=== PATIENT | female | born 1945 | race Caucasian/White ===

== ENCOUNTER 2016-10-23 14:43 | Outpatient (RCR) | payer MEDICARE, OTHER ==
[~2016-10-23 14:43] MED LIST: ATRV10T PO; CYCL10TA9 PO; HYDR-1231 PO; LISI2.5T56 PO; LVT.1T PO; MECL-106 PO; ONDA4TAB8 PO; SCOP1PAT TD
== END 2016-10-23 15:32 | disposition home or self-care (01) ==
PROVIDERS: ATTEND Nurse Practitioner Family
DX: M25.562 Pain in left knee (principal)

== ENCOUNTER 2017-06-06 18:48 | Emergency (ER) | payer MEDICARE, OTHER ==
[~2017-06-06] VITALS: Ht 172.7 cm; Wt 78.9 kg
--- NOTE | 2017-06-06 19:21 | ED Back Pain ---
General Stated Complaint: SHOOTING BACK PAIN Source of Information: Patient, Family (daughter), Spouse Exam Limitations: No Limitations History of Present Illness Time Seen by Provider: 19:17 Initial Comments Patient presents ER with right-sided back pain that is intermittent colicky and very severe when it comes on and nonexistent when it goes away lasting a few minutes at a time causing her to double over that started about the time she woke up this morning. She's never had this pain before. She has no history of coronary disease. She does not smoke or drink or user of recreational drugs. She states many years ago she had some bad sciatica have this pain does not radiate anywhere and is about the level of her kidneys. She is not taking any pain medicines and has been stable on just a statin, SEGUN inhibitor and levothyroxine. She took some Advil this afternoon but it does not stop the pain from coming. She does not stress any nausea rash fever discharge dysuria diarrhea or constipation. She is not of her had a kidney stone and the only surgery she's had on her belly was for a tubal . Allergies and Home Medications Allergies Coded Allergies: estrogens, conjugated (Verified Allergy, Unknown, 01/29/17) medroxyprogesterone acetate (Verified Allergy, Unknown, 01/29/17) Home Medications Atorvastatin Calcium 10 Mg Tablet, 1 EACH PO HS, (Reported) Levothyroxine Sodium 100 Mcg Tablet, 1 EACH PO DAILY, (Reported) Lisinopril 2.5 Mg Tablet, 2.5 MG PO DAILY, #30 (Reported) Meclizine HCl 25 Mg Tablet, 25-50 MG PO Q6H, #30 Prescribed by: HARPER DILLON on 07/19/162109 Ondansetron 4 Mg Tab.rapdis, 4 MG PO Q4H, #10 Prescribed by: HARPER DILLON on 07/19/162109 Scopolamine 1 Each Patch.td72, 1 EACH TD Q72 HOURS, #3 Prescribed by: HARPER DILLON on 07/19/162109 Constitutional: No chills, No diaphoresis, No fever, No malaise EENTM: No ear pain, No blurred vision, No eye pain Respiratory: cough (occasional dry), No phlegm, No short of breath, No wheezing Cardiovascular: No chest pain, No Hx of Intervention, No palpitations, No vascular heart diseas Gastrointestinal: No abdominal pain, No constipation, No diarrhea, No nausea Genitourinary: No discharge, No dysuria : No Control/STD Prophylaxis: None Musculoskeletal: see HPI, back pain Skin: No pruritus, No rash Psychiatric/Neurological: Denies Headache, Denies Numbness, Denies Paresthesia Past [id number] Hx Patient Social History Alcohol Use: Denies Use Recreational Drug Use: No Smoking Status: Never a Smoker Recent Foreign Travel: No Contact w/Someone Who Travel: No Recent Hopitalizations: No Immunizations Up To Date Date of Pneumonia Vaccine: Jul 05, 2012 Date of Influenza Vaccine: Jul 05, 2014 Seasonal Allergies Seasonal Allergies: Yes Surgeries Surgeries: Breast Cardiovascular Cardiac Disorders: High Cholesterol, Hypertension Neurological Neurological Disorders: Vertigo Reproductive System Hx Reproductive Disorders: 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 Endocrine Endocrine Disorders: Hypothyroidsim Physical Exam Vital Signs Capillary Refill : General Appearance: No Apparent Distress, WD/WN (Yes I want another fluorescein stain to go on an I and is only 2 minutes out Accident I) HEENT: PERRL/EOMI, Pharynx Normal Neck: Full Range of Motion, Non Tender, Supple Cardiovascular: Regular Rate, Rhythm, No Edema, No Murmur, Normal Peripheral Pulses Respiratory: Chest Non Tender, Lungs Clear, Normal Breath Sounds, No Accessory Muscle Use, No Respiratory Distress Peripheral Pulses: 2+ Radial Pulses (R), 2+ Radial Pulses (L) Gastrointestinal: Normal Bowel Sounds, No Organomegaly, No Pulsatile Mass, Non Tender, Soft Back: Normal Inspection, No Vertebral Tenderness, No Muscle Spasm, Other ( nontender to palpation all over her back. She points to the right side base of the costovertebral angle.) Extremity: Normal Capillary Refill, No Pedal Edema Neurologic/Psychiatric: Alert, Oriented x3 Skin: Normal Color, Warm/Dry Progress/Results/Core Measures Results/Orders Lab Results Laboratory Tests Test 06/06/17 19:18 06/06/17 19:30 Range/Units Urine Color YELLOW Urine Clarity CLEAR Urine pH 6 5-9 Urine Specific [place] 1.020 1.016-1.022 Urine Protein NEGATIVE NEGATIVE Urine Glucose (UA) NEGATIVE NEGATIVE Urine Ketones NEGATIVE NEGATIVE Urine Nitrite NEGATIVE NEGATIVE Urine Bilirubin NEGATIVE NEGATIVE Urine Urobilinogen NORMAL NORMAL MG/DL Urine Leukocyte Esterase 2+ H NEGATIVE Urine RBC (Auto) NEGATIVE NEGATIVE Urine RBC NONE /HPF Urine WBC 2-5 /HPF Urine Squamous Epithelial Cells 0-2 /HPF Urine Crystals NONE /LPF Urine Bacteria TRACE /HPF Urine Casts NONE /LPF Urine Mucus NEGATIVE /LPF Urine Culture Indicated NO White Blood Count 5.7 4.3-11.0 10^3/uL Red Blood Count 4.10 L 4.35-5.85 10^6/uL Hemoglobin 12.6 11.5-16.0 G/DL Hematocrit 38 35-52 % Mean Corpuscular Volume 94 80-99 FL Mean Corpuscular Hemoglobin 31 25-34 PG Mean Corpuscular Hemoglobin Concent 33 32-36 G/DL Red Cell Distribution Width 13.8 10.0-14.5 % Platelet Count 217 130-400 10^3/uL Mean Platelet Volume 11.1 H 7.4-10.4 FL Neutrophils (%) (Auto) 53 42-75 % Lymphocytes (%) (Auto) 32 12-44 % Monocytes (%) (Auto) 11 0-12 % Eosinophils (%) (Auto) 4 0-10 % Basophils (%) (Auto) 1 0-10 % Neutrophils # (Auto) 3.0 1.8-7.8 X 10^3 Lymphocytes # (Auto) 1.8 1.0-4.0 X 10^3 Monocytes # (Auto) 0.6 0.0-1.0 X 10^3 Eosinophils # (Auto) 0.2 0.0-0.3 10^3/uL Basophils # (Auto) 0.0 0.0-0.1 10^3/uL Sodium Level 143 135-145 MMOL/L Potassium Level 4.1 3.6-5.0 MMOL/L Chloride Level 107 98-107 MMOL/L Carbon Dioxide Level 25 21-32 MMOL/L Anion Gap 11 5-14 MMOL/L Blood Urea Nitrogen 28 H 7-18 MG/DL Creatinine 1.03 0.60-1.30 MG/DL Estimat Glomerular Filtration Rate 53 BUN/Creatinine Ratio 27 Glucose Level 107 H 70-105 MG/DL Calcium Level 9.3 8.5-10.1 MG/DL Magnesium Level 2.4 1.8-2.4 MG/DL Total Bilirubin 0.7 0.1-1.0 MG/DL Aspartate Amino Transf (AST/SGOT) 19 5-34 U/L Alanine Aminotransferase (ALT/SGPT) 26 0-55 U/L Alkaline Phosphatase 67 40-136 U/L Total Protein 6.2 L 6.4-8.2 GM/DL Albumin 4.1 3.2-4.5 GM/DL Lipase 40 8-78 U/L My Orders Orders - BRUNO SHARMA Ct Abd/Pelvis Wo(Kidney Stone) (06/06/17 19:15) Lipase (06/06/17 19:15) Magnesium (06/06/17 19:15) Progress Note : Time: 19:20 Progress Note Right back colicky pain is quite severe could be consistent with kidney stone so we'll get a CT. We'll also check her urine and blood looking at the pancreas and liver and kidney function. Diagnostic Imaging Diagonstic Imaging: CT Plain Films/CT/US/NM/MRI: abdomen, pelvis Comments No Stones in KUB. Constipation. VIA [facility]. [place] NAME: SHEILA WASHINGTON Loren [facility] REC#: [id number] PT STATUS: REG ER : 1945 PHYSICIAN: BRUNO SHARMA MD ADMIT DATE: 06/06/17/ER Draft Date of Exam:06/06/17 CT ABD/PELVIS WO(KIDNEY STONE) PROCEDURE: CT urinary tract, rule out kidney stone. TECHNIQUE: Multiple contiguous axial images were obtained through the abdomen and pelvis without the use of intravenous contrast. INDICATION: Right-sided flank pain. FINDINGS: The visualized lung bases are clear without infiltrate or effusion. The noncontrast appearance of the liver is unremarkable. There is no gallbladder distention, radiodense gallstone or evidence of biliary dilatation. The spleen is normal in size. The pancreas has an unremarkable CT appearance. There is no adrenal mass. The kidneys appear nonobstructed. There is no hydronephrosis. There is no stone evident within the kidneys or the ureters. There is no stone within the urinary bladder. Large degree of food products are present within the stomach. The duodenal sweep is unremarkable. There is no abnormal small bowel dilation demonstrated. There is, however, a large degree of stool demonstrated throughout the colon suggesting significant constipation. There is no evidence of abnormal colonic thickening or evidence of inflammatory fat stranding within the omentum or mesentery. The appendix is normal. There is some fecalization of distal loops of small bowel suggesting a poor enteric transit. There is no free air, free fluid or abscess. Urinary bladder, uterus and adnexa are unremarkable by CT. No pathologically enlarged abdominal or pelvic lymph nodes are demonstrated. There are mild atherosclerotic calcifications within the aorta. Multilevel degenerative endplate changes and facet arthropathy within the spine but there is no acute or suspicious osseous abnormality evident. IMPRESSION: 1. No CT evidence of urolithiasis. There is no hydronephrosis. There is no stone within the kidneys, ureters or urinary bladder. 2. Marked degree of stool demonstrated within the colon as well as fecalization of distal small bowel loops. There is no dilation to suggest obstruction or focal surrounding inflammation. There is no free fluid. Findings suggest significant constipation. Dictated on workstation # [id number] Dict: 06/06/171958 Trans: 06/06/172006 [facility] [id number] Interpreted by: MAHESH MEANS MD Electronically signed by: Reviewed: Reviewed by Me Departure Impression Impression: Primary Impression: Right flank pain Additional Impression: Constipation Qualified Codes: K59.00 - Constipation, unspecified Disposition: HOME, SELF-CARE Condition: Stable Departure-Patient Inst. Decision time for Depature: 20:18 Referrals: SHARON BOLTON MD (PCP/Family) Primary Care Physician Patient Instructions: Constipation, Adult (DC) Add. Discharge Instructions: Drink copious amounts of fluids and clam picker a bottle of MiraLAX. Take one capful in a 8 ounce glass of water you choose to drink such as coffee, tea, water every day until you have resolution. You can increase that up to 4 times a day and use it as needed in the future to prevent constipation. If you have new or worsening symptoms or develop fevers or intractable nausea and vomiting you should return to the ER otherwise plan on just following up with your primary care physician as needed. Copy Copies To 1: SHARON BOLTON MD, TITUS J Jun 06, 2017 19:21
[2017-06-06 19:28] LABS: BILIRUBIN,URINE NEGATIVE (NEGATIVE); KETONES,URINE NEGATIVE (NEGATIVE); LEUKOCYTE ESTERASE ,URINE 2+ (NEGATIVE); NITRITE,URINE NEGATIVE (NEGATIVE); PH,URINE 6 (5-9); PROTEIN,URINE NEGATIVE (NEGATIVE); UROBILINOGEN,URINE NORMAL (NORMAL)
[2017-06-06 19:36] LABS: BASOPHILS % (AUTO) 1 % (0-10); EOSINOPHILS # (AUTO) 0.2 10^3/uL (0.0-0.3); EOSINOPHILS % (AUTO) 4 % (0-10); LYMPHOCYTES # (AUTO) 1.8 X 10^3 (1.0-4.0); LYMPHOCYTES % (AUTO) 32 % (12-44); MEAN CORPUSCULAR HEMOGLOBIN 31 PG (25-34); MEAN CORPUSCULAR HGB CONC 33 G/DL (32-36); MEAN CORPUSCULAR VOLUME 94 FL (80-99); MEAN PLATELET VOLUME 11.1 FL (7.4-10.4); MONOCYTES # (AUTO) 0.6 X 10^3 (0.0-1.0); MONOCYTES % (AUTO) 11 % (0-12); NEUTROPHILS % (AUTO) 53 % (42-75); PLATELET COUNT 217 10^3/uL (130-400); RED CELL DISTRIBUTION WIDTH 13.8 % (10.0-14.5); WHITE BLOOD COUNT 5.7 10^3/uL (4.3-11.0)
[2017-06-06 19:38] LABS: SQUAMOUS EPITHELIAL CELL,UR 0-2 /HPF
[2017-06-06 19:57] LABS: ALBUMIN 4.1 GM/DL (3.2-4.5); BILIRUBIN,TOTAL 0.7 MG/DL (0.1-1.0); CALCIUM 9.3 MG/DL (8.5-10.1); CREATININE SERUM 1.03 MG/DL (0.60-1.30); MAGNESIUM 2.4 MG/DL (1.8-2.4); POTASSIUM 4.1 MMOL/L (3.6-5.0); TOTAL PROTEIN 6.2 GM/DL (6.4-8.2)
--- NOTE | 2017-06-06 20:08 | Diagnostic Imaging Report ---
PROCEDURE: CT urinary tract, rule out kidney stone. TECHNIQUE: Multiple contiguous axial images were obtained through the abdomen and pelvis without the use of intravenous contrast. INDICATION: Right-sided flank pain. FINDINGS: The visualized lung bases are clear without infiltrate or effusion. The noncontrast appearance of the liver is unremarkable. There is no gallbladder distention, radiodense gallstone or evidence of biliary dilatation. The spleen is normal in size. The pancreas has an unremarkable CT appearance. There is no adrenal mass. The kidneys appear nonobstructed. There is no hydronephrosis. There is no stone evident within the kidneys or the ureters. There is no stone within the urinary bladder. Large degree of food products are present within the stomach. The duodenal sweep is unremarkable. There is no abnormal small bowel dilation demonstrated. There is, however, a large degree of stool demonstrated throughout the colon suggesting significant constipation. There is no evidence of abnormal colonic thickening or evidence of inflammatory fat stranding within the omentum or mesentery. The appendix is normal. There is some fecalization of distal loops of small bowel suggesting a poor enteric transit. There is no free air, free fluid or abscess. Urinary bladder, uterus and adnexa are unremarkable by CT. No pathologically enlarged abdominal or pelvic lymph nodes are demonstrated. There are mild atherosclerotic calcifications within the aorta. Multilevel degenerative endplate changes and facet arthropathy within the spine but there is no acute or suspicious osseous abnormality evident. IMPRESSION: 1. No CT evidence of urolithiasis. There is no hydronephrosis. There is no stone within the kidneys, ureters or urinary bladder. 2. Marked degree of stool demonstrated within the colon as well as fecalization of distal small bowel loops. There is no dilation to suggest obstruction or focal surrounding inflammation. There is no free fluid. Findings suggest significant constipation. Dictated by: Dictated on workstation # [id number]
[2017-06-06] MEDS ORDERED: LEVO88TA54 PO (20:16)
[2017-06-06 20:40] VITALS: BP 170/76
== END 2017-06-06 20:40 | disposition home or self-care (01) ==
LOC: EDUNIT# 18:48 → ER 18:49
DX: K59.00 Constipation, unspecified (principal); E78.00 Pure hypercholesterolemia, unspecified; I10 Essential (primary) hypertension; E03.9 Hypothyroidism, unspecified
CPT/HCPCS: 36415; 74176; 80053; 81000; 83690; 83735; 85025; 99282

== ENCOUNTER → 2017-06-30 | Outpatient (CLI) | payer MEDICARE, OTHER ==
[~2017-06-30] MED LIST changes: +LEVO88TA54 PO
--- NOTE | 2017-06-30 18:51 | Diagnostic Imaging Report ---
Bilateral screening mammogram 2D views with tomosynthesis. The current study was also evaluated with a Computer Aided Detection (CAD) system. INDICATION: Screening. No current complaints stated on the questionnaire. COMPARISON: 06/19/16 FINDINGS: The breasts are composed of heterogeneously dense parenchyma which may decrease mammographic sensitivity. Allowing for technique and positional differences, no suspicious change is seen. IMPRESSION: Dense breasts with no definite change. ACR BI-RADS Category 2: Benign findings. Result letter will be mailed to the patient. Note: At least 10% of breast cancer is not imaged by mammography. Dictated by: Dictated on workstation # [id number]
== END ==
LOC: RAD 08:55
PROVIDERS: ATTEND Nurse Practitioner Family
DX: Z12.31 Encounter for screening mammogram for malignant neoplasm of breast (principal)
CPT/HCPCS: 77067

== ENCOUNTER 2017-11-02 08:38 | Emergency (ER) | payer MEDICARE, OTHER ==
[~2017-11-02] VITALS: Ht 172.7 cm; Wt 72.1 kg
--- OUTSIDE RECORDS SUMMARY | 2017-11-02 08:45 | XMS REPORT | CCD ---
Author Author [facility] Address [address] [place] [address] Phone Care Team Providers Care Patient Relations Director Name Role Phone PP Unavailable CCM Unavailable Summary Purpose Interface Exchange Insurance Providers Payer name Policy type / Coverage type Covered libertarian ID Effective Begin Date Effective End Date WPS Medicare Part B Medicare Part B [id number] 2013 Unknown [facility] Medicare Part B [id number] 2013 Unknown Family history Father Diagnosis Age At Onset No Family Disease Entered N/A Son Diagnosis Age At Onset No Family Disease Entered N/A Runs in the family Diagnosis Age At Onset No Family Disease Entered N/A Brother Diagnosis Age At Onset No Family Disease Entered N/A Mother Diagnosis Age At Onset No Family Disease Entered N/A Grandson Diagnosis Age At Onset No Family Disease Entered N/A Daughter Diagnosis Age At Onset No Family Disease Entered N/A Sister Diagnosis Age At Onset No Family Disease Entered N/A Social History Social History Element Codes Description Effective Dates Marital status Unknown 05/31/2012 Employment Unknown Retired 05/31/[address]: 004158387 Never smoker 05/31/[address]: 218051796 Never drinks alcohol 05/31/2012 Has the patient ever used illegal drugs? Unknown Has never used illegal drugs 05/31/2012 Allergies, Adverse Reactions, Alerts Substance Reaction Codes Entered Date Inactivated Date Status ESTROGENS rash Unknown 05/31/2012 No Inactive Date Active Past Medical History Illness Codes Condition Status Onset Date Resolved Date Benign paroxysmal vertigo, bilateral ICD-9: 386.11 ICD-10: H81.13 Active 02/25/2016 Unknown Other allergic rhinitis ICD-9: 477.8 ICD-10: J30.89 Active 08/14/2016 Unknown Encounter for immunization ICD-9: V04.81 ICD-10: Z23 Active 07/02/2017 Unknown Essential (primary) hypertension ICD-9: 401.9 ICD-10: I10 Active 01/30/2016 Unknown Hypothyroidism, unspecified ICD-9: 244.9 ICD-10: E03.9 Active 01/30/2016 Unknown Mixed hyperlipidemia ICD-9: 272.4 ICD-10: E78.2 Active 01/30/2016 Unknown Type 2 diabetes mellitus without complications ICD-9: 250.00 ICD-10: E11.9 Active 01/30/2016 Unknown Encounter for immunization ICD-9: V03.82 ICD-10: Z23 Active 08/14/2016 Unknown Pain in left knee ICD- 9: 719.46 ICD-10: M25.562 Active 08/14/2016 Unknown Pneumonia, unspecified organism ICD-9: 486 ICD-10: J18.9 Active 05/18/2016 Unknown Other seasonal allergic rhinitis ICD-9: 477.8 ICD-10: J30.2 Active 02/25/2016 Unknown Other screening mammogram ICD-9: V76.12 Active 05/09/2015 Unknown Depression Unknown Active 01/24/2014 Unknown Depression ICD-9: 311 Active 01/24/2014 Unknown Sciatica Unknown Active 12/27/2013 Unknown SACROILIITIS NEC ICD-9 : 720.2 Active 12/27/2013 Unknown Sciatica ICD-9: 724.3 Active 12/27/2013 Unknown Diabetes Unknown Active 10/24/2013 Unknown Hypertension Unknown Active 10/24/2013 Unknown DIABETES TYPE II ICD-9 : 250.00 Active 10/24/2013 Unknown ESSENTIAL HYPERTENSION ICD-9: 401.9 Active 10/24/2013 Unknown Osteopenia ICD-9: 733.90 Active 10/24/2013 Unknown Elevated blood sugar ICD-9: 790.29 Active 07/26/2013 Unknown Plantar fasciitis ICD- 9: 728.71 Active 05/20/2013 Unknown Well woman exam with routine gynecological exam ICD-9: V72.31 Active 10/28/2012 Unknown VACCIN FOR INFLUENZA ICD-9: V04.81 Active 08/05/2012 Unknown Elevated liver enzymes ICD-9: 790.4 Active 06/02/2012 Unknown Fatigue ICD-9: 780.79 Active 06/02/2012 Unknown Hyperlipidemia Unknown Active 05/31/2012 Unknown Hypothryroidism Unknown Active 05/31/2012 Unknown Acute maxillary sinusitis ICD-9: 461.0 Active 05/31/2012 Unknown Allergic rhinitis ICD- 9: 477.9 Active 05/31/2012 Unknown HYPERLIPIDEMIA ICD-9: 272.4 Active 05/31/2012 Unknown HYPOTHYROIDISM ICD-9: 244.9 Active 05/31/2012 Unknown Problems Condition Codes Effective Dates Condition Status Benign paroxysmal vertigo, bilateral ICD-9: 386.11 ICD-10: H81.13 02/25/2016 Active Other allergic rhinitis ICD-9: 477.8 ICD-10: J30.89 08/14/2016 Active Encounter for immunization ICD-9: V04.81 ICD-10: Z23 07/02/2017 Active Essential (primary) hypertension ICD-9: 401.9 ICD-10: I10 01/30/2016 Active Hypothyroidism, unspecified ICD-9: 244.9 ICD-10: E03.9 01/30/2016 Active Mixed hyperlipidemia ICD-9: 272.4 ICD-10: E78.2 01/30/2016 Active Type 2 diabetes mellitus without complications ICD-9: 250.00 ICD-10: E11.9 01/30/2016 Active Encounter for immunization ICD-9: V03.82 ICD-10: Z23 08/14/2016 Active Pain in left knee ICD- 9: 719.46 ICD-10: M25.562 08/14/2016 Active Pneumonia, unspecified organism ICD-9: 486 ICD-10: J18.9 05/18/2016 Active Other seasonal allergic rhinitis ICD-9: 477.8 ICD-10: J30.2 02/25/2016 Active Other screening mammogram ICD-9: V76.12 05/09/2015 Active Depression Unknown 01/24/2014 Active Depression ICD-9: 311 01/24/2014 Active Sciatica Unknown 12/27/2013 Active SACROILIITIS NEC ICD-9 : 720.2 12/27/2013 Active Sciatica ICD-9: 724.3 12/27/2013 Active Diabetes Unknown 10/24/2013 Active Hypertension Unknown 10/24/2013 Active DIABETES TYPE II ICD-9 : 250.00 10/24/2013 Active ESSENTIAL HYPERTENSION ICD-9: 401.9 10/24/2013 Active Osteopenia ICD-9: 733.90 10/24/2013 Active Elevated blood sugar ICD-9: 790.29 07/26/2013 Active Plantar fasciitis ICD- 9: 728.71 05/20/2013 Active Well woman exam with routine gynecological exam ICD-9: V72.31 10/28/2012 Active VACCIN FOR INFLUENZA ICD-9: V04.81 08/05/2012 Active Elevated liver enzymes ICD-9: 790.4 06/02/2012 Active Fatigue ICD-9: 780.79 06/02/2012 Active Hyperlipidemia Unknown 05/31/2012 Active Hypothryroidism Unknown 05/31/2012 Active Acute maxillary sinusitis ICD-9: 461.0 05/31/2012 Active Allergic rhinitis ICD- 9: 477.9 05/31/2012 Active HYPERLIPIDEMIA ICD-9: 272.4 05/31/2012 Active HYPOTHYROIDISM ICD-9: 244.9 05/31/2012 Active Medications Medication Codes Instructions Start Date Stop Date Status Fill Instructions meclizine 25 mg tablet RxNorm: 284796 1 Tablet(s) PO TID as needed Dizziness 10/28/2017 No Stop Date Active meclizine 25 mg tablet RxNorm: 081679 1 Tablet(s) PO TID as needed Dizziness 10/28/2017 11/01/2017 Active Kenalog 40 mg/mL suspension for injection RxNorm: 3045266 1 Milliliter(s) Inj 10/28/2017 10/28/2017 Inactive lisinopril 2.5 mg tablet RxNorm: 156019 TABLET(S) TAKE 1 TABLET DAILY 10/16/2017 No Stop Date Active atorvastatin 10 mg tablet RxNorm: 616994 TAKE 1 TABLET AT BEDTIME 08/21/2017 No Stop Date Active levothyroxine 88 mcg tablet RxNorm: 291396 TAKE 1 TABLET DAILY 06/01/2017 No Stop Date Active levothyroxine 88 mcg tablet RxNorm: 253753 TAKE 1 TABLET DAILY 12/25/2016 05/31/2017 Inactive atorvastatin 10 mg tablet RxNorm: 253247 Tablet(s) TABLET(S) TAKE 1 TABLET AT BEDTIME 10/29/2016 08/20/2017 Inactive atorvastatin 10 mg tablet RxNorm: 812440 TABLET(S) TAKE 1 TABLET AT BEDTIME 10/27/2016 10/28/2016 Inactive lisinopril 2.5 mg tablet RxNorm: 109811 Tablet(s) TAKE 1 TABLET DAILY 10/20/2016 10/14/2017 Inactive Flonase Allergy Relief 50 mcg/actuation nasal spray, suspension RxNorm: 1878586 1 [place] NASAL BID 08/15/2016 No Stop Date Active levothyroxine 88 mcg tablet RxNorm: 997902 1 TABLET(S) PO DAILY 06/27/2016 12/24/2016 Inactive Augmentin 500 mg-125 mg tablet RxNorm: 218601 1 Tablet(s) PO TID 05/19/2016 05/19/2016 Inactive atorvastatin 10 mg tablet RxNorm: 754281 Tablet(s) TAKE 1 TABLET AT BEDTIME 04/30/2016 10/26/2016 Inactive lisinopril 2.5 mg tablet RxNorm: 474192 TAKE 1 TABLET DAILY 10/19/2016 Inactive meclizine 25 mg tablet RxNorm: 885660 1 Tablet(s) PO QID as needed Dizziness 02/26/2016 03/03/2016 Inactive Flonase Allergy Relief 50 mcg/actuation nasal spray, suspension RxNorm: 2424604 1 [place] NASAL BID 02/26/20162015 Inactive Kenalog 40 mg/mL suspension for injection RxNorm: 8002507 Milliliter(s) Inj 02/26/2016 02/26/2016 Inactive levothyroxine 88 mcg tablet RxNorm: 246654 1 Tablet(s) PO daily 02/01/2016 02/07/2016 Inactive levothyroxine 88 mcg tablet RxNorm: 288055 1 Tablet(s) PO daily 02/01/2016 01/31/2016 Inactive levothyroxine 88 mcg tablet RxNorm: 707609 1 Tablet(s) PO daily 02/01/2016 01/31/2016 Inactive lisinopril 2.5 mg tablet RxNorm: 185676 1 TABLET(S) PO DAILY 2016 Inactive levothyroxine 100 mcg tablet RxNorm: 576773 TAKE 1 TABLET DAILY 12/24/2015 01/31/2016 Inactive atorvastatin 10 mg tablet RxNorm: 077683 TAKE 1 TABLET AT BEDTIME 07/31/2015 04/29/2016 Inactive levothyroxine 100 mcg tablet RxNorm: 606854 TAKE 1 TABLET DAILY 03/06/2015 12/23/2015 Inactive lisinopril 2.5 mg tablet RxNorm: 149422 1 Tablet(s) PO daily 01/27/2016 Inactive atorvastatin 10 mg tablet RxNorm: 527533 1 Tablet(s) PO daily TAKE 1 TABLET AT BEDTIME 09/14/2014 07/30/2015 Inactive atorvastatin 10 mg tablet RxNorm: 094674 1 Tablet(s) PO QHS 05/201409/10/2014 Inactive atorvastatin 10 mg tablet RxNorm: 477318 TAKE 1 TABLET AT BEDTIME 09/11/2014 09/13/2014 Inactive lisinopril 2.5 mg tablet RxNorm: 640541 1 Tablet(s) PO daily 12/02/2014 Inactive clobetasol 0.05 % topical cream RxNorm: 676423 1 Application TOP BID as needed 06/14/2014 06/13/2014 Inactive clobetasol 0.05 % topical cream RxNorm: 186359 1 Application TOP BID as needed 06/14/2014 09/11/2014 Inactive lisinopril 2.5 mg tablet RxNorm: 001162 1 Tablet(s) PO daily 08/21/2014 Inactive cyclobenzaprine 5 mg tablet RxNorm: 832084 1 Tablet(s) PO Q6 PRN 01/02/2014 03/02/2014 Inactive prednisone 20 mg tablet RxNorm: 293516 1 Tablet(s) PO TID 12/2912/28/2013 Inactive one tid or two q am one at noonhold naproxen while on prednisone. may restart naproxen when finishes prednisone prednisone 20 mg tablet RxNorm: 780298 1 Tablet(s) PO TID 12/2912/31/2013 Inactive one tid or two q am one at noonhold naproxen while on prednisone. may restart naproxen when finishes prednisone levothyroxine 100 mcg tablet RxNorm: 694019 1 Tablet(s) PO daily 12/27/2013 03/05/2015 Inactive naproxen 500 mg tablet RxNorm: 033484 1 Tablet(s) PO BID take one pill twice daily with food 12/27/2013 02/24/2014 Inactive atorvastatin 10 mg tablet RxNorm: 437152 1 Tablet(s) PO QHS 07/201409/10/2014 Inactive colestipol 5 gram oral packet RxNorm: 0597912 1 packet PO BID 10/31/2013 11/03/2013 Inactive Fish Oil 1,000 mg capsule RxNorm: 1 Capsule(s) PO BID 2013 No Stop Date Active WelChol 625 mg tablet RxNorm: 362944 3 Tablet(s) PO BID 201310/30/2013 Inactive ketoconazole 2 % shampoo RxNorm: 394339 1 Application TOP 3 x week 10/24/2013 11/22/2013 Inactive atorvastatin 10 mg tablet RxNorm: 052901 1 Tablet(s) PO QHS 11/13/2013 Inactive levothyroxine 100 mcg tablet RxNorm: 607677 1 Tablet(s) PO daily 11/30/2012 11/24/2013 Inactive fluticasone 50 mcg/actuation Nasal [place], Susp RxNorm: 931286 1 [place] NASAL BID 10/28/2012 01/30/2016 Inactive atorvastatin 10 mg tablet RxNorm: 823493 1 Tablet(s) PO QHS 03/201212/07/2012 Inactive atorvastatin 10 mg tablet RxNorm: 522501 1 Tablet(s) PO QHS 03/201208/09/2012 Inactive Influenza Virus Vaccine 0.5 mL RxNorm: IM 08/05/2012 08/05/2012 Inactive Crestor 20 mg tablet RxNorm: 988439 1 Tablet(s) PO daily 201106/14/2012 Inactive levothyroxine 100 mcg tablet RxNorm: 982488 1 Tablet(s) PO daily 05/31/2012 09/27/2012 Inactive Bactrim DS 800 mg-160 mg tablet RxNorm: 194252 1 Tablet(s) PO BID 05/31/2012 06/04/2012 Inactive Vitamin D3 1,000 unit capsule RxNorm: 724128 1 Capsule(s) PO daily No Start Date Active glucosamine HCl 1,500 mg tablet RxNorm: 841558 2 Tablet(s) PO daily No Start Date Active aspirin 81 mg capsule,delayed release RxNorm: 150969 1 Capsule(s) PO daily No Start Date Active colestipol 5 gram oral packet RxNorm: 9480047 1 packet PO BID No Start Date 10/30/2013 Inactive Fish Oil 1,000 mg capsule RxNorm: 1 Capsule(s) PO TID No Start Date 10/23/2013 Inactive Fish Oil 360 mg-1,200 mg capsule RxNorm: 729791 1 Capsule(s) PO daily No Start Date 10/24/2013 Inactive levothyroxine 100 mcg tablet RxNorm: 145552 1 Tablet(s) PO daily No Start Date 05/30/2012 Inactive Crestor 20 mg tablet RxNorm: 479960 1 Tablet(s) PO daily No Start Date 05/30/2012 Inactive Calcium 600 + D(3) 600 mg (1,500 mg)-400 unit tablet RxNorm: 400071 1 Tablet(s) PO daily No Start Date 10/23/2013 Inactive Medication Administered Medication Codes Instructions Start Date Status Kenalog 40 mg/mL suspension for injection RxNorm: 5003372 1Milliliter 10/28/2017 Active Kenalog 40 mg/mL suspension for injection RxNorm: 9696850 Milliliter 02/26/2016 No longer Active Influenza Virus Vaccine 0.5 mL RxNorm: 08/05/2012 No longer Active Immunizations Vaccine Codes Date Status Influenza CVX: 141 07/02/2017 completed Pneumococcal (Adult) CVX: 133 08/15/2016 completed Influenza CVX: 141 07/19/2016 completed Influenza CVX: 141 07/18/2013 completed Influenza CVX: 141 08/05/2012 completed Pneumococcal CVX: 33 08/24/2011 completed Zoster CVX: 121 02/21/2011 completed Assessments Condition Codes Effective Dates Other allergic rhinitis ICD-10: J30.89 ICD-9: 477.8 10/28/2017 Benign paroxysmal vertigo, bilateral ICD-10: H81.13 ICD-9: 386.11 10/28/2017 Encounter for immunization ICD-10: Z23 ICD-9: V04.81 07/02/2017 Mixed hyperlipidemia ICD-10: E78.2 ICD-9: 272.4 06/10/2017 Other specified hypothyroidism ICD-10: E03.8 ICD-9: 244.8 06/10/2017 Type 2 diabetes mellitus without complications ICD-10: E11.9 ICD-9: 250.00 06/10/2017 Essential (primary) hypertension ICD-10: I10 ICD-9: 401.9 06/10/2017 Pain in left knee ICD-10: M25.562 ICD-9: 719.46 08/15/2016 Encounter for immunization ICD-10: Z23 ICD-9: V03.82 08/15/2016 Pneumonia, unspecified organism ICD-10: J18.9 ICD-9: 486 05/19/2016 Other seasonal allergic rhinitis ICD-10: J30.2 ICD-9: 477.8 02/26/2016 Hypothyroidism, unspecified ICD-10: E03.9 ICD-9: 244.9 01/31/2016 Other screening mammogram ICD-9: V76.12 05/10/2015 ESSENTIAL HYPERTENSION SNOMED: 30799313 ICD-9: 401.9 01/24/2014 Depression ICD-9: 311 01/24/2014 DIABETES TYPE II SNOMED: 559671702 ICD-9: 250.00 01/24/2014 SACROILIITIS NEC ICD-9: 720.2 12/27/2013 Sciatica ICD-9: 724.3 12/27/2013 HYPERLIPIDEMIA ICD-9: 272.4 10/24/2013 Osteopenia ICD-9: 733.90 10/24/2013 Elevated blood sugar ICD-9: 790.29 2012 Plantar fasciitis ICD-9: 728.71 2012 Well woman exam with routine gynecological exam ICD-9: V72.31 10/28/2012 VACCIN FOR INFLUENZA ICD-9: V04.81 2011 Elevated liver enzymes ICD-9: 790.4 06/02 Fatigue ICD-9: 780.79 06/02/2012 HYPOTHYROIDISM ICD-9: 244.9 05/31/2012 Acute maxillary sinusitis ICD-9: 461.0 Allergic rhinitis ICD-9: 477.9 2011 Reason For Visit Reason For Visit Effective Dates Notes Hospital Follow Up 10/28/2017 Urgent Care follow up vaccination against influenza 07/02/2017 hypertension 06/10/2017 cough 08/15/2016 knee pain 07/16/2016 cough 05/19/2016 vertigo 02/26/2016 diabetes mellitus 01/31/2016 diabetes mellitus 01/24/2014 hip pain 12/27/2013 blood pressure followup 10/24/2013 diabetes mellitus 07/26/2013 foot pain 05/20/2013 well woman exam (65+ years) 10/28/2012 vaccination against influenza 08/05/2012 abnormal test results 06/02/2012 hypothyroid 05/31/2012 Results Observation Observation Code Item Item Code Result Date Tsh Ord6 hTSH II 1.39 uIU/mL 06/05/2017 Comp Metabolic Vpj138 NA 142 mEq/L 06/05/2017 Comp Metabolic Kog037 K 4.2 mEq/L 06/05/2017 Comp Metabolic Iqd873 CL 106 mEq/L 06/05/2017 Comp Metabolic Tqr782 CO2 28.0 mEq/L 06/05/2017 Comp Metabolic Uet535 ANION GAP 12 06/05/2017 Comp Metabolic Jwd119 GLUCOSE 95 mg/dL 06/05/2017 Comp Metabolic Yva474 Creat 0.9 mg/dL 06/05/2017 Comp Metabolic Gwj588 eGFR 66 ml/min/1.73m2 06/05/2017 Comp Metabolic Eaw932 BUN 30 mg/dL 06/05/2017 Comp Metabolic Igl294 B/C Ratio 33.3 Ratio 06/05/2017 Comp Metabolic Fkj375 CALCIUM 9.2 mg/dL 06/05/2017 Comp Metabolic Jzc574 ALK PHOS 57 U/L 06/05/2017 Comp Metabolic Nmk827 AST(SGOT) 19 U/L 06/05/2017 Comp Metabolic Szg042 ALT(SGPT) 25 U/L 06/05/2017 Comp Metabolic Qwt435 BILI T 0.7 mg/dL 06/05/2017 Comp Metabolic Dkf158 ALBUMIN 4.2 g/dL 06/05/2017 Comp Metabolic Zag775 TPRO 6.3 g/dL 06/05/2017 Comp Metabolic Nsm206 GLOB 2.1 g/dL 06/05/2017 Comp Metabolic Qxc351 A/G Ratio 1.9 Ratio 06/05/2017 Comp Metabolic Ayc746 Osmo 289 mOsmo 06/05/2017 Free T4 Eux468 FREE T4 0.88 ng/dL 06/05/2017 Cbc With Differential Ord2 WBC 3.91 K/ul 06/05/2017 Cbc With Differential Ord2 RBC 4.07 M/ul 06/05/2017 Cbc With Differential Ord2 HGB 12.8 g/dl 06/05/2017 Cbc With Differential Ord2 HCT 38.8 % 06/05/2017 Cbc With Differential Ord2 Neut% 55.0 % 06/05/2017 Cbc With Differential Ord2 MCV 95.3 fl 06/05/2017 Cbc With Differential Ord2 Lymph% 30.7 % 06/05/2017 Cbc With Differential Ord2 MCH 31.4 pg 06/05/2017 Cbc With Differential Ord2 [place]% 9.7 % 06/05/2017 Cbc With Differential Ord2 Eos% 4.3 % 06/05/2017 Cbc With Differential Ord2 MCHC 33.0 pg 06/05/2017 Cbc With Differential Ord2 Baso% 0.3 % 06/05/2017 Cbc With Differential Ord2 PLT 203 K/ul 06/05/2017 Cbc With Differential Ord2 Neut ABS# 2.15 K/ul 06/05/2017 Cbc With Differential Ord2 RDW 14.3 % 06/05/2017 Cbc With Differential Ord2 Lymph ABS# 1.20 K/ul 06/05/2017 Cbc With Differential Ord2 [place] ABS# 0.4 K/ul 06/05/2017 Cbc With Differential Ord2 Eos ABS# 0.2 K/ul 06/05/2017 Cbc With Differential Ord2 Baso ABS# 0.0 K/ul 06/05/2017 %Hba1C Hyz924 % HbA1c 27565-5 6.3 % 06/05/2017 %Hba1C Fxn718 Gluc Ave 134 mg/dL 06/05/2017 Tsh Ord6 hTSH II 0.48 uIU/mL 05/01/2016 Free T4 Xsh241 FREE T4 1.10 ng/dL 05/01/2016 %Hba1C Tme732 % HbA1c 76091-6 6.3 % 01/31/2016 %Hba1C Oiv043 Gluc Ave 134 mg/dL 01/31/2016 Comp Metabolic Ued723 NA 141 mEq/L 01/31/2016 Comp Metabolic Yis971 K 4.4 mEq/L 01/31/2016 Comp Metabolic Hfg438 CL 103 mEq/L 01/31/2016 Comp Metabolic Qui351 CO2 32.0 mEq/L 01/31/2016 Comp Metabolic Ora057 ANION GAP 10 01/31/2016 Comp Metabolic Ybj755 GLUCOSE 99 mg/dL 01/31/2016 Comp Metabolic Jus207 Creat 0.8 mg/dL 01/31/2016 Comp Metabolic Jhq674 eGFR 77 ml/min/1.73m2 01/31/2016 Comp Metabolic Lhz785 BUN 22 mg/dL 01/31/2016 Comp Metabolic Dkl895 B/C Ratio 27.8 Ratio 01/31/2016 Comp Metabolic Dca463 CALCIUM 9.7 mg/dL 01/31/2016 Comp Metabolic Vzn015 ALK PHOS 62 U/L 01/31/2016 Comp Metabolic Ptg780 AST(SGOT) 16 U/L 01/31/2016 Comp Metabolic Vkf329 ALT(SGPT) 22 U/L 01/31/2016 Comp Metabolic Hqu074 BILI T 1.1 mg/dL 01/31/2016 Comp Metabolic Yzl317 ALBUMIN 4.2 g/dL 01/31/2016 Comp Metabolic Kfv497 TPRO 6.4 g/dL 01/31/2016 Comp Metabolic Qdr304 GLOB 2.2 g/dL 01/31/2016 Comp Metabolic Ljw342 A/G Ratio 2.0 Ratio 01/31/2016 Comp Metabolic Jgq728 Osmo 285 mOsmo 01/31/2016 Free T4 Bus181 FREE T4 1.01 ng/dL 01/31/2016 Cbc With Differential Ord2 WBC 3.54 K/ul 01/31/2016 Cbc With Differential Ord2 RBC 4.15 M/ul 01/31/2016 Cbc With Differential Ord2 HGB 12.9 g/dl 01/31/2016 Cbc With Differential Ord2 HCT 39.7 % 01/31/2016 Cbc With Differential Ord2 Neut% 60.4 % 01/31/2016 Cbc With Differential Ord2 MCV 95.7 fl 01/31/2016 Cbc With Differential Ord2 Lymph% 24.9 % 01/31/2016 Cbc With Differential Ord2 MCH 31.1 pg 01/31/2016 Cbc With Differential Ord2 [place]% 11.0 % 01/31/2016 Cbc With Differential Ord2 MCHC 32.5 pg 01/31/2016 Cbc With Differential Ord2 Eos% 3.4 % 01/31/2016 Cbc With Differential Ord2 PLT 240 K/ul 01/31/2016 Cbc With Differential Ord2 Baso% 0.3 % 01/31/2016 Cbc With Differential Ord2 Neut ABS# 2.14 K/ul 01/31/2016 Cbc With Differential Ord2 RDW 14.8 % 01/31/2016 Cbc With Differential Ord2 Lymph ABS# 0.88 K/ul 01/31/2016 Cbc With Differential Ord2 [place] ABS# 0.4 K/ul 01/31/2016 Cbc With Differential Ord2 Eos ABS# 0.1 K/ul 01/31/2016 Cbc With Differential Ord2 Baso ABS# 0.0 K/ul 01/31/2016 Cbc With Differential Ord2 New Analyzer Notice Please note new ref ranges starting 10-17-2015 due to implemntation of new five part differential hematolgy analyzer. 01/31/2016 Lipid Ord30 CHOL 163 mg/dL 01/31/2016 Lipid Ord30 HDL 53.0 mg/dl 01/31/2016 Lipid Ord30 TRIG 81 mg/dL 01/31/2016 Lipid Ord30 LDL 94 mg/dL 01/31/2016 Lipid Ord30 C/HDL 3.1 Ratio 01/31/2016 Tsh Ord6 hTSH II 0.21 uIU/mL 01/31/2016 VIT D TOTL 0829055 VIT D TOTL 62 NG/ML 10/24/2013 Review of Systems System Result Effective Dates Constitutional recent illness 10/28/2017 Constitutional No chills 10/28/2017 Constitutional No diaphoresis 10/28/2017 Constitutional No fever 10/28/2017 Eyes No eye erythema 10/28/2017 Ears/Nose/Throat/Neck nasal allergies Ears/Nose/Throat/Neck nasal discharge Ears/Nose/Throat/Neck postnasal drip Ears/Nose/Throat/Neck sinus congestion Ears/Nose/Throat/Neck No sore throat Cardiovascular No chest pain/pressure Cardiovascular No dyspnea 10/28/2017 Respiratory No chest congestion 2017 Respiratory cough 10/28/2017 Respiratory No dyspnea 10/28/2017 Gastrointestinal No abdominal pain 2017 Gastrointestinal No constipation 2017 Gastrointestinal No diarrhea 10/28/2017 Gastrointestinal No nausea 10/28/2017 Gastrointestinal No vomiting 10/28/2017 Dermatologic No rash 10/28/2017 Neurologic No alteration of consciousness 10/28/2017 Neurologic No mental status change 2017 Ears/Nose/Throat/Neck dizziness 2017 Constitutional No recent illness 2016 Constitutional No chills 06/10/2017 Constitutional No diaphoresis 06/10/2017 Constitutional No fever 06/10/2017 Eyes No eye erythema 06/10/2017 Ears/Nose/Throat/Neck No nasal discharge 06/10/2017 Ears/Nose/Throat/Neck No nasal allergies 06/10/2017 Constitutional No malaise 06/10/2017 Eyes No vision change 06/10/2017 Ears/Nose/Throat/Neck No postnasal drip 06/10/2017 Ears/Nose/Throat/Neck No sinus congestion 06/10/2017 Cardiovascular No chest pain/pressure 03/2017 Cardiovascular No dyspnea 06/10/2017 Respiratory No dyspnea 06/10/2017 Gastrointestinal No abdominal pain 2016 Gastrointestinal No constipation 2016 Gastrointestinal No diarrhea 06/10/2017 Gastrointestinal No gastroesophageal reflux 06/10/2017 Gastrointestinal No melena 06/10/2017 Gastrointestinal No nausea 06/10/2017 Gastrointestinal No vomiting 06/10/2017 Musculoskeletal No myalgias 06/10/2017 Dermatologic No rash 06/10/2017 Neurologic No headache 06/10/2017 Respiratory No chest congestion 2016 Respiratory No cough 06/10/2017 Musculoskeletal No back pain 06/10/2017 Neurologic No alteration of consciousness 06/10/2017 Constitutional No fever 08/15/2016 Constitutional No diaphoresis 08/15/2016 Constitutional No chills 08/15/2016 Eyes No eye erythema 08/15/2016 Ears/Nose/Throat/Neck No nasal discharge 08/15/2016 Ears/Nose/Throat/Neck nasal allergies 08/2016 Ears/Nose/Throat/Neck sinus congestion Ears/Nose/Throat/Neck postnasal drip 08/2016 Ears/Nose/Throat/Neck No sore throat 08/2016 Cardiovascular No chest pain/pressure 08/2016 Cardiovascular No dyspnea 08/15/2016 Respiratory No cough 08/15/2016 Respiratory No chest congestion 2015 Musculoskeletal joint complaint 2015 Dermatologic No rash 08/15/2016 Neurologic No alteration of consciousness 08/15/2016 Neurologic No mental status change 2015 Constitutional No recent illness 2015 Constitutional No chills 07/16/2016 Constitutional No diaphoresis 07/16/2016 Constitutional No fever 07/16/2016 Eyes No eye erythema 07/16/2016 Eyes No vision change 07/16/2016 Cardiovascular No chest pain/pressure 09/2016 Cardiovascular No dyspnea 07/16/2016 Respiratory No dyspnea 07/16/2016 Dermatologic No rash 07/16/2016 Ears/Nose/Throat/Neck nasal allergies 09/2016 Respiratory No cough 07/16/2016 Gastrointestinal No abdominal pain 2015 Musculoskeletal joint complaint 2015 Neurologic No alteration of consciousness 07/16/2016 Neurologic No mental status change 2015 Constitutional recent illness 05/19/2016 Eyes No eye erythema 05/19/2016 Eyes No vision change 05/19/2016 Ears/Nose/Throat/Neck nasal allergies Ears/Nose/Throat/Neck nasal discharge Ears/Nose/Throat/Neck postnasal drip Ears/Nose/Throat/Neck sinus congestion Cardiovascular No chest pain/pressure Cardiovascular No dyspnea 05/19/2016 Respiratory chest congestion 05/19/2016 Respiratory cough 05/19/2016 Respiratory No dyspnea 05/19/2016 Dermatologic No rash 05/19/2016 Neurologic No alteration of consciousness 05/19/2016 Constitutional No fever 05/19/2016 Constitutional fatigue 05/19/2016 Ears/Nose/Throat/Neck sore throat 2015 Gastrointestinal No nausea 05/19/2016 Gastrointestinal No vomiting 05/19/2016 Gastrointestinal No abdominal pain 2015 Musculoskeletal No joint complaint 2015 Neurologic No mental status change 2015 Constitutional recent illness 02/26/2016 Eyes No eye erythema 02/26/2016 Eyes No vision change 02/26/2016 Ears/Nose/Throat/Neck postnasal drip Ears/Nose/Throat/Neck sinus congestion Cardiovascular No chest pain/pressure Cardiovascular No dyspnea 02/26/2016 Respiratory No dyspnea 02/26/2016 Genitourinary/Nephrology No dysuria 02/25 Dermatologic No rash 02/26/2016 Psychiatric No anxiety 02/26/2016 Psychiatric No depression 02/26/2016 Ears/Nose/Throat/Neck nasal allergies Ears/Nose/Throat/Neck nasal discharge Cardiovascular near-syncope/dizziness Respiratory No chest congestion 2015 Respiratory No cough 02/26/2016 Gastrointestinal nausea 02/26/2016 Gastrointestinal vomiting 02/26/2016 Neurologic No alteration of consciousness 02/26/2016 Neurologic dizziness 02/26/2016 Neurologic No headache 02/26/2016 Constitutional fever 02/26/2016 Ears/Nose/Throat/Neck dizziness 2015 Constitutional No recent illness 2015 Constitutional No anorexia 01/31/2016 Constitutional No night sweats 2015 Constitutional No chills 01/31/2016 Constitutional No diaphoresis 01/31/2016 Constitutional No fatigue 01/31/2016 Constitutional No fever 01/31/2016 Constitutional No insomnia 01/31/2016 Constitutional No malaise 01/31/2016 Eyes No blindness 01/31/2016 Eyes No vision change 01/31/2016 Ears/Nose/Throat/Neck No dental pain Ears/Nose/Throat/Neck No dysphagia 2015 Ears/Nose/Throat/Neck No hearing loss Ears/Nose/Throat/Neck No postnasal drip 01/31/2016 Ears/Nose/Throat/Neck No sinus congestion 01/31/2016 Cardiovascular No chest pain/pressure Cardiovascular No dyspnea 01/31/2016 Cardiovascular No edema 01/31/2016 Cardiovascular No exercise intolerance Cardiovascular No near-syncope/dizziness 01/31/2016 Respiratory No chest tightness 2015 Respiratory No cigarette smoking 2015 Respiratory No dyspnea 01/31/2016 Respiratory No pedal edema 01/31/2016 Respiratory No snoring 01/31/2016 Respiratory No wheezing 01/31/2016 Gastrointestinal No hemorrhoids 2015 Gastrointestinal No abdominal pain 2015 Gastrointestinal No constipation 2015 Gastrointestinal No diarrhea 01/31/2016 Gastrointestinal No gastroesophageal reflux 01/31/2016 Gastrointestinal No melena 01/31/2016 Gastrointestinal No nausea 01/31/2016 Gastrointestinal No vomiting 01/31/2016 Musculoskeletal No stiffness 01/31/2016 Musculoskeletal No swelling 01/31/2016 Musculoskeletal No muscle weakness 2015 Musculoskeletal No myalgias 01/31/2016 Neurologic No dizziness 01/31/2016 Neurologic No headache 01/31/2016 Neurologic No neck pain 01/31/2016 Neurologic No syncope 01/31/2016 Psychiatric No anxiety 01/31/2016 Psychiatric No depression 01/31/2016 Musculoskeletal back pain 01/31/2016 Musculoskeletal sciatica 01/31/2016 Dermatologic No rash 01/31/2016 Genitourinary/Nephrology No dysuria 01/30 Respiratory cough 01/31/2016 Constitutional No recent illness 2013 Constitutional No anorexia 01/24/2014 Constitutional No night sweats 2013 Constitutional No chills 01/24/2014 Constitutional No diaphoresis 01/24/2014 Constitutional No fatigue 01/24/2014 Constitutional No fever 01/24/2014 Constitutional No insomnia 01/24/2014 Constitutional No malaise 01/24/2014 Eyes No blindness 01/24/2014 Eyes No vision change 01/24/2014 Ears/Nose/Throat/Neck No dental pain Ears/Nose/Throat/Neck No dysphagia 2013 Ears/Nose/Throat/Neck No hearing loss Ears/Nose/Throat/Neck No postnasal drip 01/24/2014 Ears/Nose/Throat/Neck No sinus congestion 01/24/2014 Cardiovascular No chest pain/pressure Cardiovascular No dyspnea 01/24/2014 Cardiovascular No edema 01/24/2014 Cardiovascular No exercise intolerance Cardiovascular No near-syncope/dizziness 01/24/2014 Respiratory No chest tightness 2013 Respiratory No cigarette smoking 2013 Respiratory No dyspnea 01/24/2014 Respiratory No pedal edema 01/24/2014 Respiratory No snoring 01/24/2014 Respiratory No wheezing 01/24/2014 Gastrointestinal No hemorrhoids 2013 Gastrointestinal No abdominal pain 2013 Gastrointestinal No constipation 2013 Gastrointestinal No diarrhea 01/24/2014 Gastrointestinal No gastroesophageal reflux 01/24/2014 Gastrointestinal No melena 01/24/2014 Gastrointestinal No nausea 01/24/2014 Gastrointestinal No vomiting 01/24/2014 Musculoskeletal No stiffness 01/24/2014 Musculoskeletal No swelling 01/24/2014 Musculoskeletal No muscle weakness 2013 Musculoskeletal No myalgias 01/24/2014 Neurologic No dizziness 01/24/2014 Neurologic No headache 01/24/2014 Neurologic No neck pain 01/24/2014 Neurologic No syncope 01/24/2014 Psychiatric No anxiety 01/24/2014 Psychiatric No depression 01/24/2014 Constitutional No recent illness 2013 Constitutional No chills 12/27/2013 Constitutional No fatigue 12/27/2013 Constitutional No fever 12/27/2013 Constitutional No insomnia 12/27/2013 Constitutional No malaise 12/27/2013 Psychiatric No anxiety 12/27/2013 Psychiatric No depression 12/27/2013 Neurologic pain, limb 12/27/2013 Neurologic No ataxia 12/27/2013 Cardiovascular No dyspnea 12/27/2013 Respiratory No cough 12/27/2013 Respiratory No chest congestion 2013 Constitutional No recent illness 2013 Constitutional No anorexia 10/24/2013 Constitutional No night sweats 2013 Constitutional No chills 10/24/2013 Constitutional No diaphoresis 10/24/2013 Constitutional No fatigue 10/24/2013 Constitutional No fever 10/24/2013 Constitutional No insomnia 10/24/2013 Constitutional No malaise 10/24/2013 Eyes No blindness 10/24/2013 Eyes No vision change 10/24/2013 Ears/Nose/Throat/Neck No dental pain Ears/Nose/Throat/Neck No dysphagia 2013 Ears/Nose/Throat/Neck No hearing loss Ears/Nose/Throat/Neck No postnasal drip 10/24/2013 Ears/Nose/Throat/Neck No sinus congestion 10/24/2013 Cardiovascular No chest pain/pressure Cardiovascular No dyspnea 10/24/2013 Cardiovascular No edema 10/24/2013 Cardiovascular No exercise intolerance Cardiovascular No near-syncope/dizziness 10/24/2013 Respiratory No chest tightness 2013 Respiratory No cigarette smoking 2013 Respiratory No dyspnea 10/24/2013 Respiratory No pedal edema 10/24/2013 Respiratory No snoring 10/24/2013 Respiratory No wheezing 10/24/2013 Gastrointestinal No hemorrhoids 2013 Gastrointestinal No abdominal pain 2013 Gastrointestinal No constipation 2013 Gastrointestinal No diarrhea 10/24/2013 Gastrointestinal No gastroesophageal reflux 10/24/2013 Gastrointestinal No melena 10/24/2013 Gastrointestinal No nausea 10/24/2013 Gastrointestinal No vomiting 10/24/2013 Musculoskeletal No stiffness 10/24/2013 Musculoskeletal No swelling 10/24/2013 Musculoskeletal No muscle weakness 2013 Musculoskeletal No myalgias 10/24/2013 Neurologic No dizziness 10/24/2013 Neurologic No headache 10/24/2013 Neurologic No neck pain 10/24/2013 Neurologic No syncope 10/24/2013 Psychiatric No anxiety 10/24/2013 Psychiatric No depression 10/24/2013 Constitutional No recent illness 2012 Constitutional No anorexia 07/26/2013 Constitutional No night sweats 2012 Constitutional No chills 07/26/2013 Constitutional No diaphoresis 07/26/2013 Constitutional No fatigue 07/26/2013 Constitutional No fever 07/26/2013 Constitutional No insomnia 07/26/2013 Constitutional No malaise 07/26/2013 Constitutional No recent illness 2012 Constitutional No anorexia 05/20/2013 Constitutional No night sweats 2012 Constitutional No chills 05/20/2013 Constitutional No diaphoresis 05/20/2013 Constitutional No fatigue 05/20/2013 Constitutional No fever 05/20/2013 Constitutional No insomnia 05/20/2013 Constitutional No malaise 05/20/2013 Musculoskeletal No swelling 05/20/2013 Musculoskeletal No stiffness 05/20/2013 Constitutional No recent illness 2011 Constitutional No night sweats 2011 Constitutional No chills 06/02/2012 Constitutional fatigue 06/02/2012 Constitutional No fever 06/02/2012 Constitutional malaise 06/02/2012 Cardiovascular No chest pain/pressure Cardiovascular No dyspnea 06/02/2012 Cardiovascular No edema 06/02/2012 Cardiovascular fatigue 06/02/2012 Cardiovascular No palpitations 2011 Respiratory No cough 06/02/2012 Respiratory No chest congestion 2011 Gastrointestinal No abdominal pain 2011 Gastrointestinal No diarrhea 06/02/2012 Gastrointestinal No constipation 2011 Musculoskeletal No stiffness 06/02/2012 Psychiatric anxiety 06/02/2012 Psychiatric No depression 06/02/2012 Eyes No blindness 05/31/2012 Eyes No vision change 05/31/2012 Ears/Nose/Throat/Neck No dental pain Ears/Nose/Throat/Neck dizziness 2011 Ears/Nose/Throat/Neck No dysphagia 2011 Ears/Nose/Throat/Neck headache 2011 Ears/Nose/Throat/Neck No hearing loss Ears/Nose/Throat/Neck nasal allergies Ears/Nose/Throat/Neck sore throat 2011 Ears/Nose/Throat/Neck No postnasal drip 05/31/2012 Ears/Nose/Throat/Neck No sinus congestion 05/31/2012 Ears/Nose/Throat/Neck facial pain 2011 Cardiovascular No chest pain/pressure Cardiovascular No dyspnea 05/31/2012 Cardiovascular No edema 05/31/2012 Cardiovascular No exercise intolerance Cardiovascular fatigue 05/31/2012 Cardiovascular No near-syncope/dizziness 05/31/2012 Respiratory No chest tightness 2011 Constitutional No fatigue 05/31/2012 Constitutional No fever 05/31/2012 Constitutional No insomnia 05/31/2012 Constitutional No malaise 05/31/2012 Respiratory No cigarette smoking 2011 Respiratory cough 05/31/2012 Respiratory No dyspnea 05/31/2012 Respiratory No pedal edema 05/31/2012 Respiratory No snoring 05/31/2012 Respiratory No wheezing 05/31/2012 Gastrointestinal No hemorrhoids 2011 Gastrointestinal No abdominal pain 2011 Gastrointestinal No constipation 2011 Gastrointestinal No diarrhea 05/31/2012 Gastrointestinal No gastroesophageal reflux 05/31/2012 Gastrointestinal No melena 05/31/2012 Gastrointestinal No nausea 05/31/2012 Gastrointestinal No vomiting 05/31/2012 Musculoskeletal No stiffness 05/31/2012 Musculoskeletal No swelling 05/31/2012 Musculoskeletal No muscle weakness 2011 Musculoskeletal No myalgias 05/31/2012 Psychiatric No anxiety 05/31/2012 Psychiatric No depression 05/31/2012 Neurologic No dizziness 05/31/2012 Neurologic No headache 05/31/2012 Neurologic No neck pain 05/31/2012 Neurologic No syncope 05/31/2012 Constitutional No recent illness 2011 Constitutional No chills 05/31/2012 Physical Exam Exam Name System Name Item Name Status Result Effective Dates Notes Full Exam - ENT Constitutional general appearance Overall: well nourished 10/28/2017 None Full Exam - ENT Constitutional general appearance Overall: well developed 10/28/2017 None Full Exam - ENT Constitutional general appearance Overall: in no acute distress 10/28/2017 None Full Exam - ENT Ears/Nose/Throat otoscopic exam Overall: external auditory canals normal 10/28/2017 None Full Exam - ENT Ears/Nose/Throat otoscopic exam Left tympanic membrane: air -fluid level 10/28/2017 None Full Exam - ENT Ears/Nose/Throat otoscopic exam Right tympanic membrane: air-fluid level 10/28/2017 None Full Exam - ENT Ears/Nose/Throat nasal mucosa, septum, turbinates Drainage: clear 10/28/2017 None Full Exam - ENT Ears/Nose/Throat nasal mucosa, septum, turbinates Drainage: yellow 10/28/2017 None Full Exam - ENT Ears/Nose/Throat lips/ teeth/gingiva Overall: benign lips 10/28/2017 None Full Exam - ENT Ears/Nose/Throat oropharynx Posterior Pharynx: clear post nasal drainage 10/28/2017 None Full Exam - ENT Respiratory inspection Overall: no retractions 10/28/2017 None Full Exam - ENT Respiratory inspection Overall: normal rate None Full Exam - ENT Respiratory auscultation Overall: breath sounds clear bilaterally 10/28/2017 None Full Exam - ENT Cardiovascular auscultation of heart Overall: regular rate 10/28/2017 None Full Exam - ENT Cardiovascular auscultation of heart Overall: normal heart sounds 10/28/2017 None Full Exam - ENT Lymphatic palpation of lymph nodes Overall: anterior cervical chain benign 10/28/2017 None Full Exam - ENT Lymphatic palpation of lymph nodes Overall: posterior cervical chain benign 10/28/2017 None Full Exam - ENT Neurologic mood and affect Overall: normal mood 10/28/2017 None Full Exam - ENT Neurologic mood and affect Overall: normal affect 10/28/2017 None Full Exam - ENT Neurologic orientation Overall: oriented to person, place and time 10/28/2017 None Full Exam - ENT Face and Head palpation Overall: no sinus tenderness 10/28/2017 None Full Exam - General 1994 Constitutional general appearance Overall: well developed 06/10/2017 None Full Exam - General 1994 Constitutional general appearance Overall: in no acute distress 06/10/2017 None Full Exam - General 1994 Constitutional general appearance Overall: well nourished 06/10/2017 None Full Exam - General 1994 Eyes pupils and irises Overall: pupils equal, round, reactive to light and accomodation 06/10/2017 None Full Exam - General 1994 Ears/Nose/Throat otoscopic exam Overall: external auditory canals clear 06/10/2017 None Full Exam - General 1994 Ears/Nose/Throat oral cavity/pharynx/larynx Overall: oral mucosa clear 06/10/2017 None Full Exam - General 1994 Ears/Nose/Throat oral cavity/pharynx/larynx Overall: oropharyngeal mucosa clear 06/10/2017 None Full Exam - General 1994 Respiratory auscultation Overall: breath sounds clear bilaterally 06/10/2017 None Full Exam - General 1994 Respiratory respiratory effort/rhythm Overall: no retractions 06/10/2017 None Full Exam - General 1994 Respiratory respiratory effort/rhythm Overall: normal rate 06/10/2017 None Full Exam - General 1994 Cardiovascular extremities Overall: no clubbing 06/10/2017 None Full Exam - General 1994 Cardiovascular auscultation of heart Overall: regular rate 06/10/2017 None Full Exam - General 1994 Cardiovascular auscultation of heart Overall: normal heart sounds 06/10/2017 None Full Exam - General 1994 Cardiovascular auscultation of heart Overall: no murmurs 06/10/2017 None Full Exam - General 1994 Abdomen abdominal exam Overall: no tenderness 06/10/2017 None Full Exam - General 1994 Abdomen abdominal exam Overall: normal bowel sounds 06/10/2017 None Full Exam - General 1994 Musculoskeletal head and neck Overall: head atraumatic 06/10/2017 None Full Exam - General 1994 Neurologic deep tendon reflexes Overall: deep tendon reflexes intact 06/10/2017 None Full Exam - General 1994 Neurologic gait Overall: no ataxia, no unsteadiness 06/10/2017 None Full Exam - General 1994 Neurologic cranial nerves Overall: crainial nerves 2 - 12 grossly intact 06/10/2017 None Full Exam - General 1994 Psychiatric orientation/consciousness Overall: oriented to person, place and time 06/10/2017 None Full Exam - General 1994 Psychiatric mood and affect Overall: normal mood and affect 06/10/2017 None Full Exam - General 1994 Eyes conjunctiva /eyelids Overall: conjunctiva clear 06/10/2017 None Full Exam - General 1994 Eyes conjunctiva /eyelids Overall: eyelids normal 06/10/2017 None Full Exam - General 1994 Ears/Nose/Throat lips/teeth/gingiva Overall: benign lips 06/10/2017 None Full Exam - General 1994 Musculoskeletal gait and station Overall: normal gait 06/10/2017 None Full Exam - General 1994 Musculoskeletal gait and station Overall: normal station 06/10/2017 None Full Exam - General 1994 Psychiatric mood and affect Mood: happy 06/10/2017 None Full Exam - General 1994 Psychiatric appearance Overall: well-groomed, good eye contact 06/10/2017 None Full Exam - ENT Constitutional general appearance Overall: well nourished 08/15/2016 None Full Exam - ENT Constitutional general appearance Overall: well developed 08/15/2016 None Full Exam - ENT Constitutional general appearance Overall: in no acute distress 08/15/2016 None Full Exam - ENT Ears/Nose/Throat otoscopic exam Overall: external auditory canals normal 08/15/2016 None Full Exam - ENT Ears/Nose/Throat otoscopic exam Overall: tympanic membranes normal 08/15/2016 None Full Exam - ENT Ears/Nose/Throat oropharynx Overall: oral mucosa clear 08/15/2016 None Full Exam - ENT Ears/Nose/Throat oropharynx Posterior Pharynx: no post nasal drainage 08/15/2016 None Full Exam - ENT Ears/Nose/Throat lips/ teeth/gingiva Overall: benign lips 08/15/2016 None Full Exam - ENT Respiratory inspection Overall: no retractions 08/15/2016 None Full Exam - ENT Respiratory inspection Overall: normal rate 08/2016 None Full Exam - ENT Respiratory auscultation Overall: breath sounds clear bilaterally 08/15/2016 None Full Exam - ENT Cardiovascular auscultation of heart Overall: regular rate 08/15/2016 None Full Exam - ENT Cardiovascular auscultation of heart Overall: normal heart sounds 08/15/2016 None Full Exam - ENT Musculoskeletal left lower extremity Palpation - left knee: crepitus 08/15/2016 None Full Exam - ENT Neurologic mood and affect Overall: normal mood 08/15/2016 None Full Exam - ENT Neurologic mood and affect Overall: normal affect 08/15/2016 None Full Exam - ENT Lymphatic palpation of lymph nodes Overall: anterior cervical chain benign 08/15/2016 None Full Exam - ENT Lymphatic palpation of lymph nodes Overall: posterior cervical chain benign 08/15/2016 None Full Exam - General 1994 Constitutional general appearance Overall: well developed 07/16/2016 None Full Exam - General 1994 Constitutional general appearance Overall: in no acute distress 07/16/2016 None Full Exam - General 1994 Constitutional general appearance Overall: well nourished 07/16/2016 None Full Exam - General 1994 Respiratory respiratory effort/rhythm Overall: no retractions 07/16/2016 None Full Exam - General 1994 Respiratory respiratory effort/rhythm Overall: normal rate 07/16/2016 None Full Exam - General 1994 Cardiovascular extremities Overall: no clubbing 07/16/2016 None Full Exam - General 1994 Musculoskeletal head and neck Overall: head atraumatic 07/16/2016 None Full Exam - General 1994 Neurologic cranial nerves Overall: crainial nerves 2 - 12 grossly intact 07/16/2016 None Full Exam - General 1994 Psychiatric orientation/consciousness Overall: oriented to person, place and time 07/16/2016 None Full Exam - General 1994 Psychiatric mood and affect Overall: normal mood and affect 07/16/2016 None Full Exam - General 1994 Psychiatric mood and affect Mood: happy 07/16/2016 None Full Exam - General 1994 Eyes conjunctiva /eyelids Overall: conjunctiva clear 07/16/2016 None Full Exam - General 1994 Ears/Nose/Throat lips/teeth/gingiva Overall: benign lips 07/16/2016 None Full Exam - General 1994 Musculoskeletal lower extremity Palpation - knee: crepitus 07/16/2016 None Full Exam - General 1994 Psychiatric appearance Overall: well-groomed, good eye contact 07/16/2016 None Full Exam - General 1994 Constitutional general appearance Overall: well developed 05/19/2016 None Full Exam - General 1994 Constitutional general appearance Overall: in no acute distress 05/19/2016 None Full Exam - General 1994 Constitutional general appearance Overall: well nourished 05/19/2016 None Full Exam - General 1994 Ears/Nose/Throat otoscopic exam Overall: external auditory canals clear 05/19/2016 None Full Exam - General 1994 Ears/Nose/Throat otoscopic exam Tympanic membrane: air- fluid level 05/19/2016 None Full Exam - General 1994 Ears/Nose/Throat internal nose Drainage: clear 05/19/2016 None Full Exam - General 1994 Ears/Nose/Throat lips/teeth/gingiva Overall: benign lips 05/19/2016 None Full Exam - General 1994 Ears/Nose/Throat oral cavity/pharynx/larynx Overall: oral mucosa clear 05/19/2016 None Full Exam - General 1994 Ears/Nose/Throat oral cavity/pharynx/larynx Posterior Pharynx: clear post nasal drainage 05/19/2016 None Full Exam - General 1994 Respiratory respiratory effort/rhythm Overall: no retractions 05/19/2016 None Full Exam - General 1994 Respiratory respiratory effort/rhythm Overall: normal rate 05/19/2016 None Full Exam - General 1994 Cardiovascular extremities Overall: no clubbing 05/19/2016 None Full Exam - General 1994 Cardiovascular auscultation of heart Overall: regular rate 05/19/2016 None Full Exam - General 1994 Cardiovascular auscultation of heart Overall: normal heart sounds 05/19/2016 None Full Exam - General 1994 Abdomen abdominal exam Overall: normal bowel sounds 05/19/2016 None Full Exam - General 1994 Musculoskeletal head and neck Overall: head atraumatic 05/19/2016 None Full Exam - General 1994 Neurologic cranial nerves Overall: crainial nerves 2 - 12 grossly intact 05/19/2016 None Full Exam - General 1994 Psychiatric orientation/consciousness Overall: oriented to person, place and time 05/19/2016 None Full Exam - General 1994 Psychiatric mood and affect Overall: normal mood and affect 05/19/2016 None Full Exam - General 1994 Psychiatric appearance Overall: well-groomed, good eye contact 05/19/2016 None Full Exam - General 1994 Psychiatric speech Overall: normal quality, no aphasia 05/19/2016 None Full Exam - General 1994 Psychiatric speech Overall: normal quality, quantity, rate 05/19/2016 None Full Exam - General 1994 Eyes conjunctiva /eyelids Overall: conjunctiva clear 05/19/2016 None Full Exam - General 1994 Respiratory auscultation Lower lung field: crackles 05/19/2016 faint Full Exam - General 1994 Respiratory auscultation Diffuse: diminished 05/19/2016 None Full Exam - General 1994 Integument inspection of skin Overall: no rash, lesions 05/19/2016 None Full Exam - General 1994 Constitutional general appearance Overall: well developed 02/26/2016 None Full Exam - General 1994 Constitutional general appearance Overall: in no acute distress 02/26/2016 None Full Exam - General 1994 Constitutional general appearance Overall: well nourished 02/26/2016 None Full Exam - General 1994 Eyes pupils and irises Overall: pupils equal, round, reactive to light and accomodation 02/26/2016 None Full Exam - General 1994 Ears/Nose/Throat otoscopic exam Overall: external auditory canals clear 02/26/2016 None Full Exam - General 1994 Ears/Nose/Throat oral cavity/pharynx/larynx Overall: oral mucosa clear 02/26/2016 None Full Exam - General 1994 Ears/Nose/Throat oral cavity/pharynx/larynx Overall: oropharyngeal mucosa clear 02/26/2016 None Full Exam - General 1994 Ears/Nose/Throat oral cavity/pharynx/larynx Overall: no masses 02/26/2016 None Full Exam - General 1994 Respiratory auscultation Overall: breath sounds clear bilaterally 02/26/2016 None Full Exam - General 1994 Respiratory respiratory effort/rhythm Overall: no retractions 02/26/2016 None Full Exam - General 1994 Respiratory respiratory effort/rhythm Overall: normal rate 02/26/2016 None Full Exam - General 1994 Cardiovascular extremities Overall: no clubbing 02/26/2016 None Full Exam - General 1994 Cardiovascular auscultation of heart Overall: regular rate 02/26/2016 None Full Exam - General 1994 Cardiovascular auscultation of heart Overall: normal heart sounds 02/26/2016 None Full Exam - General 1994 Abdomen liver and spleen exam Overall: no hepatosplenomegaly 02/26/2016 None Full Exam - General 1994 Abdomen liver and spleen exam Overall: no stigmata of chronic liver disease 02/26/2016 None Full Exam - General 1994 Musculoskeletal head and neck Overall: head atraumatic 02/26/2016 None Full Exam - General 1994 Neurologic cranial nerves Overall: crainial nerves 2 - 12 grossly intact 02/26/2016 None Full Exam - General 1994 Psychiatric orientation/consciousness Overall: oriented to person, place and time 02/26/2016 None Full Exam - General 1994 Psychiatric mood and affect Overall: normal mood and affect 02/26/2016 None Full Exam - General 1994 Ears/Nose/Throat otoscopic exam Tympanic membrane: air- fluid level 02/26/2016 None Full Exam - General 1994 Ears/Nose/Throat lips/teeth/gingiva Overall: benign lips 02/26/2016 None Full Exam - General 1994 Ears/Nose/Throat internal nose Drainage: clear 02/26/2016 None Full Exam - General 1994 Ears/Nose/Throat oral cavity/pharynx/larynx Posterior Pharynx: clear post nasal drainage 02/26/2016 None Full Exam - General 1994 Abdomen abdominal exam Overall: normal bowel sounds 02/26/2016 None Full Exam - General 1994 Psychiatric appearance Overall: well-groomed, good eye contact 02/26/2016 None Full Exam - General 1994 Psychiatric speech Overall: normal quality, no aphasia 02/26/2016 None Full Exam - General 1994 Psychiatric speech Overall: normal quality, quantity, rate 02/26/2016 None Full Exam - General 1994 Constitutional general appearance Overall: well developed 01/31/2016 None Full Exam - General 1994 Constitutional general appearance Overall: in no acute distress 01/31/2016 None Full Exam - General 1994 Constitutional general appearance Overall: well nourished 01/31/2016 None Full Exam - General 1994 Eyes pupils and irises Overall: pupils equal, round, reactive to light and accomodation 01/31/2016 None Full Exam - General 1994 Ears/Nose/Throat otoscopic exam Overall: external auditory canals clear 01/31/2016 None Full Exam - General 1994 Ears/Nose/Throat internal nose Overall: septum midline 01/31/2016 None Full Exam - General 1994 Ears/Nose/Throat internal nose Overall: no masses 01/31/2016 None Full Exam - General 1994 Ears/Nose/Throat oral cavity/pharynx/larynx Overall: oral mucosa clear 01/31/2016 None Full Exam - General 1994 Ears/Nose/Throat oral cavity/pharynx/larynx Overall: oropharyngeal mucosa clear 01/31/2016 None Full Exam - General 1994 Ears/Nose/Throat oral cavity/pharynx/larynx Overall: no masses 01/31/2016 None Full Exam - General 1994 Respiratory auscultation Overall: breath sounds clear bilaterally 01/31/2016 None Full Exam - General 1994 Respiratory respiratory effort/rhythm Overall: no retractions 01/31/2016 None Full Exam - General 1994 Respiratory respiratory effort/rhythm Overall: normal rate 01/31/2016 None Full Exam - General 1994 Cardiovascular extremities Overall: no clubbing 01/31/2016 None Full Exam - General 1994 Cardiovascular auscultation of heart Overall: regular rate 01/31/2016 None Full Exam - General 1994 Cardiovascular auscultation of heart Overall: normal heart sounds 01/31/2016 None Full Exam - General 1994 Cardiovascular auscultation of heart Overall: no murmurs 01/31/2016 None Full Exam - General 1994 Abdomen abdominal exam Overall: no tenderness 01/31/2016 None Full Exam - General 1994 Abdomen abdominal exam Overall: normal bowel sounds 01/31/2016 None Full Exam - General 1994 Abdomen liver and spleen exam Overall: no hepatosplenomegaly 01/31/2016 None Full Exam - General 1994 Abdomen liver and spleen exam Overall: no stigmata of chronic liver disease 01/31/2016 None Full Exam - General 1994 Musculoskeletal digits and nails Overall: no clubbing 01/31/2016 None Full Exam - General 1994 Musculoskeletal digits and nails Overall: digits benign 01/31/2016 None Full Exam - General 1994 Musculoskeletal head and neck Overall: head atraumatic 01/31/2016 None Full Exam - General 1994 Musculoskeletal head and neck Overall: cervical spine benign 01/31/2016 None Full Exam - General 1994 Neurologic deep tendon reflexes Overall: deep tendon reflexes intact 01/31/2016 None Full Exam - General 1994 Neurologic gait Overall: no ataxia, no unsteadiness 01/31/2016 None Full Exam - General 1994 Neurologic cranial nerves Overall: crainial nerves 2 - 12 grossly intact 01/31/2016 None Full Exam - General 1994 Psychiatric orientation/consciousness Overall: oriented to person, place and time 01/31/2016 None Full Exam - General 1994 Psychiatric mood and affect Overall: normal mood and affect 01/31/2016 None Full Exam - General 1994 Psychiatric mood and affect Mood: happy 01/31/2016 None Full Exam - General 1994 Constitutional general appearance Overall: well developed 01/24/2014 None Full Exam - General 1994 Constitutional general appearance Overall: in no acute distress 01/24/2014 None Full Exam - General 1994 Constitutional general appearance Overall: well nourished 01/24/2014 None Full Exam - General 1994 Eyes pupils and irises Overall: pupils equal, round, reactive to light and accomodation 01/24/2014 None Full Exam - General 1994 Ears/Nose/Throat otoscopic exam Overall: external auditory canals clear 01/24/2014 None Full Exam - General 1994 Ears/Nose/Throat internal nose Overall: septum midline 01/24/2014 None Full Exam - General 1994 Ears/Nose/Throat internal nose Overall: no masses 01/24/2014 None Full Exam - General 1994 Ears/Nose/Throat oral cavity/pharynx/larynx Overall: oral mucosa clear 01/24/2014 None Full Exam - General 1994 Ears/Nose/Throat oral cavity/pharynx/larynx Overall: oropharyngeal mucosa clear 01/24/2014 None Full Exam - General 1994 Ears/Nose/Throat oral cavity/pharynx/larynx Overall: no masses 01/24/2014 None Full Exam - General 1994 Respiratory auscultation Overall: breath sounds clear bilaterally 01/24/2014 None Full Exam - General 1994 Respiratory respiratory effort/rhythm Overall: no retractions 01/24/2014 None Full Exam - General 1994 Respiratory respiratory effort/rhythm Overall: normal rate 01/24/2014 None Full Exam - General 1994 Cardiovascular extremities Overall: no clubbing 01/24/2014 None Full Exam - General 1994 Cardiovascular auscultation of heart Overall: regular rate 01/24/2014 None Full Exam - General 1994 Cardiovascular auscultation of heart Overall: normal heart sounds 01/24/2014 None Full Exam - General 1994 Cardiovascular auscultation of heart Overall: no murmurs 01/24/2014 None Full Exam - General 1994 Abdomen abdominal exam Overall: no tenderness 01/24/2014 None Full Exam - General 1994 Abdomen abdominal exam Overall: normal bowel sounds 01/24/2014 None Full Exam - General 1994 Abdomen liver and spleen exam Overall: no hepatosplenomegaly 01/24/2014 None Full Exam - General 1994 Abdomen liver and spleen exam Overall: no stigmata of chronic liver disease 01/24/2014 None Full Exam - General 1994 Musculoskeletal digits and nails Overall: no clubbing 01/24/2014 None Full Exam - General 1994 Musculoskeletal digits and nails Overall: digits benign 01/24/2014 None Full Exam - General 1994 Musculoskeletal head and neck Overall: head atraumatic 01/24/2014 None Full Exam - General 1994 Musculoskeletal head and neck Overall: cervical spine benign 01/24/2014 None Full Exam - General 1994 Neurologic deep tendon reflexes Overall: deep tendon reflexes intact 01/24/2014 None Full Exam - General 1994 Neurologic gait Overall: no ataxia, no unsteadiness 01/24/2014 None Full Exam - General 1994 Neurologic cranial nerves Overall: crainial nerves 2 - 12 grossly intact 01/24/2014 None Full Exam - General 1994 Psychiatric orientation/consciousness Overall: oriented to person, place and time 01/24/2014 None Full Exam - General 1994 Psychiatric mood and affect Overall: normal mood and affect 01/24/2014 None Full Exam - General 1994 Psychiatric mood and affect Mood: happy 01/24/2014 None Full Exam - General 1994 Constitutional general appearance Overall: well nourished 12/27/2013 None Full Exam - General 1994 Constitutional general appearance Overall: well developed 12/27/2013 None Full Exam - General 1994 Constitutional general appearance Overall: in no acute distress 12/27/2013 None Full Exam - General 1994 Eyes pupils and irises Overall: pupils equal, round, reactive to light and accomodation 12/27/2013 None Full Exam - General 1994 Respiratory respiratory effort/rhythm Overall: normal rate 12/27/2013 None Full Exam - General 1994 Respiratory respiratory effort/rhythm Overall: no retractions 12/27/2013 None Full Exam - General 1994 Respiratory auscultation Overall: breath sounds clear bilaterally 12/27/2013 None Full Exam - General 1994 Cardiovascular auscultation of heart Overall: regular rate 12/27/2013 None Full Exam - General 1994 Cardiovascular auscultation of heart Overall: normal heart sounds 12/27/2013 None Full Exam - General 1994 Cardiovascular auscultation of heart Overall: no murmurs 12/27/2013 None Full Exam - General 1994 Musculoskeletal spine, ribs and pelvis Posture: kyphosis 12/27/2013 None Full Exam - General 1994 Musculoskeletal spine, ribs and pelvis Sacroiliac joints: tender right sacroiliac joint 12/27/2013 None Full Exam - General 1994 Musculoskeletal lower extremity Inspection - thigh: normal appearance 12/27/2013 tender deep in buttock on the right - and reflexes 2/4 upper and lower extremities Full Exam - General 1994 Psychiatric orientation/consciousness Overall: oriented to person, place and time 12/27/2013 None Full Exam - General 1994 Psychiatric mood and affect Mood: happy 12/27/2013 None Full Exam - General 1994 Psychiatric mood and affect Overall: normal mood and affect 12/27/2013 None Full Exam - General 1994 Constitutional general appearance Overall: well developed 10/24/2013 None Full Exam - General 1994 Constitutional general appearance Overall: in no acute distress 10/24/2013 None Full Exam - General 1994 Constitutional general appearance Overall: well nourished 10/24/2013 None Full Exam - General 1994 Respiratory auscultation Overall: breath sounds clear bilaterally 10/24/2013 None Full Exam - General 1994 Respiratory respiratory effort/rhythm Overall: no retractions 10/24/2013 None Full Exam - General 1994 Respiratory respiratory effort/rhythm Overall: normal rate 10/24/2013 None Full Exam - General 1994 Cardiovascular auscultation of heart Overall: regular rate 10/24/2013 None Full Exam - General 1994 Cardiovascular auscultation of heart Overall: normal heart sounds 10/24/2013 None Full Exam - General 1994 Cardiovascular auscultation of heart Overall: no murmurs 10/24/2013 None Full Exam - General 1994 Psychiatric orientation/consciousness Overall: oriented to person, place and time 10/24/2013 None Full Exam - General 1994 Eyes pupils and irises Overall: pupils equal, round, reactive to light and accomodation 10/24/2013 None Full Exam - General 1994 Ears/Nose/Throat otoscopic exam Overall: external auditory canals clear 10/24/2013 None Full Exam - General 1994 Ears/Nose/Throat internal nose Overall: septum midline 10/24/2013 None Full Exam - General 1994 Ears/Nose/Throat internal nose Overall: no masses 10/24/2013 None Full Exam - General 1994 Ears/Nose/Throat oral cavity/pharynx/larynx Overall: oral mucosa clear 10/24/2013 None Full Exam - General 1994 Ears/Nose/Throat oral cavity/pharynx/larynx Overall: oropharyngeal mucosa clear 10/24/2013 None Full Exam - General 1994 Ears/Nose/Throat oral cavity/pharynx/larynx Overall: no masses 10/24/2013 None Full Exam - General 1994 Cardiovascular extremities Overall: no clubbing 10/24/2013 None Full Exam - General 1994 Abdomen abdominal exam Overall: no tenderness 10/24/2013 None Full Exam - General 1994 Abdomen abdominal exam Overall: normal bowel sounds 10/24/2013 None Full Exam - General 1994 Abdomen liver and spleen exam Overall: no hepatosplenomegaly 10/24/2013 None Full Exam - General 1994 Abdomen liver and spleen exam Overall: no stigmata of chronic liver disease 10/24/2013 None Full Exam - General 1994 Lymphatic neck nodes Overall: anterior cervical chain benign 10/24/2013 None Full Exam - General 1994 Lymphatic neck nodes Overall: posterior cervical chain benign 10/24/2013 None Full Exam - General 1994 Musculoskeletal digits and nails Overall: no clubbing 10/24/2013 None Full Exam - General 1994 Musculoskeletal digits and nails Overall: digits benign 10/24/2013 None Full Exam - General 1994 Musculoskeletal spine, ribs and pelvis Overall: spine benign 10/24/2013 None Full Exam - General 1994 Musculoskeletal spine, ribs and pelvis Overall: sacroiliac joint benign 10/24/2013 None Full Exam - General 1994 Musculoskeletal spine, ribs and pelvis Overall: good posture 10/24/2013 None Full Exam - General 1994 Musculoskeletal head and neck Overall: head atraumatic 10/24/2013 None Full Exam - General 1994 Musculoskeletal head and neck Overall: cervical spine benign 10/24/2013 None Full Exam - General 1994 Integument inspection of skin Overall: no rash, lesions 10/24/2013 None Full Exam - General 1994 Neurologic deep tendon reflexes Overall: deep tendon reflexes intact 10/24/2013 None Full Exam - General 1994 Neurologic gait Overall: no ataxia, no unsteadiness 10/24/2013 None Full Exam - General 1994 Neurologic cranial nerves Overall: crainial nerves 2 - 12 grossly intact 10/24/2013 None Full Exam - General 1994 Psychiatric mood and affect Overall: normal mood and affect 10/24/2013 None Full Exam - General 1994 Psychiatric mood and affect Mood: happy 10/24/2013 None Full Exam - General 1994 Constitutional general appearance Overall: well nourished 07/26/2013 None Full Exam - General 1994 Constitutional general appearance Overall: well developed 07/26/2013 None Full Exam - General 1994 Constitutional general appearance Overall: in no acute distress 07/26/2013 None Full Exam - General 1994 Respiratory auscultation Overall: breath sounds clear bilaterally 07/26/2013 None Full Exam - General 1994 Respiratory respiratory effort/rhythm Overall: normal rate 07/26/2013 None Full Exam - General 1994 Respiratory respiratory effort/rhythm Overall: no retractions 07/26/2013 None Full Exam - General 1994 Cardiovascular auscultation of heart Overall: regular rate 07/26/2013 None Full Exam - General 1994 Cardiovascular auscultation of heart Overall: normal heart sounds 07/26/2013 None Full Exam - General 1994 Cardiovascular auscultation of heart Overall: no murmurs 07/26/2013 None Full Exam - General 1994 Psychiatric orientation/consciousness Overall: oriented to person, place and time 07/26/2013 None Full Exam - General 1994 Constitutional general appearance Overall: well developed 05/20/2013 None Full Exam - General 1994 Constitutional general appearance Overall: in no acute distress 05/20/2013 None Full Exam - General 1994 Constitutional general appearance Overall: well nourished 05/20/2013 None Full Exam - General 1994 Psychiatric orientation/consciousness Overall: oriented to person, place and time 05/20/2013 None Full Exam - General 1994 Musculoskeletal lower extremity Inspection - foot: a normal exam 05/20/2013 None Full Exam - General 1994 Musculoskeletal lower extremity Palpation - foot: a normal exam 05/20/2013 None Full Exam - General 1994 Musculoskeletal lower extremity ROM - foot: a normal exam 05/20/2013 None Full Exam - General 1994 Musculoskeletal lower extremity Stability - foot: a normal exam 05/20/2013 None Full Exam - General 1994 Musculoskeletal lower extremity Muscle Strength/Tone - foot: a normal exam 05/20/2013 None Full Exam - General 1994 Constitutional general appearance Overall: well nourished 06/02/2012 None Full Exam - General 1994 Constitutional general appearance Overall: well developed 06/02/2012 None Full Exam - General 1994 Constitutional general appearance Overall: in no acute distress 06/02/2012 None Full Exam - General 1994 Respiratory auscultation Overall: breath sounds clear bilaterally 06/02/2012 None Full Exam - General 1994 Respiratory respiratory effort/rhythm Overall: normal rate 06/02/2012 None Full Exam - General 1994 Respiratory respiratory effort/rhythm Overall: no retractions 06/02/2012 None Full Exam - General 1994 Cardiovascular auscultation of heart Overall: regular rate 06/02/2012 None Full Exam - General 1994 Cardiovascular auscultation of heart Overall: normal heart sounds 06/02/2012 None Full Exam - General 1994 Abdomen abdominal exam Overall: no tenderness 06/02/2012 None Full Exam - General 1994 Abdomen abdominal exam Overall: normal bowel sounds 06/02/2012 None Full Exam - General 1994 Abdomen liver and spleen exam Overall: no hepatosplenomegaly 06/02/2012 None Full Exam - General 1994 Abdomen liver and spleen exam Overall: no stigmata of chronic liver disease 06/02/2012 None Full Exam - General 1994 Psychiatric orientation/consciousness Overall: oriented to person, place and time 06/02/2012 None Full Exam - General 1994 Psychiatric mood and affect Mood: happy 06/02/2012 None Full Exam - General 1994 Psychiatric mood and affect Overall: normal mood and affect 06/02/2012 None Full Exam - General 1994 Respiratory auscultation Overall: breath sounds clear bilaterally 05/31/2012 None Full Exam - General 1994 Respiratory respiratory effort/rhythm Overall: normal rate 05/31/2012 None Full Exam - General 1994 Respiratory respiratory effort/rhythm Overall: no retractions 05/31/2012 None Full Exam - General 1994 Cardiovascular extremities Overall: no clubbing 05/31/2012 None Full Exam - General 1994 Cardiovascular auscultation of heart Overall: regular rate 05/31/2012 None Full Exam - General 1994 Cardiovascular auscultation of heart Overall: normal heart sounds 05/31/2012 None Full Exam - General 1994 Abdomen abdominal exam Overall: no tenderness 05/31/2012 None Full Exam - General 1994 Abdomen abdominal exam Overall: normal bowel sounds 05/31/2012 None Full Exam - General 1994 Abdomen liver and spleen exam Overall: no hepatosplenomegaly 05/31/2012 None Full Exam - General 1994 Abdomen liver and spleen exam Overall: no stigmata of chronic liver disease 05/31/2012 None Full Exam - General 1994 Lymphatic neck nodes Overall: anterior cervical chain benign 05/31/2012 None Full Exam - General 1994 Lymphatic neck nodes Overall: posterior cervical chain benign 05/31/2012 None Full Exam - General 1994 Musculoskeletal digits and nails Overall: digits benign 05/31/2012 None Full Exam - General 1994 Musculoskeletal digits and nails Overall: no clubbing 05/31/2012 None Full Exam - General 1994 Musculoskeletal spine, ribs and pelvis Overall: good posture 05/31/2012 None Full Exam - General 1994 Musculoskeletal spine, ribs and pelvis Overall: sacroiliac joint benign 05/31/2012 None Full Exam - General 1994 Musculoskeletal spine, ribs and pelvis Overall: spine benign 05/31/2012 None Full Exam - General 1994 Musculoskeletal head and neck Overall: cervical spine benign 05/31/2012 None Full Exam - General 1994 Musculoskeletal head and neck Overall: head atraumatic 05/31/2012 None Full Exam - General 1994 Integument inspection of skin Overall: no rash, lesions 05/31/2012 None Full Exam - General 1994 Neurologic deep tendon reflexes Overall: deep tendon reflexes intact 05/31/2012 None Full Exam - General 1994 Neurologic gait Overall: no ataxia, no unsteadiness 05/31/2012 None Full Exam - General 1994 Neurologic cranial nerves Overall: crainial nerves 2 - 12 grossly intact 05/31/2012 None Full Exam - General 1994 Psychiatric orientation/consciousness Overall: oriented to person, place and time 05/31/2012 None Full Exam - General 1994 Psychiatric mood and affect Mood: happy 05/31/2012 None Full Exam - General 1994 Psychiatric mood and affect Overall: normal mood and affect 05/31/2012 None Full Exam - General 1994 Ears/Nose/Throat internal nose Sinus tenderness: left maxillary 05/31/2012 None Full Exam - General 1994 Ears/Nose/Throat internal nose Sinus tenderness: right maxillary 05/31/2012 None Full Exam - General 1994 Ears/Nose/Throat internal nose Drainage: cloudy 05/31/2012 None Full Exam - General 1994 Ears/Nose/Throat internal nose Nasal cavity: narrowed 05/31/2012 None Full Exam - General 1994 Constitutional general appearance Overall: well nourished 05/31/2012 None Full Exam - General 1994 Constitutional general appearance Overall: well developed 05/31/2012 None Full Exam - General 1994 Constitutional general appearance Overall: in no acute distress 05/31/2012 None Full Exam - General 1994 Eyes pupils and irises Overall: pupils equal, round, reactive to light and accomodation 05/31/2012 None Full Exam - General 1994 Ears/Nose/Throat otoscopic exam Overall: external auditory canals clear 05/31/2012 None Full Exam - General 1994 Ears/Nose/Throat otoscopic exam Tympanic membrane: air- fluid level 05/31/2012 None Full Exam - General 1994 Ears/Nose/Throat oral cavity/pharynx/larynx Overall: oropharyngeal mucosa clear 05/31/2012 None Full Exam - General 1994 Ears/Nose/Throat oral cavity/pharynx/larynx Overall: no masses 05/31/2012 None Full Exam - General 1994 Ears/Nose/Throat oral cavity/pharynx/larynx Overall: oral mucosa clear 05/31/2012 None Full Exam - General 1994 Ears/Nose/Throat internal nose Overall: septum midline 05/31/2012 None Full Exam - General 1994 Ears/Nose/Throat internal nose Overall: no masses 05/31/2012 None Full Exam - General 1994 Neck thyroid Overall: normal consistency 05/31/2012 None Full Exam - General 1994 Neck thyroid Overall: nontender 2011 None Full Exam - General 1994 Neck thyroid Overall: no mass lesions 05/31/2012 None Procedures Procedure Codes Date THER/PROPH/DIAG INJ SC/IM CPT-4: 73978 10/28/2017 TRIAMCINOLONE ACET INJ NOS CPT-4: J3301 10/28/2017 ADMIN INFLUENZA VIRUS VAC CPT-4: G0008 07/02/2017 FLU VACC PRSV FREE INC ANTIG CPT-4: 83848 07/02/2017 PNEUMOCOCCAL VACC [address]: [id number] CPT-4: 24515 08/15/2016 THER/PROPH/DIAG INJ SC/IM CPT-4: 59538 08/15/2016 TRIAMCINOLONE ACET INJ NOS CPT-4: J3301 02/26/2016 TRIAMCINOLONE ACET INJ NOS CPT-4: J3301 12/27/2013 THER/PROPH/DIAG INJ SC/IM CPT-4: 90198 12/27/2013 ROUTINE VENIPUNCTURE CPT-4: 48095 10/24/2013 PRESCRIP TRANSMIT VIA ERX SY CPT-4: G8553 10/28/2012 ADMIN INFLUENZA VIRUS VAC CPT-4: G0008 08/05/2012 FLULAVAL VACC, 3 YRS & >, IM CPT-4: Q2036 08/05/2012 PRESCRIP TRANSMIT VIA ERX SY CPT-4: G8553 05/31/2012 Vital Signs Date Vital 10/28/2017 Blood Pressure 1: 118/64 Code : 8480-6 BMI: 24.7 Code : 98554-0 Heart Rate 1 : 70 bpm Height: 5'8" SpO2: 98% Temperature: 36.7 (C) / 98.1 (F) Weight: 165 lbs 06/10/2017 Blood Pressure 1: 142/80 Code : 8480-6 BMI: 26.5 Code : 37122-2 Heart Rate 1 : 71 bpm Height: 5'8" SpO2: 96% Weight: 175 lbs 08/15/2016 Blood Pressure 1: 142/78 Code : 8480-6 BMI: 26.8 Code : 75170-4 Heart Rate 1 : 95 bpm Height: 5'8" SpO2: 97% Weight: 177 lbs 07/16/2016 Blood Pressure 1: 132/76 Code : 8480-6 BMI: 27.0 Code : 26643-9 Heart Rate 1 : 76 bpm Height: 5'8" SpO2: 96% Weight: 180 lbs 05/19/2016 Blood Pressure 1: 146/76 Code : 8480-6 BMI: 27.7 Code : 09228-8 Heart Rate 1 : 89 bpm Height: 5'8" SpO2: 96% Weight: 185 lbs 02/26/2016 Blood Pressure 1: 158/88 Code : 8480-6 BMI: 27.3 Code : 84370-3 Heart Rate 1 : 70 bpm Height: 5'8" SpO2: 97% Weight: 182 lbs 01/31/2016 Blood Pressure 1: 138/84 Code : 8480-6 BMI: 27.3 Code : 30190-8 Heart Rate 1 : 77 bpm Height: 5'8" SpO2: 97% Weight: 182 lbs 01/24/2014 Blood Pressure 1: 150/92 Code : 8480-6 BMI: 26.5 Code : 96848-6 Heart Rate 1 : 80 bpm Height: 5'8" Weight: 177 lbs 12/27/2013 Blood Pressure 1: 152/80 Code : 8480-6 BMI: 26.2 Code : 28135-2 Heart Rate 1 : 68 bpm Height: 5'8" Weight: 175 lbs 10/24/2013 Blood Pressure 1: 156/86 Code : 8480-6 BMI: 27.1 Code : 15896-7 Heart Rate 1 : 84 bpm Height: 5'8" Weight: 181 lbs 07/26/2013 Blood Pressure 1: 156/80 Code : 8480-6 BMI: 28.3 Code : 85596-7 Heart Rate 1 : 84 bpm Height: 5'8" Weight: 189 lbs 05/20/2013 Blood Pressure 1: 136/86 Code : 8480-6 BMI: 27.7 Code : 31470-5 Heart Rate 1 : 80 bpm Height: 5'8" Weight: 185 lbs 10/28/2012 Blood Pressure 1: 122/78 Code : 8480-6 Heart Rate 1: 80 bpm Respiratory Rate : 16 bpm Weight: 186 lbs 06/02/2012 Blood Pressure 1: 128/68 Code : 8480-6 05/31/2012 Blood Pressure 1: 138/78 Code : 8480-6 BMI: 27.6 Code : 58916-6 Heart Rate 1 : 68 bpm Height: 5'8" Respiratory Rate: 16 bpm Weight: 184 lbs Functional Status No Functional Status data History of Present Illness Symptom Name Status Result Effective Date Notes Hospital Follow Up _ infection 10/28/2017 None Hospital Follow Up Quality acute illness 10/28/2017 None Hospital Follow Up Location sinuses 10/28/2017 None Hospital Follow Up Onset of Symptom 1 weeks ago 10/28/2017 None Hospital Follow Up Pertinent Findings fever 10/28/2017 None Hospital Follow Up Pertinent Findings Other: cough, dizziness, weakness, runny nose, etc 2017 None weakness Onset and Resolution sudden in onset 10/28/2017 None weakness Onset and Resolution ongoing 10/28/2017 None weakness Onset of Symptom 2 weeks ago 10/28/2017 None weakness Limitation on Activities is incapacitating 10/28/2017 None weakness Pertinent Findings Denies fever 10/28/2017 None weakness Pertinent Findings lethargy 10/28/2017 None fatigue Pertinent Findings depressed mood 10/28/2017 None fatigue Pertinent Findings dizziness 10/28/2017 None fatigue Pertinent Findings Denies fever 10/28/2017 None fatigue Pertinent Findings dyspnea 10/28/2017 with activity fatigue Pertinent Findings lightheadedness 10/28/2017 None fatigue Pertinent Findings weakness 10/28/2017 None fatigue Triggers no known associated factors 10/28/2017 None hypertension Onset and Resolution ongoing 06/10/2017 None hypertension Onset of Symptom during adulthood 06/10/2017 None diabetes mellitus Quality non-insulin dependent 06/10/2017 None diabetes mellitus Severity mild 06/10/2017 None diabetes mellitus Alleviating Factors medication 06/10/2017 None diabetes mellitus Alleviating Factors diet 06/10/2017 None diabetes mellitus Nutrition regular diet 06/10/2017 None diabetes mellitus Pertinent Findings Denies dizziness 06/10/2017 None diabetes mellitus Pertinent Findings Denies dyspnea 06/10/2017 None diabetes mellitus Onset of Symptom onset as an adult 06/10/2017 None hypertension Blood Pressure Values not checking blood pressure at home 06/10/2017 None hypertension Pertinent Findings Denies dizziness 06/10/2017 None hypertension Pertinent Findings Denies dyspnea 06/10/2017 None hypertension Pertinent Findings Denies edema 06/10/2017 None hypertension Pertinent Findings Denies palpitations 06/10/2017 None cough Location in the throat 08/15/2016 None cough Quality constant 08/15/2016 None cough Quality hacking 08/15/2016 None cough Onset and Resolution sudden in onset 08/15/2016 None cough Onset of Symptom 2 days ago 08/15/2016 None cough Frequency of Episodes daily 08/15/2016 None knee pain Location on the left 08/15/2016 None knee pain Pertinent Findings Denies redness 08/15/2016 None knee pain Pertinent Findings clicking 08/15/2016 None knee pain Location on the left 07/16/2016 None knee pain Quality popping 07/16/2016 None knee pain Onset of Symptom 2 weeks ago 07/16/2016 None knee pain Frequency of Episodes daily 07/16/2016 None knee pain Pertinent Findings limping 07/16/2016 None knee pain Pertinent Findings sensation of buckling 07/16/2016 None knee pain Pertinent Findings Denies pain with movement 07/16/2016 None cough Location in the throat 05/19/2016 None cough Quality constant 05/19/2016 None cough Quality productive 05/19/2016 None cough Onset and Resolution sudden in onset 05/19/2016 None cough Onset of Symptom 1 weeks ago 05/19/2016 None cough Frequency of Episodes daily 05/19/2016 None cough Pertinent Findings chest discomfort 05/19/2016 None sinus congestion Pertinent Findings cough 05/19/2016 None sinus congestion Onset of Symptom 1 weeks ago 05/19/2016 None sinus congestion Frequency of Episodes daily 05/19/2016 None sinus congestion Location on both sides 05/19/2016 None sinus congestion Quality pressure 05/19/2016 None sinus congestion Onset and Resolution sudden in onset 05/19/2016 None vertigo Quality constant 02/26/2016 None vertigo Onset and Resolution sudden in onset 02/26/2016 None vertigo Onset of Symptom 1 days ago 02/26/2016 None vertigo Pertinent Findings dizziness 02/26/2016 None vertigo Pertinent Findings lightheadedness 02/26/2016 None vertigo Pertinent Findings nausea 02/26/2016 None sinus congestion Onset and Resolution sudden in onset 02/26/2016 None sinus congestion Onset of Symptom 1 days ago 02/26/2016 None sinus congestion Pertinent Findings facial pain 02/26/2016 None sinus congestion Quality fullness 02/26/2016 None diabetes mellitus Onset of Symptom onset as an adult 01/31/2016 None diabetes mellitus Severity mild 01/31/2016 None diabetes mellitus Nutrition regular diet 01/31/2016 None hypertension Onset and Resolution ongoing 01/31/2016 None hypertension Blood Pressure Values not checking blood pressure at home 01/31/2016 None hypertension Pertinent Findings Denies dizziness 01/31/2016 None hypertension Pertinent Findings Denies dyspnea 01/31/2016 None hypertension Pertinent Findings Denies edema 01/31/2016 None hypertension Pertinent Findings Denies palpitations 01/31/2016 None diabetes mellitus Quality non-insulin dependent 01/31/2016 None diabetes mellitus Test results Pt not checking blood glucose readings at home 01/31/2016 None diabetes mellitus Pertinent Findings Denies dizziness 01/31/2016 None diabetes mellitus Pertinent Findings Denies dyspnea 01/31/2016 None diabetes mellitus Glucose monitoring does not test 01/31/2016 None diabetes mellitus Alleviating Factors medication 01/31/2016 None diabetes mellitus Alleviating Factors diet 01/31/2016 None hypertension Blood Pressure Values not checking blood pressure at home 01/24/2014 None hypertension Pertinent Findings Denies dizziness 01/24/2014 None hypertension Pertinent Findings Denies dyspnea 01/24/2014 None hypertension Pertinent Findings Denies edema 01/24/2014 None hypertension Pertinent Findings Denies palpitations 01/24/2014 None diabetes mellitus Test results Pt not checking blood glucose readings at home 01/24/2014 None diabetes mellitus Onset of Symptom onset as an adult 01/24/2014 None diabetes mellitus Severity mild 01/24/2014 pt has had hgba1c in the 6.3 - 6.7 range for the past 12 months diabetes mellitus Glucose monitoring does not test 01/24/2014 None diabetes mellitus Nutrition regular diet 01/24/2014 pt reports that she does not eat many carbohydrates, has been trying to cut back on more carbohydrate laden foods, does not drink sweet drinks. eats a lot of chicken, some pork, some beef. 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 hypertension Onset and Resolution ongoing 01/24/2014 pt states that she has high blood pressure off and on when going to the doctor - she states that she thinks some of it may be because she is depressed about being here in [place]. hip pain Location on the right 12/27/2013 None hip pain Quality sharp pain 12/27/2013 None hip pain Onset of Symptom 1 weeks ago 12/27/2013 None hip pain Limitation on Activities moderately limits activities 12/27/2013 None hip pain Radiating radiates down the leg to the foot 12/27/2013 None hip pain Pertinent Findings decreased range of motion 12/27/2013 None hip pain Pertinent Findings pain at rest 12/27/2013 None hip pain Pertinent Findings pain with movement 12/27/2013 None hip pain Pertinent Findings Denies redness 12/27/2013 None hip pain Pertinent Findings Denies swelling 12/27/2013 None hip pain Pertinent Findings tingling 12/27/2013 None hip pain Severity moderate 12/27/2013 None hip pain Significant Medical Conditions advancing age 0312/27/2013 None diabetes mellitus Onset of Symptom onset as an adult 10/24/2013 None diabetes mellitus Quality non-insulin dependent 10/24/2013 None diabetes mellitus Severity mild 10/24/2013 None diabetes mellitus Test results HgbA1c level 6.7 10/24/2013 None diabetes mellitus Glucose monitoring does not test 10/24/2013 None diabetes mellitus Exacerbating Factors diet 10/24/2013 None diabetes mellitus Nutrition ADA diet 10/24/2013 None diabetes mellitus Exercise minimal exercise 10/24/2013 None diabetes mellitus Exercise moderate exercise 10/24/2013 None diabetes mellitus Pertinent Findings Denies dizziness 10/24/2013 None diabetes mellitus Pertinent Findings Denies dyspnea 10/24/2013 None diabetes mellitus Pertinent Findings Denies nausea 10/24/2013 None blood pressure followup Quality chronic 10/24/2013 None blood pressure followup Onset and Resolution ongoing 10/24/2013 None blood pressure followup Onset of Symptom during adulthood 10/24/2013 None diabetes mellitus Quality non-insulin dependent 07/26/2013 None diabetes mellitus Quality acute 07/26/2013 new diagnosis diabetes mellitus Test results HgbA1c level 6.4 07/26/2013 None diabetes mellitus Glucose monitoring does not test 07/26/2013 None diabetes mellitus Nutrition regular diet 07/26/2013 None diabetes mellitus Exercise moderate exercise 07/26/2013 3 days per week diabetes mellitus Pertinent Findings Denies fruity breath 07/26/2013 None diabetes mellitus Pertinent Findings Denies increased hunger 07/26/2013 None diabetes mellitus Pertinent Findings Denies lethargy 07/26/2013 None diabetes mellitus Pertinent Findings Denies nausea 07/26/2013 None diabetes mellitus Pertinent Findings Denies polyphagia 07/26/2013 None diabetes mellitus Pertinent Findings Denies polyuria 07/26/2013 None diabetes mellitus Onset of Symptom onset as an adult 07/26/2013 None foot pain Location on the right 05/20/2013 patient has had plantar fascitis in the past and this feels the same way foot pain Location plantar heel 05/20/2013 None foot pain Quality dull pain 05/20/2013 None foot pain Quality constant 05/20/2013 None foot pain Quality tenderness 05/20/2013 None foot pain Onset of Symptom 1 months ago 05/20/2013 None foot pain Onset and Resolution ongoing 05/20/2013 None foot pain Pertinent Findings pain with movement 05/20/2013 None foot pain Pertinent Findings Denies redness 05/20/2013 None foot pain Pertinent Findings Denies stiffness 05/20/2013 None foot pain Pertinent Findings Denies swelling 05/20/2013 None foot pain Pertinent Findings Denies tingling 05/20/2013 None foot pain Pertinent Findings Denies pinching 05/20/2013 None foot pain Limitation on Activities allows weight bearing activity 05/20/2013 None foot pain Severity moderate 05/20/2013 None well woman exam (65+ years) Lifestyle no history of physical abuse 10/28/2012 None well woman exam (65+ years) Lifestyle regular seatbelt use 10/28/2012 None well woman exam (65+ years) Pap Smear last normal performed on 09-13-11 10/28/2012 None well woman exam (65+ years) Menstrual History menopause at age 50's 10/28/2012 None well woman exam (65+ years) Sexual Activity experiences sexual satisfaction 10/28/2012 None well woman exam (65+ years) Sexual Activity is monogamous 10/28/2012 None well woman exam (65+ years) Health Guidance regular mammogram 10/28/2012 None well woman exam (65+ years) Health Guidance self-breast exam 10/28/2012 None well woman exam (65+ years) Health Guidance regular exercise 10/28/2012 None abnormal test results Detailed Test Result(s) extremely elevated liver enzymes. 06/02/2012 None abnormal test results Abnormal Indicator high 06/02/2012 None abnormal test results Test Performed about 1 week ago 06/02/2012 None abnormal test results Significant Medical Conditions pt had tubal , with rupture and need for emergency surgery and may have recieved blood transfusion whil living in the [facility] in 1973. 06/02/2012 None abnormal test results Significant Medications crestor 06/02/2012 None abnormal test results Pertinent Findings Denies chill 06/02/2012 None abnormal test results Pertinent Findings Denies chronic renal failure 06/02/2012 None abnormal test results Pertinent Findings Denies dehydration 06/02/2012 None abnormal test results Pertinent Findings Denies edema 06/02/2012 None abnormal test results Pertinent Findings Denies weight loss 06/02/2012 None abnormal test results Type of Test(s) liver function panel 06/02/2012 None hypothyroid Quality chronic 05/31/2012 None hypothyroid Onset and Resolution ongoing 05/31/2012 None hypothyroid Severity mild with subclinical signs 05/31/2012 None hypothyroid Triggers no known associated factors 05/31/2012 None hypothyroid Alleviating Factors medication 05/31/2012 None hypothyroid Pertinent Findings Denies coarse hair 05/31/2012 None hypothyroid Pertinent Findings Denies coarse skin 05/31/2012 None hypothyroid Pertinent Findings decreased energy 05/31/2012 None Advance Directives No Advance Directive data Encounters Encounter Performer Location Codes Date 57529 EST. PATIENT, LEVEL IV Diagnosis: Other allergic rhinitis[ICD10: J30.89] Diagnosis: Benign paroxysmal vertigo, bilateral[ICD10: H81.13] Brit Robles MD, [facility] CPT-4: 91028 10/28/2017 [id number] EST. PATIENT, LEVEL IV Diagnosis: Essential (primary) hypertension[ICD10: I10] Diagnosis: Type 2 diabetes mellitus without complications[ICD10: E11.9] Diagnosis: Mixed hyperlipidemia[ICD10: E78.2] Diagnosis: Other specified hypothyroidism[ICD10: E03.8] [facility] CPT-4: 08909 06/10/2017 [id number] EST. PATIENT, LEVEL III Diagnosis: Other allergic rhinitis[ICD10: J30.89] Diagnosis: Pain in left knee[ICD10: M25.562] Diagnosis: Encounter for immunization[ICD10: Z23] [facility] CPT-4: 13967 08/15/2016 [id number] EST. PATIENT, LEVEL IV Diagnosis: Pain in left knee[ICD10: M25.562] Brit Robles MD, [facility] CPT -4: 27093 07/16/2016 96591 EST. PATIENT, LEVEL IV Diagnosis: Pneumonia, unspecified organism[ICD10: J18.9] Brit Robles MD, [facility] CPT-4: 83699 05/19/2016 17149 EST. PATIENT, LEVEL III Diagnosis: Benign paroxysmal vertigo, bilateral[ICD10: H81.13] Diagnosis: Other seasonal allergic rhinitis[ICD10: J30.2] Brit Robles MD, [facility] CPT-4: 30401 02/26/2016 ([id number]) 74839 EST. PATIENT, LEVEL IV Diagnosis: Essential (primary) hypertension[ICD10: I10] Diagnosis: Type 2 diabetes mellitus without complications[ICD10: E11.9] Diagnosis: Mixed hyperlipidemia[ICD10: E78.2] Diagnosis: Hypothyroidism, unspecified[ICD10: E03.9] Ginny Robles MD, [facility] CPT-4: 31491 01/31/2016 ([id number]) 15826 EST. PATIENT, LEVEL IV Diagnosis: DIABETES TYPE II[SNOMED: 435259219] Diagnosis: ESSENTIAL HYPERTENSION[SNOMED: 41180389] Diagnosis: Depression[ICD9: 311] Anika Robles MD, [facility] CPT-4: 69919 01/24/2014 ([id number]) 67783 EST. PATIENT, LEVEL III Diagnosis: Sciatica[ICD9: 724.3] Anika Robles MD [facility] CPT-4: 98907 12/27/2013 ([id number]) 99622 EST. PATIENT, LEVEL IV Diagnosis: DIABETES TYPE II[SNOMED: 959513023] Diagnosis: ESSENTIAL HYPERTENSION[SNOMED: 85380372] Diagnosis: HYPERLIPIDEMIA[ICD9: 272.4] Diagnosis: Osteopenia[ICD9: 733.90] Anika Robles MD, [facility] CPT-4: 25238 10/24/2013 ([id number]) 63805 EST. PATIENT, LEVEL III Diagnosis: Elevated blood sugar[ICD9: 790.29] Anika Robles MD [facility] CPT-4: 46968 07/26/2013 ([id number]) 37428 EST. PATIENT, LEVEL III Diagnosis: Plantar fasciitis[ICD9: 728.71] [facility] CPT-4: 50368 05/20/2013 ([id number] 76055 EST. PATIENT, LEVEL III Diagnosis: Elevated liver enzymes[ICD9: 790.4] Diagnosis: Fatigue[ICD9: 780.79] [facility] CPT-4: 79873 06/02/2012 ([id number]) OFFICE VISIT, NEW - LEVEL 4 Diagnosis: HYPOTHYROIDISM[ICD9: 244.9] Diagnosis: Acute maxillary sinusitis[ICD9: 461.0] Diagnosis: Allergic rhinitis[ICD9: 477.9] Diagnosis: HYPERLIPIDEMIA[ICD9: 272.4] [facility] CPT- 4: 40325 05/31/2012 Plan of Care Planned Activity Notes Codes Status Date Patient Education: Patient Medication Summary Completed 10/28/2017 Appointment: Injection 07/02/2017 Patient Education: Patient Medication Summary Completed 07/02/2017 Appointment: Injection 06/25/2017 Appointment: [phone] ([facility] min[facility] Complex 06/10/2017 Patient Education: Patient Medication Summary Completed 06/10/2017 Patient Education: Hypertension Completed 06/10/2017 Referral: Remigio Church Referral Initiated 09/30/2016 Care Plan: X-RAY EXAM OF KNEE 3 LOINC : 27355-6 Pending 09/12/2016 Care Plan: Referral Order SNOMED-CT : [id number] Pending 09/12/2016 Appointment: Ginny Terrazas WPtel[phone] [place] (15 min) Moderate 08/15/2016 Patient Education: Patient Medication Summary Completed 08/15/2016 Appointment: Ginny Terrazas [facility]Ptel[phone] [place] (30 min) Complex 07/16/2016 Patient Education: Patient Medication Summary Completed 07/16/2016 Appointment: Brit Flores WPtel: [address] [place], [place] [phone] (15 min) Moderate 05/19/2016 Patient Education: Patient Medication Summary Completed 05/19/2016 Appointment: Ginny Terrazas WPtel: [phone] (30 min) Complex 02/26/2016 Patient Education: Patient Medication Summary Completed 02/26/2016 Patient Education: Patient Medication Summary Completed 01/31/2016 Patient Education: Patient Medication Summary Completed 05/10/2015 Appointment: Anika Robles WPtel: [address] [place], [place] [phone] Follow up 01/24/2014 Patient Education: Patient Medication Summary Completed 01/24/2014 Patient Education: Hypertension Completed 01/24/2014 Appointment: Anika Robles WPtel: [address] [place], [place] [phone] Other 12/27/2013 Patient Education: Patient Medication Summary Completed 12/27/2013 Appointment: Anika Robles WPtel: [address] [place], [place] [phone] Follow up 10/24/2013 Patient Education: Patient Medication Summary Completed 10/24/2013 Patient Education: Hypertension Completed 10/24/2013 Appointment: Ginny Terrazas WPtel: [phone] Other 07/26/2013 Patient Education: Patient Medication Summary Completed 07/26/2013 Appointment: Ginny Terrazas WPtel: [address] [place], [place] [phone] Other 05/20/2013 Patient Education: Patient Medication Summary Completed 05/20/2013 Appointment: Anika Robles WPtel: [address] [place], [place] [phone] Established Patient Preventative visit 11/29/2012 Appointment: Anika Robles WPtel: [address] [place], [place] [phone] Pap Only 10/28/2012 Patient Education: Patient Medication Summary Completed 10/28/2012 [facility]ment[facility] [phone] [phone] [place] Pap Only 09/23/2012 Appointment[facility] [phone] [phone] [place] Injection 08/05/2012 Patient Education: Patient Medication Summary Completed 08/05/2012 App[facility]ment: [facility] [phone] [facility] [place] Other 06/02/2012 Patient Education: Patient Medication Summary Completed 06/02/2012 Appointment: [facility] [phone] [facility] [place] New Patient 05/31/2012 Patient Education: Patient Medication Summary Completed 05/31/2012 Referral: Remigio Church Referral Completed Instructions No Instructions
--- OUTSIDE RECORDS SUMMARY | 2017-11-02 08:47 | XMS REPORT | CCD ---
Author Author [facility] Address [address] [place] [address] Phone Care Team Providers Care Manager Of Selection And Assessment Name Role Phone PP Unavailable CCM Unavailable Summary Purpose Interface Exchange Insurance Providers Payer name Policy type / Coverage type Covered constitution party ID Effective Begin Date Effective End Date WPS Medicare Part B Medicare Part B [id number] 2013 Unknown [facility] Medicare Part B [id number] 2013 Unknown Family history Father Diagnosis Age [...] Unknown Retired 05/31/[address]: 831222065 Never smoker 05/31/[address]: 390911842 Never drinks alcohol 05/31/2012 Has the patient [...] Fill Instructions meclizine 25 mg tablet RxNorm: 654214 1 Tablet(s) PO TID as needed Dizziness 10/28/2017 No Stop Date Active meclizine 25 mg tablet RxNorm: 091743 1 Tablet(s) PO TID as needed Dizziness 10/28/2017 11/01/2017 Active Kenalog 40 mg/mL suspension for injection RxNorm: 1267035 1 Milliliter(s) Inj 10/28/2017 10/28/2017 Inactive lisinopril 2.5 mg tablet RxNorm: 880074 TABLET(S) TAKE 1 TABLET DAILY 10/16/2017 No Stop Date Active atorvastatin 10 mg tablet RxNorm: 553436 TAKE 1 TABLET AT BEDTIME 08/21/2017 No Stop Date Active levothyroxine 88 mcg tablet RxNorm: 515593 TAKE 1 TABLET DAILY 06/01/2017 No Stop Date Active levothyroxine 88 mcg tablet RxNorm: 889636 TAKE 1 TABLET DAILY 12/25/2016 05/31/2017 Inactive atorvastatin 10 mg tablet RxNorm: 440518 Tablet(s) TABLET(S) TAKE 1 TABLET AT BEDTIME 10/29/2016 08/20/2017 Inactive atorvastatin 10 mg tablet RxNorm: 306526 TABLET(S) TAKE 1 TABLET AT BEDTIME 10/27/2016 10/28/2016 Inactive lisinopril 2.5 mg tablet RxNorm: 220227 Tablet(s) TAKE 1 TABLET DAILY 10/20/2016 10/14/2017 Inactive Flonase Allergy Relief 50 mcg/actuation nasal spray, suspension RxNorm: 2993521 1 [place] NASAL BID 08/15/2016 No Stop Date Active levothyroxine 88 mcg tablet RxNorm: 909569 1 TABLET(S) PO DAILY 06/27/2016 12/24/2016 Inactive Augmentin 500 mg-125 mg tablet RxNorm: 779618 1 Tablet(s) PO TID 05/19/2016 05/19/2016 Inactive atorvastatin 10 mg tablet RxNorm: 060701 Tablet(s) TAKE 1 TABLET AT BEDTIME 04/30/2016 10/26/2016 Inactive lisinopril 2.5 mg tablet RxNorm: 432775 TAKE 1 TABLET DAILY 10/19/2016 Inactive meclizine 25 mg tablet RxNorm: 393620 1 Tablet(s) PO QID as needed Dizziness 02/26/2016 03/03/2016 Inactive Flonase Allergy Relief 50 mcg/actuation nasal spray, suspension RxNorm: 0800152 1 [place] NASAL BID 02/26/20162015 Inactive Kenalog 40 mg/mL suspension for injection RxNorm: 1306265 Milliliter(s) Inj 02/26/2016 02/26/2016 Inactive levothyroxine 88 mcg tablet RxNorm: 848645 1 Tablet(s) PO daily 02/01/2016 02/07/2016 Inactive levothyroxine 88 mcg tablet RxNorm: 488377 1 Tablet(s) PO daily 02/01/2016 01/31/2016 Inactive levothyroxine 88 mcg tablet RxNorm: 554140 1 Tablet(s) PO daily 02/01/2016 01/31/2016 Inactive lisinopril 2.5 mg tablet RxNorm: 261778 1 TABLET(S) PO DAILY 2016 Inactive levothyroxine 100 mcg tablet RxNorm: 299054 TAKE 1 TABLET DAILY 12/24/2015 01/31/2016 Inactive atorvastatin 10 mg tablet RxNorm: 334907 TAKE 1 TABLET AT BEDTIME 07/31/2015 04/29/2016 Inactive levothyroxine 100 mcg tablet RxNorm: 922495 TAKE 1 TABLET DAILY 03/06/2015 12/23/2015 Inactive lisinopril 2.5 mg tablet RxNorm: 935043 1 Tablet(s) PO daily 01/27/2016 Inactive atorvastatin 10 mg tablet RxNorm: 255276 1 Tablet(s) PO daily TAKE 1 TABLET AT BEDTIME 09/14/2014 07/30/2015 Inactive atorvastatin 10 mg tablet RxNorm: 837390 1 Tablet(s) PO QHS 05/201409/10/2014 Inactive atorvastatin 10 mg tablet RxNorm: 451513 TAKE 1 TABLET AT BEDTIME 09/11/2014 09/13/2014 Inactive lisinopril 2.5 mg tablet RxNorm: 437002 1 Tablet(s) PO daily 12/02/2014 Inactive clobetasol 0.05 % topical cream RxNorm: 058020 1 Application TOP BID as needed 06/14/2014 06/13/2014 Inactive clobetasol 0.05 % topical cream RxNorm: 902911 1 Application TOP BID as needed 06/14/2014 09/11/2014 Inactive lisinopril 2.5 mg tablet RxNorm: 462672 1 Tablet(s) PO daily 08/21/2014 Inactive cyclobenzaprine 5 mg tablet RxNorm: 681844 1 Tablet(s) PO Q6 PRN 01/02/2014 03/02/2014 Inactive prednisone 20 mg tablet RxNorm: 229022 1 Tablet(s) PO TID 12/2912/28/2013 Inactive one tid or two q am one at noonhold naproxen while on prednisone. may restart naproxen when finishes prednisone prednisone 20 mg tablet RxNorm: 607677 1 Tablet(s) PO TID 12/2912/31/2013 Inactive one tid or two q am one at noonhold naproxen while on prednisone. may restart naproxen when finishes prednisone levothyroxine 100 mcg tablet RxNorm: 632030 1 Tablet(s) PO daily 12/27/2013 03/05/2015 Inactive naproxen 500 mg tablet RxNorm: 557322 1 Tablet(s) PO BID take one pill twice daily with food 12/27/2013 02/24/2014 Inactive atorvastatin 10 mg tablet RxNorm: 859598 1 Tablet(s) PO QHS 07/201409/10/2014 Inactive colestipol 5 gram oral packet RxNorm: 9365587 1 packet PO BID 10/31/2013 11/03/2013 Inactive Fish Oil 1,000 mg capsule RxNorm: 1 Capsule(s) PO BID 2013 No Stop Date Active WelChol 625 mg tablet RxNorm: 257049 3 Tablet(s) PO BID 201310/30/2013 Inactive ketoconazole 2 % shampoo RxNorm: 564653 1 Application TOP 3 x week 10/24/2013 11/22/2013 Inactive atorvastatin 10 mg tablet RxNorm: 877292 1 Tablet(s) PO QHS 11/13/2013 Inactive levothyroxine 100 mcg tablet RxNorm: 755568 1 Tablet(s) PO daily 11/30/2012 11/24/2013 Inactive fluticasone 50 mcg/actuation Nasal [place], Susp RxNorm: 164701 1 [place] NASAL BID 10/28/2012 01/30/2016 Inactive atorvastatin 10 mg tablet RxNorm: 763858 1 Tablet(s) PO QHS 03/201212/07/2012 Inactive atorvastatin 10 mg tablet RxNorm: 231506 1 Tablet(s) PO QHS 03/201208/09/2012 Inactive Influenza Virus Vaccine 0.5 mL RxNorm: IM 08/05/2012 08/05/2012 Inactive Crestor 20 mg tablet RxNorm: 062705 1 Tablet(s) PO daily 201106/14/2012 Inactive levothyroxine 100 mcg tablet RxNorm: 440829 1 Tablet(s) PO daily 05/31/2012 09/27/2012 Inactive Bactrim DS 800 mg-160 mg tablet RxNorm: 496750 1 Tablet(s) PO BID 05/31/2012 06/04/2012 Inactive Vitamin D3 1,000 unit capsule RxNorm: 139111 1 Capsule(s) PO daily No Start Date Active glucosamine HCl 1,500 mg tablet RxNorm: 201110 2 Tablet(s) PO daily No Start Date Active aspirin 81 mg capsule,delayed release RxNorm: 153969 1 Capsule(s) PO daily No Start Date Active colestipol 5 gram oral packet RxNorm: 5764599 1 packet PO BID No Start Date 10/30/2013 Inactive Fish Oil 1,000 mg capsule RxNorm: 1 Capsule(s) PO TID No Start Date 10/23/2013 Inactive Fish Oil 360 mg-1,200 mg capsule RxNorm: 756263 1 Capsule(s) PO daily No Start Date 10/24/2013 Inactive levothyroxine 100 mcg tablet RxNorm: 859054 1 Tablet(s) PO daily No Start Date 05/30/2012 Inactive Crestor 20 mg tablet RxNorm: 000336 1 Tablet(s) PO daily No Start Date 05/30/2012 Inactive Calcium 600 + D(3) 600 mg (1,500 mg)-400 unit tablet RxNorm: 614647 1 Tablet(s) PO daily No Start Date 10/23/2013 Inactive Medication Administered Medication Codes Instructions Start Date Status Kenalog 40 mg/mL suspension for injection RxNorm: 1032535 1Milliliter 10/28/2017 No longer Active Kenalog 40 mg/mL suspension for injection RxNorm: 9121022 Milliliter 02/26/2016 No longer Active Influenza Virus [...] mammogram ICD-9: V76.12 05/10/2015 ESSENTIAL HYPERTENSION SNOMED: 27536214 ICD-9: 401.9 01/24/2014 Depression ICD-9: 311 01/24/2014 DIABETES TYPE II SNOMED: 537169057 ICD-9: 250.00 01/24/2014 SACROILIITIS NEC ICD-9: 720.2 [...] hTSH II 1.39 uIU/mL 06/05/2017 Comp Metabolic Cdz296 NA 142 mEq/L 06/05/2017 Comp Metabolic Ldx431 K 4.2 mEq/L 06/05/2017 Comp Metabolic Aus508 CL 106 mEq/L 06/05/2017 Comp Metabolic Gkj172 CO2 28.0 mEq/L 06/05/2017 Comp Metabolic Ows947 ANION GAP 12 06/05/2017 Comp Metabolic Fwi729 GLUCOSE 95 mg/dL 06/05/2017 Comp Metabolic Fez823 Creat 0.9 mg/dL 06/05/2017 Comp Metabolic Sky312 eGFR 66 ml/min/1.73m2 06/05/2017 Comp Metabolic Eqp955 BUN 30 mg/dL 06/05/2017 Comp Metabolic Cyg632 B/C Ratio 33.3 Ratio 06/05/2017 Comp Metabolic Fbl873 CALCIUM 9.2 mg/dL 06/05/2017 Comp Metabolic Rhw803 ALK PHOS 57 U/L 06/05/2017 Comp Metabolic Mws137 AST(SGOT) 19 U/L 06/05/2017 Comp Metabolic Mrd127 ALT(SGPT) 25 U/L 06/05/2017 Comp Metabolic Pnc339 BILI T 0.7 mg/dL 06/05/2017 Comp Metabolic Crl282 ALBUMIN 4.2 g/dL 06/05/2017 Comp Metabolic Psw960 TPRO 6.3 g/dL 06/05/2017 Comp Metabolic Vus723 GLOB 2.1 g/dL 06/05/2017 Comp Metabolic Koy430 A/G Ratio 1.9 Ratio 06/05/2017 Comp Metabolic Rrn603 Osmo 289 mOsmo 06/05/2017 Free T4 Psk456 FREE T4 0.88 ng/dL 06/05/2017 Cbc With [...] 31.4 pg 06/05/2017 Cbc With Differential Ord2 [place]% 9.7 % 06/05/2017 Cbc With Differential Ord2 [...] 1.20 K/ul 06/05/2017 Cbc With Differential Ord2 [place] ABS# 0.4 K/ul 06/05/2017 Cbc With Differential Ord2 Eos ABS# 0.2 K/ul 06/05/2017 Cbc With Differential Ord2 Baso ABS# 0.0 K/ul 06/05/2017 %Hba1C Lqi950 % HbA1c 85100-5 6.3 % 06/05/2017 %Hba1C Usy019 Gluc Ave 134 mg/dL 06/05/2017 Tsh Ord6 hTSH II 0.48 uIU/mL 05/01/2016 Free T4 Vhm081 FREE T4 1.10 ng/dL 05/01/2016 %Hba1C Uec009 % HbA1c 48480-1 6.3 % 01/31/2016 %Hba1C Rzk508 Gluc Ave 134 mg/dL 01/31/2016 Comp Metabolic Otu915 NA 141 mEq/L 01/31/2016 Comp Metabolic Xqy666 K 4.4 mEq/L 01/31/2016 Comp Metabolic Igw706 CL 103 mEq/L 01/31/2016 Comp Metabolic Smj930 CO2 32.0 mEq/L 01/31/2016 Comp Metabolic Ebz655 ANION GAP 10 01/31/2016 Comp Metabolic Eax092 GLUCOSE 99 mg/dL 01/31/2016 Comp Metabolic Mvk655 Creat 0.8 mg/dL 01/31/2016 Comp Metabolic Ppm960 eGFR 77 ml/min/1.73m2 01/31/2016 Comp Metabolic End726 BUN 22 mg/dL 01/31/2016 Comp Metabolic Iwq082 B/C Ratio 27.8 Ratio 01/31/2016 Comp Metabolic Jbr292 CALCIUM 9.7 mg/dL 01/31/2016 Comp Metabolic Ddw208 ALK PHOS 62 U/L 01/31/2016 Comp Metabolic Bnv160 AST(SGOT) 16 U/L 01/31/2016 Comp Metabolic Kjx899 ALT(SGPT) 22 U/L 01/31/2016 Comp Metabolic Jwp846 BILI T 1.1 mg/dL 01/31/2016 Comp Metabolic Kjo418 ALBUMIN 4.2 g/dL 01/31/2016 Comp Metabolic Zyu029 TPRO 6.4 g/dL 01/31/2016 Comp Metabolic Qbb784 GLOB 2.2 g/dL 01/31/2016 Comp Metabolic Vnv629 A/G Ratio 2.0 Ratio 01/31/2016 Comp Metabolic Usq778 Osmo 285 mOsmo 01/31/2016 Free T4 Xgr879 FREE T4 1.01 ng/dL 01/31/2016 Cbc With [...] 31.1 pg 01/31/2016 Cbc With Differential Ord2 [place]% 11.0 % 01/31/2016 Cbc With Differential Ord2 [...] 0.88 K/ul 01/31/2016 Cbc With Differential Ord2 [place] ABS# 0.4 K/ul 01/31/2016 Cbc With Differential [...] II 0.21 uIU/mL 01/31/2016 VIT D TOTL 0513266 VIT D TOTL 62 NG/ML 10/24/2013 Review [...] Procedure Codes Date THER/PROPH/DIAG INJ SC/IM CPT-4: 93263 10/28/2017 TRIAMCINOLONE ACET INJ NOS CPT-4: J3301 10/28/2017 ADMIN INFLUENZA VIRUS VAC CPT-4: G0008 07/02/2017 FLU VACC PRSV FREE INC ANTIG CPT-4: 70089 07/02/2017 PNEUMOCOCCAL VACC [address]: 90809206 CPT-4: 42384 08/15/2016 THER/PROPH/DIAG INJ SC/IM CPT-4: 32769 08/15/2016 TRIAMCINOLONE ACET INJ NOS CPT-4: J3301 02/26/2016 TRIAMCINOLONE ACET INJ NOS CPT-4: J3301 12/27/2013 THER/PROPH/DIAG INJ SC/IM CPT-4: 15753 12/27/2013 ROUTINE VENIPUNCTURE CPT-4: 91435 10/24/2013 PRESCRIP TRANSMIT VIA ERX SY CPT-4: G8553 10/28/2012 ADMIN INFLUENZA VIRUS VAC CPT-4: G0008 08/05/2012 FLULAVAL VACC, 3 YRS & >, IM CPT-4: Q2036 08/05/2012 PRESCRIP TRANSMIT VIA ERX SY CPT-4: G8553 05/31/2012 Vital Signs Date Vital 10/28/2017 Blood Pressure 1: 118/64 Code : 8480-6 BMI: 24.7 Code : 04713-5 Heart Rate 1 : 70 bpm Height: 5'8" SpO2: 98% Temperature: 36.7 (C) / 98.1 (F) Weight: 165 lbs 06/10/2017 Blood Pressure 1: 142/80 Code : 8480-6 BMI: 26.5 Code : 55542-7 Heart Rate 1 : 71 bpm Height: 5'8" SpO2: 96% Weight: 175 lbs 08/15/2016 Blood Pressure 1: 142/78 Code : 8480-6 BMI: 26.8 Code : 81233-2 Heart Rate 1 : 95 bpm Height: 5'8" SpO2: 97% Weight: 177 lbs 07/16/2016 Blood Pressure 1: 132/76 Code : 8480-6 BMI: 27.0 Code : 36288-1 Heart Rate 1 : 76 bpm Height: 5'8" SpO2: 96% Weight: 180 lbs 05/19/2016 Blood Pressure 1: 146/76 Code : 8480-6 BMI: 27.7 Code : 71629-1 Heart Rate 1 : 89 bpm Height: 5'8" SpO2: 96% Weight: 185 lbs 02/26/2016 Blood Pressure 1: 158/88 Code : 8480-6 BMI: 27.3 Code : 71296-5 Heart Rate 1 : 70 bpm Height: 5'8" SpO2: 97% Weight: 182 lbs 01/31/2016 Blood Pressure 1: 138/84 Code : 8480-6 BMI: 27.3 Code : 74699-6 Heart Rate 1 : 77 bpm Height: 5'8" SpO2: 97% Weight: 182 lbs 01/24/2014 Blood Pressure 1: 150/92 Code : 8480-6 BMI: 26.5 Code : 11118-2 Heart Rate 1 : 80 bpm Height: 5'8" Weight: 177 lbs 12/27/2013 Blood Pressure 1: 152/80 Code : 8480-6 BMI: 26.2 Code : 01870-8 Heart Rate 1 : 68 bpm Height: 5'8" Weight: 175 lbs 10/24/2013 Blood Pressure 1: 156/86 Code : 8480-6 BMI: 27.1 Code : 40297-9 Heart Rate 1 : 84 bpm Height: 5'8" Weight: 181 lbs 07/26/2013 Blood Pressure 1: 156/80 Code : 8480-6 BMI: 28.3 Code : 27608-2 Heart Rate 1 : 84 bpm Height: 5'8" Weight: 189 lbs 05/20/2013 Blood Pressure 1: 136/86 Code : 8480-6 BMI: 27.7 Code : 08772-2 Heart Rate 1 : 80 bpm Height: 5'8" Weight: 185 lbs 10/28/2012 Blood Pressure 1: 122/78 Code : 8480-6 Heart Rate 1: 80 bpm Respiratory Rate : 16 bpm Weight: 186 lbs 06/02/2012 Blood Pressure 1: 128/68 Code : 8480-6 05/31/2012 Blood Pressure 1: 138/78 Code : 8480-6 BMI: 27.6 Code : 07021-8 Heart Rate 1 : 68 bpm Height: [...] exercise 01/24/2014 - was going to the [facility] - 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 hypertension Onset and Resolution ongoing 01/24/2014 pt states that she has high blood pressure off and on when going to the doctor - she states that she thinks some of it may be because she is depressed about being here in [place]. hip pain Location on the right 12/27/2013 [...] recieved blood transfusion whil living in the [facility] in 1973. 06/02/2012 None abnormal test results [...] data Encounters Encounter Performer Location Codes Date 62215 EST. PATIENT, LEVEL IV Diagnosis: Other allergic rhinitis[ICD10: J30.89] Diagnosis: Benign paroxysmal vertigo, bilateral[ICD10: H81.13] Brit Robles MD, [facility] CPT-4: 32110 10/28/2017 71832 EST. PATIENT, LEVEL IV Diagnosis: Essential (primary) hypertension[ICD10: I10] Diagnosis: Type 2 diabetes mellitus without complications[ICD10: E11.9] Diagnosis: Mixed hyperlipidemia[ICD10: E78.2] Diagnosis: Other specified hypothyroidism[ICD10: E03.8] [facility] CPT-4: 37921 06/10/2017 35215 EST. PATIENT, LEVEL III Diagnosis: Other allergic rhinitis[ICD10: J30.89] Diagnosis: Pain in left knee[ICD10: M25.562] Diagnosis: Encounter for immunization[ICD10: Z23] [facility] CPT-4: 20089 08/15/2016 03273 EST. PATIENT, LEVEL IV Diagnosis: Pain in left knee[ICD10: M25.562] Brit Robles MD, [facility] CPT -4: 62337 07/16/2016 39674 EST. PATIENT, LEVEL IV Diagnosis: Pneumonia, unspecified organism[ICD10: J18.9] Brit Robles MD, [facility] CPT-4: 27605 05/19/2016 82928 EST. PATIENT, LEVEL III Diagnosis: Benign paroxysmal vertigo, bilateral[ICD10: H81.13] Diagnosis: Other seasonal allergic rhinitis[ICD10: J30.2] Brit Robles MD, [facility] CPT-4: 81140 02/26/2016 ([id number]) 55440 EST. PATIENT, LEVEL IV Diagnosis: Essential (primary) hypertension[ICD10: I10] Diagnosis: Type 2 diabetes mellitus without complications[ICD10: E11.9] Diagnosis: Mixed hyperlipidemia[ICD10: E78.2] Diagnosis: Hypothyroidism, unspecified[ICD10: E03.9] Ginny Robles MD, [facility] CPT-4: 98373 01/31/2016 ([id number]) 33523 EST. PATIENT, LEVEL IV Diagnosis: DIABETES TYPE II[SNOMED: 086555473] Diagnosis: ESSENTIAL HYPERTENSION[SNOMED: 34935165] Diagnosis: Depression[ICD9: 311] Anika Robles MD [facility] CPT-4: 22075 01/24/2014 ([id number]) 10044 EST. PATIENT, LEVEL III Diagnosis: Sciatica[ICD9: 724.3] Anika Robles MD [facility] CPT-4: 02665 12/27/2013 ([id number]) 89403 EST. PATIENT, LEVEL IV Diagnosis: DIABETES TYPE II[SNOMED: 733014524] Diagnosis: ESSENTIAL HYPERTENSION[SNOMED: 72414796] Diagnosis: HYPERLIPIDEMIA[ICD9: 272.4] Diagnosis: Osteopenia[ICD9: 733.90] Anika Robles MD, [facility] CPT-4: 57599 10/24/2013 ([id number]) 27170 EST. PATIENT, LEVEL III Diagnosis: Elevated blood sugar[ICD9: 790.29] Anika Robles MD [facility] CPT-4: 27668 07/26/2013 ([id number]) 71381 EST. PATIENT, LEVEL III Diagnosis: Plantar fasciitis[ICD9: 728.71] [facility] CPT-4: 24517 05/20/2013 ([id number] 89868 EST. PATIENT, LEVEL III Diagnosis: Elevated liver enzymes[ICD9: 790.4] Diagnosis: Fatigue[ICD9: 780.79] [facility] CPT-4: 44481 06/02/2012 ([id number]) OFFICE VISIT, NEW - LEVEL 4 Diagnosis: HYPOTHYROIDISM[ICD9: 244.9] Diagnosis: Acute maxillary sinusitis[ICD9: 461.0] Diagnosis: Allergic rhinitis[ICD9: 477.9] Diagnosis: HYPERLIPIDEMIA[ICD9: 272.4] [facility] CPT- 4: 16370 05/31/2012 Plan of Care Planned Activity Notes Codes Status Date Appointment: Brit Flores WPtel: [facility] (30 min) Complex 10/28/2017 Patient Education: Patient Medication Summary Completed 10/28/2017 Appointment: Injection 07/02/2017 Patient Education: Patient Medication Summary Completed 07/02/2017 Appointment: Injection 06/25/2017 App[facility]ment: [facility] ([facility] Complex 06/10/2017 Patient Education: Patient Medication Summary Completed 06/10/2017 Patient Education: Hypertension Completed 06/10/2017 Referral: Remigio Church Referral Initiated 09/30/2016 Care Plan: X-RAY EXAM OF KNEE 3 LOINC : 85304-6 Pending 09/12/2016 Care Plan: Referral Order SNOMED-CT : 998098683 Pending 09/12/2016 Appointment: Ginny Terrazas WPtel[phone] [place] (15 min) Moderate 08/15/2016 Patient Education: Patient Medication Summary Completed 08/15/2016 Appointment: Ginny Terrazas WPtel: [phone] [place] (30 min) Complex 07/16/2016 Patient Education: Patient Medication Summary Completed 07/16/2016 Appointment: Brit Flores WPtel: [address] [place], [place] [phone] (15 min) Moderate 05/19/2016 Patient Education: Patient Medication Summary Completed 05/19/2016 Appointment: Ginny Terrazas WPtel: [address] [place], [place] [phone] (30 min) Complex 02/26/2016 Patient Education: Patient Medication Summary Completed 02/26/2016 Patient Education: Patient Medication Summary Completed 01/31/2016 Patient Education: Patient Medication Summary Completed 05/10/2015 Appointment: Anika Robles WPtel: [address] [place], [place] [phone] Follow up 01/24/2014 Patient Education: Patient Medication Summary Completed 01/24/2014 Patient Education: Hypertension Completed 01/24/2014 Appointment: Anika Robles WPtel: [address] [place], [place] [phone] Other 12/27/2013 Patient Education: Patient Medication Summary Completed 12/27/2013 Appointment: Anika Robles WPtel: [address] [place], [place] [phone] Follow up 10/24/2013 Patient Education: Patient Medication Summary Completed 10/24/2013 Patient Education: Hypertension Completed 10/24/2013 Appointment: Ginny Terrazas WPtel: [address] [place], [place] [phone] Other 07/26/2013 Patient Education: Patient Medication Summary Completed 07/26/2013 Appointment: Ginyn Terrazas WPtel: [address] [place], [place] [phone] Other 05/20/2013 Patient Education: Patient Medication Summary Completed 05/20/2013 Appointment: Anika Robles WPtel: [address] [place], [place] [phone] Established Patient Preventative visit 11/29/2012 [facility]ment[facility] [phone] [facility] [place] Pap Only 10/28/2012 Patient Education: Patient Medication Summary Completed 10/28/2012 [facility]ment[facility] [phone] [facility] [place] Pap Only 09/23/2012 [facility]ment[facility] [phone] [phone] [place] Injection 08/05/2012 Patient Education: Patient Medication Summary Completed 08/05/2012 [facility]ment[facility] [phone] [facility] [place] Other 06/02/2012 Patient Education: Patient Medication Summary Completed 06/02/2012 [facility]ment: [facility] [phone] [facility] [place] New Patient 05/31/2012 Patient Education: Patient Medication Summary Completed 05/31/2012 Referral: Remigio Church Referral Completed Instructions No Instructions
--- OUTSIDE RECORDS SUMMARY | 2017-11-02 08:49 | XMS REPORT | CCD ---
Author Author Anika Robles MD, [facility] Address [address] [place] [address] Phone Care Team Providers Care Budget Analyst Name Role Phone PP Unavailable CCM Unavailable Summary Purpose Interface Exchange Insurance Providers Payer name Policy type / Coverage type Covered democrat ID Effective Begin Date Effective End Date WPS Medicare Part B Medicare Part B [id number] 2013 Unknown [facility] Medicare Part B [id number] 2013 Unknown Family history Father Diagnosis Age [...] Unknown Retired 05/31/[address]: 483094815 Never smoker 05/31/[address]: 348809143 Never drinks alcohol 05/31/2012 Has the patient ever used illegal drugs? Unknown Has never used illegal drugs 05/31/2012 Allergies, Adverse Reactions, Alerts Substance Reaction Codes Entered Date Inactivated Date Status ESTROGENS rash Unknown 05/31/2012 No Inactive Date Active Past Medical History Illness Codes Condition Status Onset Date Resolved Date Encounter for immunization ICD-9: V04.81 ICD-10: Z23 Active 07/02/2017 Unknown Essential (primary) hypertension ICD-9: 401.9 ICD-10: I10 Active 01/30/2016 Unknown Hypothyroidism, unspecified ICD-9: 244.9 ICD-10: E03.9 Active 01/30/2016 Unknown Mixed hyperlipidemia ICD-9: 272.4 ICD-10: E78.2 Active 01/30/2016 Unknown Type 2 diabetes mellitus without complications ICD-9: 250.00 ICD-10: E11.9 Active 01/30/2016 Unknown Encounter for immunization ICD-9: V03.82 ICD-10: Z23 Active 08/14/2016 Unknown Other allergic rhinitis ICD-9: 477.8 ICD-10: J30.89 Active 08/14/2016 Unknown Pain in left knee ICD- 9: 719.46 ICD-10: M25.562 Active 08/14/2016 Unknown Pneumonia, unspecified organism ICD-9: 486 ICD-10: J18.9 Active 05/18/2016 Unknown Benign paroxysmal vertigo, bilateral ICD-9: 386.11 ICD-10: H81.13 Active 02/25/2016 Unknown Other seasonal allergic rhinitis ICD-9: 477.8 [...] Problems Condition Codes Effective Dates Condition Status Encounter for immunization ICD-9: V04.81 ICD-10: Z23 07/02/2017 Active Essential (primary) hypertension ICD-9: 401.9 ICD-10: I10 01/30/2016 Active Hypothyroidism, unspecified ICD-9: 244.9 ICD-10: E03.9 01/30/2016 Active Mixed hyperlipidemia ICD-9: 272.4 ICD-10: E78.2 01/30/2016 Active Type 2 diabetes mellitus without complications ICD-9: 250.00 ICD-10: E11.9 01/30/2016 Active Encounter for immunization ICD-9: V03.82 ICD-10: Z23 08/14/2016 Active Other allergic rhinitis ICD-9: 477.8 ICD-10: J30.89 08/14/2016 Active Pain in left knee ICD- 9: 719.46 ICD-10: M25.562 08/14/2016 Active Pneumonia, unspecified organism ICD-9: 486 ICD-10: J18.9 05/18/2016 Active Benign paroxysmal vertigo, bilateral ICD-9: 386.11 ICD-10: H81.13 02/25/2016 Active Other seasonal allergic rhinitis ICD-9: 477.8 [...] Start Date Stop Date Status Fill Instructions lisinopril 2.5 mg tablet RxNorm: 959133 TABLET(S) TAKE 1 TABLET DAILY 10/16/2017 No Stop Date Active atorvastatin 10 mg tablet RxNorm: 769443 TAKE 1 TABLET AT BEDTIME 08/21/2017 No Stop Date Active levothyroxine 88 mcg tablet RxNorm: 026881 TAKE 1 TABLET DAILY 06/01/2017 No Stop Date Active levothyroxine 88 mcg tablet RxNorm: 475414 TAKE 1 TABLET DAILY 12/25/2016 05/31/2017 Inactive atorvastatin 10 mg tablet RxNorm: 709199 Tablet(s) TABLET(S) TAKE 1 TABLET AT BEDTIME 10/29/2016 08/20/2017 Inactive atorvastatin 10 mg tablet RxNorm: 615985 TABLET(S) TAKE 1 TABLET AT BEDTIME 10/27/2016 10/28/2016 Inactive lisinopril 2.5 mg tablet RxNorm: 463832 Tablet(s) TAKE 1 TABLET DAILY 10/20/2016 10/14/2017 Inactive Flonase Allergy Relief 50 mcg/actuation nasal spray, suspension RxNorm: 2679071 1 [place] NASAL BID 08/15/2016 No Stop Date Active levothyroxine 88 mcg tablet RxNorm: 302659 1 TABLET(S) PO DAILY 06/27/2016 12/24/2016 Inactive Augmentin 500 mg-125 mg tablet RxNorm: 884021 1 Tablet(s) PO TID 05/19/2016 05/19/2016 Inactive atorvastatin 10 mg tablet RxNorm: 783220 Tablet(s) TAKE 1 TABLET AT BEDTIME 04/30/2016 10/26/2016 Inactive lisinopril 2.5 mg tablet RxNorm: 578717 TAKE 1 TABLET DAILY 10/19/2016 Inactive meclizine 25 mg tablet RxNorm: 041932 1 Tablet(s) PO QID as needed Dizziness 02/26/2016 03/03/2016 Inactive Flonase Allergy Relief 50 mcg/actuation nasal spray, suspension RxNorm: 4843262 1 [place] NASAL BID 02/26/20162015 Inactive Kenalog 40 mg/mL suspension for injection RxNorm: 7971853 Milliliter(s) Inj 02/26/2016 02/26/2016 Inactive levothyroxine 88 mcg tablet RxNorm: 904614 1 Tablet(s) PO daily 02/01/2016 02/07/2016 Inactive levothyroxine 88 mcg tablet RxNorm: 988464 1 Tablet(s) PO daily 02/01/2016 01/31/2016 Inactive levothyroxine 88 mcg tablet RxNorm: 202926 1 Tablet(s) PO daily 02/01/2016 01/31/2016 Inactive lisinopril 2.5 mg tablet RxNorm: 775747 1 TABLET(S) PO DAILY 2016 Inactive levothyroxine 100 mcg tablet RxNorm: 856761 TAKE 1 TABLET DAILY 12/24/2015 01/31/2016 Inactive atorvastatin 10 mg tablet RxNorm: 887442 TAKE 1 TABLET AT BEDTIME 07/31/2015 04/29/2016 Inactive levothyroxine 100 mcg tablet RxNorm: 277024 TAKE 1 TABLET DAILY 03/06/2015 12/23/2015 Inactive lisinopril 2.5 mg tablet RxNorm: 517676 1 Tablet(s) PO daily 01/27/2016 Inactive atorvastatin 10 mg tablet RxNorm: 174683 1 Tablet(s) PO daily TAKE 1 TABLET AT BEDTIME 09/14/2014 07/30/2015 Inactive atorvastatin 10 mg tablet RxNorm: 411884 1 Tablet(s) PO QHS 05/201409/10/2014 Inactive atorvastatin 10 mg tablet RxNorm: 421234 TAKE 1 TABLET AT BEDTIME 09/11/2014 09/13/2014 Inactive lisinopril 2.5 mg tablet RxNorm: 649574 1 Tablet(s) PO daily 12/02/2014 Inactive clobetasol 0.05 % topical cream RxNorm: 144984 1 Application TOP BID as needed 06/14/2014 06/13/2014 Inactive clobetasol 0.05 % topical cream RxNorm: 210183 1 Application TOP BID as needed 06/14/2014 09/11/2014 Inactive lisinopril 2.5 mg tablet RxNorm: 035648 1 Tablet(s) PO daily 08/21/2014 Inactive cyclobenzaprine 5 mg tablet RxNorm: 356378 1 Tablet(s) PO Q6 PRN 01/02/2014 03/02/2014 Inactive prednisone 20 mg tablet RxNorm: 053834 1 Tablet(s) PO TID 12/2912/28/2013 Inactive one tid or two q am one at noonhold naproxen while on prednisone. may restart naproxen when finishes prednisone prednisone 20 mg tablet RxNorm: 031762 1 Tablet(s) PO TID 12/2912/31/2013 Inactive one tid or two q am one at noonhold naproxen while on prednisone. may restart naproxen when finishes prednisone levothyroxine 100 mcg tablet RxNorm: 283043 1 Tablet(s) PO daily 12/27/2013 03/05/2015 Inactive naproxen 500 mg tablet RxNorm: 479845 1 Tablet(s) PO BID take one pill twice daily with food 12/27/2013 02/24/2014 Inactive atorvastatin 10 mg tablet RxNorm: 290124 1 Tablet(s) PO QHS 07/201409/10/2014 Inactive colestipol 5 gram oral packet RxNorm: 6661662 1 packet PO BID 10/31/2013 11/03/2013 Inactive Fish Oil 1,000 mg capsule RxNorm: 1 Capsule(s) PO BID 2013 No Stop Date Active WelChol 625 mg tablet RxNorm: 057883 3 Tablet(s) PO BID 201310/30/2013 Inactive ketoconazole 2 % shampoo RxNorm: 847461 1 Application TOP 3 x week 10/24/2013 11/22/2013 Inactive atorvastatin 10 mg tablet RxNorm: 569876 1 Tablet(s) PO QHS 11/13/2013 Inactive levothyroxine 100 mcg tablet RxNorm: 142620 1 Tablet(s) PO daily 11/30/2012 11/24/2013 Inactive fluticasone 50 mcg/actuation Nasal [place], Susp RxNorm: 633883 1 [place] NASAL BID 10/28/2012 01/30/2016 Inactive atorvastatin 10 mg tablet RxNorm: 802599 1 Tablet(s) PO QHS 03/201212/07/2012 Inactive atorvastatin 10 mg tablet RxNorm: 054287 1 Tablet(s) PO QHS 03/201208/09/2012 Inactive Influenza Virus Vaccine 0.5 mL RxNorm: IM 08/05/2012 08/05/2012 Inactive Crestor 20 mg tablet RxNorm: 965362 1 Tablet(s) PO daily 201106/14/2012 Inactive levothyroxine 100 mcg tablet RxNorm: 086277 1 Tablet(s) PO daily 05/31/2012 09/27/2012 Inactive Bactrim DS 800 mg-160 mg tablet RxNorm: 482596 1 Tablet(s) PO BID 05/31/2012 06/04/2012 Inactive Vitamin D3 1,000 unit capsule RxNorm: 071083 1 Capsule(s) PO daily No Start Date Active glucosamine HCl 1,500 mg tablet RxNorm: 950987 2 Tablet(s) PO daily No Start Date Active aspirin 81 mg capsule,delayed release RxNorm: 540832 1 Capsule(s) PO daily No Start Date Active colestipol 5 gram oral packet RxNorm: 7871108 1 packet PO BID No Start Date 10/30/2013 Inactive Fish Oil 1,000 mg capsule RxNorm: 1 Capsule(s) PO TID No Start Date 10/23/2013 Inactive Fish Oil 360 mg-1,200 mg capsule RxNorm: 430565 1 Capsule(s) PO daily No Start Date 10/24/2013 Inactive levothyroxine 100 mcg tablet RxNorm: 203323 1 Tablet(s) PO daily No Start Date 05/30/2012 Inactive Crestor 20 mg tablet RxNorm: 245842 1 Tablet(s) PO daily No Start Date 05/30/2012 Inactive Calcium 600 + D(3) 600 mg (1,500 mg)-400 unit tablet RxNorm: 963261 1 Tablet(s) PO daily No Start Date 10/23/2013 Inactive Medication Administered Medication Codes Instructions Start Date Status Kenalog 40 mg/mL suspension for injection RxNorm: 8654314 Milliliter 02/26/2016 No longer Active Influenza Virus Vaccine 0.5 mL RxNorm: 08/05/2012 No longer Active Immunizations Vaccine Codes Date Status Influenza CVX: 141 07/02/2017 completed Pneumococcal (Adult) CVX: 133 08/15/2016 completed Influenza CVX: 141 07/19/2016 completed Influenza CVX: 141 07/18/2013 completed Influenza CVX: 141 08/05/2012 completed Pneumococcal CVX: 33 08/24/2011 completed Zoster CVX: 121 02/21/2011 completed Assessments Condition Codes Effective Dates Encounter for immunization ICD-10: Z23 ICD-9: V04.81 07/02/2017 Mixed hyperlipidemia ICD-10: E78.2 ICD-9: 272.4 06/10/2017 Type 2 diabetes mellitus without complications ICD-10: E11.9 ICD-9: 250.00 06/10/2017 Essential (primary) hypertension ICD-10: I10 ICD-9: 401.9 06/10/2017 Other specified hypothyroidism ICD-10: E03.8 ICD-9: 244.8 06/10/2017 Pain in left knee ICD-10: M25.562 ICD-9: 719.46 08/15/2016 Encounter for immunization ICD-10: Z23 ICD-9: V03.82 08/15/2016 Other allergic rhinitis ICD-10: J30.89 ICD-9: 477.8 08/15/2016 Pneumonia, unspecified organism ICD-10: J18.9 ICD-9: 486 05/19/2016 Other seasonal allergic rhinitis ICD-10: J30.2 ICD-9: 477.8 02/26/2016 Benign paroxysmal vertigo, bilateral ICD-10: H81.13 ICD-9: 386.11 02/26/2016 Hypothyroidism, unspecified ICD-10: E03.9 ICD-9: 244.9 01/31/2016 Other screening mammogram ICD-9: V76.12 05/10/2015 ESSENTIAL HYPERTENSION SNOMED: 54137664 ICD-9: 401.9 01/24/2014 DIABETES TYPE II SNOMED: 302884935 ICD-9: 250.00 01/24/2014 Depression ICD-9: 311 01/24/2014 SACROILIITIS NEC ICD-9: 720.2 12/27/2013 Sciatica ICD-9: 724.3 12/27/2013 Osteopenia ICD-9: 733.90 10/24/2013 HYPERLIPIDEMIA ICD-9: 272.4 10/24/2013 Elevated blood sugar ICD-9: 790.29 2012 Plantar fasciitis ICD-9: 728.71 2012 Well woman exam with routine gynecological exam ICD-9: V72.31 10/28/2012 VACCIN FOR INFLUENZA ICD-9: V04.81 2011 Elevated liver enzymes ICD-9: 790.4 06/02 Fatigue ICD-9: 780.79 06/02/2012 Acute maxillary sinusitis ICD-9: 461.0 Allergic rhinitis ICD-9: 477.9 2011 HYPOTHYROIDISM ICD-9: 244.9 05/31/2012 Reason For Visit Reason For Visit Effective Dates Notes vaccination against influenza 07/02/2017 hypertension 06/10/2017 cough [...] hTSH II 1.39 uIU/mL 06/05/2017 Comp Metabolic Dpq766 NA 142 mEq/L 06/05/2017 Comp Metabolic Jdj945 K 4.2 mEq/L 06/05/2017 Comp Metabolic Krb215 CL 106 mEq/L 06/05/2017 Comp Metabolic Jem652 CO2 28.0 mEq/L 06/05/2017 Comp Metabolic Fzs321 ANION GAP 12 06/05/2017 Comp Metabolic Uqa366 GLUCOSE 95 mg/dL 06/05/2017 Comp Metabolic Qsm934 Creat 0.9 mg/dL 06/05/2017 Comp Metabolic Saw772 eGFR 66 ml/min/1.73m2 06/05/2017 Comp Metabolic Maw067 BUN 30 mg/dL 06/05/2017 Comp Metabolic Rfv220 B/C Ratio 33.3 Ratio 06/05/2017 Comp Metabolic Ucl166 CALCIUM 9.2 mg/dL 06/05/2017 Comp Metabolic Nyj634 ALK PHOS 57 U/L 06/05/2017 Comp Metabolic Mcn597 AST(SGOT) 19 U/L 06/05/2017 Comp Metabolic Vvu819 ALT(SGPT) 25 U/L 06/05/2017 Comp Metabolic Glc952 BILI T 0.7 mg/dL 06/05/2017 Comp Metabolic Zyb040 ALBUMIN 4.2 g/dL 06/05/2017 Comp Metabolic Jgi981 TPRO 6.3 g/dL 06/05/2017 Comp Metabolic Hvz580 GLOB 2.1 g/dL 06/05/2017 Comp Metabolic Vmv978 A/G Ratio 1.9 Ratio 06/05/2017 Comp Metabolic Bqw523 Osmo 289 mOsmo 06/05/2017 Free T4 Zud213 FREE T4 0.88 ng/dL 06/05/2017 Cbc With Differential Ord2 WBC 3.91 K/ul 06/05/2017 Cbc With Differential Ord2 RBC 4.07 M/ul 06/05/2017 Cbc With Differential Ord2 HGB 12.8 g/dl 06/05/2017 Cbc With Differential Ord2 Neut% 55.0 % 06/05/2017 Cbc With Differential Ord2 HCT 38.8 % 06/05/2017 Cbc With Differential Ord2 MCV 95.3 fl 06/05/2017 Cbc With Differential Ord2 Lymph% 30.7 % 06/05/2017 Cbc With Differential Ord2 [place]% 9.7 % 06/05/2017 Cbc With Differential Ord2 MCH 31.4 pg 06/05/2017 Cbc With Differential Ord2 Eos% 4.3 % 06/05/2017 Cbc With Differential Ord2 MCHC 33.0 pg 06/05/2017 Cbc With Differential Ord2 PLT 203 K/ul 06/05/2017 Cbc With Differential Ord2 Baso% 0.3 % 06/05/2017 Cbc With Differential Ord2 RDW 14.3 % 06/05/2017 Cbc With Differential Ord2 Neut ABS# 2.15 K/ul 06/05/2017 Cbc With Differential Ord2 Lymph ABS# 1.20 K/ul 06/05/2017 Cbc With Differential Ord2 [place] ABS# 0.4 K/ul 06/05/2017 Cbc With Differential Ord2 Eos ABS# 0.2 K/ul 06/05/2017 Cbc With Differential Ord2 Baso ABS# 0.0 K/ul 06/05/2017 %Hba1C Ouz962 % HbA1c 29162-2 6.3 % 06/05/2017 %Hba1C Moa844 Gluc Ave 134 mg/dL 06/05/2017 Tsh Ord6 hTSH II 0.48 uIU/mL 05/01/2016 Free T4 Gjl245 FREE T4 1.10 ng/dL 05/01/2016 %Hba1C Aek466 % HbA1c 14193-3 6.3 % 01/31/2016 %Hba1C Xqf893 Gluc Ave 134 mg/dL 01/31/2016 Comp Metabolic Uyl773 NA 141 mEq/L 01/31/2016 Comp Metabolic Yze281 K 4.4 mEq/L 01/31/2016 Comp Metabolic Ans891 CL 103 mEq/L 01/31/2016 Comp Metabolic Fsh896 CO2 32.0 mEq/L 01/31/2016 Comp Metabolic Twu011 ANION GAP 10 01/31/2016 Comp Metabolic Deq682 GLUCOSE 99 mg/dL 01/31/2016 Comp Metabolic Fmj022 Creat 0.8 mg/dL 01/31/2016 Comp Metabolic Oif852 eGFR 77 ml/min/1.73m2 01/31/2016 Comp Metabolic Jhd439 BUN 22 mg/dL 01/31/2016 Comp Metabolic Qvj313 B/C Ratio 27.8 Ratio 01/31/2016 Comp Metabolic Jtn599 CALCIUM 9.7 mg/dL 01/31/2016 Comp Metabolic Ndx273 ALK PHOS 62 U/L 01/31/2016 Comp Metabolic Tnc834 AST(SGOT) 16 U/L 01/31/2016 Comp Metabolic Ibs042 ALT(SGPT) 22 U/L 01/31/2016 Comp Metabolic Vcn781 BILI T 1.1 mg/dL 01/31/2016 Comp Metabolic Jmy102 ALBUMIN 4.2 g/dL 01/31/2016 Comp Metabolic Glq904 TPRO 6.4 g/dL 01/31/2016 Comp Metabolic Cvn163 GLOB 2.2 g/dL 01/31/2016 Comp Metabolic Mzl276 A/G Ratio 2.0 Ratio 01/31/2016 Comp Metabolic Wbf376 Osmo 285 mOsmo 01/31/2016 Free T4 Toc693 FREE T4 1.01 ng/dL 01/31/2016 Cbc With Differential Ord2 WBC 3.54 K/ul 01/31/2016 Cbc With Differential Ord2 RBC 4.15 M/ul 01/31/2016 Cbc With Differential Ord2 HGB 12.9 g/dl 01/31/2016 Cbc With Differential Ord2 Neut% 60.4 % 01/31/2016 Cbc With Differential Ord2 HCT 39.7 % 01/31/2016 Cbc With Differential Ord2 MCV 95.7 fl 01/31/2016 Cbc With Differential Ord2 Lymph% 24.9 % 01/31/2016 Cbc With Differential Ord2 [place]% 11.0 % 01/31/2016 Cbc With Differential Ord2 MCH 31.1 pg 01/31/2016 Cbc With Differential Ord2 MCHC 32.5 pg 01/31/2016 Cbc With Differential Ord2 Eos% 3.4 % 01/31/2016 Cbc With Differential Ord2 Baso% 0.3 % 01/31/2016 Cbc With Differential Ord2 PLT 240 K/ul 01/31/2016 Cbc With Differential Ord2 Neut ABS# 2.14 K/ul 01/31/2016 Cbc With Differential Ord2 RDW 14.8 % 01/31/2016 Cbc With Differential Ord2 Lymph ABS# 0.88 K/ul 01/31/2016 Cbc With Differential Ord2 [place] ABS# 0.4 K/ul 01/31/2016 Cbc With Differential [...] II 0.21 uIU/mL 01/31/2016 VIT D TOTL 5223203 VIT D TOTL 62 NG/ML 10/24/2013 Review of Systems System Result Effective Dates Constitutional No recent illness 2016 Constitutional No [...] Result Effective Dates Notes Full Exam - General 1994 Constitutional general [...] disease 05/31/2012 None Full Exam - General 1995 Lymphatic neck nodes Overall: anterior cervical chain benign 05/31/2012 None Full Exam - General 1994 Lymphatic neck nodes Overall: posterior cervical chain benign 05/31/2012 None Full Exam - General 1995 Musculoskeletal digits and nails Overall: digits benign 05/31/2012 None Full Exam - General 1994 Musculoskeletal digits and nails Overall: no clubbing 05/31/2012 None Full Exam - General 1994 Musculoskeletal spine, ribs and pelvis Overall: good posture 05/31/2012 None Full Exam - General 1994 Musculoskeletal spine, ribs and pelvis Overall: sacroiliac joint benign 05/31/2012 None Full Exam - General 1995 Musculoskeletal spine, ribs and pelvis Overall: spine [...] lesions 05/31/2012 None Procedures Procedure Codes Date ADMIN INFLUENZA VIRUS VAC CPT-4: G0008 07/02/2017 FLU VACC PRSV FREE INC ANTIG CPT-4: 40587 07/02/2017 PNEUMOCOCCAL VACC [address]: 78422275 CPT-4: 29253 08/15/2016 THER/PROPH/DIAG INJ SC/IM CPT-4: 29341 08/15/2016 TRIAMCINOLONE ACET INJ NOS CPT-4: J3301 02/26/2016 TRIAMCINOLONE ACET INJ NOS CPT-4: J3301 12/27/2013 THER/PROPH/DIAG INJ SC/IM CPT-4: 14627 12/27/2013 ROUTINE VENIPUNCTURE CPT-4: 57135 10/24/2013 PRESCRIP TRANSMIT VIA ERX SY CPT-4: G8553 10/28/2012 ADMIN INFLUENZA VIRUS VAC CPT-4: G0008 08/05/2012 FLULAVAL VACC, 3 YRS & >, IM CPT-4: Q2036 08/05/2012 PRESCRIP TRANSMIT VIA ERX SY CPT-4: G8553 05/31/2012 Vital Signs Date Vital 06/10/2017 Blood Pressure 1: 142/80 Code : 8480-6 BMI: 26.5 Code : 43921-4 Heart Rate 1 : 71 bpm Height: 5'8" SpO2: 96% Weight: 175 lbs 08/15/2016 Blood Pressure 1: 142/78 Code : 8480-6 BMI: 26.8 Code : 86349-0 Heart Rate 1 : 95 bpm Height: 5'8" SpO2: 97% Weight: 177 lbs 07/16/2016 Blood Pressure 1: 132/76 Code : 8480-6 BMI: 27.0 Code : 73237-9 Heart Rate 1 : 76 bpm Height: 5'8" SpO2: 96% Weight: 180 lbs 05/19/2016 Blood Pressure 1: 146/76 Code : 8480-6 BMI: 27.7 Code : 67430-4 Heart Rate 1 : 89 bpm Height: 5'8" SpO2: 96% Weight: 185 lbs 02/26/2016 Blood Pressure 1: 158/88 Code : 8480-6 BMI: 27.3 Code : 00513-0 Heart Rate 1 : 70 bpm Height: 5'8" SpO2: 97% Weight: 182 lbs 01/31/2016 Blood Pressure 1: 138/84 Code : 8480-6 BMI: 27.3 Code : 35780-2 Heart Rate 1 : 77 bpm Height: 5'8" SpO2: 97% Weight: 182 lbs 01/24/2014 Blood Pressure 1: 150/92 Code : 8480-6 BMI: 26.5 Code : 92480-8 Heart Rate 1 : 80 bpm Height: 5'8" Weight: 177 lbs 12/27/2013 Blood Pressure 1: 152/80 Code : 8480-6 BMI: 26.2 Code : 43536-0 Heart Rate 1 : 68 bpm Height: 5'8" Weight: 175 lbs 10/24/2013 Blood Pressure 1: 156/86 Code : 8480-6 BMI: 27.1 Code : 75899-6 Heart Rate 1 : 84 bpm Height: 5'8" Weight: 181 lbs 07/26/2013 Blood Pressure 1: 156/80 Code : 8480-6 BMI: 28.3 Code : 87326-3 Heart Rate 1 : 84 bpm Height: 5'8" Weight: 189 lbs 05/20/2013 Blood Pressure 1: 136/86 Code : 8480-6 BMI: 27.7 Code : 80987-9 Heart Rate 1 : 80 bpm Height: 5'8" Weight: 185 lbs 10/28/2012 Blood Pressure 1: 122/78 Code : 8480-6 Heart Rate 1: 80 bpm Respiratory Rate : 16 bpm Weight: 186 lbs 06/02/2012 Blood Pressure 1: 128/68 Code : 8480-6 05/31/2012 Blood Pressure 1: 138/78 Code : 8480-6 BMI: 27.6 Code : 66468-4 Heart Rate 1 : 68 bpm Height: 5'8" Respiratory Rate: 16 bpm Weight: 184 lbs Functional Status No Functional Status data History of Present Illness Symptom Name Status Result Effective Date Notes hypertension Onset and Resolution ongoing 06/10/2017 None [...] exercise 01/24/2014 - was going to the [employer] - 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 hypertension Onset and Resolution ongoing 01/24/2014 pt states that she has high blood pressure off and on when going to the doctor - she states that she thinks some of it may be because she is depressed about being here in [place]. hip pain Location on the right 12/27/2013 [...] recieved blood transfusion whil living in the [facility] in 1974. 06/02/2012 None abnormal test results Significant Medications [...] data Encounters Encounter Performer Location Codes Date 11820 EST. PATIENT, LEVEL IV Diagnosis: Essential (primary) hypertension[ICD10: I10] Diagnosis: Type 2 diabetes mellitus without complications[ICD10: E11.9] Diagnosis: Mixed hyperlipidemia[ICD10: E78.2] Diagnosis: Other specified hypothyroidism[ICD10: E03.8] Brit Robles MD, [facility] CPT-4: 96931 06/10/2017 [id number] EST. PATIENT, LEVEL III Diagnosis: Other allergic rhinitis[ICD10: J30.89] Diagnosis: Pain in left knee[ICD10: M25.562] Diagnosis: Encounter for immunization[ICD10: Z23] Brit Robles MD, [facility] CPT-4: 38880 08/15/2016 70821 EST. PATIENT, LEVEL IV Diagnosis: Pain in left knee[ICD10: M25.562] Brit Robles MD, [facility] CPT -4: 24181 07/16/2016 07660 EST. PATIENT, LEVEL IV Diagnosis: Pneumonia, unspecified organism[ICD10: J18.9] Brit Robles MD, [facility] CPT-4: 83190 05/19/2016 49037 EST. PATIENT, LEVEL III Diagnosis: Benign paroxysmal vertigo, bilateral[ICD10: H81.13] Diagnosis: Other seasonal allergic rhinitis[ICD10: J30.2] Brit Robles MD, [facility] CPT-4: 39112 02/26/2016 ([id number]) 95732 EST. PATIENT, LEVEL IV Diagnosis: Essential (primary) hypertension[ICD10: I10] Diagnosis: Type 2 diabetes mellitus without complications[ICD10: E11.9] Diagnosis: Mixed hyperlipidemia[ICD10: E78.2] Diagnosis: Hypothyroidism, unspecified[ICD10: E03.9] Ginny Robles MD, [facility] CPT-4: 47483 01/31/2016 ([id number]) 19465 EST. PATIENT, LEVEL IV Diagnosis: DIABETES TYPE II[SNOMED: 679192790] Diagnosis: ESSENTIAL HYPERTENSION[SNOMED: 21998780] Diagnosis: Depression[ICD9: 311] Anika Robles MD [facility] CPT-4: 26109 01/24/2014 ([id number]) 64910 EST. PATIENT, LEVEL III Diagnosis: Sciatica[ICD9: 724.3] Anika Robles MD [facility] CPT-4: 65178 12/27/2013 ([id number]) 89173 EST. PATIENT, LEVEL IV Diagnosis: DIABETES TYPE II[SNOMED: 521114799] Diagnosis: ESSENTIAL HYPERTENSION[SNOMED: 86611262] Diagnosis: HYPERLIPIDEMIA[ICD9: 272.4] Diagnosis: Osteopenia[ICD9: 733.90] Anika Robles MD [facility] CPT-4: 19502 10/24/2013 ([id number]) 21059 EST. PATIENT, LEVEL III Diagnosis: Elevated blood sugar[ICD9: 790.29] Anika Robles MD [facility] CPT-4: 12577 07/26/2013 ([id number]) 20606 EST. PATIENT, LEVEL III Diagnosis: Plantar fasciitis[ICD9: 728.71] Ginny Robles MD [facility] CPT-4: 87776 05/20/2013 ([id number]) 06451 EST. PATIENT, LEVEL III Diagnosis: Elevated liver enzymes[ICD9: 790.4] Diagnosis: Fatigue[ICD9: 780.79] Anika Robles MD [facility] CPT-4: 94315 06/02/2012 ([id number]) OFFICE VISIT, NEW - LEVEL 4 Diagnosis: HYPOTHYROIDISM[ICD9: 244.9] Diagnosis: Acute maxillary sinusitis[ICD9: 461.0] Diagnosis: Allergic rhinitis[ICD9: 477.9] Diagnosis: HYPERLIPIDEMIA[ICD9: 272.4] Anika Robles MD, [facility] CPT- 4: 43878 05/31/2012 Plan of Care Planned Activity Notes Codes Status Date Appointment: Injection 07/02/2017 Patient Education: Patient Medication Summary Completed 07/02/2017 Appointment: Injection 06/25/2017 Visit Plan: Hypertension - well controlled - continue with current medications, continue with no added salt diet. Pt has been encouraged to exercise daily. The pt has been advised to call the office if there are any acute concerns about change in blood pressure readings at home. Hypothyroidism - pt with chronic hypothyroidism, continue with current medication, will monitor pt to signs or symptoms of lack of adequate supplementation. Pt is to continue with current dose of medication unless directed otherwise. Check labs at regular intervals wither q 3 months or q 6 months based on previous levels of control. Hyperlipidemia - pt has been counseled about appropriate diet, exercise, and need for low fat food choices. I have discussed the need for the patient to take medications as prescribed. If the patient has negative side effects from the medication, they are to CALL the office and not abruptly discontinue the medication without discussion with a practitioner in the office. We will check labs in 3-6 months for follow up on the patient's chronic medical problem and to assure normal liver response to medications. Diabetes Mellitus - I have recommended for the patient to have follow up labs prior to the next office visit. The patient has been instructed to continue with current medications as previously directed, continue with regular FSBS monitoring to assure continued control of diabetes. Pt to call for any acute concerns, complaints, or if the blood glucose readings are starting to become less controlled. 06/10/2017 Appointment: Brit Flores WPtel: [address] [place], [place] [id number] (30 min) [facility] 06/10/2017 Patient Education: Patient Medication Summary Completed 06/10/2017 Patient Education: Hypertension Completed 06/10/2017 Referral: Remigio Church Referral Initiated 09/30/2016 Care Plan: X-RAY EXAM OF KNEE 3 LOINC : 96156-9 Pending 09/12/2016 Care Plan: Referral Order SNOMED-CT : [id number] Pending 09/12/2016 Visit Plan: Allergies - chronic - recommended pt to use allergy medication as prescribed. Pt has been counseled as to the appropriate use of the medication. Pt to call if allergy symptoms are not controlled with the medication. If using nasal spray, instructions as follows: Nasal spray- use twice daily, one spray per nostril twice daily, after 30 minutes, rinse out nose with saline spray.. Use opposite hand per nostril to spray in the nasal steroid allergy spray. Left knee popping/pain - will get x-ray - refer to Ortho if indicated 08/15/2016 Appointment: Ginny Terrazas WPtel: [facility]9 [phone] (15 min) Moderate 08/15/2016 Patient Education: Patient Medication Summary Completed 08/15/2016 Visit Plan: Left knee pain - Pt is to use RICE - Rest, Ice , Compression, Elevation - pt to continue with anti-inflammatories. Pt is to call if the symptoms do not improve or if they worsen. 07/16/2016 Appointment: Ginny Terrazas WPtel: [facility]2 [phone] (30 min) Complex 07/16/2016 Patient Education: Patient Medication Summary Completed 07/16/2016 Visit Plan: Pneumonia - Pt has been diagnosed with pneumonia by physical exam. Pt is to call if symptoms are not improving and will order chest xray. RX sent to the pharmacy. The pt is aware of the diagnosis and the need for acute treatment of this illness. 05/19/2016 Appointment: Brit Flores WPtel: [facility]9 [phone] (15 min) Moderate 05/19/2016 Patient Education: Patient Medication Summary Completed 05/19/2016 Visit Plan: Allergies - chronic - recommended pt to use allergy medication as prescribed. Pt has been counseled as to the appropriate use of the medication. Pt to call if allergy symptoms are not controlled with the medication. If using nasal spray, instructions as follows: Nasal spray- use twice daily, one spray per nostril twice daily, after 30 minutes, rinse out nose with saline spray.. Use opposite hand per nostril to spray in the nasal steroid allergy spray. BPPV - Benign Paroxysmal Positional Vertigo - discussed diagnosis with the patient, offered the pt the appropriate additional information in hand-out. Pt instructed in home exercises to help alleviate and prevent future recurrent episodes of vertigo. Pt informed that if symptoms worsen, call the office for further instructions/medication interventions. 02/26/2016 Appointment: Ginny Terrazas WPtel: [address] [phone] (30 min) Complex 02/26/2016 Patient Education: Patient Medication Summary Completed 02/26/2016 Visit Plan: Hypertension - well controlled - continue with current medications, continue with no added salt diet. Pt has been encouraged to exercise daily. The pt has been advised to call the office if there are any acute concerns about change in blood pressure readings at home. Diabetes Mellitus - controlled - per recent FSBS reports. I have recommended for the patient to have follow up labs prior to the next office visit. The patient has been instructed to continue with current medications as previously directed, continue with regular FSBS monitoring to assure continued control of diabetes. Pt to call for any acute concerns, complaints, or if the blood glucose readings are starting to become less controlled. Hyperlipidemia - pt has been counseled about appropriate diet, exercise, and need for low fat food choices. I have discussed the need for the patient to take medications as prescribed. If the patient has negative side effects from the medication, they are to CALL the office and not abruptly discontinue the medication without discussion with a practitioner in the office. We will check labs in 3-6 months for follow up on the patient's chronic medical problem and to assure normal liver response to medications. Hypothyroidism - pt with chronic hypothyroidism, continue with current medication, will monitor pt to signs or symptoms of lack of adequate supplementation. Pt is to continue with current dose of medication unless directed otherwise. Check labs at regular intervals wither q 3 months or q 6 months based on previous levels of control. 01/31/2016 Patient Education: Patient Medication Summary Completed 01/31/2016 Patient Education: Patient Medication Summary Completed 05/10/2015 Visit Plan: Hypertension - uncontrolled - the patient's medications have been modified as documented in the visit note. The patient has been counseled to cut back on salt in diet for a no added salt diet, low fat diet, start an exercise program with low weight bearing exercises and higher aerobic activity for heart health. The patient is to check blood pressure readings as an outpatient and either fax, call, or email the readings to the office next week for practicioner to review. The pt is to call for acute concerns. Diabetes Mellitus - pt is diet controlled - she has been advised to check her FSBS blood glucose at home over the next two weeks, bring in to clinic. I will not start medications at this time, I have advised exercise, keeping a diet log. Depression - pt is not interested in medications. She states that she is lonely, she was expecting more interaction with her mom and her daughter when she moved home from [place], but her expectations did not agustin out and she has no close friends in [place]. 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 I have suggested for her to go to the library, volunteer to read, or [facility] some fun classes to help occupy her time. 01/24/2014 Appointment: Anika Robles WPtel: [phone] [facility] Follow up 01/24/2014 Patient Education: Patient Medication Summary Completed 01/24/2014 Patient Education: Hypertension Completed 01/24/2014 Visit Plan: Sciatica- exercises discussed with the patient , pt to continue with antiinflammatories. Pt is to call if the symptoms do not improve or if they worsen. Sacroilitis - back exercises discussed with the patient, pt to continue with antiinflammatories. Pt is to call if the symptoms do not improve or if they worsen. 12/27/2013 Appointment: Anika Robles [facility]Ptel[phone] Other 12/27/2013 Patient Education: Patient Medication Summary Completed 12/27/2013 Visit Plan: Diabetes Mellitus - Uncontrolled - per recent FSBS reports. I have recommended for the patient to have follow up labs prior to the next office visit. The patient has been instructed to continue with current medications as previously directed, continue with regular FSBS monitoring to assure continued control of diabetes. Pt to call for any acute concerns, complaints, or if the blood glucose readings are starting to become less controlled. I have recommended for the patient to follow more strictly to the diabetic diet as discussed in clinic to allow for greater blood glucose control. Hyperlipidemia - pt has been counseled about appropriate diet, exercise , and need for low fat food choices. I have discussed the need for the patient to take medications as prescribed. If the patient has negative side effects from the medication, they are to CALL the office and not abruptly discontinue the medication without discussion with a practicioner in the office. We will check labs in 3-6 months for follow up on the patient's chronic medical problem and to assure normal liver response to medications. Hypertension - not controlled today -but per pt's reports, blood pressure has been better controlled at home, pt had stressful day today STOP THE VITAMIN D SUPPLEMENT DECREASE FISH OIL TO TWICE DAILY START WELCHOL 3 TABS TWICE DAILY. THIS IS TO HELP YOUR CHOLESTEROL AND YOUR BLOOD SUGARS 10/24/2013 Appointment: Anika Robles WPtel: [address] [place], [place] [phone] Follow up 10/24/2013 Patient Education: Patient Medication Summary Completed 10/24/2013 Patient Education: Hypertension Completed 10/24/2013 Visit Plan: Elevated blood sugars-diabetes education today in the office-diet education completed today in the office-discussed ADA diet- cut back on pop, sweets, and white bread, white potatoes, and white pasta. plan to repreat HgbA1C in 3 months-patient verbalized understanding of plan. 07/26/2013 Appointment: Ginny Terrazas WPtel: [address] [place], [place] [id number] [place] [address] Other 07/26/2013 Patient Education: Patient Medication Summary Completed 07/26/2013 Visit Plan: Plantar fasciitis- pt was educated that this is an inflammatory process, need to stretch the foot and reduce inflammation by using a frozen bottle of water or a tennis ball on the bottom of the foot at least three times a day until the pain is improved. 05/20/2013 Appointment: Ginny Terrazas WPtel: [address] [place], [place] [phone] Other 05/20/2013 Patient Education: Patient Medication Summary Completed 05/20/2013 Appointment: Anika Robles WPtel: [address] [place], [place] [phone] Established Patient Preventative visit 11/29/2012 Visit Plan: Well Adult Female - exam completed. Pap and gc/ chlamydia and breast exam completed. Pt will be called with results of her testing. She was advised to continue with yearly annual exams. Safe sex practices discussed during office visit today. Call if any abnormal gynecologic issues during the next year, otherwise, RTC yearly or prn. 10/28/2012 Appointment: Anika Robles WPtel: [facility]9 [id number] [place] Pap Only 10/28/2012 Patient Education: Patient Medication Summary Completed 10/28/2012 Appointment: Anika Robles WPtel: [phone] Pap Only 09/23/2012 Appointment: Ginny Terrazas WPtel: [phone] [phone] [place] Injection 08/05/2012 Patient Education: Patient Medication Summary Completed 08/05/2012 Visit Plan: Elevated liver enzymes - recommended a hepatitis panel, hiv screen, ct of the abdomen/pelvis to see if there is a structural abnormality causing this issue as these are extremely elevated liver enzymes. 06/02/2012 Appointment: Anika Robles WPtel: [phone] [facility] Other 06/02/2012 Patient Education: Patient Medication Summary Completed 06/02/2012 Visit Plan: Hypothyroidism - pt with chronic hypothyroidism , continue with current medication, will monitor pt to signs or symptoms of lack of adequate supplementation. Pt is to continue with current dose of medication unless directed otherwise. Check labs at regular intervals wither q 3 months or q 6 months based on previous levels of control. Sinusitis - Pt has acute infection - pain in face, maxillary region, Pt informed to use decongestant, RX given to patient, sinus rinses also recommended. Call if symptoms do not show improvement. rx for bactrim ds twice daily sent electronically to [facility] Allergies - chronic - recommended pt to use allergy medication as prescribed. Pt has been counseled as the the appropriate use of the medication. Pt to call if allergy symptoms are not controlled with the medication. Samples of nasonex given to pt for a two week course of treatment, then can use OTC claritin. 05/31/2012 Appointment: Anika Robles WPtel: [phone] [facility] [place] New Patient 05/31/2012 Patient Education: Patient Medication Summary Completed 05/31/2012 Referral: Remigio Church Referral Completed Instructions Comment . Well Adult Female - exam completed. Pap and gc/ chlamydia and breast exam completed. Pt will be called with results of her testing. She was advised to continue with yearly annual exams. Safe sex practices discussed during office visit today. Call if any abnormal gynecologic issues during the next year, otherwise, RTC yearly or prn. . Allergies - chronic - recommended pt to use allergy medication as prescribed. Pt has been counseled as to the appropriate use of the medication. Pt to call if allergy symptoms are not controlled with the medication. If using nasal spray, instructions as follows: Nasal spray- use twice daily, one spray per nostril twice daily, after 30 minutes, rinse out nose with saline spray.. Use opposite hand per nostril to spray in the nasal steroid allergy spray. Left knee popping/pain - will get x-ray - refer to Ortho if indicated . Left knee pain - Pt is to use RICE - Rest, Ice, Compression, Elevation - pt to continue with anti-inflammatories. Pt is to call if the symptoms do not improve or if they worsen. . Sciatica- exercises discussed with the patient, pt to continue with antiinflammatories. Pt is to call if the symptoms do not improve or if they worsen. Sacroilitis - back exercises discussed with the patient, pt to continue with antiinflammatories. Pt is to call if the symptoms do not improve or if they worsen. . Allergies - chronic - recommended pt to use allergy medication as prescribed. Pt has been counseled as to the appropriate use of the medication. Pt to call if allergy symptoms are not controlled with the medication. If using nasal spray, instructions as follows: Nasal spray- use twice daily, one spray per nostril twice daily, after 30 minutes, rinse out nose with saline spray.. Use opposite hand per nostril to spray in the nasal steroid allergy spray. BPPV - Benign Paroxysmal Positional Vertigo - discussed diagnosis with the patient, offered the pt the appropriate additional information in hand-out. Pt instructed in home exercises to help alleviate and prevent future recurrent episodes of vertigo. Pt informed that if symptoms worsen, call the office for further instructions/medication interventions. Probiotics - Layar or Accupal over the counter . Pneumonia - Pt has been diagnosed with pneumonia by physical exam. Pt is to call if symptoms are not improving and will order chest xray. RX sent to the pharmacy. The pt is aware of the diagnosis and the need for acute treatment of this illness. . Elevated liver enzymes - recommended a hepatitis panel, hiv screen, ct of the abdomen/pelvis to see if there is a structural abnormality causing this issue as these are extremely elevated liver enzymes. . Hypothyroidism - pt with chronic hypothyroidism, continue with current medication, will monitor pt to signs or symptoms of lack of adequate supplementation. Pt is to continue with current dose of medication unless directed otherwise. Check labs at regular intervals wither q 3 months or q 6 months based on previous levels of control. Sinusitis - Pt has acute infection - pain in face, maxillary region, Pt informed to use decongestant, RX given to patient, sinus rinses also recommended. Call if symptoms do not show improvement. rx for bactrim ds twice daily sent electronically to [facility] Allergies - chronic - recommended pt to use allergy medication as prescribed. Pt has been counseled as the the appropriate use of the medication. Pt to call if allergy symptoms are not controlled with the medication. Samples of nasonex given to pt for a two week course of treatment, then can use OTC claritin. . Elevated blood sugars-diabetes education today in the office-diet education completed today in the office-discussed ADA diet-cut back on pop, sweets, and white bread, white potatoes, and white pasta. plan to repreat HgbA1C in 3 months-patient verbalized understanding of plan. . Plantar fasciitis- pt was educated that this is an inflammatory process, need to stretch the foot and reduce inflammation by using a frozen bottle of water or a tennis ball on the bottom of the foot at least three times a day until the pain is improved. . Hypertension - uncontrolled - the patient's medications have been modified as documented in the visit note. The patient has been counseled to cut back on salt in diet for a no added salt diet, low fat diet, start an exercise program with low weight bearing exercises and higher aerobic activity for heart health. The patient is to check blood pressure readings as an outpatient and either fax , call, or email the readings to the office next week for practicioner to review. The pt is to call for acute concerns. Diabetes Mellitus - pt is diet controlled - she has been advised to check her FSBS blood glucose at home over the next two weeks, bring in to clinic. I will not start medications at this time, I have advised exercise, keeping a diet log. Depression - pt is not interested in medications. She states that she is lonely , she was expecting more interaction with her mom and her daughter when she moved home from [place], but her expectations did not agustin out and she has no close friends in [place]. 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 I have suggested for her to go to the library, volunteer to read, or look at [employer] for some fun classes to help occupy her time. . Hypertension - well controlled - continue with current medications, continue with no added salt diet. Pt has been encouraged to exercise daily. The pt has been advised to call the office if there are any acute concerns about change in blood pressure readings at home. Hypothyroidism - pt with chronic hypothyroidism, continue with current medication, will monitor pt to signs or symptoms of lack of adequate supplementation. Pt is to continue with current dose of medication unless directed otherwise. Check labs at regular intervals wither q 3 months or q 6 months based on previous levels of control. Hyperlipidemia - pt has been counseled about appropriate diet, exercise, and need for low fat food choices. I have discussed the need for the patient to take medications as prescribed. If the patient has negative side effects from the medication, they are to CALL the office and not abruptly discontinue the medication without discussion with a practitioner in the office. We will check labs in 3-6 months for follow up on the patient's chronic medical problem and to assure normal liver response to medications. Diabetes Mellitus - I have recommended for the patient to have follow up labs prior to the next office visit. The patient has been instructed to continue with current medications as previously directed, continue with regular FSBS monitoring to assure continued control of diabetes. Pt to call for any acute concerns, complaints, or if the blood glucose readings are starting to become less controlled. . Hypertension - well controlled - continue with current medications, continue with no added salt diet. Pt has been encouraged to exercise daily. The pt has been advised to call the office if there are any acute concerns about change in blood pressure readings at home. Diabetes Mellitus - controlled - per recent FSBS reports. I have recommended for the patient to have follow up labs prior to the next office visit. The patient has been instructed to continue with current medications as previously directed, continue with regular FSBS monitoring to assure continued control of diabetes. Pt to call for any acute concerns, complaints, or if the blood glucose readings are starting to become less controlled. Hyperlipidemia - pt has been counseled about appropriate diet, exercise, and need for low fat food choices. I have discussed the need for the patient to take medications as prescribed. If the patient has negative side effects from the medication, they are to CALL the office and not abruptly discontinue the medication without discussion with a practitioner in the office. We will check labs in 3-6 months for follow up on the patient's chronic medical problem and to assure normal liver response to medications. Hypothyroidism - pt with chronic hypothyroidism, continue with current medication, will monitor pt to signs or symptoms of lack of adequate supplementation. Pt is to continue with current dose of medication unless directed otherwise. Check labs at regular intervals wither q 3 months or q 6 months based on previous levels of control. STOP THE VITAMIN D SUPPLEMENT DECREASE FISH OIL TO TWICE DAILY START WELCHOL 3 TABS TWICE DAILY. THIS IS TO HELP YOUR CHOLESTEROL AND YOUR BLOOD SUGARS. Diabetes Mellitus - Uncontrolled - per recent FSBS reports. I have recommended for the patient to have follow up labs prior to the next office visit. The patient has been instructed to continue with current medications as previously directed, continue with regular FSBS monitoring to assure continued control of diabetes. Pt to call for any acute concerns, complaints, or if the blood glucose readings are starting to become less controlled. I have recommended for the patient to follow more strictly to the diabetic diet as discussed in clinic to allow for greater blood glucose control. Hyperlipidemia - pt has been counseled about appropriate diet, exercise, and need for low fat food choices. I have discussed the need for the patient to take medications as prescribed. If the patient has negative side effects from the medication, they are to CALL the office and not abruptly discontinue the medication without discussion with a practicioner in the office. We will check labs in 3-6 months for follow up on the patient's chronic medical problem and to assure normal liver response to medications. Hypertension - not controlled today -but per pt's reports, blood pressure has been better controlled at home, pt had stressful day today STOP THE VITAMIN D SUPPLEMENT DECREASE FISH OIL TO TWICE DAILY START WELCHOL 3 TABS TWICE DAILY. THIS IS TO HELP YOUR CHOLESTEROL AND YOUR BLOOD SUGARS
--- OUTSIDE RECORDS SUMMARY | 2017-11-02 08:51 | XMS REPORT | CCD ---
Author Author Anika Robles MD, 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 Name Role Phone PP Unavailable CCM Unavailable Summary Purpose Interface Exchange Insurance Providers Payer name Policy type / Coverage type Covered green party ID Effective Begin Date Effective End Date WPS Medicare Part B Medicare Part B [id number] 2013 Unknown [facility] Medicare Part B [id number] 2013 Unknown Family history Father Diagnosis Age [...] Unknown Retired 05/31/[address]: 598489489 Never smoker 05/31/[address]: 211066251 Never drinks alcohol 05/31/2012 Has the patient [...] Fill Instructions meclizine 25 mg tablet RxNorm: 219209 1 Tablet(s) PO TID as needed Dizziness 10/28/2017 11/01/2017 Active lisinopril 2.5 mg tablet RxNorm: 233006 TABLET(S) TAKE 1 TABLET DAILY 10/16/2017 No Stop Date Active atorvastatin 10 mg tablet RxNorm: 018605 TAKE 1 TABLET AT BEDTIME 08/21/2017 No Stop Date Active levothyroxine 88 mcg tablet RxNorm: 506244 TAKE 1 TABLET DAILY 06/01/2017 No Stop Date Active levothyroxine 88 mcg tablet RxNorm: 850228 TAKE 1 TABLET DAILY 12/25/2016 05/31/2017 Inactive atorvastatin 10 mg tablet RxNorm: 007890 Tablet(s) TABLET(S) TAKE 1 TABLET AT BEDTIME 10/29/2016 08/20/2017 Inactive atorvastatin 10 mg tablet RxNorm: 355779 TABLET(S) TAKE 1 TABLET AT BEDTIME 10/27/2016 10/28/2016 Inactive lisinopril 2.5 mg tablet RxNorm: 603673 Tablet(s) TAKE 1 TABLET DAILY 10/20/2016 10/14/2017 Inactive Flonase Allergy Relief 50 mcg/actuation nasal spray, suspension RxNorm: 6550220 1 [place] NASAL BID 08/15/2016 No Stop Date Active levothyroxine 88 mcg tablet RxNorm: 471077 1 TABLET(S) PO DAILY 06/27/2016 12/24/2016 Inactive Augmentin 500 mg-125 mg tablet RxNorm: 710025 1 Tablet(s) PO TID 05/19/2016 05/19/2016 Inactive atorvastatin 10 mg tablet RxNorm: 835212 Tablet(s) TAKE 1 TABLET AT BEDTIME 04/30/2016 10/26/2016 Inactive lisinopril 2.5 mg tablet RxNorm: 969325 TAKE 1 TABLET DAILY 10/19/2016 Inactive meclizine 25 mg tablet RxNorm: 131793 1 Tablet(s) PO QID as needed Dizziness 02/26/2016 03/03/2016 Inactive Flonase Allergy Relief 50 mcg/actuation nasal spray, suspension RxNorm: 9860269 1 [place] NASAL BID 02/26/20162015 Inactive Kenalog 40 mg/mL suspension for injection RxNorm: 6488893 Milliliter(s) Inj 02/26/2016 02/26/2016 Inactive levothyroxine 88 mcg tablet RxNorm: 065861 1 Tablet(s) PO daily 02/01/2016 02/07/2016 Inactive levothyroxine 88 mcg tablet RxNorm: 431938 1 Tablet(s) PO daily 02/01/2016 01/31/2016 Inactive levothyroxine 88 mcg tablet RxNorm: 115389 1 Tablet(s) PO daily 02/01/2016 01/31/2016 Inactive lisinopril 2.5 mg tablet RxNorm: 334283 1 TABLET(S) PO DAILY 2016 Inactive levothyroxine 100 mcg tablet RxNorm: 068055 TAKE 1 TABLET DAILY 12/24/2015 01/31/2016 Inactive atorvastatin 10 mg tablet RxNorm: 873784 TAKE 1 TABLET AT BEDTIME 07/31/2015 04/29/2016 Inactive levothyroxine 100 mcg tablet RxNorm: 438755 TAKE 1 TABLET DAILY 03/06/2015 12/23/2015 Inactive lisinopril 2.5 mg tablet RxNorm: 817946 1 Tablet(s) PO daily 01/27/2016 Inactive atorvastatin 10 mg tablet RxNorm: 066202 1 Tablet(s) PO daily TAKE 1 TABLET AT BEDTIME 09/14/2014 07/30/2015 Inactive atorvastatin 10 mg tablet RxNorm: 155144 1 Tablet(s) PO QHS 05/201409/10/2014 Inactive atorvastatin 10 mg tablet RxNorm: 237847 TAKE 1 TABLET AT BEDTIME 09/11/2014 09/13/2014 Inactive lisinopril 2.5 mg tablet RxNorm: 433710 1 Tablet(s) PO daily 12/02/2014 Inactive clobetasol 0.05 % topical cream RxNorm: 158448 1 Application TOP BID as needed 06/14/2014 06/13/2014 Inactive clobetasol 0.05 % topical cream RxNorm: 996834 1 Application TOP BID as needed 06/14/2014 09/11/2014 Inactive lisinopril 2.5 mg tablet RxNorm: 356869 1 Tablet(s) PO daily 08/21/2014 Inactive cyclobenzaprine 5 mg tablet RxNorm: 573670 1 Tablet(s) PO Q6 PRN 01/02/2014 03/02/2014 Inactive prednisone 20 mg tablet RxNorm: 341360 1 Tablet(s) PO TID 12/2912/28/2013 Inactive one tid or two q am one at noonhold naproxen while on prednisone. may restart naproxen when finishes prednisone prednisone 20 mg tablet RxNorm: 382753 1 Tablet(s) PO TID 12/2912/31/2013 Inactive one tid or two q am one at noonhold naproxen while on prednisone. may restart naproxen when finishes prednisone levothyroxine 100 mcg tablet RxNorm: 960103 1 Tablet(s) PO daily 12/27/2013 03/05/2015 Inactive naproxen 500 mg tablet RxNorm: 492009 1 Tablet(s) PO BID take one pill twice daily with food 12/27/2013 02/24/2014 Inactive atorvastatin 10 mg tablet RxNorm: 051499 1 Tablet(s) PO QHS 07/201409/10/2014 Inactive colestipol 5 gram oral packet RxNorm: 6679195 1 packet PO BID 10/31/2013 11/03/2013 Inactive Fish Oil 1,000 mg capsule RxNorm: 1 Capsule(s) PO BID 2013 No Stop Date Active WelChol 625 mg tablet RxNorm: 107158 3 Tablet(s) PO BID 201310/30/2013 Inactive ketoconazole 2 % shampoo RxNorm: 317991 1 Application TOP 3 x week 10/24/2013 11/22/2013 Inactive atorvastatin 10 mg tablet RxNorm: 042449 1 Tablet(s) PO QHS 11/13/2013 Inactive levothyroxine 100 mcg tablet RxNorm: 806037 1 Tablet(s) PO daily 11/30/2012 11/24/2013 Inactive fluticasone 50 mcg/actuation Nasal [place], Susp RxNorm: 591370 1 [place] NASAL BID 10/28/2012 01/30/2016 Inactive atorvastatin 10 mg tablet RxNorm: 893124 1 Tablet(s) PO QHS 03/201212/07/2012 Inactive atorvastatin 10 mg tablet RxNorm: 529110 1 Tablet(s) PO QHS 03/201208/09/2012 Inactive Influenza Virus Vaccine 0.5 mL RxNorm: IM 08/05/2012 08/05/2012 Inactive Crestor 20 mg tablet RxNorm: 693589 1 Tablet(s) PO daily 201106/14/2012 Inactive levothyroxine 100 mcg tablet RxNorm: 051332 1 Tablet(s) PO daily 05/31/2012 09/27/2012 Inactive Bactrim DS 800 mg-160 mg tablet RxNorm: 865750 1 Tablet(s) PO BID 05/31/2012 06/04/2012 Inactive Vitamin D3 1,000 unit capsule RxNorm: 946007 1 Capsule(s) PO daily No Start Date Active glucosamine HCl 1,500 mg tablet RxNorm: 290007 2 Tablet(s) PO daily No Start Date Active aspirin 81 mg capsule,delayed release RxNorm: 652672 1 Capsule(s) PO daily No Start Date Active colestipol 5 gram oral packet RxNorm: 5523589 1 packet PO BID No Start Date 10/30/2013 Inactive Fish Oil 1,000 mg capsule RxNorm: 1 Capsule(s) PO TID No Start Date 10/23/2013 Inactive Fish Oil 360 mg-1,200 mg capsule RxNorm: 848352 1 Capsule(s) PO daily No Start Date 10/24/2013 Inactive levothyroxine 100 mcg tablet RxNorm: 457826 1 Tablet(s) PO daily No Start Date 05/30/2012 Inactive Crestor 20 mg tablet RxNorm: 610677 1 Tablet(s) PO daily No Start Date 05/30/2012 Inactive Calcium 600 + D(3) 600 mg (1,500 mg)-400 unit tablet RxNorm: 191017 1 Tablet(s) PO daily No Start Date 10/23/2013 Inactive Medication Administered Medication Codes Instructions Start Date Status Kenalog 40 mg/mL suspension for injection RxNorm: 6149643 Milliliter 02/26/2016 No longer Active Influenza Virus [...] left knee ICD-10: M25.562 ICD-9: 719.46 08/15/2016 Other allergic rhinitis ICD-10: J30.89 ICD-9: 477.8 08/15/2016 Encounter for immunization ICD-10: Z23 ICD-9: V03.82 08/15/2016 Pneumonia, unspecified organism ICD-10: J18.9 ICD-9: 486 05/19/2016 Other seasonal allergic rhinitis ICD-10: J30.2 ICD-9: 477.8 02/26/2016 Benign paroxysmal vertigo, bilateral ICD-10: H81.13 ICD-9: 386.11 02/26/2016 Hypothyroidism, unspecified ICD-10: E03.9 ICD-9: 244.9 01/31/2016 Other screening mammogram ICD-9: V76.12 05/10/2015 ESSENTIAL HYPERTENSION SNOMED: 78003756 ICD-9: 401.9 01/24/2014 Depression ICD-9: 311 01/24/2014 DIABETES TYPE II SNOMED: 862211552 ICD-9: 250.00 01/24/2014 SACROILIITIS NEC ICD-9: 720.2 [...] hTSH II 1.39 uIU/mL 06/05/2017 Comp Metabolic Fse274 NA 142 mEq/L 06/05/2017 Comp Metabolic Fmg998 K 4.2 mEq/L 06/05/2017 Comp Metabolic Bcp558 CL 106 mEq/L 06/05/2017 Comp Metabolic Wic482 CO2 28.0 mEq/L 06/05/2017 Comp Metabolic Mxk238 ANION GAP 12 06/05/2017 Comp Metabolic Slz908 GLUCOSE 95 mg/dL 06/05/2017 Comp Metabolic Abp921 Creat 0.9 mg/dL 06/05/2017 Comp Metabolic Lkb405 eGFR 66 ml/min/1.73m2 06/05/2017 Comp Metabolic Jpj744 BUN 30 mg/dL 06/05/2017 Comp Metabolic Zno862 B/C Ratio 33.3 Ratio 06/05/2017 Comp Metabolic Pqx854 CALCIUM 9.2 mg/dL 06/05/2017 Comp Metabolic Dhe539 ALK PHOS 57 U/L 06/05/2017 Comp Metabolic Xzn226 AST(SGOT) 19 U/L 06/05/2017 Comp Metabolic Ckv999 ALT(SGPT) 25 U/L 06/05/2017 Comp Metabolic Nio949 BILI T 0.7 mg/dL 06/05/2017 Comp Metabolic Ibg023 ALBUMIN 4.2 g/dL 06/05/2017 Comp Metabolic Xrb308 TPRO 6.3 g/dL 06/05/2017 Comp Metabolic Axz061 GLOB 2.1 g/dL 06/05/2017 Comp Metabolic Xmh489 A/G Ratio 1.9 Ratio 06/05/2017 Comp Metabolic Wyg516 Osmo 289 mOsmo 06/05/2017 Free T4 Tvu303 FREE T4 0.88 ng/dL 06/05/2017 Cbc With [...] 31.4 pg 06/05/2017 Cbc With Differential Ord2 Emanuel% 9.7 % 06/05/2017 Cbc With Differential Ord2 [...] 1.20 K/ul 06/05/2017 Cbc With Differential Ord2 Emanuel ABS# 0.4 K/ul 06/05/2017 Cbc With Differential Ord2 Eos ABS# 0.2 K/ul 06/05/2017 Cbc With Differential Ord2 Baso ABS# 0.0 K/ul 06/05/2017 %Hba1C Ndn519 % HbA1c 18236-7 6.3 % 06/05/2017 %Hba1C Nwr271 Gluc Ave 134 mg/dL 06/05/2017 Tsh Ord6 hTSH II 0.48 uIU/mL 05/01/2016 Free T4 Jrd435 FREE T4 1.10 ng/dL 05/01/2016 %Hba1C Btt435 % HbA1c 83006-8 6.3 % 01/31/2016 %Hba1C Oca718 Gluc Ave 134 mg/dL 01/31/2016 Comp Metabolic Smn431 NA 141 mEq/L 01/31/2016 Comp Metabolic Nyn187 K 4.4 mEq/L 01/31/2016 Comp Metabolic Gxs295 CL 103 mEq/L 01/31/2016 Comp Metabolic Bao586 CO2 32.0 mEq/L 01/31/2016 Comp Metabolic Qap846 ANION GAP 10 01/31/2016 Comp Metabolic Ctp593 GLUCOSE 99 mg/dL 01/31/2016 Comp Metabolic Hoq771 Creat 0.8 mg/dL 01/31/2016 Comp Metabolic Ajg772 eGFR 77 ml/min/1.73m2 01/31/2016 Comp Metabolic Acr306 BUN 22 mg/dL 01/31/2016 Comp Metabolic Noj810 B/C Ratio 27.8 Ratio 01/31/2016 Comp Metabolic Dwb858 CALCIUM 9.7 mg/dL 01/31/2016 Comp Metabolic Twk233 ALK PHOS 62 U/L 01/31/2016 Comp Metabolic Cin513 AST(SGOT) 16 U/L 01/31/2016 Comp Metabolic Dtk506 ALT(SGPT) 22 U/L 01/31/2016 Comp Metabolic Tvp635 BILI T 1.1 mg/dL 01/31/2016 Comp Metabolic Gmo554 ALBUMIN 4.2 g/dL 01/31/2016 Comp Metabolic Opu019 TPRO 6.4 g/dL 01/31/2016 Comp Metabolic Fpx370 GLOB 2.2 g/dL 01/31/2016 Comp Metabolic Otx826 A/G Ratio 2.0 Ratio 01/31/2016 Comp Metabolic Jak578 Osmo 285 mOsmo 01/31/2016 Free T4 Ehh469 FREE T4 1.01 ng/dL 01/31/2016 Cbc With [...] 31.1 pg 01/31/2016 Cbc With Differential Ord2 Emanuel% 11.0 % 01/31/2016 Cbc With Differential Ord2 [...] 0.88 K/ul 01/31/2016 Cbc With Differential Ord2 Emanuel ABS# 0.4 K/ul 01/31/2016 Cbc With Differential [...] II 0.21 uIU/mL 01/31/2016 VIT D TOTL 0492526 VIT D TOTL 62 NG/ML 10/24/2013 Review [...] lesions 10/24/2013 None Full Exam - General 1995 Neurologic deep tendon reflexes Overall: deep tendon reflexes intact 10/24/2013 None Full Exam - General 1994 Neurologic gait Overall: no ataxia, no unsteadiness 10/24/2013 None Full Exam - General 1995 Neurologic cranial nerves Overall: crainial nerves 2 - 12 grossly intact 10/24/2013 None Full Exam - General 1994 Psychiatric mood and affect Overall: normal mood and affect 10/24/2013 None Full Exam - General 1994 Psychiatric mood and affect Mood: happy 10/24/2013 None Full Exam - General 1995 Constitutional general appearance Overall: well nourished 07/26/2013 None Full Exam - General 1995 Constitutional general appearance Overall: well developed 07/26/2013 [...] FLU VACC PRSV FREE INC ANTIG CPT-4: 45088 07/02/2017 PNEUMOCOCCAL VACC [address]: 46342665 CPT-4: 40404 08/15/2016 THER/PROPH/DIAG INJ SC/IM CPT-4: 59473 08/15/2016 TRIAMCINOLONE ACET INJ NOS CPT-4: J3301 02/26/2016 TRIAMCINOLONE ACET INJ NOS CPT-4: J3301 12/27/2013 THER/PROPH/DIAG INJ SC/IM CPT-4: 08159 12/27/2013 ROUTINE VENIPUNCTURE CPT-4: 10531 10/24/2013 PRESCRIP TRANSMIT VIA ERX SY CPT-4: G8553 10/28/2012 ADMIN INFLUENZA VIRUS VAC CPT-4: G0008 08/05/2012 FLULAVAL VACC, 3 YRS & >, IM CPT-4: Q2036 08/05/2012 PRESCRIP TRANSMIT VIA ERX SY CPT-4: G8553 05/31/2012 Vital Signs Date Vital 06/10/2017 Blood Pressure 1: 142/80 Code : 8480-6 BMI: 26.5 Code : 24795-7 Heart Rate 1 : 71 bpm Height: 5'8" SpO2: 96% Weight: 175 lbs 08/15/2016 Blood Pressure 1: 142/78 Code : 8480-6 BMI: 26.8 Code : 23361-5 Heart Rate 1 : 95 bpm Height: 5'8" SpO2: 97% Weight: 177 lbs 07/16/2016 Blood Pressure 1: 132/76 Code : 8480-6 BMI: 27.0 Code : 04868-7 Heart Rate 1 : 76 bpm Height: 5'8" SpO2: 96% Weight: 180 lbs 05/19/2016 Blood Pressure 1: 146/76 Code : 8480-6 BMI: 27.7 Code : 01630-7 Heart Rate 1 : 89 bpm Height: 5'8" SpO2: 96% Weight: 185 lbs 02/26/2016 Blood Pressure 1: 158/88 Code : 8480-6 BMI: 27.3 Code : 98864-3 Heart Rate 1 : 70 bpm Height: 5'8" SpO2: 97% Weight: 182 lbs 01/31/2016 Blood Pressure 1: 138/84 Code : 8480-6 BMI: 27.3 Code : 92932-1 Heart Rate 1 : 77 bpm Height: 5'8" SpO2: 97% Weight: 182 lbs 01/24/2014 Blood Pressure 1: 150/92 Code : 8480-6 BMI: 26.5 Code : 31964-0 Heart Rate 1 : 80 bpm Height: 5'8" Weight: 177 lbs 12/27/2013 Blood Pressure 1: 152/80 Code : 8480-6 BMI: 26.2 Code : 88570-5 Heart Rate 1 : 68 bpm Height: 5'8" Weight: 175 lbs 10/24/2013 Blood Pressure 1: 156/86 Code : 8480-6 BMI: 27.1 Code : 93275-6 Heart Rate 1 : 84 bpm Height: 5'8" Weight: 181 lbs 07/26/2013 Blood Pressure 1: 156/80 Code : 8480-6 BMI: 28.3 Code : 80445-4 Heart Rate 1 : 84 bpm Height: 5'8" Weight: 189 lbs 05/20/2013 Blood Pressure 1: 136/86 Code : 8480-6 BMI: 27.7 Code : 84885-8 Heart Rate 1 : 80 bpm Height: 5'8" Weight: 185 lbs 10/28/2012 Blood Pressure 1: 122/78 Code : 8480-6 Heart Rate 1: 80 bpm Respiratory Rate : 16 bpm Weight: 186 lbs 06/02/2012 Blood Pressure 1: 128/68 Code : 8480-6 05/31/2012 Blood Pressure 1: 138/78 Code : 8480-6 BMI: 27.6 Code : 05701-8 Heart Rate 1 : 68 bpm Height: [...] exercise 01/24/2014 - was going to the [facility] - 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 hypertension Onset and Resolution ongoing 01/24/2014 pt states that she has high blood pressure off and on when going to the doctor - she states that she thinks some of it may be because she is depressed about being here in [place]. hip pain Location on the right 12/27/2013 [...] transfusion whil living in the [facility] in 1974. 06/02/2012 None abnormal test results [...] data Encounters Encounter Performer Location Codes Date EST. PATIENT, LEVEL IV Diagnosis: Essential (primary) hypertension[ICD10: I10] Diagnosis: Type 2 diabetes mellitus without complications[ICD10: E11.9] Diagnosis: Mixed hyperlipidemia[ICD10: E78.2] Diagnosis: Other specified hypothyroidism[ICD10: E03.8] Brit Robles MD, [facility] CPT-4: 53984 06/10/2017 [id number] EST. PATIENT, LEVEL III Diagnosis: Other allergic rhinitis[ICD10: J30.89] Diagnosis: Pain in left knee[ICD10: M25.562] Diagnosis: Encounter for immunization[ICD10: Z23] Brit Robles MD, [facility] CPT-4: 03554 08/15/2016 [id number] EST. PATIENT, LEVEL IV Diagnosis: Pain in left knee[ICD10: M25.562] Brit Robles MD, [facility] CPT -4: 95599 07/16/2016 [id number] EST. PATIENT, LEVEL IV Diagnosis: Pneumonia, unspecified organism[ICD10: J18.9] Brit Robles MD, [facility] CPT-4: 74634 05/19/2016 42410 EST. PATIENT, LEVEL III Diagnosis: Benign paroxysmal vertigo, bilateral[ICD10: H81.13] Diagnosis: Other seasonal allergic rhinitis[ICD10: J30.2] Brit Robles MD, [facility] CPT-4: 14989 02/26/2016 ([id number]) 00837 EST. PATIENT, LEVEL IV Diagnosis: Essential (primary) hypertension[ICD10: I10] Diagnosis: Type 2 diabetes mellitus without complications[ICD10: E11.9] Diagnosis: Mixed hyperlipidemia[ICD10: E78.2] Diagnosis: Hypothyroidism, unspecified[ICD10: E03.9] Ginny Robles MD, [facility] CPT-4: 21866 01/31/2016 ([id number]) 06879 EST. PATIENT, LEVEL IV Diagnosis: DIABETES TYPE II[SNOMED: 847554676] Diagnosis: ESSENTIAL HYPERTENSION[SNOMED: 48085940] Diagnosis: Depression[ICD9: 311] Anika Robles MD [facility] CPT-4: 77006 01/24/2014 ([id number]) 06213 EST. PATIENT, LEVEL III Diagnosis: Sciatica[ICD9: 724.3] Anika Robles MD, [facility] CPT-4: 95104 12/27/2013 ([id number]) 46577 EST. PATIENT, LEVEL IV Diagnosis: DIABETES TYPE II[SNOMED: 956590352] Diagnosis: ESSENTIAL HYPERTENSION[SNOMED: 78739922] Diagnosis: HYPERLIPIDEMIA[ICD9: 272.4] Diagnosis: Osteopenia[ICD9: 733.90] Anika Robles MD, [facility] CPT-4: 62174 10/24/2013 ([id number]) 29195 EST. PATIENT, LEVEL III Diagnosis: Elevated blood sugar[ICD9: 790.29] Anika Robles MD, [facility] CPT-4: 59504 07/26/2013 ([id number]) 95745 EST. PATIENT, LEVEL III Diagnosis: Plantar fasciitis[ICD9: 728.71] Ginny Robles MD, [facility] CPT-4: 03975 05/20/2013 ([id number]) 86462 EST. PATIENT, LEVEL III Diagnosis: Elevated liver enzymes[ICD9: 790.4] Diagnosis: Fatigue[ICD9: 780.79] Anika Robles MD, [facility] CPT-4: 76314 06/02/2012 ([id number]) OFFICE VISIT, NEW - LEVEL 4 Diagnosis: HYPOTHYROIDISM[ICD9: 244.9] Diagnosis: Acute maxillary sinusitis[ICD9: 461.0] Diagnosis: Allergic rhinitis[ICD9: 477.9] Diagnosis: HYPERLIPIDEMIA[ICD9: 272.4] Anika Robles MD, [facility] CPT- 4: 32241 05/31/2012 Plan of Care Planned Activity Notes [...] less controlled. 06/10/2017 [facility]ment: [phone] [facility] ([address] 06/10/2017 Patient Education: Patient Medication Summary Completed 06/10/2017 Patient Education: Hypertension Completed 06/10/2017 Referral: [employer] Referral Initiated 09/30/2016 Care Plan: X-RAY EXAM OF KNEE 3 LOINC : 36922-1 Pending 09/12/2016 Care Plan: Referral Order SNOMED-CT : 573665874 Pending 09/12/2016 Visit Plan: Allergies - chronic [...] if indicated 08/15/2016 Appointment: Ginny Terrazas WPtel: [address] [place], [place] [phone] (15 min) Moderate 08/15/2016 Patient Education: Patient Medication Summary Completed 08/15/2016 Visit Plan: Left knee pain - Pt is to use RICE - Rest, Ice , Compression, Elevation - pt to continue with anti-inflammatories. Pt is to call if the symptoms do not improve or if they worsen. 07/16/2016 Appointment: Ginny Terrazas WPtel: [address] [place], [place] [phone] (30 min) Complex 07/16/2016 Patient Education: Patient [...] this illness. 05/19/2016 Appointment: Brit Flores WPtel: [address] [place] [address] (15 min) Moderate 05/19/2016 Patient Education: Patient [...] interventions. 02/26/2016 Appointment: [facility] Terrazas [facility]el[facility] [phone] [phone] (30 min) Complex 02/26/2016 Patient Education: Patient [...] her daughter when she moved home from [place], but her expectations did not agustin out and she has no close friends in [place]. 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 I have suggested for her to go to the library, volunteer to read, or look at [employer] for some fun classes to help occupy her time. 01/24/2014 Appointment: [phone] [facility] Follow up 01/24/2014 Patient Education: Patient Medication [...] they worsen. 12/27/2013 Appointment: [phone] [facility] Other 12/27/2013 Patient Education: Patient Medication Summary [...] BLOOD SUGARS 10/24/2013 Appointment: Anika Robles WPtel: [address] [place], [place] [phone] Follow up 10/24/2013 Patient Education: Patient Medication Summary Completed 10/24/2013 Patient Education: Hypertension Completed 10/24/2013 Visit Plan: Elevated blood sugars-diabetes education today in the office-diet education completed today in the office-discussed ADA diet- cut back on pop, sweets, and white bread, white potatoes, and white pasta. plan to repreat HgbA1C in 3 months-patient verbalized understanding of plan. 07/26/2013 Appointment: Ginny Terrazas WPtel: [phone] Other 07/26/2013 Patient Education: Patient Medication Summary Completed 07/26/2013 Visit Plan: Plantar fasciitis- pt was educated that this is an inflammatory process, need to stretch the foot and reduce inflammation by using a frozen bottle of water or a tennis ball on the bottom of the foot at least three times a day until the pain is improved. 05/20/2013 Appointment: Ginny Terrazas WPtel: [phone] Other 05/20/2013 Patient Education: Patient Medication Summary Completed 05/20/2013 Appointment: Anika Robles WPtel: [address] [place], [place] [phone] Established Patient Preventative visit 11/29/2012 Visit Plan: [...] otherwise, RTC yearly or prn. 10/28/2012 Appointment: MargaretBj ulloay WPtel: [phone] [facility] [place] Pap Only 10/28/2012 Patient Education: Patient Medication Summary Completed 10/28/2012 Appointment: Anika Robles WPtel: [phone] [facility] [place] Pap Only 09/23/2012 Appointment: Ginny Terrazas WPtel: [phone] [phone] [place] Injection 08/05/2012 Patient Education: Patient Medication Summary Completed 08/05/2012 Visit Plan: Elevated liver enzymes - recommended a hepatitis panel, hiv screen, ct of the abdomen/pelvis to see if there is a structural abnormality causing this issue as these are extremely elevated liver enzymes. 06/02/2012 Appointment: Anika Robles WPtel: [facility] Other 06/02/2012 Patient Education: Patient Medication Summary [...] bactrim ds twice daily sent electronically to [facility] Allergies - chronic - recommended pt to use allergy medication as prescribed. Pt has been counseled as the the appropriate use of the medication. Pt to call if allergy symptoms are not controlled with the medication. Samples of nasonex given to pt for a two week course of treatment, then can use OTC claritin. 05/31/2012 Appointment: Anika Robles WPtel: [phone] [facility] New Patient 05/31/2012 Patient Education: Patient Medication [...] office for further instructions/medication interventions. Probiotics - [employer] Endeavors or culturelle over the counter . Pneumonia - Pt [...] bactrim ds twice daily sent electronically to [facility] Allergies - chronic - recommended pt to [...] her daughter when she moved home from [place], but her expectations did not agustin out and she has no close friends in [place]. 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 I have suggested for her to go to the library, volunteer to read, or look at [employer] for some fun classes to help occupy [...]
--- OUTSIDE RECORDS SUMMARY | 2017-11-02 08:52 | XMS REPORT | Continuity of Care Document ---
Author Author [facility] Organization [facility] Address Unknown Phone Unavailable Allergies Active Description Code Type Severity Reaction Onset Reported/Identified Relationship to Patient Clinical Status Yes estrogens, conjugated [id number] Drug Allergy Unknown N/A 01/29/2017 Yes medroxyprogesterone acetate [id number] Drug Allergy Unknown N/A 2016 Yes simvastatin [id number] Drug Allergy Unknown N/A 06/06/2017 Medications There is no data. Problems Date Dx Coded Attending Type Code Diagnosis Diagnosed By 09/03/1531 ARIAN MATA APRN Ot M25.562 PAIN IN LEFT KNEE 09/12/2012 Ot 729.5 PAIN IN LIMB 09/12/2012 Ot 784.0 HEADACHE 09/12/2012 Ot 847.0 SPRAIN OF NECK 09/12/2012 Ot E000.8 OTHER EXTERNAL CAUSE STATUS 09/12/2012 Ot E885.9 FALL FROM SLIPPING, TRIPPING, OR STUMBLI 09/12/2012 Ot V58.69 OTH MED,LT, CURRENT USE 06/28/2014 CHRISTIE MAGALLON Ot 823.21 FX SHAFT FIBULA-CLOSED 06/28/2014 CHRISTIE MAGALLON Ot 959.7 LOWER LEG INJURY NOS 06/28/2014 CHRISTIE MAGALLON Ot E000.8 OTHER EXTERNAL CAUSE STATUS 06/28/2014 CHRISTIE MAGALLON Ot E016.1 ACTIVITIES INVOLVING GARDENING AND LANDS 06/28/2014 CHRISTIE MAGALLON Ot E849.0 ACCIDENT IN HOME 06/28/2014 CHRISTIE MAGALLON Ot E927.0 OVEREXERTION FROM SUDDEN STRENUOUS MOVEM 08/17/2014 Ot 244.9 08/17/2014 Ot 272.4 08/17/2014 Ot 790.21 08/17/2014 Ot 790.5 08/17/2014 Ot 440.0 08/17/2014 Ot 721.3 08/17/2014 Ot 790.6 08/17/2014 Ot 780.79 08/17/2014 Ot 790.5 08/17/2014 Ot 790.5 08/17/2014 Ot 272.4 08/17/2014 Ot 790.4 08/17/2014 Ot V76.12 08/17/2014 Ot 790.5 08/17/2014 Ot 272.4 08/17/2014 Ot V58.69 08/17/2014 TOMASGARTH MACHINE HEEL SPRAYER Ot 244.9 08/17/2014 TOMASGARTH MACHINE HEEL SPRAYER Ot 272.4 08/17/2014 MARINGARTH MACHINE HEEL SPRAYER Ot 790.29 08/17/2014 TOMASGARTH MACHINE HEEL SPRAYER Ot V72.62 08/17/2014 TOMASGARTH MACHINE HEEL SPRAYER Ot 288.50 08/17/2014 MARINGARTH MACHINE HEEL SPRAYER Ot 793.82 08/17/2014 TOMASGARTH MACHINE HEEL SPRAYER Ot V76.12 08/17/2014 HOANG DUMONT, SHARON Sprague Ot 793.89 08/17/2014 TOMASGARTH MACHINE HEEL SPRAYER Ot 250.00 08/17/2014 TOMASGARTH MACHINE HEEL SPRAYER Ot 250.01 08/17/2014 TOMASGARTH MACHINE HEEL SPRAYER Ot 272.4 08/17/2014 TOMAS GARTH Preston MACHINE HEEL SPRAYER Ot 401.9 08/17/2014 TOMASGARTH MACHINE HEEL SPRAYER Ot V72.62 08/17/2014 TOMASGARTH MACHINE HEEL SPRAYER Ot 793.80 08/17/2014 HOANG DUMONT, SHARON A Ot 250.00 08/17/2014 HOANG DUMONT, SHARON A Ot 272.4 08/17/2014 HOANG DUMONT, SHARON A Ot 401.9 08/17/2014 HOANG DUMONT, SHARON A Ot V58.69 08/17/2014 SISSY DUMONT, TALON T Ot 272.4 HYPERLIPIDEMIA NEC/NOS 08/17/2014 TALON SHEEHAN MD T Ot 401.9 HYPERTENSION NOS 08/17/2014 SISSY DUMONT, TALON T Ot 786.50 CHEST PAIN NOS 08/17/2014 TALON SHEEHAN MD T Ot 786.59 CHEST PAIN NEC 05/29/2015 RAMAN MARINHANMISTY Preston MACHINE HEEL SPRAYER Ot V76.12 06/01/2015 GARTH MARIN MACHINE HEEL SPRAYER Ot V76.12 06/06/2015 GARTH MARIN MACHINE HEEL SPRAYER Ot V76.12 06/19/2016 Ot 244.9 HYPOTHYROIDISM NOS 06/19/2016 Ot 272.4 HYPERLIPIDEMIA NEC/NOS 06/19/2016 Ot 790.21 IMPAIRED FASTING GLUCOSE 06/19/2016 Ot 790.5 ABN SERUM ENZY LEVEL NEC 06/19/2016 Ot 440.0 AORTIC ATHEROSCLEROSIS 06/19/2016 Ot 721.3 LUMBOSACRAL SPONDYLOSIS 06/19/2016 Ot 790.6 ABN BLOOD CHEMISTRY NEC 06/19/2016 Ot 780.79 OTH MALAISE FATIGUE 06/19/2016 Ot 790.5 ABN SERUM ENZY LEVEL NEC 06/19/2016 Ot 790.5 ABN SERUM ENZY LEVEL NEC 06/19/2016 Ot 272.4 HYPERLIPIDEMIA NEC/NOS 06/19/2016 Ot 790.4 ELEV TRANSAMINASE/LDH 06/19/2016 Ot V76.12 OTH SCREEN MAMMO-MALIGN NEOPLASM OF [place] 06/19/2016 Ot 790.5 ABN SERUM ENZY LEVEL NEC 06/19/2016 Ot 272.4 HYPERLIPIDEMIA NEC/NOS 06/19/2016 Ot V58.69 OTH MED,LT, CURRENT USE 06/19/2016 GARTH MARIN MACHINE HEEL SPRAYER Ot 244.9 HYPOTHYROIDISM NOS 06/19/2016 GARTH MARIN MACHINE HEEL SPRAYER Ot 272.4 HYPERLIPIDEMIA NEC/NOS 06/19/2016 GARTH MARIN [facility] Ot 790.29 OTHER ABNORMAL GLUCOSE 06/19/2016 GARTH MARIN [facility] Ot V72.62 LAB EXAM ORDERED PART OF A ROUTINE GE 06/19/2016 GARTH MARIN [facility] Ot 288.50 LEUKOCYTOPENIA, UNSPECIFIED 06/19/2016 GARTH MARIN [facility] Ot 793.82 INCONCLUSIVE MAMMOGRAM 06/19/2016 GARTH MARIN [facility] Ot V76.12 OTH SCREEN MAMMO-MALIGN NEOPLASM OF [place] 06/19/2016 SHARON BOLTON MD Ot 793.89 OTH (ABN) FINDINGS ON RADIOLOGICAL EXAMI 06/19/2016 GARTH MARIN [facility] Ot 250.00 DIAB JANELL WO COMPL, TYPE II OR UNSPEC TY 06/19/2016 MARIN, GARTH M MACHINE HEEL SPRAYER Ot 250.01 DIAB JANELL WO COMPL, TYPE I [JUVENILE TYP 06/19/2016 GARTH MARIN MACHINE HEEL SPRAYER Ot 272.4 HYPERLIPIDEMIA NEC/NOS 06/19/2016 GARTH MARIN MACHINE HEEL SPRAYER Ot 401.9 HYPERTENSION NOS 06/19/2016 RAMAN MARINHANMISTY Preston MACHINE HEEL SPRAYER Ot V72.62 LAB EXAM ORDERED PART OF A ROUTINE GE 06/19/2016 GARTH MARIN MACHINE HEEL SPRAYER Ot 793.80 UNSPEC ABNORMAL MAMMOGRAM 06/19/2016 SHARON BOLTON MD Ot 250.00 DIAB JANELL WO COMPL, TYPE II OR UNSPEC TY 06/19/2016 SHARON BOLTON MD Ot 272.4 HYPERLIPIDEMIA NEC/NOS 06/19/2016 SHARON BOLTON MD Ot 401.9 HYPERTENSION NOS 06/19/2016 SHARON BOLTON MD Ot V58.69 OTH MED,LT,CURRENT USE 06/19/2016 GARTH MARIN MACHINE HEEL SPRAYER Ot V76.12 OTH SCREEN MAMMO-MALIGN NEOPLASM OF [place] 06/19/2016 ARIAN MATA PROBATION WORKER Ot Z12.31 ENCNTR SCREEN MAMMOGRAM FOR MALIGNANT NE 06/20/2016 ARIAN MATA PROBATION WORKER Ot Z12.31 ENCNTR SCREEN MAMMOGRAM FOR MALIGNANT NE 06/23/2016 ARIAN MATA PROBATION WORKER Ot Z12.31 ENCNTR SCREEN MAMMOGRAM FOR MALIGNANT NE 07/02/2016 ARIAN MATA PROBATION WORKER Ot Z12.31 ENCNTR SCREEN MAMMOGRAM FOR MALIGNANT NE 07/19/2016 SANTANA DO, HARPER K Ot H66.93 OTITIS MEDIA, UNSPECIFIED, BILATERAL 07/19/2016 SANTANA DO, HARPER K Ot H81.13 BENIGN PAROXYSMAL VERTIGO, BILATERAL 07/19/2016 SANATNA DO, HARPER K Ot I10 ESSENTIAL (PRIMARY) HYPERTENSION 07/19/2016 SANTANA DO, HARPER K Ot R42 DIZZINESS AND GIDDINESS 07/19/2016 SANTANA DO, HARPER K Ot Z79.899 OTHER CORRECTION (CURRENT) DRUG THERAPY 07/21/2016 SANTANA DO, HARPER K Ot H66.93 OTITIS MEDIA, UNSPECIFIED, BILATERAL 07/21/2016 SANATNA DO, HARPER K Ot H81.13 BENIGN PAROXYSMAL VERTIGO, BILATERAL 07/21/2016 SANTANA DO, HARPER K Ot I10 ESSENTIAL (PRIMARY) HYPERTENSION 07/21/2016 HARPER DILLON DO Ot R42 DIZZINESS AND GIDDINESS 07/21/2016 HARPER DILLON DO Ot Z79.899 OTHER LADIES UNDERWEAR OPERATOR (CURRENT) DRUG THERAPY 07/25/2016 HARPER DILLON DO Ot H66.93 OTITIS MEDIA, UNSPECIFIED, BILATERAL 07/25/2016 HARPER DILLON DO Ot H81.13 BENIGN PAROXYSMAL VERTIGO, BILATERAL 07/25/2016 HARPER DILLON DO Ot I10 ESSENTIAL (PRIMARY) HYPERTENSION 07/25/2016 HARPER DILLON DO Ot R42 DIZZINESS AND GIDDINESS 07/25/2016 HARPER DILLON DO Ot Z79.899 OTHER CORRECTION (CURRENT) DRUG THERAPY 08/20/2016 Ot M79.662 PAIN IN LEFT LOWER LEG 08/20/2016 Ot 244.9 HYPOTHYROIDISM NOS 08/20/2016 Ot 272.4 HYPERLIPIDEMIA NEC/NOS 08/20/2016 Ot 790.21 IMPAIRED FASTING GLUCOSE 08/20/2016 Ot 790.5 ABN SERUM ENZY LEVEL NEC 08/20/2016 Ot 440.0 AORTIC ATHEROSCLEROSIS 08/20/2016 Ot 721.3 LUMBOSACRAL SPONDYLOSIS 08/20/2016 Ot 790.6 ABN BLOOD CHEMISTRY NEC 08/20/2016 Ot 780.79 OTH MALAISE FATIGUE 08/20/2016 Ot 790.5 ABN SERUM ENZY LEVEL NEC 08/20/2016 Ot 790.5 ABN SERUM ENZY LEVEL NEC 08/20/2016 Ot 272.4 HYPERLIPIDEMIA NEC/NOS 08/20/2016 Ot 790.4 ELEV TRANSAMINASE/LDH 08/20/2016 Ot V76.12 OTH SCREEN MAMMO-MALIGN NEOPLASM OF [place] 08/20/2016 Ot 790.5 ABN SERUM ENZY LEVEL NEC 08/20/2016 Ot 272.4 HYPERLIPIDEMIA NEC/NOS 08/20/2016 Ot V58.69 OTH MED,LT, CURRENT USE 08/20/2016 GARTH MARIN MACHINE HEEL SPRAYER Ot 244.9 HYPOTHYROIDISM NOS 08/20/2016 GARTH MARIN MACHINE HEEL SPRAYER Ot 272.4 HYPERLIPIDEMIA NEC/NOS 08/20/2016 GARTH MARIN MACHINE HEEL SPRAYER Ot 790.29 OTHER ABNORMAL GLUCOSE 08/20/2016 GARTH MARIN MACHINE HEEL SPRAYER Ot V72.62 LAB EXAM ORDERED PART OF A ROUTINE GE 08/20/2016 TOMAS GARTH M MACHINE HEEL SPRAYER Ot 288.50 LEUKOCYTOPENIA, UNSPECIFIED 08/20/2016 GARTH MARIN MACHINE HEEL SPRAYER Ot 793.82 INCONCLUSIVE MAMMOGRAM 08/20/2016 GARTH MARIN MACHINE HEEL SPRAYER Ot V76.12 OTH SCREEN MAMMO-MALIGN NEOPLASM OF [place] 08/20/2016 SHARON BOLTON MD Ot 793.89 OTH (ABN) FINDINGS ON RADIOLOGICAL EXAMI 08/20/2016 GARTH MARIN MACHINE HEEL SPRAYER Ot 250.00 DIAB JANELL WO COMPL, TYPE II OR UNSPEC TY 08/20/2016 GARTH MARIN MACHINE HEEL SPRAYER Ot 250.01 DIAB JANELL WO COMPL, TYPE I [JUVENILE TYP 08/20/2016 GARTH MARIN MACHINE HEEL SPRAYER Ot 272.4 HYPERLIPIDEMIA NEC/NOS 08/20/2016 GARTH MARIN MACHINE HEEL SPRAYER Ot 401.9 HYPERTENSION NOS 08/20/2016 GARTH MARINP Ot V72.62 LAB EXAM ORDERED PART OF A ROUTINE GE 08/20/2016 GARTH MARIN MACHINE HEEL SPRAYER Ot 793.80 UNSPEC ABNORMAL MAMMOGRAM 08/20/2016 SHARON BOLTON MD Ot 250.00 DIAB JANELL WO COMPL, TYPE II OR UNSPEC TY 08/20/2016 SHARON BOLTON MD Ot 272.4 HYPERLIPIDEMIA NEC/NOS 08/20/2016 SHARON BOLTON MD Ot 401.9 HYPERTENSION NOS 08/20/2016 SHARON BOLTON MD Ot V58.69 OTH MED,LT,CURRENT USE 08/20/2016 GARTH MARIN MACHINE HEEL SPRAYER Ot V76.12 OTH SCREEN MAMMO-MALIGN NEOPLASM OF [place] 08/20/2016 ARIAN MATA APRN Ot Z12.31 ENCNTR SCREEN MAMMOGRAM FOR MALIGNANT NE 08/20/2016 Ot M79.662 PAIN IN LEFT LOWER LEG 09/02/2016 ARIAN MATA APRN Ot M25.562 PAIN IN LEFT KNEE 09/03/2016 ARIAN MATA APRN Ot M25.562 PAIN IN LEFT KNEE 09/10/2016 Ot M79.662 PAIN IN LEFT LOWER LEG 09/24/2016 ARIAN MATA APRN Ot M25.562 PAIN IN LEFT KNEE 09/26/2016 ARIAN MATA PROBATION WORKER Ot M25.562 PAIN IN LEFT KNEE 10/23/2016 ARIAN MATA PROBATION WORKER Ot M25.562 PAIN IN LEFT KNEE 06/06/2017 Ot 244.9 HYPOTHYROIDISM NOS 06/06/2017 Ot 272.4 HYPERLIPIDEMIA NEC/NOS 06/06/2017 Ot 790.21 IMPAIRED FASTING GLUCOSE 06/06/2017 Ot 790.5 ABN SERUM ENZY LEVEL NEC 06/06/2017 Ot 440.0 AORTIC ATHEROSCLEROSIS 06/06/2017 Ot 721.3 LUMBOSACRAL SPONDYLOSIS 06/06/2017 Ot 790.6 ABN BLOOD CHEMISTRY NEC 06/06/2017 Ot 780.79 OTH MALAISE FATIGUE 06/06/2017 Ot 790.5 ABN SERUM ENZY LEVEL NEC 06/06/2017 Ot 790.5 ABN SERUM ENZY LEVEL NEC 06/06/2017 Ot 272.4 HYPERLIPIDEMIA NEC/NOS 06/06/2017 Ot 790.4 ELEV TRANSAMINASE/LDH 06/06/2017 Ot V76.12 OTH SCREEN MAMMO-MALIGN NEOPLASM OF [place] 06/06/2017 Ot 790.5 ABN SERUM ENZY LEVEL NEC 06/06/2017 Ot 272.4 HYPERLIPIDEMIA NEC/NOS 06/06/2017 Ot V58.69 OTH MED,LT, CURRENT USE 06/06/2017 GARTH MARIN [facility] Ot 244.9 HYPOTHYROIDISM NOS 06/06/2017 GARTH MARIN MACHINE HEEL SPRAYER Ot 272.4 HYPERLIPIDEMIA NEC/NOS 06/06/2017 GARTH MARIN [facility] Ot 790.29 OTHER ABNORMAL GLUCOSE 06/06/2017 GARTH MARIN [facility] Ot V72.62 LAB EXAM ORDERED PART OF A ROUTINE GE 06/06/2017 GARTH MARIN MACHINE HEEL SPRAYER Ot 288.50 LEUKOCYTOPENIA, UNSPECIFIED 06/06/2017 GARTH MARIN [facility] Ot 793.82 INCONCLUSIVE MAMMOGRAM 06/06/2017 GARTH MARIN [facility] Ot V76.12 OTH SCREEN MAMMO-MALIGN NEOPLASM OF [place] 06/06/2017 SHARON BOLTON MD Ot 793.89 OTH (ABN) FINDINGS ON RADIOLOGICAL EXAMI 06/06/2017 GARTH MARIN MACHINE HEEL SPRAYER Ot 250.00 DIAB JANELL WO COMPL, TYPE II OR UNSPEC TY 06/06/2017 GARTH MARIN MACHINE HEEL SPRAYER Ot 250.01 DIAB JANELL WO COMPL, TYPE I [JUVENILE TYP 06/06/2017 TOMAS GARTH M MACHINE HEEL SPRAYER Ot 272.4 HYPERLIPIDEMIA NEC/NOS 06/06/2017 RAMAN MARINHANMISTY Preston MACHINE HEEL SPRAYER Ot 401.9 HYPERTENSION NOS 06/06/2017 TOMASGARTH MACHINE HEEL SPRAYER Ot V72.62 LAB EXAM ORDERED PART OF A ROUTINE GE 06/06/2017 GARTH MARIN MACHINE HEEL SPRAYER Ot 793.80 UNSPEC ABNORMAL MAMMOGRAM 06/06/2017 SHARON BOLTON MD Ot 250.00 DIAB JANELL WO COMPL, TYPE II OR UNSPEC TY 06/06/2017 SHARON BOLTON MD Ot 272.4 HYPERLIPIDEMIA NEC/NOS 06/06/2017 SHARON BOLTON MD Ot 401.9 HYPERTENSION NOS 06/06/2017 SHARON BOLTON MD Ot V58.69 OTH MED,LT,CURRENT USE 06/06/2017 RAMAN MARINHANIE Kary MACHINE HEEL SPRAYER Ot V76.12 OTH SCREEN MAMMO-MALIGN NEOPLASM OF [place] 06/06/2017 ARIAN MATA PROBATION WORKER Ot Z12.31 ENCNTR SCREEN MAMMOGRAM FOR MALIGNANT NE 06/06/2017 Ot M79.662 PAIN IN LEFT LOWER LEG 06/06/2017 ARIAN MATA PROBATION WORKER Ot M25.562 PAIN IN LEFT KNEE 06/06/2017 BRUNO SHARMA MD Ot E03.9 HYPOTHYROIDISM, UNSPECIFIED 06/06/2017 BRUNO SHARMA MD Ot E78.00 PURE HYPERCHOLESTEROLEMIA, UNSPECIFIED 06/06/2017 BRUNO SHARMA MD Ot I10 ESSENTIAL (PRIMARY) HYPERTENSION 06/06/2017 BRUNO SHARMA MD Ot K59.00 CONSTIPATION, UNSPECIFIED 06/06/2017 BRUNO SHARMA MD Ot M54.9 DORSALGIA, UNSPECIFIED 06/06/2017 Ot 244.9 HYPOTHYROIDISM NOS 06/06/2017 Ot 272.4 HYPERLIPIDEMIA NEC/NOS 06/06/2017 Ot 790.21 IMPAIRED FASTING GLUCOSE 06/06/2017 Ot 790.5 ABN SERUM ENZY LEVEL NEC 06/06/2017 Ot 440.0 AORTIC ATHEROSCLEROSIS 06/06/2017 Ot 721.3 LUMBOSACRAL SPONDYLOSIS 06/06/2017 Ot 790.6 ABN BLOOD CHEMISTRY NEC 06/06/2017 Ot 780.79 OTH MALAISE FATIGUE 06/06/2017 Ot 790.5 ABN SERUM ENZY LEVEL NEC 06/06/2017 Ot 790.5 ABN SERUM ENZY LEVEL NEC 06/06/2017 Ot 272.4 HYPERLIPIDEMIA NEC/NOS 06/06/2017 Ot 790.4 ELEV TRANSAMINASE/LDH 06/06/2017 Ot V76.12 OTH SCREEN MAMMO-MALIGN NEOPLASM OF [place] 06/06/2017 Ot 790.5 ABN SERUM ENZY LEVEL NEC 06/06/2017 Ot 272.4 HYPERLIPIDEMIA NEC/NOS 06/06/2017 Ot V58.69 OTH MED,LT, CURRENT USE 06/06/2017 GARTH MARIN MACHINE HEEL SPRAYER Ot 244.9 HYPOTHYROIDISM NOS 06/06/2017 GARTH MARIN MACHINE HEEL SPRAYER Ot 272.4 HYPERLIPIDEMIA NEC/NOS 06/06/2017 GARTH MARIN MACHINE HEEL SPRAYER Ot 790.29 OTHER ABNORMAL GLUCOSE 06/06/2017 GARTH MARIN MACHINE HEEL SPRAYER Ot V72.62 LAB EXAM ORDERED PART OF A ROUTINE GE 06/06/2017 GARTH MARIN MACHINE HEEL SPRAYER Ot 288.50 LEUKOCYTOPENIA, UNSPECIFIED 06/06/2017 GARTH MARIN MACHINE HEEL SPRAYER Ot 793.82 INCONCLUSIVE MAMMOGRAM 06/06/2017 GARTH MARIN MACHINE HEEL SPRAYER Ot V76.12 OTH SCREEN MAMMO-MALIGN NEOPLASM OF [place] 06/06/2017 SHARON BOLTON MD Ot 793.89 OTH (ABN) FINDINGS ON RADIOLOGICAL EXAMI 06/06/2017 GARTH MARIN MACHINE HEEL SPRAYER Ot 250.00 DIAB JANELL WO COMPL, TYPE II OR UNSPEC TY 06/06/2017 GARTH MARIN MACHINE HEEL SPRAYER Ot 250.01 DIAB JANELL WO COMPL, TYPE I [JUVENILE TYP 06/06/2017 GARTH MARIN MACHINE HEEL SPRAYER Ot 272.4 HYPERLIPIDEMIA NEC/NOS 06/06/2017 GARTH MARIN MACHINE HEEL SPRAYER Ot 401.9 HYPERTENSION NOS 06/06/2017 GARTH MARINP Ot V72.62 LAB EXAM ORDERED PART OF A ROUTINE GE 06/06/2017 GARTH MARINP Ot 793.80 UNSPEC ABNORMAL MAMMOGRAM 06/06/2017 SHARON BOLTON MD Ot 250.00 DIAB JANELL WO COMPL, TYPE II OR UNSPEC TY 06/06/2017 SHARON BOLTON MD Ot 272.4 HYPERLIPIDEMIA NEC/NOS 06/06/2017 HOANG DUMONT, SHARON Sprague Ot 401.9 HYPERTENSION NOS 06/06/2017 HOANG DUMONT, SHARON Sprague Ot V58.69 OTH MED,LT,CURRENT USE 06/06/2017 GARTH MARIN Ot V76.12 OTH SCREEN MAMMO-MALIGN NEOPLASM OF [place] 06/06/2017 ARIAN MATA PROBATION WORKER Ot Z12.31 ENCNTR SCREEN MAMMOGRAM FOR MALIGNANT NE 06/06/2017 Ot M79.662 PAIN IN LEFT LOWER LEG 06/06/2017 ARIAN MATA PROBATION WORKER Ot M25.562 PAIN IN LEFT KNEE 06/08/2017 BRUNO SHARMA MD Ot E03.9 HYPOTHYROIDISM, UNSPECIFIED 06/08/2017 BRUNO SHARMA MD Ot E78.00 PURE HYPERCHOLESTEROLEMIA, UNSPECIFIED 06/08/2017 BRUNO SHARMA MD Ot I10 ESSENTIAL (PRIMARY) HYPERTENSION 06/08/2017 BRUNO SHARMA MD Ot K59.00 CONSTIPATION, UNSPECIFIED 06/08/2017 BRUNO SHARMA MD Ot M54.9 DORSALGIA, UNSPECIFIED 06/09/2017 BRUNO SHARMA MD Ot E03.9 HYPOTHYROIDISM, UNSPECIFIED 06/09/2017 BRUNO SHARMA MD Ot E78.00 PURE HYPERCHOLESTEROLEMIA, UNSPECIFIED 06/09/2017 BRUNO SHARMA MD Ot I10 ESSENTIAL (PRIMARY) HYPERTENSION 06/09/2017 BRUNO SHARMA MD Ot K59.00 CONSTIPATION, UNSPECIFIED 06/09/2017 BRUNO SHARMA MD Ot M54.9 DORSALGIA, UNSPECIFIED 06/09/2017 BRUNO SHARMA MD J Ot E03.9 HYPOTHYROIDISM, UNSPECIFIED 06/09/2017 BRUNO SHARMA MD Ot E78.00 PURE HYPERCHOLESTEROLEMIA, UNSPECIFIED 06/09/2017 BRUNO SHARMA MD Ot I10 ESSENTIAL (PRIMARY) HYPERTENSION 06/09/2017 BRUNO SHARMA MD Ot K59.00 CONSTIPATION, UNSPECIFIED 06/09/2017 BRUNO SHARMA MD J Ot M54.9 DORSALGIA, UNSPECIFIED 07/17/2017 BRUNO SHARMA MD J Ot E03.9 HYPOTHYROIDISM, UNSPECIFIED 07/17/2017 BRUNO SHARMA MD J Ot E78.00 PURE HYPERCHOLESTEROLEMIA, UNSPECIFIED 07/17/2017 BRUNO SHARMA MD Ot I10 ESSENTIAL (PRIMARY) HYPERTENSION 07/17/2017 BRUNO SHARMA MD Ot K59.00 CONSTIPATION, UNSPECIFIED 07/17/2017 BRUNO SHARMA MD, Ot M54.9 DORSALGIA, UNSPECIFIED 07/22/2017 ARIAN MATA APRN Ot Z12.31 ENCNTR SCREEN MAMMOGRAM FOR MALIGNANT NE Procedures There is no data. Results Test Result Range Complete blood count (CBC) with automated white blood cell (WBC) differential - 07/19/16 20:30 Blood leukocytes automated count (number/volume) 5.0 10*3/uL 4.3-11.0 Blood erythrocytes automated count (number/volume) 4.01 10*6/uL 4.35-5.85 Venous blood hemoglobin measurement (mass/volume) 12.5 g/dL 11.5-16.0 Blood hematocrit (volume fraction) 38 % 35-52 Automated erythrocyte mean corpuscular volume 96 [foz_us] 80-99 Automated erythrocyte mean corpuscular hemoglobin (mass per erythrocyte) 31 pg 25-34 Automated erythrocyte mean corpuscular hemoglobin concentration measurement ( mass/volume) 33 g/dL 32-36 Automated erythrocyte distribution width ratio 13.4 % 10.0-14.5 Automated blood platelet count (count/volume) 215 10*3/uL 130-400 Automated blood platelet mean volume measurement 11.3 [foz_us] 7.4-10.4 Automated blood neutrophils/100 leukocytes 57 % 42-75 Automated blood lymphocytes/100 leukocytes 29 % 12-44 Blood monocytes/100 leukocytes 10 % 0-12 Automated blood eosinophils/100 leukocytes 3 % 0-10 Automated blood basophils/100 leukocytes 1 % 0-10 Blood neutrophils automated count (number/volume) 2.9 10*3 1.8-7.8 Blood lymphocytes automated count (number/volume) 1.4 10*3 1.0-4.0 Blood monocytes automated count (number/volume) 0.5 10*3 0.0-1.0 Automated eosinophil count 0.2 10*3/uL 0.0-0.3 Automated blood basophil count (count/volume) 0.0 10*3/uL 0.0-0.1 Comprehensive metabolic panel - 07/19/16 20:30 Serum or plasma sodium measurement (moles/volume) 144 mmol/L 135-145 Serum or plasma potassium measurement (moles/volume) 4.0 mmol/L 3.6-5.0 Serum or plasma chloride measurement (moles/volume) 106 mmol/L 98-107 Carbon dioxide 28 mmol/L 21-32 Serum or plasma anion gap determination (moles/volume) 10 mmol/L 5-14 Serum or plasma urea nitrogen measurement (mass/volume) 26 mg/dL 7-18 Serum or plasma creatinine measurement (mass/volume) 1.02 mg/dL 0.60-1.30 Serum or plasma urea nitrogen/creatinine mass ratio 25 NRG Serum or plasma creatinine measurement with calculation of estimated glomerular filtration rate 54 NRG Serum or plasma glucose measurement (mass/volume) 107 mg/dL 70-105 Serum or plasma calcium measurement (mass/volume) 9.2 mg/dL 8.5-10.1 Serum or plasma total bilirubin measurement (mass/volume) 0.7 mg/dL 0.1-1.0 Serum or plasma alkaline phosphatase measurement (enzymatic activity/volume) 66 U/L 40-136 Serum or plasma aspartate aminotransferase measurement (enzymatic activity/ volume) 16 U/L 5-34 Serum or plasma alanine aminotransferase measurement (enzymatic activity/volume ) 21 U/L 0-55 Serum or plasma protein measurement (mass/volume) 6.3 g/dL 6.4-8.2 Serum or plasma albumin measurement (mass/volume) 4.1 g/dL 3.2-4.5 Magnesium - 07/19/16 20:30 Magnesium 2.0 mg/dL 1.8-2.4 Complete urinalysis with reflex to culture - 06/06/17 19:18 Urine color determination YELLOW NRG Urine clarity determination CLEAR NRG Urine pH measurement by test strip 6 5-9 Specific gravity of urine by test strip 1.020 1.016- 1.022 Urine protein assay by test strip, semi-quantitative NEGATIVE NEGATIVE Urine glucose detection by automated test strip NEGATIVE NEGATIVE Erythrocytes detection in urine sediment by light microscopy NEGATIVE NEGATIVE Urine ketones detection by automated test strip NEGATIVE NEGATIVE Urine nitrite detection by test strip NEGATIVE NEGATIVE Urine total bilirubin detection by test strip NEGATIVE NEGATIVE Urine urobilinogen measurement by automated test strip (mass/volume) NORMAL NORMAL Urine leukocyte esterase detection by dipstick 2+ NEGATIVE Automated urine sediment erythrocyte count by microscopy (number/high power field) NONE NRG Automated urine sediment leukocyte count by microscopy (number/high power field ) [HPF] NRG Bacteria detection in urine sediment by light microscopy TRACE NRG Squamous epithelial cells detection in urine sediment by light microscopy 0-2 NRG Crystals detection in urine sediment by light microscopy NONE NRG Casts detection in urine sediment by light microscopy NONE NRG Mucus detection in urine sediment by light microscopy NEGATIVE NRG Complete urinalysis with reflex to culture NO NRG Complete blood count (CBC) with automated white blood cell (WBC) differential - 06/06/17 19:30 Blood leukocytes automated count (number/volume) 5.7 10*3/uL 4.3-11.0 Blood erythrocytes automated count (number/volume) 4.10 10*6/uL 4.35-5.85 Venous blood hemoglobin measurement (mass/volume) 12.6 g/dL 11.5-16.0 Blood hematocrit (volume fraction) 38 % 35-52 Automated erythrocyte mean corpuscular volume 94 [foz_us] 80-99 Automated erythrocyte mean corpuscular hemoglobin (mass per erythrocyte) 31 pg 25-34 Automated erythrocyte mean corpuscular hemoglobin concentration measurement ( mass/volume) 33 g/dL 32-36 Automated erythrocyte distribution width ratio 13.8 % 10.0-14.5 Automated blood platelet count (count/volume) 217 10*3/uL 130-400 Automated blood platelet mean volume measurement 11.1 [foz_us] 7.4-10.4 Automated blood neutrophils/100 leukocytes 53 % 42-75 Automated blood lymphocytes/100 leukocytes 32 % 12-44 Blood monocytes/100 leukocytes 11 % 0-12 Automated blood eosinophils/100 leukocytes 4 % 0-10 Automated blood basophils/100 leukocytes 1 % 0-10 Blood neutrophils automated count (number/volume) 3.0 10*3 1.8-7.8 Blood lymphocytes automated count (number/volume) 1.8 10*3 1.0-4.0 Blood monocytes automated count (number/volume) 0.6 10*3 0.0-1.0 Automated eosinophil count 0.2 10*3/uL 0.0-0.3 Automated blood basophil count (count/volume) 0.0 10*3/uL 0.0-0.1 Comprehensive metabolic panel - 06/06/17 19:30 Serum or plasma sodium measurement (moles/volume) 143 mmol/L 135-145 Serum or plasma potassium measurement (moles/volume) 4.1 mmol/L 3.6-5.0 Serum or plasma chloride measurement (moles/volume) 107 mmol/L 98-107 Carbon dioxide 25 mmol/L 21-32 Serum or plasma anion gap determination (moles/volume) 11 mmol/L 5-14 Serum or plasma urea nitrogen measurement (mass/volume) 28 mg/dL 7-18 Serum or plasma creatinine measurement (mass/volume) 1.03 mg/dL 0.60-1.30 Serum or plasma urea nitrogen/creatinine mass ratio 27 NRG Serum or plasma creatinine measurement with calculation of estimated glomerular filtration rate 53 NRG Serum or plasma glucose measurement (mass/volume) 107 mg/dL 70-105 Serum or plasma calcium measurement (mass/volume) 9.3 mg/dL 8.5-10.1 Serum or plasma total bilirubin measurement (mass/volume) 0.7 mg/dL 0.1-1.0 Serum or plasma alkaline phosphatase measurement (enzymatic activity/volume) 67 U/L 40-136 Serum or plasma aspartate aminotransferase measurement (enzymatic activity/ volume) 19 U/L 5-34 Serum or plasma alanine aminotransferase measurement (enzymatic activity/volume ) 26 U/L 0-55 Serum or plasma protein measurement (mass/volume) 6.2 g/dL 6.4-8.2 Serum or plasma albumin measurement (mass/volume) 4.1 g/dL 3.2-4.5 Magnesium - 06/06/17 19:30 Magnesium 2.4 mg/dL 1.8-2.4 Lipase - 06/06/17 19:30 Lipase 40 U/L 8-78 Encounters ACCT No. Visit Date/Time Discharge Status Pt. Type Provider Facility Loc./Unit Complaint [id number] 06/30/2017 08:55:00 06/30/2017 23:59:59 CLS Outpatient ARIAN MATA APRN [facility] RAD SCREENING [id number] 06/06/2017 18:49:00 06/06/2017 20:40:00 DIS Emergency BRUNO SHARMA MD [facility] ER SHOOTING BACK PAIN [id number] 10/23/2016 14:43:00 10/23/2016 15:32:00 DIS Outpatient ARIAN MATA APRN [facility] REHAB L KNEE PAIN [id number] 09/02/2016 09:05:00 09/02/2016 23:59:59 CLS Outpatient ARIAN MATA APRN [facility] RAD LEFT KNEE PAIN, CLICKING [id number] 07/19/2016 20:04:00 07/19/2016 21:21:00 DIS Emergency HARPER DILLON DO [facility] ER DIZZINESS [id number] 06/19/2016 09:25:00 06/19/2016 23:59:59 CLS Outpatient ARIAN MATA APRN [facility] RAD SCREENING [id number] 05/17/2015 09:03:00 05/17/2015 23:59:59 CLS Outpatient GARTH MARIN [facility] RAD SCREENING [id number] 08/17/2014 14:33:00 08/17/2014 17:52:00 DIS Emergency SISSY DUMONT, TALON T [facility] ER CHEST PAIN [id number] 06/28/2014 19:03:00 06/28/2014 20:40:00 DIS Emergency CASSIUS PACHRISTIE L [facility] ER ANKLE PAIN [id number] 04/28/2014 06:58:00 04/28/2014 23:59:59 CLS Outpatient SHARON BOLTON MD [facility] LAB HTN,HLP,NIDDM, [id number] 04/21/2014 07:55:00 04/21/2014 23:59:59 CLS Outpatient GARTH MARIN [facility] RAD ABNORMAL MAMMOGRAM [id number] 01/23/2014 07:20:00 01/23/2014 23:59:59 CLS Outpatient GARTH MARIN [facility] LAB HTN,HYPERLIPIDEMIA, DM,ROUITNE EXAM [id number] 10/21/2013 08:21:00 10/21/2013 23:59:59 CLS Outpatient GARTH MARIN [facility] LAB DIABETES [id number] 10/06/2013 12:06:00 10/06/2013 23:59:59 CLS Outpatient SHARON BOLTON MD [facility] RAD ABN MAMMO [id number] 09/22/2013 09:07:00 09/22/2013 23:59:59 CLS Outpatient GARTH MARIN [facility] RAD SCREENING [id number] 08/22/2013 07:08:00 08/22/2013 23:59:59 CLS Outpatient GARTH MARIN [facility] LAB ROUTINE, LEUKOCYTOPENIA [id number] 07/21/2013 06:49:00 07/21/2013 23:59:59 CLS Outpatient GARTH MARIN [facility] LAB HLP,HYPOTHYROID, ROUTINE EXAM,ABNORMAL GLUCOSE [id number] 08/19/2016 10:45:00 Document Registration [id number] 01/18/2013 08:46:00 Document Registration [id number] 09/20/2012 09:36:00 Document Registration [id number] 09/12/2012 12:28:00 Document Registration [id number] 09/01/2012 09:13:00 Document Registration [id number] 08/06/2012 10:01:00 Document Registration [id number] 06/15/2012 08:20:00 Document Registration [id number] 06/03/2012 07:31:00 Document Registration [id number] 06/02/2012 12:56:00 Document Registration [id number] 06/01/2012 09:12:00 Document Registration
[2017-11-02 10:04] LABS: BASOPHILS % (AUTO) 1 % (0-10); EOSINOPHILS % (AUTO) 0 % (0-10); HEMATOCRIT 39 % (35-52); HEMOGLOBIN 13.2 G/DL (11.5-16.0); LYMPHOCYTES # (AUTO) 0.9 X 10^3 (1.0-4.0); LYMPHOCYTES % (AUTO) 17 % (12-44); MEAN CORPUSCULAR HEMOGLOBIN 31 PG (25-34); MEAN CORPUSCULAR HGB CONC 34 G/DL (32-36); MEAN CORPUSCULAR VOLUME 93 FL (80-99); MEAN PLATELET VOLUME 11.2 FL (7.4-10.4); MONOCYTES # (AUTO) 0.4 X 10^3 (0.0-1.0); MONOCYTES % (AUTO) 9 % (0-12); NEUTROPHILS # (AUTO) 3.8 X 10^3 (1.8-7.8); NEUTROPHILS % (AUTO) 74 % (42-75); PLATELET COUNT 231 10^3/uL (130-400); RED BLOOD COUNT 4.24 10^6/uL (4.35-5.85); RED CELL DISTRIBUTION WIDTH 13.9 % (10.0-14.5); WHITE BLOOD COUNT 5.2 10^3/uL (4.3-11.0)
[2017-11-02 10:13] LABS: BILIRUBIN,URINE NEGATIVE (NEGATIVE); CLARITY,URINE CLEAR; COLOR,URINE YELLOW; GLUCOSE, URINE (UA) NEGATIVE (NEGATIVE); KETONES,URINE NEGATIVE (NEGATIVE); LEUKOCYTE ESTERASE ,URINE 1+ (NEGATIVE); NITRITE,URINE NEGATIVE (NEGATIVE); PH,URINE 6.5 (5-9); PROTEIN,URINE NEGATIVE (NEGATIVE); UROBILINOGEN,URINE NORMAL (NORMAL)
[2017-11-02 10:22] LABS: BACTERIA,URINE NEGATIVE /HPF; SQUAMOUS EPITHELIAL CELL,UR 0-2 /HPF; WBC,URINE 0-2 /HPF
[2017-11-02 10:42] LABS: ALANINE AMINOTRANSFERASE 37 U/L (0-55); ALKALINE PHOSPHATASE 60 U/L (40-136); BILIRUBIN,TOTAL 0.8 MG/DL (0.1-1.0); BUN/CREATININE RATIO 28; CALCIUM 9.3 MG/DL (8.5-10.1); CARBON DIOXIDE 24 MMOL/L (21-32); CHLORIDE 106 MMOL/L (98-107); GFR ESTIMATED > 60; GLUCOSE 97 MG/DL (70-105); MAGNESIUM 2.4 MG/DL (1.8-2.4); POTASSIUM 4.4 MMOL/L (3.6-5.0); SODIUM 141 MMOL/L (135-145); TOTAL PROTEIN 6.8 GM/DL (6.4-8.2)
--- NOTE | 2017-11-02 11:19 | Diagnostic Imaging Report ---
INDICATION: Weakness and lightheadedness. TIME OF EXAM: 11:23 AM Comparison is made with prior study 08/17/2014. FINDINGS: The heart size is normal. The lungs are clear. No pleural effusion or pneumothorax is identified. The pulmonary vascularity is normal. IMPRESSION: No acute abnormality detected. Dictated by: Dictated on workstation # [id number]
[2017-11-02 11:25] LABS: FREE T4 (FREE THYROXINE) 1.04 NG/DL (0.70-1.48)
--- NOTE | 2017-11-02 11:40 | Diagnostic Imaging Report ---
PROCEDURE: US carotid duplex, bilateral. TECHNIQUE: Multiple real-time grayscale images were obtained over the carotid arteries in various projections, bilaterally. Additional duplex Doppler and color Doppler images were also obtained. INDICATION: Dizziness and lightheadedness. Minimal plaquing is identified in both carotid systems. The velocities are normal bilaterally. No velocity elevation or stenosis is seen. The ICA to CCA ratios are normal. IMPRESSION: No evidence of a hemodynamically significant stenosis. Dictated by: Dictated on workstation # [id number]
--- NOTE | 2017-11-02 11:43 | ED General ---
General Chief Complaint: Dizziness/Syncope Stated Complaint: LIGHT-HEADED/NAUSEA Nursing Triage Note: c/o lightheadedness/nausea with intermittant soa x 3 days. Pt has already been seen by Dr. Robles and [facility] without improvment. Pt has been on a Z-pack and given injection of steroids within the last week. Reports neck pain this morning. Nursing Sepsis Screen: No Definite Risk Source of Information: Patient, Family Exam Limitations: No Limitations History of Present Illness Date Seen by Provider: Nov 02, 2017 Time Seen by Provider: 08:53 Initial Comments This 72-year-old woman presents to the emergency room with complaints of dizziness described as lightheadedness that started about 3 weeks ago. It is worse upon standing. She initially tried a scopolamine patch which helped her some. Since then she has had progressive lightheadedness, weakness, and nausea without vomiting. She took azithromycin 2 weeks ago and had a steroid injection last week. She reports labs were analyzed and found to be normal. She also had pleurisy about one month ago. She has shortness of breath especially with exertion. She has had minimal cough. She denies any fever. She did have some constipation which she successfully treated with MiraLAX. She denies any urinary changes. She also reports recently being prescribed Xanax and Zoloft, around the same time as her symptoms started. She decreased the dose of Zoloft and stopped his Xanax. This did not seem to change her symptoms. She went back up on her Zoloft dose. I asked several specific questions about the nature of her dizziness. She specifically describes it as a lightheadedness rather than vertigo or disequilibrium. It is worse upon standing. She also complained of a posterior headache yesterday. She denies having any chest pain at any time over the last 3 weeks. Allergies and Home Medications Allergies Coded Allergies: estrogens, conjugated (Verified Allergy, Unknown, 01/29/17) medroxyprogesterone acetate (Verified Allergy, Unknown, 01/29/17) simvastatin (Verified Adverse Reaction, Unknown, 06/06/17) Home Medications Atorvastatin Calcium 10 Mg Tablet, 1 EACH PO HS, (Reported) Levothyroxine Sodium 88 Mcg Tablet, 88 MCG PO DAILY, (Reported) Lisinopril 2.5 Mg Tablet, 2.5 MG PO DAILY, #30 (Reported) Constitutional: see HPI EENTM: no symptoms reported Cardiovascular: see HPI Gastrointestinal: see HPI Genitourinary: no symptoms reported : No Musculoskeletal: see HPI Skin: other (psoriasis) Psychiatric/Neurological: See HPI Hematologic/Lymphatic: No Symptoms Reported Immunological/Allergic: no symptoms reported Past Lqxbedo-Pirfwl-Wubotq Hx Patient Social History Alcohol Use: Denies Use Number of Drinks Today: Alcohol Beverage of Choice: Wine Recreational Drug Use: No 2nd Hand Smoke Exposure: No Recent Foreign Travel: No Contact w/Someone Who Travel: No Recent Infectious Disease Expo: No Recent Hopitalizations: No Immunizations Up To Date Date of Pneumonia Vaccine: Jul 05, 2012 Date of Influenza Vaccine: Jul 05, 2014 Seasonal Allergies Seasonal Allergies: Yes Surgeries History of Surgeries: Yes (RUPTURED ECTOPIC , CYST REMOVED IN BREAST) Surgeries: Breast (lumpectomy) Respiratory History of Respiratory Disorde: No Cardiovascular History of Cardiac Disorders: Yes Cardiac Disorders: High Cholesterol, Hypertension Neurological History of Neurological Disord: Yes Neurological Disorders: Vertigo Reproductive System Hx Reproductive Disorders: No [employer] History: Menopausal Genitourinary History of Genitourinary Disor: No Gastrointestinal History of Gastrointestinal Di: No Musculoskeletal History of Musculoskeletal Dis: No Endocrine History of Endocrine Disorders: Yes Endocrine Disorders: Hypothyroidsim HEENT History of HEENT Disorders: No Cancer History of Cancer: No Psychosocial History of Psychiatric Problem: No Integumentary History of Skin or Integumenta: Yes Skin/Integumentary Disorders: Psoriasis Blood Transfusions History of Blood Disorders: No Physical Exam Vital Signs Vital Sign - Last 12Hours 11/02/17 09:10 Temp 97.5 Pulse 86 Resp 16 B/P (MAP) 160/82 (108) Pulse Ox 97 O2 Delivery Room Air Capillary Refill : Less Than 3 Seconds General Appearance: No Apparent Distress, WD/WN HEENT: PERRL/EOMI, TMs Normal, Normal ENT Inspection, Pharynx Normal Neck: Normal Inspection, Supple, No Carotid Bruit, No JVD Respiratory: Lungs Clear, Normal Breath Sounds, No Accessory Muscle Use, No Respiratory Distress Cardiovascular: Regular Rate, Rhythm, No Edema, No Murmur, Normal Peripheral Pulses Gastrointestinal: Normal Bowel Sounds, Non Tender, Soft Extremity: Normal Capillary Refill, Normal Inspection, No Calf Tenderness, No Pedal Edema, Other (negative Allegra) Neurologic/Psychiatric: Alert, Oriented x3, No Motor/Sensory Deficits, Normal Mood/Affect, film reproducer II-XII Norm as Tested, Other (occasionally has some confusion with recall of history) Skin: Normal Color, Warm/Dry Progress/Results/Core Measures Suspected Sepsis Recent Fever Within 48 Hours: No Infection Criteria Present: None New/Unexplained Altered Menta: No Sepsis Screen: No Definite Risk Sepsis Diagnosis: SIRS Temperature:97.5 Pulse: 86 Respiratory Rate: 16 Laboratory Tests 11/02/17 09:55: White Blood Count 5.2 Blood Pressure 160 /82 Mean: 108 Laboratory Tests 11/02/17 09:55: Creatinine 0.80, Platelet Count 231, Total Bilirubin 0.8 Results/Orders Lab Results Laboratory Tests Test 11/02/17 09:55 11/02/17 10:00 11/02/17 12:35 Range/Units White Blood Count 5.2 4.3-11.0 10^3/uL Red Blood Count 4.24 L 4.35-5.85 10^6/uL Hemoglobin 13.2 11.5-16.0 G/DL Hematocrit 39 35-52 % Mean Corpuscular Volume 93 80-99 FL Mean Corpuscular Hemoglobin 31 25-34 PG Mean Corpuscular Hemoglobin Concent 34 32-36 G/DL Red Cell Distribution Width 13.9 10.0-14.5 % Platelet Count 231 130-400 10^3/uL Mean Platelet Volume 11.2 H 7.4-10.4 FL Neutrophils (%) (Auto) 74 42-75 % Lymphocytes (%) (Auto) 17 12-44 % Monocytes (%) (Auto) 9 0-12 % Eosinophils (%) (Auto) 0 0-10 % Basophils (%) (Auto) 1 0-10 % Neutrophils # (Auto) 3.8 1.8-7.8 X 10^3 Lymphocytes # (Auto) 0.9 L 1.0-4.0 X 10^3 Monocytes # (Auto) 0.4 0.0-1.0 X 10^3 Eosinophils # (Auto) 0.0 0.0-0.3 10^3/uL Basophils # (Auto) 0.0 0.0-0.1 10^3/uL Sodium Level 141 135-145 MMOL/L Potassium Level 4.4 3.6-5.0 MMOL/L Chloride Level 106 98-107 MMOL/L Carbon Dioxide Level 24 21-32 MMOL/L Anion Gap 11 5-14 MMOL/L Blood Urea Nitrogen 22 H 7-18 MG/DL Creatinine 0.80 0.60-1.30 MG/DL Estimat Glomerular Filtration Rate > 60 BUN/Creatinine Ratio 28 Glucose Level 97 70-105 MG/DL Calcium Level 9.3 8.5-10.1 MG/DL Magnesium Level 2.4 1.8-2.4 MG/DL Total Bilirubin 0.8 0.1-1.0 MG/DL Aspartate Amino Transf (AST/SGOT) 23 5-34 U/L Alanine Aminotransferase (ALT/SGPT) 37 0-55 U/L Alkaline Phosphatase 60 40-136 U/L Troponin I < 0.30 <0.30 NG/ML B-Type Natriuretic Peptide < 10.0 <100.0 PG/ML Total Protein 6.8 6.4-8.2 GM/DL Albumin 4.0 3.2-4.5 GM/DL Thyroid Stimulating Hormone (TSH) 0.82 0.35-4.94 UIU/ML Free Thyroxine 1.04 0.70-1.48 NG/DL Urine Color YELLOW Urine Clarity CLEAR Urine pH 6.5 5-9 Urine Specific [place] 1.010 L 1.016-1.022 Urine Protein NEGATIVE NEGATIVE Urine Glucose (UA) NEGATIVE NEGATIVE Urine Ketones NEGATIVE NEGATIVE Urine Nitrite NEGATIVE NEGATIVE Urine Bilirubin NEGATIVE NEGATIVE Urine Urobilinogen NORMAL NORMAL MG/DL Urine Leukocyte Esterase 1+ H NEGATIVE Urine RBC (Auto) NEGATIVE NEGATIVE Urine RBC NONE /HPF Urine WBC 0-2 /HPF Urine Squamous Epithelial Cells 0-2 /HPF Urine Crystals NONE /LPF Urine Bacteria NEGATIVE /HPF Urine Casts NONE /LPF Urine Mucus SMALL H /LPF Urine Culture Indicated NO D-Dimer < 0.27 0.00-0.49 UG/ML My Orders Orders - TALON SHEEHAN MD Cbc With Automated Diff (11/02/17 08:53) Comprehensive Metabolic Panel (11/02/17 08:53) Magnesium (11/02/17 08:53) Ua Culture If Indicated (11/02/17 08:53) Saline Lock/Iv-Start (11/02/17 08:53) Monitor-Rhythm Ecg Trace Only (11/02/17 08:53) BNP (11/02/17 10:48) Thyroid Stimulating Hormone (11/02/17 10:48) Troponin I (11/02/17 10:48) Free T4 (Free Thyroxine) (11/02/17 10:48) Orthostatic Vital Signs (Adult (11/02/17 10:48) Ekg Tracing (11/02/17 10:48) Chest Pa/Lat (2 View) (11/02/17 10:48) Us Carotid Marissa Complete [id number] (11/02/17 10:50) Fibrin Degradation Products (11/02/17 12:03) Ns Iv 1000 Ml (Sodium Chloride 0.9%) (11/02/17 13:04) Medications Given in ED Current Medications Medications Dose Ordered Sig/Emre Route Start Time Stop Time Status Last Admin Dose Admin Sodium Chloride 1,000 ml @ 0 mls/hr Q0M ONCE IV 11/02/17 13:04 11/02/17 13:05 DC 11/02/17 13:12 1,000 MLS/HR Vital Signs/I&O Vital Sign - Last 12Hours 11/02/17 11/02/17 09:10 14:46 Temp 97.5 97.5 Pulse 86 86 Resp 16 16 B/P (MAP) 160/82 (108) Pulse Ox 97 97 O2 Delivery Room Air Capillary Refill : Less Than 3 Seconds Blood Pressure Mean: 108 Progress Note #1: Time: 12:52 Progress Note Initial lab workup was unremarkable. Further workup was pursued with EKG, carotid ultrasound, and chest x-ray. These too yielded no abnormal findings. Orthostatic blood pressures were normal as below. EKG showed no significant abnormalities. D-dimer was finally added. Lying 135/69, heart rate 65 Sitting 145/80, heart rate 67 Standing 126/77, heart rate 77 Progress Note #2: Progress Note Remainder of the workup revealed no abnormalities. I discussed the case with Dr. Robles. She suggested I give a 1 L normal saline bolus. Patient did feel a little better after that. I recommended that the patient stop Zoloft as her symptoms seem to correspond with the timing of Zoloft initiation. I also suggested she seek referral to cardiology for further evaluation of dyspnea on exertion. Plan was communicated with Dr. Robles who will see her on Thursday afternoon. ECG Initial ECG Impression Date: Nov 02, 2017 Initial ECG Impression Time: 11:54 Initial ECG Rate: 61 Initial ECG Rhythm: Normal Sinus Comment Normal sinus rhythm with no ST elevation or depression. No abnormal intervals or axis deviation. Diagnostic Imaging Diagonstic Imaging: Xray Plain Films/CT/US/NM/MRI: chest Comments NAME: SHEILA WASHINGTON [facility] REC#: [id number] PT STATUS: REG ER : 1945 PHYSICIAN: TALON SHEEHAN MD ADMIT DATE: 11/02/17/ER Signed Date of Exam: 11/02/17 CHEST PA/LAT (2 VIEW) INDICATION: Weakness and lightheadedness. TIME OF EXAM: 11:23 AM Comparison is made with prior study 08/17/2014. FINDINGS: The heart size is normal. The lungs are clear. No pleural effusion or pneumothorax is identified. The pulmonary vascularity is normal. IMPRESSION: No acute abnormality detected. Dictated by: Dictated on workstation # [id number] Dict: 11/02/17 1117 Trans: 11/02/17 1120 Interpreted by: JOAN WADE MD Electronically signed by: JOAN WADE MD 11/02/17 1120 Diagonstic Imaging: Ultrasound Plain Films/CT/US/NM/MRI: other (bilateral carotid Doppler) Comments NAME: SHEILA WASHINGTON [facility] REC#: [id number] PT STATUS: REG ER : 1945 PHYSICIAN: TALON SHEEHAN MD ADMIT DATE: 11/02/17/ER Draft Date of Exam:11/02/17 US CAROTID MARISSA COMPLETE [id number] PROCEDURE: US carotid duplex, bilateral. TECHNIQUE: Multiple real-time grayscale images were obtained over the carotid arteries in various projections, bilaterally. Additional duplex Doppler and color Doppler images were also obtained. INDICATION: Dizziness and lightheadedness. Minimal plaquing is identified in both carotid systems. The velocities are normal bilaterally. No velocity elevation or stenosis is seen. The ICA to CCA ratios are normal. IMPRESSION: No evidence of a hemodynamically significant stenosis. Dictated on workstation # [id number] Dict: 11/02/17 1129 Trans: 11/02/17 1139 [facility] [id number] Interpreted by: JOAN WADE MD Departure Impression Impression: Primary Impression: Dyspnea on exertion Additional Impression: Light headedness Disposition: 01 HOME, SELF-CARE Condition: Stable Departure-Patient Inst. Decision time for Depature: 14:00 Referrals: SHARON ROBLES MD (PCP/Family) Primary Care Physician Patient Instructions: Shortness of Breath (Dyspnea) Add. Discharge Instructions: Drink plenty of clear liquids. Stop Zoloft. Follow-up with Dr. Robles at 2:45 on November 04. Call her office to confirm appointment time. Discussed the possibility of a cardiology referral at that appointment. Return to care if symptoms worsen in the meantime. All discharge instructions reviewed with patient and/or family. Voiced understanding. Copy Copies To 1: SHARON ROBLES MD, JOSHUA T MD Nov 02, 2017 11:43
[2017-11-02] MEDS ORDERED: NS IV 1000 ML 1,000 ML IV ONE (13:04)
[2017-11-02 14:00] VITALS: BP_SYST 126; BP_SYST 135; BP_SYST 145; BP_DIAS 69; BP_DIAS 77; BP_DIAS 80
[2017-11-02 14:46] VITALS: BP 160/82
== END 2017-11-02 14:49 | disposition home or self-care (01) ==
LOC: EDUNIT# 08:38 → ER 08:40
DX: R42 Dizziness and giddiness (principal); R06.09 Other forms of dyspnea; E78.00 Pure hypercholesterolemia, unspecified; I10 Essential (primary) hypertension; E03.9 Hypothyroidism, unspecified; Z88.8 Allergy status to other drugs, medicaments and biological substances
CPT/HCPCS: 36415; 71046; 80053; 81000; 83735; 83880; 84439; 84443; 84484; 85025; 85379; 93005; 93041; 93880; 96360

== ENCOUNTER 2018-07-20 05:45 | Outpatient (CLI) | payer MEDICARE, OTHER ==
[~2018-07-20] VITALS: Ht 172.7 cm; Wt 76.7 kg
[~2018-07-20 05:45] MED LIST changes: -SCOP1PAT TD; +SCOP1PAT11 TD
[2018-07-20] MEDS ORDERED: ATOR10TA66 PO (13:25)
== END 2018-07-20 13:40 | disposition home or self-care (01) ==
LOC: PREOP 05:45
PROVIDERS: ATTEND Surgery
DX: Z01.818 Encounter for other preprocedural examination (principal)

== ENCOUNTER 2018-07-27 09:34 | Day surgery (SDC) | payer MEDICARE, OTHER ==
[~2018-07-27] VITALS: Ht 172.7 cm; Wt 76.7 kg
[~2018-07-27 09:34] MED LIST changes: +ATOR10TA66 PO
[2018-07-27] MEDS ORDERED: LACTATED RINGERS 1,000 ML IV STA (09:43)
--- OUTSIDE RECORDS SUMMARY | 2018-07-27 09:43 | XMS REPORT | CCD ---
Author Author [facility] Address [address] [place] [address] Phone Care Team Providers Care Eap Counselor Name Role Phone PP Unavailable CCM Unavailable Summary Purpose Interface Exchange Insurance Providers Payer name Policy type / Coverage type Covered green party ID Effective Begin Date Effective End Date WPS Medicare Part B Medicare Part B [id number] 2013 Unknown [facility] Medicare Part B [id number] 2013 Unknown Family history Father Diagnosis Age [...] Unknown Retired 05/31/[address]: 450191648 Never smoker 05/31/[address]: 988152822 Never drinks alcohol 05/31/2012 Has the patient ever used illegal drugs? Unknown Has never used illegal drugs 05/31/2012 Allergies, Adverse Reactions, Alerts Substance Reaction Codes Entered Date Inactivated Date Status ESTROGENS rash Unknown 05/31/2012 No Inactive Date Active Past Medical History Illness Codes Condition Status Onset Date Resolved Date Benign paroxysmal vertigo, bilateral ICD-9: 386.11 ICD-10: H81.13 Active 02/25/2016 Unknown Meniere's disease, bilateral ICD-9: 386.00 ICD-10: H81.03 Active 11/04/2017 Unknown Other acute nonsuppurative otitis media, bilateral ICD-9: 381.00 ICD-10: H65.193 Active 11/04/2017 Unknown Other allergic rhinitis ICD-9: 477.8 ICD-10: [...] bilateral ICD-9: 386.11 ICD-10: H81.13 02/25/2016 Active Meniere's disease, bilateral ICD-9: 386.00 ICD-10: H81.03 11/04/2017 Active Other acute nonsuppurative otitis media, bilateral ICD-9: 381.00 ICD-10: H65.193 11/04/2017 Active Other allergic rhinitis ICD-9: 477.8 ICD-10: [...] Start Date Stop Date Status Fill Instructions prednisone 10 mg tablet RxNorm: 186164 1 Tablet(s) PO BID in the morning and supper 11/13/2017 11/17/2017 Active prednisone 10 mg tablet RxNorm: 879498 1 Tablet(s) PO BID in the morning and supper 11/13/2017 11/12/2017 Inactive Madisyn-D 12 Hour 60 mg-120 mg tablet,extended release RxNorm: 415237 1 Tablet(s) PO BID 11/04/2017 No Stop Date Active meclizine 25 mg tablet RxNorm: 438885 1 Tablet(s) PO TID as needed Dizziness 10/28/2017 No Stop Date Active meclizine 25 mg tablet RxNorm: 507986 1 Tablet(s) PO TID as needed Dizziness 10/28/2017 11/01/2017 Inactive Kenalog 40 mg/mL suspension for injection RxNorm: 2161961 1 Milliliter(s) Inj 10/28/2017 10/28/2017 Inactive lisinopril 2.5 mg tablet RxNorm: 702173 TABLET(S) TAKE 1 TABLET DAILY 10/16/2017 No Stop Date Active atorvastatin 10 mg tablet RxNorm: 648476 TAKE 1 TABLET AT BEDTIME 08/21/2017 No Stop Date Active levothyroxine 88 mcg tablet RxNorm: 242895 TAKE 1 TABLET DAILY 06/01/2017 No Stop Date Active levothyroxine 88 mcg tablet RxNorm: 902994 TAKE 1 TABLET DAILY 12/25/2016 05/31/2017 Inactive atorvastatin 10 mg tablet RxNorm: 676456 Tablet(s) TABLET(S) TAKE 1 TABLET AT BEDTIME 10/29/2016 08/20/2017 Inactive atorvastatin 10 mg tablet RxNorm: 885429 TABLET(S) TAKE 1 TABLET AT BEDTIME 10/27/2016 10/28/2016 Inactive lisinopril 2.5 mg tablet RxNorm: 894376 Tablet(s) TAKE 1 TABLET DAILY 10/20/2016 10/14/2017 Inactive Flonase Allergy Relief 50 mcg/actuation nasal spray, suspension RxNorm: 5834157 1 [place] NASAL BID 08/15/2016 No Stop Date Active levothyroxine 88 mcg tablet RxNorm: 598736 1 TABLET(S) PO DAILY 06/27/2016 12/24/2016 Inactive Augmentin 500 mg-125 mg tablet RxNorm: 707299 1 Tablet(s) PO TID 05/19/2016 05/19/2016 Inactive atorvastatin 10 mg tablet RxNorm: 439197 Tablet(s) TAKE 1 TABLET AT BEDTIME 04/30/2016 10/26/2016 Inactive lisinopril 2.5 mg tablet RxNorm: 876101 TAKE 1 TABLET DAILY 10/19/2016 Inactive meclizine 25 mg tablet RxNorm: 129154 1 Tablet(s) PO QID as needed Dizziness 02/26/2016 03/03/2016 Inactive Flonase Allergy Relief 50 mcg/actuation nasal spray, suspension RxNorm: 8590475 1 [place] NASAL BID 02/26/20162015 Inactive Kenalog 40 mg/mL suspension for injection RxNorm: 4646986 Milliliter(s) Inj 02/26/2016 02/26/2016 Inactive levothyroxine 88 mcg tablet RxNorm: 351952 1 Tablet(s) PO daily 02/01/2016 02/07/2016 Inactive levothyroxine 88 mcg tablet RxNorm: 321080 1 Tablet(s) PO daily 02/01/2016 01/31/2016 Inactive levothyroxine 88 mcg tablet RxNorm: 346824 1 Tablet(s) PO daily 02/01/2016 01/31/2016 Inactive lisinopril 2.5 mg tablet RxNorm: 275065 1 TABLET(S) PO DAILY 2016 Inactive levothyroxine 100 mcg tablet RxNorm: 659586 TAKE 1 TABLET DAILY 12/24/2015 01/31/2016 Inactive atorvastatin 10 mg tablet RxNorm: 751150 TAKE 1 TABLET AT BEDTIME 07/31/2015 04/29/2016 Inactive levothyroxine 100 mcg tablet RxNorm: 736179 TAKE 1 TABLET DAILY 03/06/2015 12/23/2015 Inactive lisinopril 2.5 mg tablet RxNorm: 620451 1 Tablet(s) PO daily 01/27/2016 Inactive atorvastatin 10 mg tablet RxNorm: 641105 1 Tablet(s) PO daily TAKE 1 TABLET AT BEDTIME 09/14/2014 07/30/2015 Inactive atorvastatin 10 mg tablet RxNorm: 604446 1 Tablet(s) PO QHS 05/201409/10/2014 Inactive atorvastatin 10 mg tablet RxNorm: 646396 TAKE 1 TABLET AT BEDTIME 09/11/2014 09/13/2014 Inactive lisinopril 2.5 mg tablet RxNorm: 416793 1 Tablet(s) PO daily 12/02/2014 Inactive clobetasol 0.05 % topical cream RxNorm: 457595 1 Application TOP BID as needed 06/14/2014 06/13/2014 Inactive clobetasol 0.05 % topical cream RxNorm: 017651 1 Application TOP BID as needed 06/14/2014 09/11/2014 Inactive lisinopril 2.5 mg tablet RxNorm: 194777 1 Tablet(s) PO daily 08/21/2014 Inactive cyclobenzaprine 5 mg tablet RxNorm: 934697 1 Tablet(s) PO Q6 PRN 01/02/2014 03/02/2014 Inactive prednisone 20 mg tablet RxNorm: 215500 1 Tablet(s) PO TID 12/2912/28/2013 Inactive one tid or two q am one at noonhold naproxen while on prednisone. february restart naproxen when finishes prednisone prednisone 20 mg tablet RxNorm: 611110 1 Tablet(s) PO TID 12/2912/31/2013 Inactive one tid or two q am one at noonhold naproxen while on prednisone. may restart naproxen when finishes prednisone levothyroxine 100 mcg tablet RxNorm: 454114 1 Tablet(s) PO daily 12/27/2013 03/05/2015 Inactive naproxen 500 mg tablet RxNorm: 208988 1 Tablet(s) PO BID take one pill twice daily with food 12/27/2013 02/24/2014 Inactive atorvastatin 10 mg tablet RxNorm: 110038 1 Tablet(s) PO QHS 07/201409/10/2014 Inactive colestipol 5 gram oral packet RxNorm: 4607229 1 packet PO BID 10/31/2013 11/03/2013 Inactive Fish Oil 1,000 mg capsule RxNorm: 1 Capsule(s) PO BID 2013 No Stop Date Active WelChol 625 mg tablet RxNorm: 432583 3 Tablet(s) PO BID 201310/30/2013 Inactive ketoconazole 2 % shampoo RxNorm: 269453 1 Application TOP 3 x week 10/24/2013 11/22/2013 Inactive atorvastatin 10 mg tablet RxNorm: 994144 1 Tablet(s) PO QHS 11/13/2013 Inactive levothyroxine 100 mcg tablet RxNorm: 254839 1 Tablet(s) PO daily 11/30/2012 11/24/2013 Inactive fluticasone 50 mcg/actuation Nasal [place], Susp RxNorm: 386524 1 [place] NASAL BID 10/28/2012 01/30/2016 Inactive atorvastatin 10 mg tablet RxNorm: 531671 1 Tablet(s) PO QHS 03/201212/07/2012 Inactive atorvastatin 10 mg tablet RxNorm: 774337 1 Tablet(s) PO QHS 03/201208/09/2012 Inactive Influenza Virus Vaccine 0.5 mL RxNorm: IM 08/05/2012 08/05/2012 Inactive Crestor 20 mg tablet RxNorm: 321502 1 Tablet(s) PO daily 201106/14/2012 Inactive levothyroxine 100 mcg tablet RxNorm: 821815 1 Tablet(s) PO daily 05/31/2012 09/27/2012 Inactive Bactrim DS 800 mg-160 mg tablet RxNorm: 274069 1 Tablet(s) PO BID 05/31/2012 06/04/2012 Inactive Vitamin D3 1,000 unit capsule RxNorm: 414526 1 Capsule(s) PO daily No Start Date Active glucosamine HCl 1,500 mg tablet RxNorm: 563174 2 Tablet(s) PO daily No Start Date Active aspirin 81 mg capsule,delayed release RxNorm: 816892 1 Capsule(s) PO daily No Start Date Active colestipol 5 gram oral packet RxNorm: 8512476 1 packet PO BID No Start Date 10/30/2013 Inactive Fish Oil 1,000 mg capsule RxNorm: 1 Capsule(s) PO TID No Start Date 10/23/2013 Inactive Fish Oil 360 mg-1,200 mg capsule RxNorm: 552579 1 Capsule(s) PO daily No Start Date 10/24/2013 Inactive levothyroxine 100 mcg tablet RxNorm: 998723 1 Tablet(s) PO daily No Start Date 05/30/2012 Inactive Crestor 20 mg tablet RxNorm: 671570 1 Tablet(s) PO daily No Start Date 05/30/2012 Inactive Calcium 600 + D(3) 600 mg (1,500 mg)-400 unit tablet RxNorm: 352054 1 Tablet(s) PO daily No Start Date 10/23/2013 Inactive Medication Administered Medication Codes Instructions Start Date Status Kenalog 40 mg/mL suspension for injection RxNorm: 7312313 1Milliliter 10/28/2017 No longer Active Kenalog 40 mg/mL suspension for injection RxNorm: 9219908 Milliliter 02/26/2016 No longer Active Influenza Virus Vaccine 0.5 mL RxNorm: 08/05/2012 No longer Active Immunizations Vaccine Codes Date Status Influenza CVX: 141 07/02/2017 completed Pneumococcal (Adult) CVX: 133 08/15/2016 completed Influenza CVX: 141 07/19/2016 completed Influenza CVX: 141 07/18/2013 completed Influenza CVX: 141 08/05/2012 completed Pneumococcal CVX: 33 08/24/2011 completed Zoster CVX: 121 02/21/2011 completed Assessments Condition Codes Effective Dates Benign paroxysmal vertigo, bilateral ICD-10: H81.13 ICD-9: 386.11 11/13/2017 Other acute nonsuppurative otitis media, bilateral ICD-10: H65.193 ICD-9: 381.00 11/04/2017 Meniere's disease, bilateral ICD-10: H81.03 ICD-9: 386.00 11/04/2017 Other allergic rhinitis ICD-10: J30.89 ICD-9: 477.8 10/28/2017 Encounter for immunization ICD-10: Z23 ICD-9: [...] mammogram ICD-9: V76.12 05/10/2015 ESSENTIAL HYPERTENSION SNOMED: 00877658 ICD-9: 401.9 01/24/2014 Depression ICD-9: 311 01/24/2014 DIABETES TYPE II SNOMED: 402984285 ICD-9: 250.00 01/24/2014 SACROILIITIS NEC ICD-9: 720.2 [...] Visit Effective Dates Notes Hospital Follow Up 11/13/2017 Hospital Follow Up 11/04/2017 Hospital Follow Up 10/28/2017 Urgent Care follow [...] hTSH II 1.39 uIU/mL 06/05/2017 Comp Metabolic Koj329 NA 142 mEq/L 06/05/2017 Comp Metabolic Khs124 K 4.2 mEq/L 06/05/2017 Comp Metabolic Bof930 CL 106 mEq/L 06/05/2017 Comp Metabolic Cvd445 CO2 28.0 mEq/L 06/05/2017 Comp Metabolic Kjh940 ANION GAP 12 06/05/2017 Comp Metabolic Oih161 GLUCOSE 95 mg/dL 06/05/2017 Comp Metabolic Idd875 Creat 0.9 mg/dL 06/05/2017 Comp Metabolic Eiz610 eGFR 66 ml/min/1.73m2 06/05/2017 Comp Metabolic Mkn207 BUN 30 mg/dL 06/05/2017 Comp Metabolic Iew835 B/C Ratio 33.3 Ratio 06/05/2017 Comp Metabolic Trj459 CALCIUM 9.2 mg/dL 06/05/2017 Comp Metabolic Drw378 ALK PHOS 57 U/L 06/05/2017 Comp Metabolic Jug836 AST(SGOT) 19 U/L 06/05/2017 Comp Metabolic Ceb885 ALT(SGPT) 25 U/L 06/05/2017 Comp Metabolic Rec821 BILI T 0.7 mg/dL 06/05/2017 Comp Metabolic Nrh334 ALBUMIN 4.2 g/dL 06/05/2017 Comp Metabolic Ztg691 TPRO 6.3 g/dL 06/05/2017 Comp Metabolic Nwt633 GLOB 2.1 g/dL 06/05/2017 Comp Metabolic Caa403 A/G Ratio 1.9 Ratio 06/05/2017 Comp Metabolic Lrl124 Osmo 289 mOsmo 06/05/2017 Free T4 Nbv527 FREE T4 0.88 ng/dL 06/05/2017 Cbc With [...] 31.4 pg 06/05/2017 Cbc With Differential Ord2 Andrew% 9.7 % 06/05/2017 Cbc With Differential Ord2 MCHC 33.0 pg 06/05/2017 Cbc With Differential Ord2 Eos% 4.3 % 06/05/2017 Cbc With Differential Ord2 PLT 203 K/ul 06/05/2017 Cbc With Differential Ord2 Baso% 0.3 % 06/05/2017 Cbc With Differential Ord2 RDW 14.3 % 06/05/2017 Cbc With Differential Ord2 Neut ABS# 2.15 K/ul 06/05/2017 Cbc With Differential Ord2 Lymph ABS# 1.20 K/ul 06/05/2017 Cbc With Differential Ord2 Andrew ABS# 0.4 K/ul 06/05/2017 Cbc With Differential Ord2 Eos ABS# 0.2 K/ul 06/05/2017 Cbc With Differential Ord2 Baso ABS# 0.0 K/ul 06/05/2017 %Hba1C Qys603 % HbA1c 89620-6 6.3 % 06/05/2017 %Hba1C Fig316 Gluc Ave 134 mg/dL 06/05/2017 Tsh Ord6 hTSH II 0.48 uIU/mL 05/01/2016 Free T4 Pvt441 FREE T4 1.10 ng/dL 05/01/2016 %Hba1C Ygy006 % HbA1c 32159-8 6.3 % 01/31/2016 %Hba1C Dtw769 Gluc Ave 134 mg/dL 01/31/2016 Comp Metabolic Dub583 NA 141 mEq/L 01/31/2016 Comp Metabolic Vum062 K 4.4 mEq/L 01/31/2016 Comp Metabolic Man658 CL 103 mEq/L 01/31/2016 Comp Metabolic Soi280 CO2 32.0 mEq/L 01/31/2016 Comp Metabolic Kzw968 ANION GAP 10 01/31/2016 Comp Metabolic Gxe101 GLUCOSE 99 mg/dL 01/31/2016 Comp Metabolic Lvg809 Creat 0.8 mg/dL 01/31/2016 Comp Metabolic Nql685 eGFR 77 ml/min/1.73m2 01/31/2016 Comp Metabolic Uou023 BUN 22 mg/dL 01/31/2016 Comp Metabolic Yjo107 B/C Ratio 27.8 Ratio 01/31/2016 Comp Metabolic Fro203 CALCIUM 9.7 mg/dL 01/31/2016 Comp Metabolic Srg550 ALK PHOS 62 U/L 01/31/2016 Comp Metabolic Zhc195 AST(SGOT) 16 U/L 01/31/2016 Comp Metabolic Off879 ALT(SGPT) 22 U/L 01/31/2016 Comp Metabolic Fid639 BILI T 1.1 mg/dL 01/31/2016 Comp Metabolic Tmu029 ALBUMIN 4.2 g/dL 01/31/2016 Comp Metabolic Dcd083 TPRO 6.4 g/dL 01/31/2016 Comp Metabolic But639 GLOB 2.2 g/dL 01/31/2016 Comp Metabolic Oie170 A/G Ratio 2.0 Ratio 01/31/2016 Comp Metabolic Lcs119 Osmo 285 mOsmo 01/31/2016 Free T4 Slk500 FREE T4 1.01 ng/dL 01/31/2016 Cbc With [...] 31.1 pg 01/31/2016 Cbc With Differential Ord2 Andrew% 11.0 % 01/31/2016 Cbc With Differential Ord2 MCHC 32.5 pg 01/31/2016 Cbc With Differential Ord2 Eos% 3.4 % 01/31/2016 Cbc With Differential Ord2 PLT 240 K/ul 01/31/2016 Cbc With Differential Ord2 Baso% 0.3 % 01/31/2016 Cbc With Differential Ord2 RDW 14.8 % 01/31/2016 Cbc With Differential Ord2 Neut ABS# 2.14 K/ul 01/31/2016 Cbc With Differential Ord2 Lymph ABS# 0.88 K/ul 01/31/2016 Cbc With Differential Ord2 Andrew ABS# 0.4 K/ul 01/31/2016 Cbc With Differential [...] II 0.21 uIU/mL 01/31/2016 VIT D TOTL 6161397 VIT D TOTL 62 NG/ML 10/24/2013 Review of Systems System Result Effective Dates Constitutional recent illness 11/13/2017 Constitutional No chills 11/13/2017 Constitutional No diaphoresis 11/13/2017 Constitutional No fever 11/13/2017 Eyes No blindness 11/13/2017 Ears/Nose/Throat/Neck dizziness 2017 Ears/Nose/Throat/Neck nasal allergies 06/2018 Ears/Nose/Throat/Neck nasal discharge 06/2018 Ears/Nose/Throat/Neck No sore throat 06/2018 Ears/Nose/Throat/Neck postnasal drip 06/2018 Ears/Nose/Throat/Neck sinus congestion Cardiovascular No chest pain/pressure 06/2018 Cardiovascular No dyspnea 11/13/2017 Respiratory No chest congestion 2017 Respiratory cough 11/13/2017 Respiratory No dyspnea 11/13/2017 Gastrointestinal No abdominal pain 2017 Gastrointestinal No constipation 2017 Gastrointestinal No diarrhea 11/13/2017 Gastrointestinal No nausea 11/13/2017 Gastrointestinal No vomiting 11/13/2017 Dermatologic No rash 11/13/2017 Neurologic No alteration of consciousness 11/13/2017 Neurologic No mental status change 2017 Constitutional recent illness 11/04/2017 Constitutional No chills 11/04/2017 Constitutional No diaphoresis 11/04/2017 Constitutional No fever 11/04/2017 Eyes No blindness 11/04/2017 Ears/Nose/Throat/Neck dizziness 2017 Ears/Nose/Throat/Neck nasal allergies Ears/Nose/Throat/Neck nasal discharge Ears/Nose/Throat/Neck postnasal drip Ears/Nose/Throat/Neck sinus congestion Ears/Nose/Throat/Neck No sore throat Cardiovascular No chest pain/pressure Cardiovascular No dyspnea 11/04/2017 Respiratory No chest congestion 2017 Respiratory cough 11/04/2017 Respiratory No dyspnea 11/04/2017 Gastrointestinal No abdominal pain 2017 Gastrointestinal No constipation 2017 Gastrointestinal No diarrhea 11/04/2017 Gastrointestinal No nausea 11/04/2017 Gastrointestinal No vomiting 11/04/2017 Dermatologic No rash 11/04/2017 Neurologic No alteration of consciousness 11/04/2017 Neurologic No mental status change 2017 Constitutional recent illness 10/28/2017 Constitutional No chills [...] ENT Constitutional general appearance Overall: well nourished 11/13/2017 None Full Exam - ENT Constitutional general appearance Overall: well developed 11/13/2017 None Full Exam - ENT Constitutional general appearance Overall: in no acute distress 11/13/2017 None Full Exam - ENT Ears/Nose/Throat otoscopic exam Overall: external auditory canals normal 11/13/2017 None Full Exam - ENT Ears/Nose/Throat otoscopic exam Left tympanic membrane: air -fluid level 11/13/2017 None Full Exam - ENT Ears/Nose/Throat otoscopic exam Right tympanic membrane: air-fluid level 11/13/2017 None Full Exam - ENT Ears/Nose/Throat nasal mucosa, septum, turbinates Drainage: clear 11/13/2017 None Full Exam - ENT Ears/Nose/Throat nasal mucosa, septum, turbinates Drainage: yellow 11/13/2017 None Full Exam - ENT Ears/Nose/Throat lips/ teeth/gingiva Overall: benign lips 11/13/2017 None Full Exam - ENT Ears/Nose/Throat oropharynx Posterior Pharynx: clear post nasal drainage 11/13/2017 None Full Exam - ENT Face and Head palpation Overall: no sinus tenderness 11/13/2017 None Full Exam - ENT Respiratory inspection Overall: no retractions 11/13/2017 None Full Exam - ENT Respiratory inspection Overall: normal rate 06/2018 None Full Exam - ENT Respiratory auscultation Overall: breath sounds clear bilaterally 11/13/2017 None Full Exam - ENT Cardiovascular auscultation of heart Overall: regular rate 11/13/2017 None Full Exam - ENT Cardiovascular auscultation of heart Overall: normal heart sounds 11/13/2017 None Full Exam - ENT Lymphatic palpation of lymph nodes Overall: anterior cervical chain benign 11/13/2017 None Full Exam - ENT Lymphatic palpation of lymph nodes Overall: posterior cervical chain benign 11/13/2017 None Full Exam - ENT Neurologic mood and affect Overall: normal mood 11/13/2017 None Full Exam - ENT Neurologic mood and affect Overall: normal affect 11/13/2017 None Full Exam - ENT Neurologic orientation Overall: oriented to person, place and time 11/13/2017 None Full Exam - ENT Constitutional general appearance Overall: well nourished 11/04/2017 None Full Exam - ENT Constitutional general appearance Overall: well developed 11/04/2017 None Full Exam - ENT Constitutional general appearance Overall: in no acute distress 11/04/2017 None Full Exam - ENT Ears/Nose/Throat otoscopic exam Overall: external auditory canals normal 11/04/2017 None Full Exam - ENT Ears/Nose/Throat otoscopic exam Left tympanic membrane: air -fluid level 11/04/2017 None Full Exam - ENT Ears/Nose/Throat otoscopic exam Right tympanic membrane: air-fluid level 11/04/2017 None Full Exam - ENT Ears/Nose/Throat nasal mucosa, septum, turbinates Drainage: clear 11/04/2017 None Full Exam - ENT Ears/Nose/Throat nasal mucosa, septum, turbinates Drainage: yellow 11/04/2017 None Full Exam - ENT Ears/Nose/Throat lips/ teeth/gingiva Overall: benign lips 11/04/2017 None Full Exam - ENT Ears/Nose/Throat oropharynx Posterior Pharynx: clear post nasal drainage 11/04/2017 None Full Exam - ENT Face and Head palpation Overall: no sinus tenderness 11/04/2017 None Full Exam - ENT Respiratory inspection Overall: no retractions 11/04/2017 None Full Exam - ENT Respiratory inspection Overall: normal rate None Full Exam - ENT Respiratory auscultation Overall: breath sounds clear bilaterally 11/04/2017 None Full Exam - ENT Cardiovascular auscultation of heart Overall: regular rate 11/04/2017 None Full Exam - ENT Cardiovascular auscultation of heart Overall: normal heart sounds 11/04/2017 None Full Exam - ENT Lymphatic palpation of lymph nodes Overall: anterior cervical chain benign 11/04/2017 None Full Exam - ENT Lymphatic palpation of lymph nodes Overall: posterior cervical chain benign 11/04/2017 None Full Exam - ENT Neurologic mood and affect Overall: normal mood 11/04/2017 None Full Exam - ENT Neurologic mood and affect Overall: normal affect 11/04/2017 None Full Exam - ENT Neurologic orientation Overall: oriented to person, place and time 11/04/2017 None Full Exam - ENT Constitutional general [...] tenderness 05/31/2012 None Full Exam - General 1995 Abdomen abdominal exam Overall: normal bowel sounds [...] Procedure Codes Date THER/PROPH/DIAG INJ SC/IM CPT-4: 72655 10/28/2017 TRIAMCINOLONE ACET INJ NOS CPT-4: J3301 10/28/2017 ADMIN INFLUENZA VIRUS VAC CPT-4: G0008 07/02/2017 FLU VACC PRSV FREE INC ANTIG CPT-4: 65513 07/02/2017 PNEUMOCOCCAL VACC [address]: 86000754 CPT-4: 02868 08/15/2016 THER/PROPH/DIAG INJ SC/IM CPT-4: 71642 08/15/2016 TRIAMCINOLONE ACET INJ NOS CPT-4: J3301 02/26/2016 TRIAMCINOLONE ACET INJ NOS CPT-4: J3301 12/27/2013 THER/PROPH/DIAG INJ SC/IM CPT-4: 71354 12/27/2013 ROUTINE VENIPUNCTURE CPT-4: 12243 10/24/2013 PRESCRIP TRANSMIT VIA ERX SY CPT-4: G8553 10/28/2012 ADMIN INFLUENZA VIRUS VAC CPT-4: G0008 08/05/2012 FLULAVAL VACC, 3 YRS & >, IM CPT-4: Q2036 08/05/2012 PRESCRIP TRANSMIT VIA ERX SY CPT-4: G8553 05/31/2012 Vital Signs Date Vital 11/13/2017 Blood Pressure 1: 128/80 Code : 8480-6 BMI: 24.0 Code : 56614-9 Heart Rate 1 : 81 bpm Height: 5'8" SpO2: 97% Weight: 160 lbs 11/04/2017 Blood Pressure 1: 128/72 Code : 8480-6 BMI: 24.1 Code : 00573-9 Heart Rate 1 : 73 bpm Height: 5'8" SpO2: 97% Weight: 161 lbs 10/28/2017 Blood Pressure 1: 118/64 Code : 8480-6 BMI: 24.7 Code : 95316-8 Heart Rate 1 : 70 bpm Height: 5'8" SpO2: 98% Temperature: 36.7 (C) / 98.1 (F) Weight: 165 lbs 06/10/2017 Blood Pressure 1: 142/80 Code : 8480-6 BMI: 26.5 Code : 03739-7 Heart Rate 1 : 71 bpm Height: 5'8" SpO2: 96% Weight: 175 lbs 08/15/2016 Blood Pressure 1: 142/78 Code : 8480-6 BMI: 26.8 Code : 08189-3 Heart Rate 1 : 95 bpm Height: 5'8" SpO2: 97% Weight: 177 lbs 07/16/2016 Blood Pressure 1: 132/76 Code : 8480-6 BMI: 27.0 Code : 51983-2 Heart Rate 1 : 76 bpm Height: 5'8" SpO2: 96% Weight: 180 lbs 05/19/2016 Blood Pressure 1: 146/76 Code : 8480-6 BMI: 27.7 Code : 35181-2 Heart Rate 1 : 89 bpm Height: 5'8" SpO2: 96% Weight: 185 lbs 02/26/2016 Blood Pressure 1: 158/88 Code : 8480-6 BMI: 27.3 Code : 61390-0 Heart Rate 1 : 70 bpm Height: 5'8" SpO2: 97% Weight: 182 lbs 01/31/2016 Blood Pressure 1: 138/84 Code : 8480-6 BMI: 27.3 Code : 46587-5 Heart Rate 1 : 77 bpm Height: 5'8" SpO2: 97% Weight: 182 lbs 01/24/2014 Blood Pressure 1: 150/92 Code : 8480-6 BMI: 26.5 Code : 79360-3 Heart Rate 1 : 80 bpm Height: 5'8" Weight: 177 lbs 12/27/2013 Blood Pressure 1: 152/80 Code : 8480-6 BMI: 26.2 Code : 29958-7 Heart Rate 1 : 68 bpm Height: 5'8" Weight: 175 lbs 10/24/2013 Blood Pressure 1: 156/86 Code : 8480-6 BMI: 27.1 Code : 34503-9 Heart Rate 1 : 84 bpm Height: 5'8" Weight: 181 lbs 07/26/2013 Blood Pressure 1: 156/80 Code : 8480-6 BMI: 28.3 Code : 90405-7 Heart Rate 1 : 84 bpm Height: 5'8" Weight: 189 lbs 05/20/2013 Blood Pressure 1: 136/86 Code : 8480-6 BMI: 27.7 Code : 88355-9 Heart Rate 1 : 80 bpm Height: 5'8" Weight: 185 lbs 10/28/2012 Blood Pressure 1: 122/78 Code : 8480-6 Heart Rate 1: 80 bpm Respiratory Rate : 16 bpm Weight: 186 lbs 06/02/2012 Blood Pressure 1: 128/68 Code : 8480-6 05/31/2012 Blood Pressure 1: 138/78 Code : 8480-6 BMI: 27.6 Code : 06554-0 Heart Rate 1 : 68 bpm Height: 5'8" Respiratory Rate: 16 bpm Weight: 184 lbs Functional Status No Functional Status data History of Present Illness Symptom Name Status Result Effective Date Notes Hospital Follow Up _ Other: lightheadedness, SOB, weakness 11/13/2017 None Hospital Follow Up Quality acute 11/13/2017 None Hospital Follow Up Onset of Symptom 3 weeks ago 11/13/2017 None Hospital Follow Up Onset and Resolution ongoing 11/13/2017 None Hospital Follow Up _ Other: lightheadedness, SOB, weakness 11/04/2017 None Hospital Follow Up Quality acute 11/04/2017 None Hospital Follow Up Onset and Resolution ongoing 11/04/2017 None Hospital Follow Up Onset of Symptom 3 weeks ago 11/04/2017 None Hospital Follow Up _ infection 10/28/2017 None [...] exercise 01/24/2014 - was going to the [facility] - 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 hypertension Onset and Resolution ongoing 01/24/2014 pt states that she has high blood pressure off and on when going to the doctor - she states that she thinks some of it may be because she is depressed about being here in [place]. hip pain Location on the right 12/27/2013 [...] recieved blood transfusion whil living in the [facility] in 1973. 06/02/2012 None abnormal test [...] data Encounters Encounter Performer Location Codes Date () [id number] EST. PATIENT, LEVEL III Diagnosis: Benign paroxysmal vertigo, bilateral[ICD10: H81.13] Anika Robles MD, [facility] CPT-4: 25683 11/13/2017 ([id number]) [id number] EST. PATIENT, LEVEL III Diagnosis: Other acute nonsuppurative otitis media, bilateral[ICD10: H65.193] Diagnosis: Meniere's disease, bilateral[ICD10: H81.03] An[facility]les [facility], [facility] [facility] CPT-4: 18063 11/04/2017 07052 EST. PATIENT, LEVEL IV Diagnosis: Other allergic rhinitis[ICD10: J30.89] Diagnosis: Benign paroxysmal vertigo, bilateral[ICD10: H81.13] Brit Robles MD, [facility] CPT-4: 37373 10/28/2017 86828 EST. PATIENT, LEVEL IV Diagnosis: Essential (primary) hypertension[ICD10: I10] Diagnosis: Type 2 diabetes mellitus without complications[ICD10: E11.9] Diagnosis: Mixed hyperlipidemia[ICD10: E78.2] Diagnosis: Other specified hypothyroidism[ICD10: E03.8] Brit Robles MD, [facility] CPT-4: 08521 06/10/2017 94795 EST. PATIENT, LEVEL III Diagnosis: Other allergic rhinitis[ICD10: J30.89] Diagnosis: Pain in left knee[ICD10: M25.562] Diagnosis: Encounter for immunization[ICD10: Z23] Brit Robles MD, [facility] CPT-4: 40702 08/15/2016 19830 EST. PATIENT, LEVEL IV Diagnosis: Pain in left knee[ICD10: M25.562] Brit Robles MD [facility] CPT -4: 16510 07/16/2016 94754 EST. PATIENT, LEVEL IV Diagnosis: Pneumonia, unspecified organism[ICD10: J18.9] Brit Robles MD, [facility] CPT-4: 24351 05/19/2016 36177 EST. PATIENT, LEVEL III Diagnosis: Benign paroxysmal vertigo, bilateral[ICD10: H81.13] Diagnosis: Other seasonal allergic rhinitis[ICD10: J30.2] Brit Robles MD, [facility] CPT-4: 37018 02/26/2016 ([id number]) 62745 EST. PATIENT, LEVEL IV Diagnosis: Essential (primary) hypertension[ICD10: I10] Diagnosis: Type 2 diabetes mellitus without complications[ICD10: E11.9] Diagnosis: Mixed hyperlipidemia[ICD10: E78.2] Diagnosis: Hypothyroidism, unspecified[ICD10: E03.9] Ginny Robles MD, [facility] CPT-4: 67155 01/31/2016 ([id number]) 45116 EST. PATIENT, LEVEL IV Diagnosis: DIABETES TYPE II[SNOMED: 407892558] Diagnosis: ESSENTIAL HYPERTENSION[SNOMED: 85803021] Diagnosis: Depression[ICD9: 311] Anika Robles MD, [facility] CPT-4: 12955 01/24/2014 ([id number]) 85255 EST. PATIENT, LEVEL III Diagnosis: Sciatica[ICD9: 724.3] Anika Robles MD, [facility] CPT-4: 69744 12/27/2013 ([id number]) 76294 EST. PATIENT, LEVEL IV Diagnosis: DIABETES TYPE II[SNOMED: 546799427] Diagnosis: ESSENTIAL HYPERTENSION[SNOMED: 04229501] Diagnosis: HYPERLIPIDEMIA[ICD9: 272.4] Diagnosis: Osteopenia[ICD9: 733.90] Anika Robles MD, [facility] CPT-4: 09235 10/24/2013 ([id number]) 83039 EST. PATIENT, LEVEL III Diagnosis: Elevated blood sugar[ICD9: 790.29] Anika Robles MD, [facility] CPT-4: 41459 07/26/2013 ([id number]) 83500 EST. PATIENT, LEVEL III Diagnosis: Plantar fasciitis[ICD9: 728.71] Ginny Terrazas Anika Robles MD, [facility] CPT-4: 69213 05/20/2013 ([id number]) 89346 EST. PATIENT, LEVEL III Diagnosis: Elevated liver enzymes[ICD9: 790.4] Diagnosis: Fatigue[ICD9: 780.79] Anika Robles MD, [facility] CPT-4: 91669 06/02/2012 ([id number]) OFFICE VISIT, NEW - LEVEL 4 Diagnosis: HYPOTHYROIDISM[ICD9: 244.9] Diagnosis: Acute maxillary sinusitis[ICD9: 461.0] Diagnosis: Allergic rhinitis[ICD9: 477.9] Diagnosis: HYPERLIPIDEMIA[ICD9: 272.4] Anika Robles MD, [facility] CPT- 4: 23453 05/31/2012 Plan of Care Planned Activity Notes Codes Status Date Visit Plan: Otitis with air-fluid level in bilateral ears - recommended madisyn d 120mg bid - continue and rx for prednisone - if not better in two weeks - will send referral to dr. elaine 11/13/2017 Patient Education: Patient Medication Summary Completed 11/13/2017 Visit Plan: Otitis with air-fluid level in bilateral ears - recommended madisyn d 120mg bid - and flonase, call if not improving and will then send pt for CT scan. 11/04/2017 Patient Education: Patient Medication Summary Completed 11/04/2017 Visit Plan: BPPV - Benign Paroxysmal Positional Vertigo - discussed diagnosis with the patient, offered the pt the appropriate additional information in hand-out. Pt instructed in home exercises to help alleviate and prevent future recurrent episodes of vertigo. Pt informed that if symptoms worsen, call the office for further instructions/medication interventions. Allergies - chronic - recommended pt to use allergy medication as prescribed. Pt has been counseled as to the appropriate use of the medication. Pt to call if allergy symptoms are not controlled with the medication. If using nasal spray , instructions as follows: Nasal spray- use twice daily, one spray per nostril twice daily, after 30 minutes, rinse out nose with saline spray.. Use opposite hand per nostril to spray in the nasal steroid allergy spray. 10/28/2017 App[facility]ment: [phone] [facility] ([facility] min) Complex 10/28/2017 Patient Education: Patient [...] controlled. 06/10/2017 Appointment: [phone] [facility] (30 min) Complex 06/10/2017 Patient Education: Patient Medication Summary Completed 06/10/2017 Patient Education: Hypertension Completed 06/10/2017 Referral: [facility] Referral Initiated 09/30/2016 Care Plan: X-RAY EXAM OF KNEE 3 LOINC : 86355-1 Pending 09/12/2016 Care Plan: Referral Order SNOMED-CT : 048227834 Pending 09/12/2016 Visit Plan: Allergies - chronic [...] if indicated 08/15/2016 Appointment: Ginny Terrazas WPtel: [facility] [place] [address] (15 min) Moderate 08/15/2016 Patient Education: Patient Medication Summary Completed 08/15/2016 Visit Plan: Left knee pain - Pt is to use RICE - Rest, Ice , Compression, Elevation - pt to continue with anti-inflammatories. Pt is to call if the symptoms do not improve or if they worsen. 07/16/2016 Appointment: Ginny Terrazas WPtel: [address] [place], [place] [phone] (30 min) Complex 07/16/2016 Patient Education: Patient [...] this illness. 05/19/2016 Appointment: Brit Flores WPtel: [facility]66[facility] (15 min) Moderate 05/19/2016 Patient Education: Patient [...] office for further instructions/medication interventions. 02/26/2016 Appointment: TerrazasGinny WPtel: [facility] [phone] (30 min) [facility] 02/26/2016 Patient Education: Patient Medication Summary Completed [...] her daughter when she moved home from [place], but her expectations did not agustin out and she has no close friends in [place]. 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 I have suggested for her to go to the library, volunteer to read, or look at [employer] for some fun classes to help occupy her time. 01/24/2014 Appointment: [facility] [phone] [facility] Follow up 01/24/2014 Patient Education: Patient [...] worsen. 12/27/2013 Appointment: An[facility] [phone] [facility] Other 12/27/2013 Patient Education: Patient Medication [...] BLOOD SUGARS 10/24/2013 Appointment: Anika [facility]les [facility]Ptel[facility] [phone] [facility] Follow up 10/24/2013 Patient Education: Patient Medication Summary Completed 10/24/2013 Patient Education: Hypertension Completed 10/24/2013 Visit Plan: Elevated blood sugars-diabetes education today in the office-diet education completed today in the office-discussed ADA diet- cut back on pop, sweets, and white bread, white potatoes, and white pasta. plan to repreat HgbA1C in 3 months-patient verbalized understanding of plan. 07/26/2013 Appointment: Ginny Terrazas WPtel: [facility] [phone] Other 07/26/2013 Patient Education: Patient Medication Summary Completed 07/26/2013 Visit Plan: Plantar fasciitis- pt was educated that this is an inflammatory process, need to stretch the foot and reduce inflammation by using a frozen bottle of water or a tennis ball on the bottom of the foot at least three times a day until the pain is improved. 05/20/2013 Appointment: Ginny Terrazas [facility] [phone] [phone] Other 05/20/2013 Patient Education: Patient Medication Summary Completed 05/20/2013 Appointment: Anika Robles WPtel: [phone] [facility] Established Patient Preventative visit 11/29/2012 Visit Plan: [...] or prn. 10/28/2012 Appointment: Anika Robles WPtel: [phone] [facility] Pap Only 10/28/2012 Patient Education: Patient Medication Summary Completed 10/28/2012 Appointment: [facility]el[facility] [phone] [facility] Pap Only 09/23/2012 Appointment: Ginny Terrazas WPtel: [phone] [place] Injection 08/05/2012 Patient Education: Patient Medication Summary Completed 08/05/2012 Visit Plan: Elevated liver enzymes - recommended a hepatitis panel, hiv screen, ct of the abdomen/pelvis to see if there is a structural abnormality causing this issue as these are extremely elevated liver enzymes. 06/02/2012 Appointment: Anika Robles [facility]Ptel[facility] [phone] [facility] Other 06/02/2012 Patient Education: Patient Medication Summary [...] bactrim ds twice daily sent electronically to [employer]. Allergies - chronic - recommended pt to use allergy medication as prescribed. Pt has been counseled as the the appropriate use of the medication. Pt to call if allergy symptoms are not controlled with the medication. Samples of nasonex given to pt for a two week course of treatment, then can use OTC claritin. 05/31/2012 Appointment: MargaretAnika WPtel[facility] [phone] [facility] New Patient 05/31/2012 Patient Education: Patient Medication [...] office for further instructions/medication interventions. Probiotics - [employer] or culturelle over the counter . Pneumonia [...] bactrim ds twice daily sent electronically to [employer] Allergies - chronic - recommended pt to [...] in 3 months-patient verbalized understanding of plan. flonase . Otitis with air-fluid level in bilateral ears - recommended madisyn d 120mg bid - continue and rx for prednisone - if not better in two weeks - will send referral to dr. argentina davison. Otitis with air-fluid level in bilateral ears - recommended madisyn d 120mg bid - and flonase, call if not improving and will then send pt for CT scan. . Plantar fasciitis- pt was educated that [...] her daughter when she moved home from [place], but her expectations did not agustin out and she has no close friends in [place]. 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 I have suggested for her to go to the library, volunteer to read, or look at [employer] for some fun classes to help occupy [...] months based on previous levels of control. . BPPV - Benign Paroxysmal Positional Vertigo - discussed diagnosis with the patient, offered the pt the appropriate additional information in hand-out. Pt instructed in home exercises to help alleviate and prevent future recurrent episodes of vertigo. Pt informed that if symptoms worsen, call the office for further instructions/medication interventions. Allergies - chronic - recommended pt to [...] spray in the nasal steroid allergy spray. STOP THE VITAMIN D SUPPLEMENT DECREASE FISH [...]
--- OUTSIDE RECORDS SUMMARY | 2018-07-27 09:49 | XMS REPORT | Continuity of Care Document ---
Author Author [facility] Organization [facility] Address Unknown Phone Unavailable Allergies Active Description Code Type Severity Reaction Onset Reported/Identified Relationship to Patient Clinical Status Yes estrogens, conjugated [id number] Drug Allergy Unknown N/A 01/29/2017 Yes medroxyprogesterone acetate [id number] Drug Allergy Unknown N/A 2016 Yes simvastatin [id number] Drug Allergy Unknown N/A 06/06/2017 Medications There [...] Ot 272.4 08/17/2014 Ot V58.69 08/17/2014 TOMASGARTH SLATE HANDLER Ot 244.9 08/17/2014 TOMASGARTH SLATE HANDLER Ot 272.4 08/17/2014 MARINGARTH SLATE HANDLER Ot 790.29 08/17/2014 TOMASGARTH SLATE HANDLER Ot V72.62 08/17/2014 TOMASGARTH SLATE HANDLER Ot 288.50 08/17/2014 MARINGARTH SLATE HANDLER Ot 793.82 08/17/2014 TOMASGARTH SLATE HANDLER Ot V76.12 08/17/2014 HOANG DUMONT, SHARON Sprague Ot 793.89 08/17/2014 TOMASGARTH SLATE HANDLER Ot 250.00 08/17/2014 TOMASGARTH SLATE HANDLER Ot 250.01 08/17/2014 TOMASGARTH SLATE HANDLER Ot 272.4 08/17/2014 TOMAS GARTH Preston SLATE HANDLER Ot 401.9 08/17/2014 TOMASGARTH SLATE HANDLER Ot V72.62 08/17/2014 TOMASGARTH SLATE HANDLER Ot 793.80 08/17/2014 HOANG DUMONT, SHARON A [...] CHEST PAIN NEC 05/29/2015 RAMAN MARINHANMISTY Preston SLATE HANDLER Ot V76.12 06/01/2015 GARTH MARIN SLATE HANDLER Ot V76.12 06/06/2015 GARTH MARIN SLATE HANDLER Ot V76.12 06/19/2016 Ot 244.9 HYPOTHYROIDISM NOS [...] OTH MED,LT, CURRENT USE 06/19/2016 GARTH MARIN SLATE HANDLER Ot 244.9 HYPOTHYROIDISM NOS 06/19/2016 GARTH MARIN SLATE HANDLER Ot 272.4 HYPERLIPIDEMIA NEC/NOS 06/19/2016 GARTH MARIN [facility] Ot 790.29 OTHER ABNORMAL GLUCOSE 06/19/2016 GARTH MARIN [facility] Ot V72.62 LAB EXAM ORDERED PART OF A ROUTINE GE 06/19/2016 GARTH MARIN [facility] Ot 288.50 LEUKOCYTOPENIA, UNSPECIFIED 06/19/2016 GARTH MARIN [facility] Ot 793.82 INCONCLUSIVE MAMMOGRAM 06/19/2016 GARTH MARIN [facility] Ot V76.12 OTH SCREEN MAMMO-MALIGN NEOPLASM OF [place] 06/19/2016 SHARON BOLTON MD Ot 793.89 OTH (ABN) FINDINGS ON RADIOLOGICAL EXAMI 06/19/2016 GARTH MARIN [facility] Ot 250.00 DIAB JANELL WO COMPL, TYPE II OR UNSPEC TY 06/19/2016 MARIN, GARTH M SLATE HANDLER Ot 250.01 DIAB JANELL WO COMPL, TYPE I [JUVENILE TYP 06/19/2016 GARTH MARIN SLATE HANDLER Ot 272.4 HYPERLIPIDEMIA NEC/NOS 06/19/2016 GARTH MARIN SLATE HANDLER Ot 401.9 HYPERTENSION NOS 06/19/2016 RAMAN MARINHANMISTY Preston SLATE HANDLER Ot V72.62 LAB EXAM ORDERED PART OF A ROUTINE GE 06/19/2016 GARTH MARIN SLATE HANDLER Ot 793.80 UNSPEC ABNORMAL MAMMOGRAM 06/19/2016 SHARON BOLTON MD Ot 250.00 DIAB JANELL WO COMPL, TYPE II OR UNSPEC TY 06/19/2016 SHARON BOLTON MD Ot 272.4 HYPERLIPIDEMIA NEC/NOS 06/19/2016 SHARON BOLTON MD Ot 401.9 HYPERTENSION NOS 06/19/2016 SHARON BOLTON MD Ot V58.69 OTH MED,LT,CURRENT USE 06/19/2016 GARTH MARIN SLATE HANDLER Ot V76.12 OTH SCREEN MAMMO-MALIGN NEOPLASM OF [place] 06/19/2016 ARIAN MATA SHIPPING ASSOCIATE Ot Z12.31 ENCNTR SCREEN MAMMOGRAM FOR MALIGNANT NE 06/20/2016 ARIAN MATA SHIPPING ASSOCIATE Ot Z12.31 ENCNTR SCREEN MAMMOGRAM FOR MALIGNANT NE 06/23/2016 ARIAN MATA SHIPPING ASSOCIATE Ot Z12.31 ENCNTR SCREEN MAMMOGRAM FOR MALIGNANT NE 07/02/2016 ARIAN MATA SHIPPING ASSOCIATE Ot Z12.31 ENCNTR SCREEN MAMMOGRAM FOR MALIGNANT NE 07/19/2016 SANTANA DO, HARPER K Ot H66.93 OTITIS MEDIA, UNSPECIFIED, BILATERAL 07/19/2016 SANTANA DO, HARPER K Ot H81.13 BENIGN PAROXYSMAL VERTIGO, BILATERAL 07/19/2016 SANTANA DO, HARPER K Ot I10 ESSENTIAL (PRIMARY) HYPERTENSION 07/19/2016 SANTANA DO, HARPER K Ot R42 DIZZINESS AND GIDDINESS 07/19/2016 SANTANA DO, HARPER K Ot Z79.899 OTHER RESIDENTIAL (CURRENT) DRUG THERAPY 07/21/2016 SANTANA DO, HARPER K Ot H66.93 OTITIS MEDIA, UNSPECIFIED, BILATERAL 07/21/2016 SANTANA DO, HARPER K Ot H81.13 BENIGN PAROXYSMAL VERTIGO, BILATERAL 07/21/2016 SANTANA DO, HARPER K Ot I10 ESSENTIAL (PRIMARY) HYPERTENSION 07/21/2016 HARPER DILLON DO Ot R42 DIZZINESS AND GIDDINESS 07/21/2016 HARPER DILLON DO Ot 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 07/25/2016 HARPER DILLON DO Ot H66.93 OTITIS MEDIA, UNSPECIFIED, BILATERAL 07/25/2016 HARPER DILLON DO Ot H81.13 BENIGN PAROXYSMAL VERTIGO, BILATERAL 07/25/2016 HARPER DILLON DO Ot I10 ESSENTIAL (PRIMARY) HYPERTENSION 07/25/2016 HARPER DILLON DO Ot R42 DIZZINESS AND GIDDINESS 07/25/2016 HARPER DILLON DO Ot Z79.899 OTHER RESIDENTIAL (CURRENT) DRUG THERAPY 08/20/2016 Ot M79.662 PAIN [...] OTH MED,LT, CURRENT USE 08/20/2016 GARTH MARIN SLATE HANDLER Ot 244.9 HYPOTHYROIDISM NOS 08/20/2016 GARTH MARIN SLATE HANDLER Ot 272.4 HYPERLIPIDEMIA NEC/NOS 08/20/2016 GARTH MARIN SLATE HANDLER Ot 790.29 OTHER ABNORMAL GLUCOSE 08/20/2016 GARTH MARIN SLATE HANDLER Ot V72.62 LAB EXAM ORDERED PART OF A ROUTINE GE 08/20/2016 TOMAS GARTH M SLATE HANDLER Ot 288.50 LEUKOCYTOPENIA, UNSPECIFIED 08/20/2016 GARTH MARIN SLATE HANDLER Ot 793.82 INCONCLUSIVE MAMMOGRAM 08/20/2016 GARTH MARIN SLATE HANDLER Ot V76.12 OTH SCREEN MAMMO-MALIGN NEOPLASM OF [place] 08/20/2016 SHARON BOLTON MD Ot 793.89 OTH (ABN) FINDINGS ON RADIOLOGICAL EXAMI 08/20/2016 GARTH MARIN SLATE HANDLER Ot 250.00 DIAB JANELL WO COMPL, TYPE II OR UNSPEC TY 08/20/2016 GARTH MARIN SLATE HANDLER Ot 250.01 DIAB AJNELL WO COMPL, TYPE I [JUVENILE TYP 08/20/2016 GARTH MARIN SLATE HANDLER Ot 272.4 HYPERLIPIDEMIA NEC/NOS 08/20/2016 GARTH MARIN SLATE HANDLER Ot 401.9 HYPERTENSION NOS 08/20/2016 GARTH MARINP Ot V72.62 LAB EXAM ORDERED PART OF A ROUTINE GE 08/20/2016 GARTH MARIN SLATE HANDLER Ot 793.80 UNSPEC ABNORMAL MAMMOGRAM 08/20/2016 SHARON BOLTON MD Ot 250.00 DIAB JANELL WO COMPL, TYPE II OR UNSPEC TY 08/20/2016 SHARON BOLTON MD Ot 272.4 HYPERLIPIDEMIA NEC/NOS 08/20/2016 SHARON BOLTON MD Ot 401.9 HYPERTENSION NOS 08/20/2016 SHARON BOLTON MD Ot V58.69 OTH MED,LT,CURRENT USE 08/20/2016 GARTH MARIN SLATE HANDLER Ot V76.12 OTH SCREEN MAMMO-MALIGN NEOPLASM OF [...] PAIN IN LEFT KNEE 09/26/2016 ARIAN MATA SHIPPING ASSOCIATE Ot M25.562 PAIN IN LEFT KNEE 10/23/2016 ARIAN MATA SHIPPING ASSOCIATE Ot M25.562 PAIN IN LEFT KNEE 06/06/2017 [...] OTH MED,LT, CURRENT USE 06/06/2017 GARTH MARIN [facility] Ot 244.9 HYPOTHYROIDISM NOS 06/06/2017 GARTH MARIN SLATE HANDLER Ot 272.4 HYPERLIPIDEMIA NEC/NOS 06/06/2017 GARTH MARIN [facility] Ot 790.29 OTHER ABNORMAL GLUCOSE 06/06/2017 GARTH MARIN [facility] Ot V72.62 LAB EXAM ORDERED PART OF A ROUTINE GE 06/06/2017 GARTH MARIN SLATE HANDLER Ot 288.50 LEUKOCYTOPENIA, UNSPECIFIED 06/06/2017 GARTH MARIN [facility] Ot 793.82 INCONCLUSIVE MAMMOGRAM 06/06/2017 GARTH MARIN [facility] Ot V76.12 OTH SCREEN MAMMO-MALIGN NEOPLASM OF [place] 06/06/2017 SHARON BOLTON MD Ot 793.89 OTH (ABN) FINDINGS ON RADIOLOGICAL EXAMI 06/06/2017 GARTH MARIN SLATE HANDLER Ot 250.00 DIAB JANELL WO COMPL, TYPE II OR UNSPEC TY 06/06/2017 GARTH MARIN SLATE HANDLER Ot 250.01 DIAB JANELL WO COMPL, TYPE I [JUVENILE TYP 06/06/2017 TOMAS GARTH M SLATE HANDLER Ot 272.4 HYPERLIPIDEMIA NEC/NOS 06/06/2017 RAMAN MARINHANMISTY Preston SLATE HANDLER Ot 401.9 HYPERTENSION NOS 06/06/2017 TOMASGARTH SLATE HANDLER Ot V72.62 LAB EXAM ORDERED PART OF A ROUTINE GE 06/06/2017 GARTH MARIN SLATE HANDLER Ot 793.80 UNSPEC ABNORMAL MAMMOGRAM 06/06/2017 SHARON BOLTON MD Ot 250.00 DIAB JANELL WO COMPL, TYPE II OR UNSPEC TY 06/06/2017 SHARON BOLTON MD Ot 272.4 HYPERLIPIDEMIA NEC/NOS 06/06/2017 SHARON BOLTON MD Ot 401.9 HYPERTENSION NOS 06/06/2017 SHARON BOLTON MD Ot V58.69 OTH MED,LT,CURRENT USE 06/06/2017 RAMAN MARINHANIE Kary SLATE HANDLER Ot V76.12 OTH SCREEN MAMMO-MALIGN NEOPLASM OF [place] 06/06/2017 ARIAN MATA SHIPPING ASSOCIATE Ot Z12.31 ENCNTR SCREEN MAMMOGRAM FOR MALIGNANT NE 06/06/2017 Ot M79.662 PAIN IN LEFT LOWER LEG 06/06/2017 ARIAN MATA SHIPPING ASSOCIATE Ot M25.562 PAIN IN LEFT KNEE 06/06/2017 BRUNO SHARMA MD Ot E03.9 HYPOTHYROIDISM, UNSPECIFIED 06/06/2017 BRUNO SHARMA MD Ot E78.00 PURE HYPERCHOLESTEROLEMIA, UNSPECIFIED 06/06/2017 BRUNO SHARMA MD Ot I10 ESSENTIAL (PRIMARY) HYPERTENSION 06/06/2017 BRUNO SHARMA MD Ot K59.00 CONSTIPATION, UNSPECIFIED 06/06/2017 BRUNO SHRAMA MD Ot M54.9 DORSALGIA, UNSPECIFIED 06/06/2017 Ot [...] OTH MED,LT, CURRENT USE 06/06/2017 GARTH MARIN SLATE HANDLER Ot 244.9 HYPOTHYROIDISM NOS 06/06/2017 GARTH MARIN SLATE HANDLER Ot 272.4 HYPERLIPIDEMIA NEC/NOS 06/06/2017 GARTH MARIN SLATE HANDLER Ot 790.29 OTHER ABNORMAL GLUCOSE 06/06/2017 GARTH MARIN SLATE HANDLER Ot V72.62 LAB EXAM ORDERED PART OF A ROUTINE GE 06/06/2017 GARTH MARIN SLATE HANDLER Ot 288.50 LEUKOCYTOPENIA, UNSPECIFIED 06/06/2017 GARTH MARIN SLATE HANDLER Ot 793.82 INCONCLUSIVE MAMMOGRAM 06/06/2017 GARTH MARIN SLATE HANDLER Ot V76.12 OTH SCREEN MAMMO-MALIGN NEOPLASM OF [place] 06/06/2017 SHARON BOLTON MD Ot 793.89 OTH (ABN) FINDINGS ON RADIOLOGICAL EXAMI 06/06/2017 GARTH MARIN SLATE HANDLER Ot 250.00 DIAB JANELL WO COMPL, TYPE II OR UNSPEC TY 06/06/2017 GARTH MARIN SLATE HANDLER Ot 250.01 DIAB JANELL WO COMPL, TYPE I [JUVENILE TYP 06/06/2017 GARTH MARIN SLATE HANDLER Ot 272.4 HYPERLIPIDEMIA NEC/NOS 06/06/2017 GARTH MARIN SLATE HANDLER Ot 401.9 HYPERTENSION NOS 06/06/2017 GARTH MARINP [...] MAMMO-MALIGN NEOPLASM OF [place] 06/06/2017 ARIAN MATA SHIPPING ASSOCIATE Ot Z12.31 ENCNTR SCREEN MAMMOGRAM FOR MALIGNANT NE 06/06/2017 Ot M79.662 PAIN IN LEFT LOWER LEG 06/06/2017 ARIAN MATA SHIPPING ASSOCIATE Ot M25.562 PAIN IN LEFT KNEE 06/08/2017 [...] J Ot E78.00 PURE HYPERCHOLESTEROLEMIA, UNSPECIFIED 07/17/2017 ZACHARY DUMONT, BRUNO Krishna Ot I10 ESSENTIAL (PRIMARY) HYPERTENSION 07/17/2017 ZACHARY DUMONT, BRUNO Krishna Ot K59.00 CONSTIPATION, UNSPECIFIED 07/17/2017 ZACHARY DUMONT, BRUNO Krishna Ot M54.9 DORSALGIA, UNSPECIFIED 07/22/2017 ARIAN MATA SHIPPING ASSOCIATE Ot Z12.31 ENCNTR SCREEN MAMMOGRAM FOR MALIGNANT NE 11/02/2017 SISSY DUMONT, TALON Carpio Ot E03.9 HYPOTHYROIDISM, UNSPECIFIED 11/02/2017 SISSY DUMONT, TALON Carpio Ot E78.00 PURE HYPERCHOLESTEROLEMIA, UNSPECIFIED 11/02/2017 TALON SHEEHAN MD Ot I10 ESSENTIAL (PRIMARY) HYPERTENSION 11/02/2017 TALON SHEEHAN MD Ot R06.09 OTHER FORMS OF DYSPNEA 11/02/2017 TALON SHEEHAN MD Ot R42 DIZZINESS AND GIDDINESS 11/02/2017 TALON SHEEHAN MD Ot Z88.8 ALLERGY STATUS TO OTH DRUG/MEDS/BIOL SUB 11/04/2017 TALON SHEEHAN MD Ot E03.9 HYPOTHYROIDISM, UNSPECIFIED 11/04/2017 TALON SHEEHAN MD Ot E78.00 PURE HYPERCHOLESTEROLEMIA, UNSPECIFIED 11/04/2017 TALON SHEEHAN MD Ot I10 ESSENTIAL (PRIMARY) HYPERTENSION 11/04/2017 TALON SHEEHAN MD Ot R06.09 OTHER FORMS OF DYSPNEA 11/04/2017 TALON SHEEHAN MD Ot R42 DIZZINESS AND GIDDINESS 11/04/2017 TALON SHEEHAN MD Ot Z88.8 ALLERGY STATUS TO OTH DRUG/MEDS/BIOL SUB 11/08/2017 TALON SHEEHAN MD Ot E03.9 HYPOTHYROIDISM, UNSPECIFIED 11/08/2017 TALON SHEEHAN MD Ot E78.00 PURE HYPERCHOLESTEROLEMIA, UNSPECIFIED 11/08/2017 TALON SHEEHAN MD Ot I10 ESSENTIAL (PRIMARY) HYPERTENSION 11/08/2017 TALON SHEEHAN MD Ot R06.09 OTHER FORMS OF DYSPNEA 11/08/2017 TALON SHEEHAN MD T Ot R42 DIZZINESS AND GIDDINESS 11/08/2017 SISSY DUMONT, TALON Carpio Ot Z88.8 ALLERGY STATUS TO OTH DRUG/MEDS/BIOL SUB 07/20/2018 HILARIOVINNIE CRANDALL DO Juan Carlos Ot Z01.818 ENCOUNTER FOR OTHER PREPROCEDURAL EXAMIN 07/27/2018 GARTH MARIN SLATE HANDLER Ot 244.9 HYPOTHYROIDISM NOS 07/27/2018 GARTH MARIN SLATE HANDLER Ot 272.4 HYPERLIPIDEMIA NEC/NOS 07/27/2018 GARTH MARIN SLATE HANDLER Ot 790.29 OTHER ABNORMAL GLUCOSE 07/27/2018 GARTH MARIN SLATE HANDLER Ot V72.62 LAB EXAM ORDERED PART OF A ROUTINE GE 07/27/2018 GARTH MARIN SLATE HANDLER Ot 288.50 LEUKOCYTOPENIA, UNSPECIFIED 07/27/2018 GARTH MARIN SLATE HANDLER Ot 793.82 INCONCLUSIVE MAMMOGRAM 07/27/2018 GARTH MARIN SLATE HANDLER Ot V76.12 OTH SCREEN MAMMO-MALIGN NEOPLASM OF [place] 07/27/2018 SHARON BOLTON MD Ot 793.89 OTH (ABN) FINDINGS ON RADIOLOGICAL EXAMI 07/27/2018 GARTH MARIN SLATE HANDLER Ot 250.00 DIAB JANELL WO COMPL, TYPE II OR UNSPEC TY 07/27/2018 GARTH MARIN SLATE HANDLER Ot 250.01 DIAB JANELL WO COMPL, TYPE I [JUVENILE TYP 07/27/2018 GARTH MARIN SLATE HANDLER Ot 272.4 HYPERLIPIDEMIA NEC/NOS 07/27/2018 GARTH MARIN SLATE HANDLER Ot 401.9 HYPERTENSION NOS 07/27/2018 GARTH MARIN SLATE HANDLER Ot V72.62 LAB EXAM ORDERED PART OF A ROUTINE GE 07/27/2018 GARTH MARIN SLATE HANDLER Ot 793.80 UNSPEC ABNORMAL MAMMOGRAM 07/27/2018 SHARON BOLTON MD Ot 250.00 DIAB JANELL WO COMPL, TYPE II OR UNSPEC TY 07/27/2018 SHARON BOLTON MD Ot 272.4 HYPERLIPIDEMIA NEC/NOS 07/27/2018 SHARON BOLTON MD Ot 401.9 HYPERTENSION NOS 07/27/2018 SHARON BOLTON MD Ot V58.69 OTH MED,LT,CURRENT USE 07/27/2018 GARTH MARINP Ot V76.12 OT SCREEN MAMMO-MALIGN NEOPLASM OF [place]ER[place] 07/27/2018 CHELE MATAMISTY Preston APRN Ot Z12.31 ENCNTR SCREEN MAMMOGRAM FOR MALIGNANT NE 07/27/2018 Ot M79.662 PAIN IN LEFT LOWER LEG 07/27/2018 CHELE MATAMISTY Preston APRN Ot M25.562 PAIN IN LEFT KNEE 07/27/2018 ESPERANZA ARIAN Preston APRN Ot Z12.31 ENCNTR SCREEN MAMMOGRAM FOR [...] - 06/06/17 19:30 Lipase 40 U/L 8-78 Complete blood count (CBC) with automated white blood cell (WBC) differential - 11/02/17 09:55 Blood leukocytes automated count (number/volume) 5.2 10*3/uL 4.3-11.0 Blood erythrocytes automated count (number/volume) 4.24 10*6/uL 4.35-5.85 Venous blood hemoglobin measurement (mass/volume) 13.2 g/dL 11.5-16.0 Blood hematocrit (volume fraction) 39 % 35-52 Automated erythrocyte mean corpuscular volume 93 [foz_us] 80-99 Automated erythrocyte mean corpuscular hemoglobin (mass per erythrocyte) 31 pg 25-34 Automated erythrocyte mean corpuscular hemoglobin concentration measurement ( mass/volume) 34 g/dL 32-36 Automated erythrocyte distribution width ratio 13.9 % 10.0-14.5 Automated blood platelet count (count/volume) 231 10*3/uL 130-400 Automated blood platelet mean volume measurement 11.2 [foz_us] 7.4-10.4 Automated blood neutrophils/100 leukocytes 74 % 42-75 Automated blood lymphocytes/100 leukocytes 17 % 12-44 Blood monocytes/100 leukocytes 9 % 0-12 Automated blood eosinophils/100 leukocytes 0 % 0-10 Automated blood basophils/100 leukocytes 1 % 0-10 Blood neutrophils automated count (number/volume) 3.8 10*3 1.8-7.8 Blood lymphocytes automated count (number/volume) 0.9 10*3 1.0-4.0 Blood monocytes automated count (number/volume) 0.4 10*3 0.0-1.0 Automated eosinophil count 0.0 10*3/uL 0.0-0.3 Automated blood basophil count (count/volume) 0.0 10*3/uL 0.0-0.1 Comprehensive metabolic panel - 11/02/17 09:55 Serum or plasma sodium measurement (moles/volume) 141 mmol/L 135-145 Serum or plasma potassium measurement (moles/volume) 4.4 mmol/L 3.6-5.0 Serum or plasma chloride measurement (moles/volume) 106 mmol/L 98-107 Carbon dioxide 24 mmol/L 21-32 Serum or plasma anion gap determination (moles/volume) 11 mmol/L 5-14 Serum or plasma urea nitrogen measurement (mass/volume) 22 mg/dL 7-18 Serum or plasma creatinine measurement (mass/volume) 0.80 mg/dL 0.60-1.30 Serum or plasma urea nitrogen/creatinine mass ratio 28 NRG Serum or plasma creatinine measurement with calculation of estimated glomerular filtration rate > NRG Serum or plasma glucose measurement (mass/volume) 97 mg/dL 70-105 Serum or plasma calcium measurement (mass/volume) 9.3 mg/dL 8.5-10.1 Serum or plasma total bilirubin measurement (mass/volume) 0.8 mg/dL 0.1-1.0 Serum or plasma alkaline phosphatase measurement (enzymatic activity/volume) 60 U/L 40-136 Serum or plasma aspartate aminotransferase measurement (enzymatic activity/ volume) 23 U/L 5-34 Serum or plasma alanine aminotransferase measurement (enzymatic activity/volume ) 37 U/L 0-55 Serum or plasma protein measurement (mass/volume) 6.8 g/dL 6.4-8.2 Serum or plasma albumin measurement (mass/volume) 4.0 g/dL 3.2-4.5 Magnesium - 11/02/17 09:55 Magnesium 2.4 mg/dL 1.8-2.4 Serum or plasma lithium measurement (moles/volume) - 11/02/17 09:55 BNP level < pg/mL <100.0 Serum or plasma troponin i.cardiac measurement (mass/volume) - 11/02/17 09:55 Serum or plasma troponin i.cardiac measurement (mass/volume) < ng/ mL <0.30 THYROID STIMULATING HORMONE - 11/02/17 09:55 THYROID STIMULATING HORMONE 0.82 u[iU]/mL 0.35-4.94 Serum or plasma thyroxine (T4) free measurement (mass/volume) - 11/02/17 09:55 Serum or plasma thyroxine (T4) free measurement (mass/volume) 1.04 ng/dL 0.70-1.48 Complete urinalysis with reflex to culture - 11/02/17 10:00 Urine color determination YELLOW NRG Urine clarity determination CLEAR NRG Urine pH measurement by test strip 6.5 5-9 Specific gravity of urine by test strip 1.010 1.016- 1.022 Urine protein assay by test [...] NORMAL Urine leukocyte esterase detection by dipstick 1+ NEGATIVE Automated urine sediment erythrocyte count by microscopy (number/high power field) NONE NRG Automated urine sediment leukocyte count by microscopy (number/high power field ) [HPF] NRG Bacteria detection in urine sediment by light microscopy NEGATIVE NRG Squamous epithelial cells detection in urine sediment by light microscopy 0-2 NRG Crystals detection in urine sediment by light microscopy NONE NRG Casts detection in urine sediment by light microscopy NONE NRG Mucus detection in urine sediment by light microscopy SMALL NRG Complete urinalysis with reflex to culture NO NRG Fibrin D-dimer FEU measurement in platelet poor plasma (mass/volume) - 12:35 Fibrin D-dimer FEU measurement in platelet poor plasma (mass/volume) < ug/mL 0.00-0.49 Encounters ACCT No. Visit Date/Time Discharge Status Pt. Type Provider Facility Loc./Unit Complaint [id number] 07/20/2018 05:45:00 07/20/2018 13:40:00 DIS Outpatient VINNIE HILARIO DO [facility] PREOP COLONOSCOPY [id number] 11/02/2017 08:40:00 11/02/2017 14:49:00 DIS Emergency SISSY DUMONT, TALON Carpio [facility] ER LIGHT-HEADED/NAUSEA [id number] 06/30/2017 08:55:00 06/30/2017 23:59:59 CLS Outpatient ARIAN MATA APRN [facility] RAD SCREENING [id number] 06/06/2017 18:49:00 06/06/2017 20:40:00 DIS Emergency ZACHARY DUMONT, BRUNO Krishna [facility] ER SHOOTING BACK PAIN [id number] 10/23/2016 14:43:00 10/23/2016 15:32:00 DIS Outpatient ARIAN MATA APRN [facility] REHAB L KNEE PAIN [id number] 09/02/2016 09:05:00 09/02/2016 23:59:59 CLS Outpatient ARIAN MATA APRN [facility] RAD LEFT KNEE PAIN, CLICKING [id number] 07/19/2016 20:04:00 07/19/2016 21:21:00 DIS Emergency HARPER DILLON DO K [facility] ER DIZZINESS [id number] 06/19/2016 09:25:00 06/19/2016 23:59:59 CLS Outpatient ARIAN MATA APRN [facility] RAD SCREENING [id number] 05/17/2015 09:03:00 05/17/2015 23:59:59 CLS Outpatient GARTH MARIN [facility] RAD SCREENING [id number] 08/17/2014 14:33:00 08/17/2014 17:52:00 DIS Emergency SISSY DUMONT, TALON Carpio [facility] ER CHEST PAIN [id number] 06/28/2014 19:03:00 06/28/2014 20:40:00 DIS Emergency CASSIUS MEYER, CHRISTIE Pimentel [facility] ER ANKLE PAIN [id number] 04/28/2014 06:58:00 04/28/2014 23:59:59 CLS Outpatient SHARON BOLTON MD [facility] LAB HTN,HLP,NIDDM, [id number] 04/21/2014 07:55:00 04/21/2014 23:59:59 CLS Outpatient GARTH MARIN [facility] RAD ABNORMAL MAMMOGRAM [id number] 01/23/2014 07:20:00 01/23/2014 23:59:59 CLS Outpatient GARTH MARIN [facility] LAB HTN,HYPERLIPIDEMIA, DM,ROUITNE EXAM [id number] 10/21/2013 08:21:00 10/21/2013 23:59:59 CLS Outpatient GARTH MARIN [facility] LAB DIABETES [id number] 10/06/2013 12:06:00 10/06/2013 23:59:59 CLS Outpatient SHARON BOLTON MD [facility] RAD ABN MAMMO [id number] 09/22/2013 09:07:00 09/22/2013 23:59:59 CLS Outpatient GARTH MARIN [facility] RAD SCREENING [id number] 08/22/2013 07:08:00 08/22/2013 23:59:59 CLS Outpatient GARTH MARIN [facility] LAB ROUTINE, LEUKOCYTOPENIA [id number] 07/21/2013 06:49:00 07/21/2013 23:59:59 CLS Outpatient GARTH MARIN [facility] LAB HLP,HYPOTHYROID, ROUTINE EXAM,ABNORMAL GLUCOSE [id number] 07/27/2018 09:34:00 ACT Outpatient VINNIE HILARIO DO [facility] ENDO BLOOD IN STOOLS [id number] 08/19/2016 10:45:00 Document Registration [id number] 01/18/2013 08:46:00 Document Registration [id number] 09/20/2012 09:36:00 Document Registration [id number] 09/12/2012 12:28:00 Document Registration [id number] 09/01/2012 09:13:00 Document Registration [id number] 08/06/2012 10:01:00 Document Registration [id number] 06/15/2012 08:20:00 Document Registration [id number] 06/03/2012 07:31:00 Document Registration [id number] 06/02/2012 12:56:00 Document Registration [id number] 06/01/2012 09:12:00 Document Registration 0000 08/06/2017 10:37:34 08/06/2017 23:59:59 CLS Outpatient
[2018-07-27 10:10] VITALS: BP 137/73
[2018-07-27] MEDS ORDERED: proPOfol 200 MG/20 ML (DIPRIVAN) VIAL IV ONE ×2 (11:00→11:35)
--- NOTE | 2018-07-27 11:00 | Progress Note-Pre Operative ---
Pre-Operative Progress Note H&P Reviewed The H&P was reviewed, patient examined and no changes noted. Date Seen by Provider: Jul 27, 2018 Time Seen by Provider: 11:00 Date H&P Reviewed: Jul 27, 2018 Time H&P Reviewed: 11:00 Pre-Operative Diagnosis: bright red blood per rectum VINNIE HILARIO DO Jul 27, 2018 11:00
--- NOTE | 2018-07-27 11:54 | Progress Note-Post Operative ---
Post-Operative Progess Note Surgeon (s)/Human Resources Hr Representative (s) Surgeon VINNIE HILARIO DO Human Resources Hr Representative: na Pre-Operative Diagnosis bright red blood per rectum Post-Operative Diagnosis diverticulosis, rectal polyp, hemorrhoids Procedure & Operative Findings Date of Procedure 07/27/18 Procedure Performed/Findings colonoscopy with hot bx polypectomy Anesthesia Type per roller Estimated Blood Loss Estimated blood loss (mL): none Specimens/Packing Specimens Removed rectal polyp VINNIE HILARIO DO Jul 27, 2018 11:54
--- NOTE | 2018-07-27 11:56 | Discharge Inst-Simple/Standard ---
Discharge Inst-Standard Patient Instructions/Follow Up Plan of Care/Instructions/FU: 2 weeks Genevieve Activity as Tolerated: Yes Discharge Diet: Regular Diet (high fiber) VINNIE HILARIO DO Jul 27, 2018 11:56
[2018-07-27 12:05] VITALS: BP 104/55
[2018-07-27 12:30] VITALS: BP 131/61
[2018-07-27 12:33] VITALS: BP 131/61
--- NOTE | 2018-07-27 15:19 | Anesthesia-General Post-Op ---
MAC Patient Condition Mental Status/LOC: Same as Preop Cardiovascular: Satisfactory Nausea/Vomiting: Absent Respiratory: Satisfactory Pain: Controlled Complications: Absent Post Op Complications Complications None Follow Up Care/Instructions Patient Instructions None needed. Anesthesiology Discharge Order Discharge Order Patient is doing well, no complaints, stable vital signs, no apparent adverse anesthesia problems. No complications reported per nursing. ROB LOUIS CRNA Jul 27, 2018 15:19
--- NOTE | 2018-07-27 15:38 | OPERATIVE REPORT ---
DATE OF SERVICE: 07/27/2018 PREOPERATIVE DIAGNOSIS: Bard blood per rectum. POSTOPERATIVE DIAGNOSES: Diverticulosis, rectal polyp and hemorrhoids. PROCEDURE: Colonoscopy with hot biopsy polypectomy. SURGEON: Vinnie Vallejo DO. ANESTHESIA: Per CERTIFIED HISTOLOGIC TECHNICIAN. ESTIMATED BLOOD LOSS: None. COMPLICATIONS: None. INDICATIONS: The patient is a 73-year-old female, who had some episodes of bright red blood per rectum. She understands the risks and benefits of procedure and wished to proceed with procedure. Consent was signed in the chart. PROCEDURE: The patient was taken to the endoscopy suite and placed in a left lower recumbent position. Timeout was performed. Digital rectal exam was performed. No palpable polyps, masses or ulcerations. Some slight hemorrhoidal disease. Scope was inserted into the rectum and advanced all the way to the cecum with minimal difficulty. There were no polyps, mass or ulcerations in the cecum, ascending, transverse and descending colon. Within the sigmoid colon, there was a minimal amount of diverticulosis. There are no polyps, masses or ulcerations. Scope was continuously retracted back into the rectum where a small polyp was present, which hot biopsy polypectomy was performed. Scope was retroflexed noting some hemorrhoidal disease. No polyps, masses or ulcerations. Scope was returned to its normal position, slowly withdrawn until completely removed. The patient tolerated the procedure well without any complications. She was taken to the recovery room in stable condition. RECOMMENDATIONS: The patient will follow up in the office in 2 weeks to discuss pathology results. No active bleeding source was identified. It could be from diverticulosis or hemorrhoids. If she has any return of bleeding, she should be reevaluated at that time. The patient will need repeat colonoscopy in 5 years unless she has any further episodes. Job ID: [id number] DocumentID: [id number] Dictated Date: 07/27/2018 11:58:54 [employer] Date: 07/27/2018 13:27:54 Dictated By: VINNIE VALLEJO DO
== END 2018-07-27 12:40 | disposition home or self-care (01) ==
LOC: ENDO 09:34
PROVIDERS: ATTEND Surgery
DX: K57.31 Diverticulosis of large intestine without perforation or abscess with bleeding (principal); K62.1 Rectal polyp; K64.9 Unspecified hemorrhoids; K59.09 Other constipation; E03.9 Hypothyroidism, unspecified; Z79.899 Other long term (current) drug therapy

== ENCOUNTER → 2018-09-30 | Outpatient (CLI) | payer MEDICARE, OTHER ==
--- NOTE | 2018-10-01 20:53 | Diagnostic Imaging Report ---
INDICATION: Routine screening. COMPARISON: 06/30/2017 and 06/19/2016. TECHNIQUE: 2D and 3D bilateral screening mammography was performed with CAD. FINDINGS: Both breasts are heterogeneously dense, limiting the sensitivity of mammography. Benign calcifications are scattered throughout both breasts. A small circumscribed density has developed in the medial left breast, best seen on tomographic image 42 on the CC. This is located at the nipple line at mid depth on the MLO view. Additional views and ultrasound are recommended. No other mass or suspicious microcalcifications are seen. The axillae are unremarkable. IMPRESSION: Left breast density. Additional views are recommended for further evaluation. ACR BI-RADS Category 0: Incomplete. (Needs additional imaging evaluation). Result letter will be mailed to the patient. Note: At least 10% of breast cancer is not imaged by mammography. Dictated on workstation # [id number]
== END ==
LOC: RAD 14:26
PROVIDERS: ATTEND Family Medicine
DX: Z12.31 Encounter for screening mammogram for malignant neoplasm of breast (principal)
CPT/HCPCS: 77067

== ENCOUNTER → 2018-10-15 | Outpatient (CLI) | payer MEDICARE, OTHER ==
--- NOTE | 2018-10-15 19:06 | Diagnostic Imaging Report ---
INDICATION: Left breast density. Patient presents for additional views. Correlation is made with recent screening study from 09/30/2018. Unilateral left 2-D and 3-D diagnostic mammography was performed including conventional 90 degree lateral view as well as spot compression CC and ML views. The current study was also evaluated with a Computer Aided Detection (CAD) system. FINDINGS: Additional views confirm the presence of a small circumscribed nodule in the medial left breast at mid depth approximately 6-7 cm from the nipple. This appears to be slightly superiorly located on the ML view. Benign calcifications in the left breast are noted. IMPRESSION: Circumscribed nodule upper and inner left breast mid depth. It has fairly benign features but further evaluation with ultrasound is recommended and will be performed today. ACR BI-RADS Category 0: Incomplete. (Needs additional imaging evaluation). Result letter will be mailed to the patient. Note: At least 10% of breast cancer is not imaged by mammography. Dictated by: Dictated on workstation # [id number]
--- NOTE | 2018-10-15 19:16 | Diagnostic Imaging Report ---
INDICATION: Left breast density. Study is performed for further evaluation. Correlation is made with diagnostic mammogram earlier same day as well as screening study from 09/30/2018. FINDINGS: Sonographic interrogation of the inner left breast from approximately 8 to 12 o'clock location was performed. There is a circumscribed nodule at the 9:30 location of the left breast approximately 5 cm from the nipple measuring 5 mm x 6 mm x 4 mm. This has the appearance of a cyst with a thin internal septation. There is posterior acoustic enhancement. No internal vascularity is seen. No other abnormalities are detected. IMPRESSION: Benign-appearing nodule 9:30 location left breast, likely slightly complex cyst corresponding to the mammographic density. Patient may return to routine annual screening mammography. ACR BI-RADS Category 2: Benign findings. Dictated by: Dictated on workstation # [id number]
== END ==
LOC: RAD 12:26
PROVIDERS: ATTEND Nurse Practitioner Family
DX: N63.20 Unspecified lump in the left breast, unspecified quadrant (principal); R92.2 Inconclusive mammogram
CPT/HCPCS: 76642

== ENCOUNTER → 2019-01-03 | Outpatient (CLI) | payer MEDICARE, OTHER ==
--- NOTE | 2019-01-03 16:05 | Diagnostic Imaging Report ---
INDICATION: Shoulder pain. Decreased range of motion. COMPARISON: None FINDINGS: Three radiographic views of the right shoulder were obtained. Patient is suboptimally positioned, but there does appear to be abnormal narrowing of the acromiohumeral joint space. Glenohumeral joint space is maintained. Osseous structures are intact. There is no evidence of acute fracture or dislocation. Included portions of the right hemithorax are clear. No unexpected radiopaque foreign bodies are seen. IMPRESSION: 1. No radiographic evidence of acute fracture or dislocation in the right shoulder. 2. Findings suggestive of abnormal narrowing of the acromiohumeral joint space. Findings could be artifactually related to positioning, but do raise suspicion for potential chronic rotator cuff tear. Dictated by: Dictated on workstation # [id number]
== END ==
LOC: RAD 14:45
PROVIDERS: ATTEND Nurse Practitioner Family
DX: M25.511 Pain in right shoulder (principal)
CPT/HCPCS: 73030

== ENCOUNTER → 2019-01-21 | Outpatient (CLI) | payer MEDICARE ==
--- NOTE | 2019-01-21 16:18 | Diagnostic Imaging Report ---
EXAMINATION: Left ribs at 11:31 a.m. INDICATION: Injury, rib pain. FINDINGS: Three views were obtained. There is a slightly displaced fracture of the anterior aspect of the left 10th rib. This finding was not clearly evident on the prior chest exam of 11/02/2017 and I suspect this may be acute or subacute in nature. Clinical follow-up is recommended. There is no displaced rib fracture identified otherwise. There is no sign of an injury to the underlying left lung. IMPRESSION: 1. There is a slightly displaced acute/subacute fracture of the anterior aspect of the left 10th rib. There is no acute bony abnormality noted otherwise. 2. There is no sign of an injury to the underlying left lung. Dictated by: Dictated on workstation # [id number]
== END ==
LOC: RAD 11:14
PROVIDERS: ATTEND Nurse Practitioner Family
DX: S29.9XXA Unspecified injury of thorax, initial encounter (principal)
CPT/HCPCS: 71100

== ENCOUNTER → 2019-05-19 | Outpatient (CLI) | payer MEDICARE ==
[~2019-05-19] MED LIST changes: +GADOBUTROL 7.5 MMOL/7.5 ML (GADAVIST) VIAL IV ONE
--- NOTE | 2019-05-19 15:06 | Diagnostic Imaging Report ---
PROCEDURE: MR imaging of the brain with and without contrast. TECHNIQUE: Multiplanar, multisequence MR imaging of the brain was performed with and without contrast. INDICATION: Memory loss. COMPARISON: No prior studies are available for comparison. FINDINGS: Ventricles and sulci appear appropriate for the patient's age. Occasional periventricular and subcortical white matter signal foci are noted, likely on the basis of chronic microvascular ischemia. No diffusion restriction is identified to suggest acute ischemia. Normal expected flow-voids within the carotid siphons are noted. No acute intra-axial or extra-axial hemorrhage is detected. No abnormal enhancement following contrast administration is seen. The corpus callosum is unremarkable. The sella and parasellar structures are unremarkable. IMPRESSION: Changes of mild chronic microvascular ischemia. The study is otherwise unremarkable. No acute feature is detected. Dictated by: Dictated on workstation # [id number]
== END ==
LOC: RAD 13:09
PROVIDERS: ATTEND Family Medicine
DX: I67.82 Cerebral ischemia (principal); G31.84 Mild cognitive impairment of uncertain or unknown etiology
CPT/HCPCS: 70553

== ENCOUNTER → 2019-08-10 | Outpatient (CLI) | payer MEDICARE ==
[~2019-08-10] MED LIST changes: -GADOBUTROL 7.5 MMOL/7.5 ML (GADAVIST) VIAL IV ONE
--- NOTE | 2019-08-10 10:55 | Diagnostic Imaging Report ---
EXAMINATION: Left shoulder at 9:54 AM. INDICATION: Chronic shoulder pain. TECHNIQUE: Three views of the left shoulder were obtained. FINDINGS: There is no fracture, dislocation, or acute bony abnormality evident. There is moderate degenerative disease of the acromioclavicular joint and mild degenerative disease of the glenohumeral joint. These findings are similar to the left rib series of 01/21/2019. The soft tissues are unremarkable. IMPRESSION: 1. There is no evidence for an acute bony abnormality. 2. There is degenerative disease involving the shoulder joint. If there is clinical concern regarding an injury to the rotator cuff or labrum, then MRI would be recommended for further evaluation. Dictated by: Dictated on workstation # [id number]
== END ==
LOC: RAD 09:38
PROVIDERS: ATTEND Nurse Practitioner Family
DX: M19.012 Primary osteoarthritis, left shoulder (principal)
CPT/HCPCS: 73030

== ENCOUNTER → 2019-08-18 | Outpatient (CLI) | payer MEDICARE ==
--- NOTE | 2019-08-18 15:29 | Diagnostic Imaging Report ---
PROCEDURE: MRI left upper extremity without contrast. TECHNIQUE: Multiplanar, multisequence non contrast-enhanced MRI of the left upper extremity was accomplished. INDICATION: Left shoulder pain. FINDINGS: There are no prior MRI examinations available for comparison. The plain film examination of the left shoulder performed on 08/10/2019 failed to show any sign of an acute abnormality. The T2 fat-saturated coronal series reveals that there is a full-thickness tear of the anterior half of the insertion of the rotator cuff. The posterior half of the rotator cuff is still attached, and the supraspinatus muscle is not retracted. However, there is a 2.7 x 17.3 mm area of increased signal within the substance of the musculotendinous portion of the supraspinatus muscle. This may be a sequela of a prior partial tear of the muscle. There is also narrowing of the outlet for the supraspinatus muscle due to acromioclavicular hypertrophy. In addition, there is some fluid in both the subacromial and subdeltoid bursa, and this does suggest that there is an element of bursitis/tendinitis present as well. The biceps tendon and the subscapularis tendon are intact. The labrum is thinned posteriorly and most likely torn on a degenerative basis. There is no sign of a joint effusion. There is no abnormal signal arising from the osseous structures to indicate bone edema or a fracture. IMPRESSION: 1. There is a full-thickness tear of the anterior half of the insertion of the rotator cuff. There also appears to be a partial tear of the musculotendinous portion of the supraspinatus muscle. 2. There is narrowing of the outlet for the supraspinatus muscle due to acromioclavicular joint hypertrophy. 3. The fluid in the subacromial and subdeltoid bursa does indicate that there is an element of bursitis/tendinitis present as well. 4. The labrum is torn posteriorly on a degenerative basis. 5. There is no sign of an acute bony abnormality. Dictated by: Dictated on workstation # [id number]
== END ==
LOC: RAD 13:53
PROVIDERS: ATTEND Nurse Practitioner Family
DX: S43.492A Other sprain of left shoulder joint, initial encounter (principal); M89.312 Hypertrophy of bone, left shoulder; M75.112 Incomplete rotator cuff tear or rupture of left shoulder, not specified as traumatic
CPT/HCPCS: 73221

== ENCOUNTER → 2020-05-02 | Outpatient (CLI) | payer MEDICARE ==
[~2020-05-02] MED LIST changes: -MECL-106 PO; +MECL-149 PO
--- NOTE | 2020-05-02 16:30 | Diagnostic Imaging Report ---
EXAMINATION: Digital mammogram bilateral screening with CAD. INDICATION: Screening. COMPARISON: This study was compared to the prior exams of 09/30/2018, 06/30/2017, and 06/19/2016. PERSONAL HISTORY: At this time, there are no current complaints. FINDINGS: The fibroglandular tissue in both breasts is heterogeneously dense. This does limit the sensitivity of this exam. Overall, there does not appear to have been any significant change when compared to the prior study. No primary or secondary sign of malignancy is noted. IMPRESSION: There is no radiographic evidence for malignancy. ACR BI-RADS Category 1: Negative. Result letter will be mailed to the patient. Note: At least 10% of breast cancer is not imaged by mammography. Dictated by: Dictated on workstation # [id number]
== END ==
LOC: RAD 10:15
PROVIDERS: ATTEND Nurse Practitioner Family
DX: Z12.31 Encounter for screening mammogram for malignant neoplasm of breast (principal)
CPT/HCPCS: 77063; 77067

== ENCOUNTER 2020-05-15 13:07 | Outpatient (CLI) | payer MEDICARE ==
[~2020-05-15] VITALS: Ht 172 cm; Wt 81.8 kg
[2020-05-15] MEDS ORDERED: OMG1KC PO (13:43)
[2020-05-15] MEDS ORDERED: CETI10TA17 PO (13:43)
[2020-05-15] MEDS ORDERED: ASPI-999 PO (13:43)
[2020-05-15] MEDS ORDERED: VITA1CAP PO (13:43)
[2020-05-15] MEDS ORDERED: MULT-1136 PO (13:43)
[2020-05-15] MEDS ORDERED: GLUC1TAB29 PO (13:43)
[2020-05-15] MEDS ORDERED: ESCI20TA45 PO (13:43)
[2020-05-15] MEDS ORDERED: CALC-794 PO (13:43)
== END 2020-05-15 14:06 | disposition home or self-care (01) ==
LOC: PREOP 13:07
PROVIDERS: ATTEND Surgery
DX: Z01.818 Encounter for other preprocedural examination (principal)

== ENCOUNTER 2020-05-17 11:01 | Day surgery (SDC) | payer MEDICARE ==
[~2020-05-17] VITALS: Ht 172 cm; Wt 81.8 kg
[2020-05-17] VITALS (7 sets, daily range): BP systolic 106–146; BP diastolic 55–87
[~2020-05-17 11:01] MED LIST changes: +ASPI-999 PO; +CALC-794 PO; +CETI10TA17 PO; +ESCI20TA45 PO; +GLUC1TAB29 PO; +MULT-1136 PO; +OMG1KC PO; +VITA1CAP PO
[2020-05-17] MEDS ORDERED: LACTATED RINGERS 1,000 ML IV PRN (11:20)
[2020-05-17] MEDS ORDERED: ceFAZolin INJECTION 1,000 MG in WATER (STERILE) FOR INJECTION 10 ML IV ONE (11:30)
--- NOTE | 2020-05-17 12:56 | Progress Note-Pre Operative ---
Pre-Operative Progress Note H&P Reviewed The H&P was reviewed, patient examined and no changes noted. Date Seen by Provider: May 17, 2020 Time Seen by Provider: 12:56 Date H&P Reviewed: May 17, 2020 Time H&P Reviewed: 12:56 Pre-Operative Diagnosis: chest cyst VINNIE HILARIO DO May 17, 2020 12:56
--- NOTE | 2020-05-17 13:35 | NUR ---
The pt's nurse, Vidhya, contacted this senior sales director per pt's wishes. Visit took place over the phone. 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 Her is a Quaker well servicing rig operator, and she said he was present with her for support. The pt states she is still tired from her shoulder surgery earlier this year, but feels ready for today's procedure to have a cyst removed from her chest. She placed her on speaker phone so I could share a prayer for healing from the Quaker tradition.
[2020-05-17] MEDS ORDERED: BUP/EPI 0.5% 1:200,000 (MARCAINE) 10ML VIAL IJ ONE (15:46)
[2020-05-17] MEDS ORDERED: MIDAZOLAM 2 MG/2 ML (VERSED) VIAL ONE (15:48)
[2020-05-17] MEDS ORDERED: proPOfol 200 MG/20 ML (DIPRIVAN) VIAL IV ONE (15:48)
[2020-05-17] MEDS ORDERED: ONDANSETRON 4 MG/2 ML (SDV) Z0FRAN IVP PRN (16:15)
[2020-05-17] MEDS ORDERED: morphine INJ 10 MG/ML 1ML (SYR OR VIAL) IVP ONE (16:15)
--- NOTE | 2020-05-17 16:41 | Progress Note-Post Operative ---
Post-Operative Progess Note Surgeon (s)/Teletypewriter Operator (s) Surgeon VINNIE HILARIO DO Teletypewriter Operator: na Pre-Operative Diagnosis chest cyst Post-Operative Diagnosis same Procedure & Operative Findings Date of Procedure 05/17/20 Procedure Performed/Findings excision cyst of chest Anesthesia Type mac c local Estimated Blood Loss Estimated blood loss (mL): min Specimens/Packing Specimens Removed cyst of chest VINNIE HILARIO DO May 17, 2020 16:41
--- NOTE | 2020-05-17 16:44 | Discharge Inst-Simple/Standard ---
Discharge Inst-Standard Patient Instructions/Follow Up Plan of Care/Instructions/FU: 12 days for suture removal. For pain and discomfort use over the counter medication for headach such as tylenol or ibuprofren, Activity as Tolerated: No Discharge Diet: Regular Diet Other Inst to Patient Follow up Appt: Make appointment for 12 days for suture removal Instructions: No lifting greater than 10 pounds. No strenuous activity. May shower in 24 hours, no tub bath or soaking. Use incentive spirometer at home as directed. No Smoking Skin/Wound Care: Keep area clean and dry. May remove bandage after 24 hours. May replace or keep open to air, just make sure you keep it clean and dry. Symptoms to Report: Appetite Changes, Extremity Discoloration, Numbness/Tingling, Swelling Increased, Bleeding Excessive, Eyesight Changes, Pain Increased, Urine Color Change, Constipation(Persistent), Fever over 101 degree F, Pain/Pressure in chest, Urinating Difficulty, Cough Up/Vomit Blood, Heart Beat Irreg/Pounding, Pain/Pressure in jaw, Vaginal Bleeding Increase, Cramps in feet or legs, Lighthe adedness, Pain/Pressure in shoulder, Diarrhea(Persistent), Memory Changes Suddenly, Questions/Concerns, Weight gain consecutive days, Dizziness/Fainting, Nausea/Vomiting, Shortness of Breath, Weight gain over 2 pounds If questions or concerns contact your physician Or seek help at emergency department. VINNIE HILARIO DO May 17, 2020 16:44
--- NOTE | 2020-05-17 17:58 | Anesthesia-General Post-Op ---
MAC Patient Condition Mental Status/LOC: Same as Preop Cardiovascular: Satisfactory Nausea/Vomiting: Absent Respiratory: Satisfactory Pain: Controlled Complications: Absent Post Op Complications Complications None Follow Up Care/Instructions Patient Instructions None needed. Anesthesiology Discharge Order Discharge Order Patient was seen after the procedure and she was doing well, no complaints, stable vital signs, no apparent adverse anesthesia problems. PORTER MOHAN DO May 17, 2020 17:58
--- NOTE | 2020-05-18 06:52 | OPERATIVE REPORT ---
DATE OF SERVICE: 05/17/2020 PREOPERATIVE DIAGNOSIS: Chest cyst. POSTOPERATIVE DIAGNOSIS: Chest cyst. PROCEDURE: Excision of chest cyst 2.3 x 5.5 cm. SURGEON: Vinnie Vallejo D.O. ANESTHESIA: MAC with local. ESTIMATED BLOOD LOSS: Minimal. COMPLICATIONS: None. INDICATIONS: The patient is a 75-year-old female with an inflamed cyst on her chest. She was explained risks and benefits of procedure and wished to proceed with procedure. Consent was signed in the chart. DESCRIPTION OF PROCEDURE: The patient was taken to the operating suite. She was prepped and draped in sterile fashion. Surgical pause was performed. Local anesthetic was infiltrated around the cyst and an elliptical incision measuring 2.3 x 5.5 cm was then made around the cyst and inflamed tissue. Cautery was used to dissect down through the subcutaneous tissues and around the cyst until the entire area was removed. Hemostasis was achieved. The skin was then closed using 3-0 Prolene in simple interrupted fashion. The area was washed and dried and sterile bandages were applied. The patient tolerated procedure well without any complications. She was taken to recovery room in stable condition. Job ID: [id number] DocumentID: [id number] Dictated Date: 05/17/2020 20:46:55 Admissions Dean Date: 05/18/2020 06:51:58 Dictated By: VINNIE VALLEJO DO
== END 2020-05-17 17:40 | disposition home or self-care (01) ==
LOC: SDC 11:01
PROVIDERS: ATTEND Surgery
DX: L72.0 Epidermal cyst (principal); F41.9 Anxiety disorder, unspecified; F32.9 Major depressive disorder, single episode, unspecified; E03.9 Hypothyroidism, unspecified; I10 Essential (primary) hypertension; E78.5 Hyperlipidemia, unspecified; Z79.899 Other long term (current) drug therapy; Z88.1 Allergy status to other antibiotic agents; Z88.8 Allergy status to other drugs, medicaments and biological substances; Z83.3 Family history of diabetes mellitus
CPT/HCPCS: 87081; 88304

== ENCOUNTER 2020-11-21 05:46 | Outpatient (RCR) | payer MEDICARE ==
[~2020-11-21] VITALS: Ht 172.7 cm; Wt 73.6 kg
[~2020-11-21 05:46] MED LIST changes: +ESCI20TA39 PO; -ESCI20TA45 PO
== END 2020-11-21 09:36 | disposition home or self-care (01) ==
LOC: PREOP 05:46
PROVIDERS: ATTEND Specialist
DX: Z01.812 Encounter for preprocedural laboratory examination (principal); Z20.822 Contact with and (suspected) exposure to COVID-19
CPT/HCPCS: 87635

== ENCOUNTER 2020-11-23 06:54 | Day surgery (SDC) | payer MEDICARE ==
[~2020-11-23] VITALS: Ht 172 cm; Wt 73.6 kg
[2020-11-23] MEDS ORDERED: MIDAZOLAM 2 MG/2 ML (VERSED) VIAL ONE (07:02)
[2020-11-23] MEDS ORDERED: LIDOCAINE PF 1% 2 ML VIAL IR PRN (07:15)
[2020-11-23] MEDS ORDERED: MOXIFLOXACIN OPHTH SOLN 5 MG/ML 0.3 ML SYRINGE OP ONE (07:15)
[2020-11-23] MEDS ORDERED: TIMOLOL MALEATE 0.5% 5 ML (TIMOPTIC) BTL OU PRN (07:15)
[2020-11-23] MEDS ORDERED: POVIDONE (BETADINE) OPHTH SOLN 5% 30 ML OP ONE (07:15)
[2020-11-23] MEDS: TETRACAINE 0.5% OPHTH SOLN 4 ML BTL (SINGLE DOSE ONLY) OU PRN ×4 (07:18→07:33)
[2020-11-23] MEDS: PHENYLEPHRINE 10% OPHTH (NEO-SYN) 5 ML BTL OU SCH ×3 (07:24→07:33)
[2020-11-23] MEDS: TROPICAMIDE 1% OPH SOLN (MYDRIACYL) 15 ML BTL OP SCH ×3 (07:24→07:33)
[2020-11-23 07:36] VITALS: BP 120/76
--- NOTE | 2020-11-23 08:10 | Ophthalmologist Pre-Op Note ---
Pre-Operative Progress Note H&P Reviewed The H&P was reviewed, patient examined and no changes noted. Date H&P Reviewed: Nov 23, 2020 Time H&P Reviewed: 08:10 Pre-Op Dx Cataract, Right Eye TITA HEATH MD Nov 23, 2020 08:10
[2020-11-23] MEDS ORDERED: acetaZOLAMIDE ER 500 MG CAP (DIAMOX SEQUELS) PO ONE (08:30)
--- NOTE | 2020-11-23 08:32 | Ophthalmology Operative Report ---
Cataract removal/placement IOL PREOPERATIVE DIAGNOSIS: Cataract Right Eye POSTOPERATIVE DIAGNOSIS: Cataract Right Eye PROCEDURE: Cataract removal and placement of posterior chamber implant, right eye SURGEON: Harjinder Heath ANESTHESIA: Topical with sedation COMPLICATIONS: None ESTIMATED BLOOD LOSS: Minimal DESCRIPTION OF PROCEDURE: After proper informed consent was obtained, the patient, a 75 female, was taken to the Operating Room and the right eye was anesthetized with tetracaine. The right eye was then prepped and draped in the usual manner. A wire lid speculum was placed. A paracentesis was made at the left hand position. Preservative free lidocaine was injected into the anterior chamber followed by viscoelastic. A clear corneal incision was made in the temporal position. A capsulorrhexis was preformed and the central nuclear and cortical material were removed. The posterior capsule was polished and Kenroy 18.5 AU00T0 IOL was placed into the capsular bag. The residual viscoelastic was aspirated and balanced saline solution was injected into the anterior chamber. Moxifloxacin was injected into the anterior chamber. The wound was checked and found to be water tight. The patient tolerated the procedure well without complications. HARJINDER HEATH MD Nov 23, 2020 08:32
[2020-11-23 08:35] VITALS: BP 119/69
--- NOTE | 2020-11-23 15:16 | Anesthesia-General Post-Op ---
MAC Patient Condition Mental Status/LOC: Same as Preop Cardiovascular: Satisfactory Nausea/Vomiting: Absent Respiratory: Satisfactory Pain: Controlled Complications: Absent Post Op Complications Complications None Follow Up Care/Instructions Patient Instructions None needed. Anesthesiology Discharge Order Discharge Order Patient was seen this morning after the procedure and she was doing well, no complaints, stable vital signs, no apparent adverse anesthesia problems. PORTER MOHAN DO Nov 23, 2020 15:16
== END 2020-11-23 08:45 ==
LOC: SDC 06:54
PROVIDERS: ATTEND Specialist
DX: H25.11 Age-related nuclear cataract, right eye (principal); Z88.1 Allergy status to other antibiotic agents; Z88.8 Allergy status to other drugs, medicaments and biological substances
CPT/HCPCS: 66984; V2632

== ENCOUNTER 2020-11-28 05:39 | Outpatient (RCR) | payer MEDICARE | END 2020-11-28 11:23 | disposition home or self-care (01) | LOC: PREOP 05:39 | PROVIDERS: ATTEND Specialist | DX: Z01.818 Encounter for other preprocedural examination (principal); H25.9 Unspecified age-related cataract; Z20.822 Contact with and (suspected) exposure to COVID-19 | CPT/HCPCS: 87635 ==

== ENCOUNTER 2020-11-30 08:36 | Day surgery (SDC) | payer MEDICARE ==
[~2020-11-30] VITALS: Ht 72.7 cm; Wt 73.6 kg
[2020-11-30] MEDS ORDERED: MIDAZOLAM 2 MG/2 ML (VERSED) VIAL ONE (08:37)
[2020-11-30] MEDS ORDERED: LIDOCAINE PF 1% 2 ML VIAL IR PRN (08:45)
[2020-11-30] MEDS ORDERED: TIMOLOL MALEATE 0.5% 5 ML (TIMOPTIC) BTL OU PRN (08:45)
[2020-11-30] MEDS ORDERED: POVIDONE (BETADINE) OPHTH SOLN 5% 30 ML OP ONE (08:45)
[2020-11-30] MEDS ORDERED: MOXIFLOXACIN OPHTH SOLN 5 MG/ML 0.3 ML SYRINGE OP ONE (08:45)
[2020-11-30] MEDS: TETRACAINE 0.5% OPHTH SOLN 4 ML BTL (SINGLE DOSE ONLY) OU PRN ×4 (08:46→09:08)
[2020-11-30 08:52] VITALS: BP 136/77
[2020-11-30] MEDS: TROPICAMIDE 1% OPH SOLN (MYDRIACYL) 15 ML BTL OP SCH ×3 (08:58→09:08)
[2020-11-30] MEDS: PHENYLEPHRINE 10% OPHTH (NEO-SYN) 5 ML BTL OU SCH ×3 (08:58→09:08)
--- NOTE | 2020-11-30 09:24 | Ophthalmologist Pre-Op Note ---
Pre-Operative Progress Note H&P Reviewed The H&P was reviewed, patient examined and no changes noted. Date H&P Reviewed: Nov 30, 2020 Time H&P Reviewed: 09:24 Pre-Op Dx Cataract, Left Eye TITA HEATH MD Nov 30, 2020 09:24
[2020-11-30] MEDS ORDERED: acetaZOLAMIDE ER 500 MG CAP (DIAMOX SEQUELS) PO ONE (09:30)
--- NOTE | 2020-11-30 09:51 | Ophthalmology Operative Report ---
Cataract removal/placement IOL PREOPERATIVE DIAGNOSIS: Cataract Left Eye POSTOPERATIVE DIAGNOSIS: Cataract Left Eye PROCEDURE: Cataract removal and placement of posterior chamber implant, left eye SURGEON: Harjinder Heath ANESTHESIA: Topical with sedation COMPLICATIONS: None ESTIMATED BLOOD LOSS: Minimal DESCRIPTION OF PROCEDURE: After proper informed consent was obtained, the patient, a 75 female, was taken to the Operating Room and the left eye was anesthetized with tetracaine. The left eye was then prepped and draped in the usual manner. A wire lid speculum was placed. A paracentesis was made at the left hand position. Preservative free lidocaine was injected into the anterior chamber followed by viscoelastic. A clear corneal incision was made in the temporal position. A capsulorrhexis was preformed and the central nuclear and cortical material were removed. The posterior capsule was polished and an Kenroy 18.0 AU00T0 was placed into the capsular bag. The residual viscoelastic was aspirated and balanced saline solution was injected into the anterior chamber. Moxifloxacin was injected into the anterior chamber. The wound was checked and found to be water tight. The patient tolerated the procedure well without complications. HARJINDER HEATH MD Nov 30, 2020 09:51
[2020-11-30 10:00] VITALS: BP 120/70
--- NOTE | 2020-11-30 13:05 | Anesthesia-General Post-Op ---
MAC Patient Condition Mental Status/LOC: Same as Preop Cardiovascular: Satisfactory Nausea/Vomiting: Absent Respiratory: Satisfactory Pain: Controlled Complications: Absent Post Op Complications Complications None Follow Up Care/Instructions Patient Instructions None needed. Anesthesiology Discharge Order Discharge Order Patient was seen this morning after the procedure and she was doing well, no complaints, stable vital signs, no apparent adverse anesthesia problems. PORTER MOHAN DO Nov 30, 2020 13:05
== END 2020-11-30 10:00 ==
LOC: SDC 08:36
PROVIDERS: ATTEND Specialist
DX: H25.12 Age-related nuclear cataract, left eye (principal); E03.9 Hypothyroidism, unspecified; Z79.899 Other long term (current) drug therapy; Z88.1 Allergy status to other antibiotic agents; Z88.8 Allergy status to other drugs, medicaments and biological substances
CPT/HCPCS: 66984; V2632

== ENCOUNTER → 2021-05-03 | Outpatient (CLI) | payer MEDICARE ==
--- NOTE | 2021-05-03 12:21 | Diagnostic Imaging Report ---
INDICATION: Routine screening. COMPARISON is made with prior mammograms 05/02/2020 and 09/30/2018. 2-D and 3-D bilateral screening mammography was performed CAD. Both breasts are heterogeneously dense, limiting the sensitivity of mammography. Benign parenchymal and vascular calcifications are noted bilaterally. No mass or malignant-appearing microcalcifications are seen. Axillae are unremarkable. IMPRESSION: BI-RADS Category 2 No mammographic features suspicious for malignancy are identified. ACR BI-RADS Category 2: Benign findings. Result letter will be mailed to the patient. Note: At least 10% of breast cancer is not imaged by mammography. Dictated by: Dictated on workstation # [id number]
== END ==
LOC: RAD 09:39
PROVIDERS: ATTEND Nurse Practitioner Family
DX: Z12.31 Encounter for screening mammogram for malignant neoplasm of breast (principal)
CPT/HCPCS: 77063; 77067

== ENCOUNTER → 2021-12-06 | Outpatient (CLI) | payer MEDICARE ==
[~2021-12-06] MED LIST changes: +GADOTERATE 0.5 MMOL/ML (CLARISCAN) 20 ML VIAL IV ONE; +SCOP1PAT10 TD; -SCOP1PAT11 TD
--- NOTE | 2021-12-06 10:22 | Diagnostic Imaging Report ---
PROCEDURE: MR imaging of the brain with and without contrast. TECHNIQUE: Multiplanar, multisequence MR imaging of the brain was performed with and without contrast. INDICATION: Memory problems. COMPARISON: 05/19/2019. FINDINGS: No acute ischemia, mass, or hemorrhage. No abnormal enhancement. Scattered areas of T2 hyperintense signal are seen in the periventricular and subcortical white matter. The ventricles and cortical sulci are prominent. The basilar cisterns are symmetric and unremarkable. The sellar and suprasellar regions have a normal appearance. The brainstem and posterior fossa are unremarkable. The paranasal sinuses and mastoid air cells demonstrate normal signal characteristics. Bilateral lens implants are seen. The globes and orbits are symmetric and unremarkable. The scalp and calvarium have a normal appearance. IMPRESSION: 1. No acute ischemia, mass, or hemorrhage. No abnormal enhancement. 2. Scattered small amount of chronic microvascular disease in the periventricular and subcortical white matter. 3. Generalized parenchymal volume loss. Dictated by: Dictated on workstation # [id number]
== END ==
LOC: RAD 09:30
PROVIDERS: ATTEND Family Medicine
DX: I67.89 Other cerebrovascular disease (principal)
CPT/HCPCS: 70553

== ENCOUNTER 2022-01-05 11:17 | Emergency (ER) | payer MEDICARE ==
[~2022-01-05] VITALS: Ht 172.7 cm; Wt 77.1 kg
[~2022-01-05 11:17] MED LIST changes: -GADOTERATE 0.5 MMOL/ML (CLARISCAN) 20 ML VIAL IV ONE
[2022-01-05] MEDS ORDERED: ACETAMINOPHEN 325 MG TABLET PO STA (11:36)
--- NOTE | 2022-01-05 11:54 | ED Fall/Injury ---
General Chief Complaint: Trauma-Non Activation Stated Complaint: FALL/HIT HEAD Nursing Triage Note: PT AMB TO [facility] 5 WITH COMPLAINT OF FALL. PT WAS AT [facility] WHEN SHE SLIPPED AND HIT BACK OF HEAD. DENIES LOC. (DERRICK LOZOYA) History of Present Illness Date Seen by Provider: Jan 05, 2022 Time Seen by Provider: 11:21 Initial Comments 76 year old female was at [facility] for the Thursday service. 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 The area was carpeted. She had no LOC. A nurse at the facility witnessed the fall, then assessed her and obtained VS. Told patient to come to ED for CT scan. Upon presentation, patient has a steady gait, she denies vision changes, headache, seizure activity, or nausea. She reports mild discomfort where she had the impact but no other symptoms. She denies any other injuries related to the fall. She takes aspirin 81 mg, no anticoagulants. She denies any neck or back pain. She had an MRI on 12/06/2021 for memory changes. It showed no significant abnormalities. Occurred: just prior to arrival Injuries/Pain Location: head Context: tripped Loss of Consciousness: no loss of consciousness Associated Symptoms (Fall): Denies Symptoms; No Confusion, No Dizziness, No Headache, No Lightheadedness, No Muscle Spasms, No Neck Pain, No Ringing in Ears, No Seizures, No Slurred Speech, No Trouble Walking, No Vision Changes (DERRICK LOZOYA) Allergies and Home Medications Allergies Coded Allergies: simvastatin (Verified Allergy, Severe, WEAKNESS, 05/15/20) amoxicillin (Verified Allergy, Unknown, 05/15/20) clavulanic acid (Verified Allergy, Unknown, 05/15/20) estrogens, conjugated (Verified Allergy, Unknown, 01/29/17) medroxyprogesterone acetate (Verified Allergy, Unknown, 01/29/17) Patient Home Medication List Home Medication List Reviewed: Yes (DERRICK LOZOYA) Aspirin (Aspirin) 81 Mg Tab.chew, 81 MG PO DAILY, (Reported) Entered as Reported by: TONYA MERCEDES on 05/15/20 1343 Atorvastatin Calcium (Atorvastatin Calcium) 10 Mg Tablet, 10 MG PO HS, (Reported) Entered as Reported by: BRENDON GUTIERREZ on 07/20/18 1325 Calcium Carb & Citrate/Vit D3 (Calcium + D3 ER Tablet) 1 Each Tablet.er, 1 EACH PO DAILY, (Reported) Entered as Reported by: TONYA MERCEDES on 05/15/20 1343 Cetirizine HCl (Cetirizine HCl) 10 Mg Tablet, 10 MG PO DAILY, (Reported) Entered as Reported by: TONYA MERCEDES on 05/15/20 134 Escitalopram Oxalate (Escitalopram Oxalate) 20 Mg Tablet, 20 MG PO DAILY, (Reported) Entered as Reported by: TONYA MERCEDES on 05/15/20 134 Gluc/Juan-MSM#1/Vit C/Hari/Bor (Xrribtk-Zovjf-CXI Complex Cplt) 1 Each Tablet, 1 EACH PO DAILY, (Reported) Entered as Reported by: TONYA MERCEDES on 05/15/20 134 Levothyroxine Sodium (Levothyroxine Sodium) 88 Mcg Tablet, 88 MCG PO DAILY, (Reported) Entered as Reported by: STEPHANIE CARLOS on 06/06/172015 Multivitamin (Multivitamin) 1 Each Tablet, 1 EACH PO DAILY, (Reported) Entered as Reported by: TONYA MERCEDES on 05/15/20 134 Foster 3 Polyunsat Fatty Acids (Fish Oil 1,000 mg Capsule) 1,000 Mg Cap, 1,000 MG PO DAILY, (Reported) Entered as Reported by: TONYA MERCEDES on 05/15/20 134 Vitamin B Complex (Vitamin B Complex) 1 Each Capsule, 1 EACH PO DAILY, (Reported) Entered as Reported by: TONYA MERCEDES on 05/15/20 134 Review of Systems Review of Systems Constitutional: no symptoms reported, see HPI Musculoskeletal: see HPI; No back pain, No joint swelling, No muscle pain, No neck pain; other (Fall) (DERRICK LOZOYA) All Other Systems Reviewed Negative Unless Noted: Yes (DERRICK LOZOYA) Past Kgwqsgo-Cazxov-Lngmvy Hx Patient Social History Tobacco Use?: No Use of E-Cig and/or Vaping dev: No Substance use?: No Alcohol Use?: No Pt feels they are or have been: No (DERRICK LOZOYA) Seasonal Allergies Seasonal Allergies: Yes (DERRICK LOZOYA) Past Medical History Surgeries: Yes (RUPTURED ECTOPIC , CYST REMOVED IN BREAST, BILAT SHOULD) Breast Respiratory: No Cardiac: Yes High Cholesterol Neurological: Yes (hx of vertigo) Vertigo 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 Sexually Transmitted Disease: No HIV/AIDS: No Genitourinary: No Gastrointestinal: Yes Chronic Constipation Musculoskeletal: No Endocrine: Yes Hypothyroidsim HEENT: No (GLASSES) Loss of Vision: Denies Hearing Impairment: Denies Cancer: No Psychosocial: Yes Anxiety, Depression Integumentary: Yes Psoriasis Blood Disorders: No Adverse Reaction/Blood Tranf: No (N/A) (DERRICK LOZOYA) Family Medical History Reviewed Nursing Family Hx (DERRICK LOZOYA) Physical Exam Vital Signs Vital Signs - First Documented 01/05/22 11:21 Temp 36.1 Pulse 75 Resp 16 B/P (MAP) 174/83 (113) Pulse Ox 95 O2 Delivery Room Air (TALON SHEEHAN MD) Vital Signs Capillary Refill : Less Than 3 Seconds (DERRICK LOZOYA) Height, Weight, BMI Height: 5'8.00" Weight: 169lbs. 0.0oz. 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 Trace tenderness to palpation. ) (DERRICK LOZOYA) Emmanuel Coma Score Best Eye Response: (4) Open Spontaneously Best Verbal Response: (5) Oriented Best Motor Response: (6) Obeys Commands [place] Total: 15 (DERRICK LOZOYA) Progress/Results/Core Measures Results/Orders Vital Signs/I&O 01/05/22 01/05/22 11:21 13:27 Temp 36.1 Pulse 75 Resp 16 B/P (MAP) 174/83 (113) 156/99 Pulse Ox 95 O2 Delivery Room Air (TALON SHEEHAN MD) Blood Pressure Mean: 113 Progress Progress Note : Time: 11:21 Progress Note Patient seen and evaluated, no acute findings at this time. Spoke to the patient and her , will give Tylenol, ice pack to head and monitor for reevaluation to consider CT or not. 1155 patient reports no headache, visual changes, nausea, or other new findings. Her daughters present in the room and is concerned with her going home if she does not have a CT study. Patient continues to have full range of motion of her neck with no discomfort. Discussed risk versus benefits and will proceed with the CT, per family request. 1310 CT shows no acute finding. Patient continues to be asymptomatic. Discharge instructions and return precautions reviewed. (DERRICK LOZOYA) Diagnostic Imaging Diagonstic Imaging: CT Plain Films/CT/US/NM/MRI: c-spine, head Comments NAME: [facility] REC#: [id number] PT STATUS: REG ER : 1945 PHYSICIAN: DERRICK LOZOYA ADMIT DATE: 01/05/22/ER Draft Date of Exam:01/05/22 CT HEAD/CERVICAL SPINE WO PROCEDURE: CT head and CT cervical spine without contrast. TECHNIQUE: Multiple contiguous axial images were obtained through the brain and cervical spine without the use of intravenous contrast. Sagittal and coronal reformations through the cervical spine were then performed. Auto Exposure Controls were utilized during the CT exam to meet ALARA standards for radiation dose reduction. INDICATION: Fall, hit back of head. Pain. EXAMINATION: CT brain and CT cervical spine from 01/05/2022. FINDINGS: BRAIN: There is chronic ischemic disease in a periventricular and deep white matter distribution with atrophy, age appropriate. There is no acute hemorrhage or infarct. There is no mass, mass effect, or midline shift. There is no hydrocephalus. The calvarium appears intact. Paranasal sinuses and mastoid air cells are clear. IMPRESSION: 1. No acute intracranial process. CT CERVICAL SPINE: There is normal height and alignment of the vertebral bodies with no acute fractures appreciated. The lung apices appear clear. Prevertebral soft tissues appear unremarkable. IMPRESSION: 1. No acute process in the cervical spine. Dictated on workstation # [id number] Dict: 01/05/22 1259 Trans: 01/05/22 1312 [id number] Interpreted by: DARIEL MCKEON MD Electronically signed by: Reviewed: Reviewed by Me (DERRICK LOZOYA) Departure Impression Primary Impression: Fall Qualified Codes: W19.XXXA - Unspecified fall, initial encounter Additional Impression: Minor head injury without loss of consciousness Qualified Codes: S09.90XA - Unspecified injury of head, initial encounter Disposition: 01 HOME, SELF-CARE Condition: Improved Departure-Patient Inst. Decision time for Depature: 11:50 (DERRICK LOZOYA) Referrals: SHARON BOLTON MD (PCP/Family) Primary Care Physician Patient Instructions: Minor Head Injury (DC) Add. Discharge Instructions: Activity as tolerated. Avoid any activities on elevated surfaces or strenuous activity. increase water intake. Apply ice pack to the back of your head for 20 minutes every 2 hours as needed for swelling or tenderness. You may take Tylenol 650 mg every 6-8 hours as needed for headache or pain. You may have more areas of tenderness or discomfort tomorrow or the next day. Apply ice packs and follow-up with primary care provider if the symptoms are not improving. Return to the emergency department for any vision changes, altered mental status, nausea, seizure activity or other acute health issues. All discharge instructions reviewed with patient and/or family. Voiced understanding. ATTENDING PHYSICIAN NOTE: I was physically present as attending physician in the emergency department during the care of this patient, but I was not directly involved in the decision making or delivery of care for this patient. tLv (TALON SHEEHAN MD) Copy Copies To 1: SHARON BOLTON MD, AMY ARNP Jan 05, 2022 11:54 TALON SHEEHAN MD Jan 05, 2022 16:42
--- NOTE | 2022-01-05 13:13 | Diagnostic Imaging Report ---
PROCEDURE: CT head and CT cervical spine without contrast. TECHNIQUE: Multiple contiguous axial images were obtained through the brain and cervical spine without the use of intravenous contrast. Sagittal and coronal reformations through the cervical spine were then performed. Auto Exposure Controls were utilized during the CT exam to meet ALARA standards for radiation dose reduction. INDICATION: Fall, hit back of head. Pain. EXAMINATION: CT brain and CT cervical spine from 01/05/2022. FINDINGS: BRAIN: There is chronic ischemic disease in a periventricular and deep white matter distribution with atrophy, age appropriate. There is no acute hemorrhage or infarct. There is no mass, mass effect, or midline shift. There is no hydrocephalus. The calvarium appears intact. Paranasal sinuses and mastoid air cells are clear. IMPRESSION: 1. No acute intracranial process. CT CERVICAL SPINE: There is normal height and alignment of the vertebral bodies with no acute fractures appreciated. The lung apices appear clear. Prevertebral soft tissues appear unremarkable. IMPRESSION: 1. No acute process in the cervical spine. Dictated by: Dictated on workstation # [id number]
[2022-01-05 13:27] VITALS: BP 156/99
== END 2022-01-05 13:27 | disposition home or self-care (01) ==
LOC: EDUNIT# 11:17 → ER 11:18
DX: S09.90XA Unspecified injury of head, initial encounter (principal); R40.2410 Glasgow coma scale score 13-15, unspecified time; Z79.82 Long term (current) use of aspirin; W22.8XXA Striking against or struck by other objects, initial encounter
CPT/HCPCS: 70450; 72125

== ENCOUNTER → 2022-05-06 | Outpatient (CLI) | payer MEDICARE ==
--- NOTE | 2022-05-06 15:03 | Diagnostic Imaging Report ---
INDICATION: Postmenopausal screening COMPARISON: Baseline FINDINGS: AP Spine L1-L4: [BMD (g/cm2): 1.107] [T-Score: -0.8] [Z-Score: 0.5] [BMD Previous: na] [BMD % Change: na] LT Hip Neck: [BMD (g/cm2): 0.772] [T-Score: *1.9] [Z-Score: -0.3] LT Hip Total: [BMD (g/cm2):0.874] [T-Score:-1.1] [Z-Score: 0.4] [BMD Previous: na] [BMD % Change: na] RT Hip Neck: [BMD (g/cm2):0.767] [T-Score:-1.9] [Z-Score:-0.3] RT Hip Total: [BMD (g/cm2):0.866] [T-score:-1.1] [Z-Score:0.3] [BMD Previous:na] [BMD % Change:na] *Indicates significant change from prior examination based on 95% confidence level. World Health Organization criteria for BMD interpretation classify patients as Normal (T-score at or above -1.0), Osteopenic (T-score between -1.0 and -2.5) or Osteoporotic (T-score at or below -2.5). LIMITATIONS AND MODIFICATION: None. FRACTURE RISK (FRAX SCORE): The ten year probability of (%): Major Osteoporotic Fracture: [20.1] Hip Fracture: [4.9] IMPRESSION: 1. Osteopenia (Low bone mass). 2. Baseline examination. 3. See below National Osteoporosis Foundation guidelines on when to potentially initiate pharmacologic therapy. Based on the National Osteoporosis Foundation Guidelines, pharmacologic treatment should be initiated in any of the following, unless clinical conditions suggest otherwise: * Any patient with prior fragility fracture of the hip or vertebrae. A spine fracture indicates 5X risk for subsequent spine fracture and 2X risk for subsequent hip fracture. * Osteoporosis (T-score <-2.5). * Postmenopausal women and men age 50 and older with low bone mass/osteopenia (T-score between -1.0 and -2.5) by DXA and 10-year major osteoporotic fracture greater than 20% or a 10-year probability of hip fracture greater than 3%. These fracture risks are supplied above in the FRAX score, if applicable. * Clinician judgement and/or patient preferences may indicate treatment for people with 10-year fracture probabilities above or below these levels. Dictated by: Dictated on workstation # [id number]
--- NOTE | 2022-05-06 18:02 | Diagnostic Imaging Report ---
Indication: Routine screening. Comparison is made with prior mammograms from 05/03/2021 and 05/02/2020. 2-D and 3-D bilateral screening mammography was performed with CAD. Both breasts are heterogeneously dense, limiting the sensitivity of mammography. The parenchymal pattern is stable. There are scattered benign calcifications in both breasts. No dominant mass or malignant-appearing microcalcifications are seen. Axillae are unremarkable. IMPRESSION: BI-RADS Category 2 No mammographic features suspicious for malignancy are identified. ACR BI-RADS Category 2: Benign findings. Result letter will be mailed to the patient. Note: At least 10% of breast cancer is not imaged by mammography. Dictated by: Dictated on workstation # [id number]
== END ==
LOC: RAD 13:25
PROVIDERS: ATTEND Family Medicine
DX: Z12.31 Encounter for screening mammogram for malignant neoplasm of breast (principal); M85.80 Other specified disorders of bone density and structure, unspecified site; Z78.0 Asymptomatic menopausal state
CPT/HCPCS: 77063; 77067; 77080

== ENCOUNTER 2022-05-23 23:21 | Observation (INO) | payer MEDICARE ==
[~2022-05-23] VITALS: Ht 172.7 cm; Wt 81.3 kg
--- NOTE | 2022-05-23 23:30 | ED Fall/Injury ---
General Chief Complaint: Trauma-Non Activation Stated Complaint: FALL,RT HIP PAIN Source: patient, EMS Exam Limitations: no limitations History of Present Illness Date Seen by Provider: May 23, 2022 Time Seen by Provider: 23:19 Initial Comments Patient to the ER by EMS from home with chief complaint that she was in her bathroom trying to apply a patch to a mole on the back of her leg to get it to go away and lost her balance and fell backwards onto her right posterior hip/back. She was having tremendous 10 out of 10 pain. She was given 50 mcg of fentanyl per EMS. She says now her pain is nearly gone. She has no previous history of surgeries or trauma to her back or hip. She does have a history of a fracture in her left ankle many years ago. She is not having any numbness tingling, external rotation or shortening of her right hip. She denies striking her head nor loss of conscious. No blood thinners Allergies and Home Medications Allergies Coded Allergies: simvastatin (Verified Allergy, Severe, WEAKNESS, 05/15/20) amoxicillin (Verified Allergy, Unknown, 05/15/20) clavulanic acid (Verified Allergy, Unknown, 05/15/20) estrogens, conjugated (Verified Allergy, Unknown, 01/29/17) medroxyprogesterone acetate (Verified Allergy, Unknown, 01/29/17) Patient Home Medication List Home Medication List Reviewed: Yes Aspirin (Aspirin) 81 Mg Tab.chew, 81 MG PO DAILY, (Reported) Entered as Reported by: TONYA MERCEDES on 05/15/20 1343 Last Action: Reviewed Atorvastatin Calcium (Atorvastatin Calcium) 10 Mg Tablet, 10 MG PO HS, (Reported) Entered as Reported by: BRENDON GUTIERREZ on 07/20/18 1325 Last Action: Reviewed Calcium Carb & Citrate/Vit D3 (Calcium + D3 ER Tablet) 1 Each Tablet.er, 1 EACH PO DAILY, (Reported) Entered as Reported by: TONYA MERCEDES on 05/15/20 1343 Last Action: Reviewed Cetirizine HCl (Cetirizine HCl) 10 Mg Tablet, 10 MG PO DAILY, (Reported) Entered as Reported by: TONYA MERCEDES on 05/15/20 1343 Last Action: Reviewed Duloxetine HCl (Duloxetine HCl) 20 Mg Capsule.dr, 20 MG PO BID, (Reported) Entered as Reported by: Pauly Cannon on 05/24/22 0436 Last Action: Reviewed Gluc/Juan-MSM#1/Vit C/Hari/Bor (Fufqhje-Jyioc-PWN Complex Cplt) 1 Each Tablet, 1 EACH PO DAILY, (Reported) Entered as Reported by: TONYA MERCEDES on 05/15/201342 Last Action: Reviewed Levothyroxine Sodium (Levothyroxine Sodium) 88 Mcg Tablet, 88 MCG PO DAILY, (Rep orted) Entered as Reported by: STEPHANIE CARLOS on 06/06/172015 Last Action: Reviewed Multivitamin (Multivitamin) 1 Each Tablet, 1 EACH PO DAILY, (Reported) Entered as Reported by: TONYA MERCEDES on 05/15/201342 Last Action: Reviewed Oscar 3 Polyunsat Fatty Acids (Fish Oil 1,000 mg Capsule) 1,000 Mg Cap, 1,000 MG PO DAILY, (Reported) Entered as Reported by: TONYA MERCEDES on 05/15/201342 Last Action: Reviewed Oxycodone HCl (Oxycodone HCl) 5 Mg Tablet, 2.5-5 MG PO Q4H PRN for PAIN MODERATE TO SEVERE Prescribed by: FINN REED on 05/24/22 1050 Vitamin B Complex (Vitamin B Complex) 1 Each Capsule, 1 EACH PO DAILY, (Reported) Entered as Reported by: TONYA MERCEDES on 05/15/201342 Last Action: Reviewed Discontinued Medications Escitalopram Oxalate (Escitalopram Oxalate) 20 Mg Tablet, 20 MG PO DAILY, (Reported) Discontinued Reason: No Longer Taking Entered as Reported by: TONYA MERCEDES on 05/15/201342 Last Action: Discontinued Review of Systems Review of Systems Constitutional: No chills, No diaphoresis Eyes: Denies Blindness, Denies Blurred Vision Ears, Nose, Mouth, Throat: denies ear pain, denies ear discharge Respiratory: No cough, No phlegm Cardiovascular: No chest pain, No edema, No palpitations Gastrointestinal: No abdominal pain, No nausea, No vomiting Genitourinary: No discharge, No dysuria Musculoskeletal: back pain; No joint pain All Other Systems Reviewed Negative Unless Noted: Yes Past Klfmkjg-Ktrjec-Ugooix Hx Patient Social History Tobacco Use?: No Substance use?: No Alcohol Use?: No Pt feels they are or have been: No Seasonal Allergies Seasonal Allergies: Yes Past Medical History Surgery/Hospitalization HX: RUPTRUED ECTOPIC , BREAST CYST, BILATERAL SHOULDER, HIGH CHOLESTEROL, HYPOTHRYOIDISM, VERTIGO, ANXIETY, DEPRESSION. Surgeries: Yes (RUPTURED ECTOPIC , CYST REMOVED IN BREAST, BILAT SHOULD) Breast Respiratory: No Cardiac: Yes High Cholesterol Neurological: Yes (hx of vertigo) Vertigo Reproductive Disorders: No [employer]ACH [employer] History: Menopausal Sexually Transmitted Disease: No HIV/AIDS: No Genitourinary: No Gastrointestinal: Yes Chronic Constipation Musculoskeletal: No Endocrine: Yes Hypothyroidsim HEENT: No (GLASSES) Loss of Vision: Denies Hearing Impairment: Denies Cancer: No Psychosocial: Yes Anxiety, Depression Integumentary: Yes Psoriasis Blood Disorders: No Adverse Reaction/Blood Tranf: No (N/A) Physical Exam Vital Signs Vital Signs - First Documented 05/23/22 23:21 Temp 36.6 Pulse 66 Resp 16 B/P (MAP) 129/96 (107) Pulse Ox 95 O2 Delivery Room Air Capillary Refill : Height, Weight, BMI Height: 5'8.00" Weight: 169lbs. 0.0oz. 76.924396js; 25.00 BMI Method:Stated General Appearance: WD/WN, mild distress HEENT: PERRL/EOMI (Negative for raccoon eyes), normal ENT inspection, TMs normal (Negative for calderon sign or hemotympanums), pharynx normal Neck: non-tender, full range of motion, supple, normal inspection Cardiovascular: normal peripheral pulses, regular rate, rhythm Respiratory: chest non-tender, lungs clear, normal breath sounds, no respiratory distress, no accessory muscle use Peripheral Pulses: 2+ Radial Pulses (R), 2+ Radial Pulses (L) Gastrointestinal: non tender, soft Back: normal inspection, no vertebral tenderness, vertebral tenderness (Medial right paravertebral tenderness over the upper lumbar spine) Extremities: normal range of motion, normal inspection, normal capillary refill, other (Normal range of motion of the right hip knee and ankle. No tenderness over greater trochanter of the right femur) Neurologic/Psychiatric: no motor/sensory deficits, alert, normal mood/affect, oriented x 3 Skin: normal color, warm/dry Emmanuel Coma Score Best Eye Response: (4) Open Spontaneously Best Verbal Response: (5) Oriented Best Motor Response: (6) Obeys Commands Emmanuel Total: 15 Progress/Results/Core Measures Results/Orders My Orders Orders - BRUNO SHARMA Ct Head/Cervical Spine Wo (05/23/22 23:27) Ct Lumbar Spine Wo (05/23/22 23:27) Pelvis With Right Hip 2-3views (05/24/22 00:01) Ondansetron Injection (Zofran Injectio (05/24/22 00:30) Fentanyl Inj (Sublimaze Injection) (05/24/22 02:45) Medications Given in ED Vital Signs/I&O 05/23/22 23:21 Temp 36.6 Pulse 66 Resp 16 B/P (MAP) 129/96 (107) Pulse Ox 95 O2 Delivery Room Air Progress Progress Note : Time: 02:27 Progress Note C-collar cleared 0208 radiographically and clinically. Diagnostic Imaging Diagonstic Imaging: Xray Plain Films/CT/US/NM/MRI: pelvis [facility] [place] [place] NAME: SHEILA W[facility] REC#: [id number] PT STATUS: ADM Xiomy : 1945 PHYSICIAN: BRUNO SHARMA MD ADMIT DATE: 05/24/22 Signed Date of Exam:05/24/22 PELVIS WITH RIGHT HIP 2-3VIEWS Indication: Right hip injury from a fall AP view pelvis and 2 views right hip are obtained There is no fracture or dislocation. Pelvic ring is intact. Obturator foramen appears normal. IMPRESSION: Unremarkable pelvis and right hip Dictated by: Dictated on workstation # [id number] Dict: 05/24/22607 Trans: 05/24/22 0609 TC [id number] Interpreted by: POORNIMA BUCKLEY MD Electronically signed by: POORNIMA BUCKLEY MD 05/24/22608 Reviewed: Reviewed by Me Diagonstic Imaging: CT Plain Films/CT/US/NM/MRI: c-spine, head Comments No acute hemorrhage, hydrocephalus or mass-effect. No acute fracture or subluxation of the cervical spine. [facility] [place] [place] NAME: SHEILA [facility] REC#: [id number] PT STATUS: DIS Xiomy : 1945 PHYSICIAN: BRUNO SHARMA MD ADMIT DATE: 05/24/22 Signed Date of Exam:05/23/22 CT HEAD/CERVICAL SPINE WO PROCEDURE: CT head and CT cervical spine without contrast. TECHNIQUE: Multiple contiguous axial images were obtained through the brain and cervical spine without the use of intravenous contrast. Sagittal and coronal reformations through the cervical spine were then performed. Auto Exposure Controls were utilized during the CT exam to meet ALARA standards for radiation dose reduction. INDICATION: Fall. Correlation is made with prior CT from 01/05/2022. CT HEAD: The ventricles and sulci are within normal limits. No sulcal effacement or midline shift is identified. No acute intra-axial or extra-axial hemorrhage is detected. Cisterns are patent. Visualized paranasal sinuses are clear. IMPRESSION: No acute intracranial process is detected. CT cervical spine: There is some straightening of the normal cervical lordotic curvature. Degenerative disc disease at C5-C6 and C6-C7 levels are noted, with disc space narrowing and marginal spurring. No fractures are identified. Prevertebral tissues are within normal limits. Odontoid is intact. Multilevel facet arthropathy is noted. IMPRESSION: Cervical spondylosis. No acute bony abnormality is detected. Dictated by: Dictated on workstation # [id number] Dict: 05/24/22 0600 Trans: 05/24/22 1610 [facility] [id number] Interpreted by: JOAN WADE MD Electronically signed by: JOAN WADE MD 05/24/22 1610 Reviewed: Reviewed by Va Diagonstic Imaging: CT Plain Films/CT/US/NM/MRI: other (Lumbar spine) Comments Right L1-L3 transverse process fracture. No vertebral body height loss. [facility] [place] [place] NAME: SHEILA [facility] REC#: [id number] PT STATUS: ADM Xiomy : 1945 PHYSICIAN: BRUNO SHARMA MD ADMIT DATE: 05/24/22 Signed Date of Exam:05/23/22 CT LUMBAR SPINE WO PROCEDURE: CT lumbar spine without contrast. TECHNIQUE: Multiple contiguous axial images were obtained through the lumbar spine without the use of intravenous contrast. Sagittal and coronal reformations were then performed. Auto Exposure Controls were utilized during the CT exam to meet ALARA standards for radiation dose reduction. INDICATION: Fall. Back pain. Trauma. FINDINGS: Alignment of the lumbar spine is normal. The vertebral body heights are maintained. There are no findings of a vertebral body fracture. There are mildly displaced fractures of the right L1, L2, and L3 transverse processes. There are no findings of facet joint or disc space widening. There is severe degenerative disc space height loss at the L3-L4, L4-L5 and L5-S1 levels. The visualized bones of the pelvis are unremarkable without SI joint diastases. There is no hyperdense epidural collection evident. Most advanced canal stenosis appears to be moderate at L3-L4. IMPRESSION: 1. Acute mildly displaced fracture of the right L1, L2, and L3 transverse processes. There is no involvement of the vertebral bodies. 2. Lumbar spine alignment is normal. There is no facet joint or disc space widening 3. Severe disc space height loss at the L3-L4, L4-L5 and L5-S1 levels. Most significant canal stenosis appears at L3-L4. 4. I agree with the preliminary [facility] report. Dictated by: Dictated on workstation # [id number] Dict: 05/24/22 0616 Trans: 05/24/22 0732 [facility] [id number] Interpreted by: MAHESH MEANS MD Electronically signed by: MAHESH MEANS MD 05/24/22 0732 Reviewed: Reviewed by Me Departure Communication (Admissions) Time/Spoke to Admitting Phy: 02:[address] Reed. 0300 : Discussed case with Dr. Reed who agrees to observe the patient with pain management. Impression Primary Impression: Fall Qualified Codes: W19.XXXA - Unspecified fall, initial encounter Additional Impression: Closed fracture of transverse process of lumbar vertebra Qualified Codes: S32.009A - Unspecified fracture of unspecified lumbar vertebra, initial encounter for closed fracture Disposition: ADMITTED INPATIENT Condition: Stable Admissions Decision to Admit Reason: Admit from ER (General) Decision to Admit/Date: May 24, 2022 Time/Decision to Admit Time: 02:34 Departure-Patient Inst. Referrals: SHARON BOLTON MD (PCP/Family) Primary Care Physician Scripts Oxycodone HCl (Oxycodone HCl) 5 Mg Tablet 2.5-5 MG PO Q4H PRN for PAIN MODERATE TO SEVERE for 5 Days, #10 TAB TAKE 2.5 MG FOR MODERATE PAIN, 5 MG FOR SEVERE PAIN Prov: FINN REED MD 05/24/22 BRUNO SHARMA May 23, 2022 23:30
[2022-05-24] MEDS ORDERED: ONDANSETRON 4 MG/2 ML (SDV) Z0FRAN IVP ONE (00:30)
[2022-05-24] MEDS ORDERED: fentaNYL INJ 100 MCG/2 ML AMP IVP ONE (02:45)
[2022-05-24] MEDS ORDERED: HYDROcodone/APAP 5 MG/325 MG (LORTAB) TAB PO PRN (04:00)
[2022-05-24] MEDS ORDERED: fentaNYL INJ 100 MCG/2 ML AMP IV PRN (04:00)
[2022-05-24] MEDS ORDERED: ONDANSETRON 4 MG/2 ML (SDV) Z0FRAN IV PRN (04:00)
[2022-05-24 04:09] VITALS: BP 142/63
[2022-05-24] MEDS ORDERED: DULO20CA19 PO (04:36)
--- NOTE | 2022-05-24 06:10 | Diagnostic Imaging Report ---
Indication: Right hip injury from a fall AP view pelvis and 2 views right hip are obtained There is no fracture or dislocation. Pelvic ring is intact. Obturator foramen appears normal. IMPRESSION: Unremarkable pelvis and right hip Dictated by: Dictated on workstation # [id number]
--- NOTE | 2022-05-24 06:14 | Diagnostic Imaging Report ---
PROCEDURE: CT head and CT cervical spine without contrast. TECHNIQUE: Multiple contiguous axial images were obtained through the brain and cervical spine without the use of intravenous contrast. Sagittal and coronal reformations through the cervical spine were then performed. Auto Exposure Controls were utilized during the CT exam to meet ALARA standards for radiation dose reduction. INDICATION: Fall. Correlation is made with prior CT from 01/05/2022. CT HEAD: The ventricles and sulci are within normal limits. No sulcal effacement or midline shift is identified. No acute intra-axial or extra-axial hemorrhage is detected. Cisterns are patent. Visualized paranasal sinuses are clear. IMPRESSION: No acute intracranial process is detected. CT cervical spine: There is some straightening of the normal cervical lordotic curvature. Degenerative disc disease at C5-C6 and C6-C7 levels are noted, with disc space narrowing and marginal spurring. No fractures are identified. Prevertebral tissues are within normal limits. Odontoid is intact. Multilevel facet arthropathy is noted. IMPRESSION: Cervical spondylosis. No acute bony abnormality is detected. Dictated by: Dictated on workstation # [id number]
[2022-05-24] MEDS ORDERED: LEVOTHYROXINE 88 MCG (LEVOTHORID) TAB PO SCH (06:30)
--- NOTE | 2022-05-24 06:50 | Diagnostic Imaging Report ---
PROCEDURE: CT lumbar spine without contrast. TECHNIQUE: Multiple contiguous axial images were obtained through the lumbar spine without the use of intravenous contrast. Sagittal and coronal reformations were then performed. Auto Exposure Controls were utilized during the CT exam to meet ALARA standards for radiation dose reduction. INDICATION: Fall. Back pain. Trauma. FINDINGS: Alignment of the lumbar spine is normal. The vertebral body heights are maintained. There are no findings of a vertebral body fracture. There are mildly displaced fractures of the right L1, L2, and L3 transverse processes. There are no findings of facet joint or disc space widening. There is severe degenerative disc space height loss at the L3-L4, L4-L5 and L5-S1 levels. The visualized bones of the pelvis are unremarkable without SI joint diastases. There is no hyperdense epidural collection evident. Most advanced canal stenosis appears to be moderate at L3-L4. IMPRESSION: 1. Acute mildly displaced fracture of the right L1, L2, and L3 transverse processes. There is no involvement of the vertebral bodies. 2. Lumbar spine alignment is normal. There is no facet joint or disc space widening 3. Severe disc space height loss at the L3-L4, L4-L5 and L5-S1 levels. Most significant canal stenosis appears at L3-L4. 4. I agree with the preliminary [facility] report. Dictated by: Dictated on workstation # [id number]
[2022-05-24 07:29] VITALS: BP 123/71
[2022-05-24] MEDS ORDERED: ASPIRIN E.C. 81 MG (ECOTRIN) TAB PO SCH (09:00)
[2022-05-24] MEDS ORDERED: DULoxetine 20 MG (CYMBALTA) CAP PO SCH (09:00)
[2022-05-24] MEDS ORDERED: LEVOTHYROXINE 88 MCG (LEVOTHORID) TAB PO ONE (09:00)
--- NOTE | 2022-05-24 09:40 | Physical Therapy Evaluation ---
PT Evaluation-General Medical Diagnosis Admission Date May 24, 2022 at 02:45 Medical Diagnosis: pain management/lumbar transfers fracture Onset Date: May 23, 2022 Therapy Diagnosis Therapy Diagnosis: debility Height/Weight Height (Feet): 5 Height (Inches): 8.00 Weight (Pounds): 169 Weight (Ounces): 0.0 Precautions Precautions/Isolations: Fall Prevention, Standard Precautions Referral Physician: Marylou Reason for Referral: Evaluation/Treatment Medical History Pertinent Medical History: Hypothroidism Current History EMS secondary to patient fell backward placing a dressing on her leg. Reviewed History: Yes Social History Home: Single Level Current Living Status: Spouse Entry Into Home: Stairs With Railing PT Steps Into Home: 2 Prior Prior Level of Function SCALE: Activities may be completed with or without assistive devices. 7-Jrnnyxkiqy-ruozgin completes the activity by him/herself with no assistance from a helper. 5-Set-up or Clean-up Assistance-helper sets up or cleans up; patient completes activity. [place] assists only prior to or following the activity. 4-Supervision or Touching Assistance-helper provides verbal cues and/or touching/steadying and/or contact guard assistance as patient completes activity. Assistance may be provided throughout the activity or intermittently. 3-Partial/Moderate Assistance-helper does LESS THAN HALF the effort. [place] lifts, holds or supports trunk or limbs, but provides less than half the effort. 2-Substantial/Maximal Assistance-helper does MORE THAN HALF the effort. [place] lifts or holds trunk or limbs and provides more than half the effort. 8-Fykketous-qlapwh does ALL the effort. Patient does none of the effort to complete the activity. Or, the assistance of 2 or more helpers is required for the patient to complete the activity. If activity was not attempted, code reason: 7-Patient Refused. 9-Not Applicable-not attempted and the patient did not perform the activity before the current illness, exacerbation or injury. 10-Not Attempted due to Environmental Limitations-(lack of equipment, weather restraints, etc.). 88-Not Attempted due to Medical Conditions or Safety Concerns. Bed Mobility: 6 Transfers (B,C,W/C): 6 Gait: 6 Stairs: 6 Indoor Mobility (Ambulation): Independent Stairs: Independent Prior Devices Use: None PT Evaluation-Current Subjective Patient is very agreeable to participate with PT. Pain Numeric Pain Scale: 0-No Pain Location: No Pain Reported Objective Patient Orientation: Normal For Age ROM/Strength ROM Lower Extremities bilateral LE WFL Strength Lower Extremities 5/5 grossly bilateral LE all planes Integumentary/Posture Bowel Incontinence: No Bladder Incontinence: No Posture WFL Neuromuscular (Tone, Coordination, Reflexes) grossly intact Sensory Vision: Wears Glasses Hearing: Functional Transfers Lying to Sitting/Side of Bed(Q: 6 Sit to Stand (QC): 6 Chair/Vem-fx-Yuqnt Xfer(QC): 6 Toilet Transfer (QC): 6 Gait Mode of Locomotion: Walk Anticipated Mode of Locomotion: Walk Walk 10 feet (QC): 6 Walk 50 ft with 2 Turns(QC): 6 Walk 150 ft (QC): 6 Distance: 500' Gait Assistive Device: FWW Comments/Gait Description safe and functional with no deviation. Balance Sitting Static: Normal Sitting Dynamic: Normal Standing Static: Normal Standing Dynamic: Normal Assessment/Needs 77 y.o. female, is currently at [facility] with all gross motor skills and does not require skilled PT intervention at this time. Patient instructed to ambulate PRN in hallway with family or staff. Rehab Potential: Good PT Plan Treatment/Plan Treatment Plan: Discontinue PT, goals met Treatment Duration: May 24, 2022 Frequency: 1 time per week Estimated Hrs Per Day: .25 hour per day Patient and/or Family Agrees t: Yes Time/GCodes Time In: 900 Time Out: 910 Total Billed Treatment Time: 10 Total Billed Treatment 1 visit EVLowC 10 min TIMI SOSA PT May 24, 2022 09:40
[2022-05-24] MEDS ORDERED: OXYC5TAB PO (10:50)
[2022-05-24 11:09] VITALS: BP 153/70
[2022-05-24 11:55] VITALS: BP 153/70
--- NOTE | 2022-05-24 15:26 | Discharge Summary ---
Discharge Summary Hospital Course Problems/Dx: (1) Fall Status: Acute Qualifiers: Qualified Codes: W19.XXXA - Unspecified fall, initial encounter (2) Closed fracture of transverse process of lumbar vertebra Status: Acute Qualifiers: Qualified Codes: S32.009A - Unspecified fracture of unspecified lumbar vertebra, initial encounter for closed fracture Final Diagnosis: Fall, fracture transverse process lumbar spine Hospital Course Date of Admission: May 24, 2022 at 02:45 Admission Diagnosis : Fall with closed fracture of transverse process of lumbar spine Family Physician/Provider: Sharon Robles MD Date of Discharge: 05/24/22 Discharge Diagnosis: Fall with closed fracture of transverse process of lumbar spine Hospital Course: Yvonne Aguayo is a 77 year old female who presented after a fall and was admitted for pain control after being found to have closed fractures of the transverse processes of several lumbar vertebra. She was in her bathroom and was bending over when she lost her balance and fell to the floor. She had no syncope or loss of consciousness. Her pain was well controlled. She was able to ambulate the halls with physical therapy. She was given a small prescription for oxycodone as needed for pain. She was discharged home in stable condition. She should follow up with Dr. Robles in a week or two. Labs and Pending Lab Test: Home Meds Active Oxycodone HCl 5 Mg Tablet 2.5-5 Mg PO Q4H PRN 5 Days TAKE 2.5 MG FOR MODERATE PAIN, 5 MG FOR SEVERE PAIN Reported Duloxetine HCl 20 Mg Capsule.dr 20 Mg PO BID Multivitamin 1 Each Tablet 1 Each PO DAILY Aspirin 81 Mg Tab.chew 81 Mg PO DAILY Vitamin B Complex 1 Each Capsule 1 Each PO DAILY Calcium + D3 ER Tablet (Calcium Carb & Citrate/Vit D3) 1 Each Tablet.er 1 Each PO DAILY Fish Oil 1,000 mg Capsule ([place] 3 Polyunsat Fatty Acids) 1,000 Mg Cap 1,000 Mg PO DAILY Jnsyhaj-Tllqu-JGC Complex Cplt (Gluc/Juan-MSM#1/Vit C/Hari/Bor) 1 Each Tablet 1 Each PO DAILY Cetirizine HCl 10 Mg Tablet 10 Mg PO DAILY Atorvastatin Calcium 10 Mg Tablet 10 Mg PO HS Levothyroxine Sodium 88 Mcg Tablet 88 Mcg PO DAILY Assessment/Pt Instructions See instructions Discharge Instructions Discharge Diet: No Restrictions Activity as Tolerated: Yes Discharge Physical Examination General Appearance: Alert, Oriented X3, Cooperative, No Acute Distress HEENT: Atraumatic, EOMI, Mucous Memb Moist/[place] Respiratory: Clear to Auscultation, Normal Air Movement Cardiovascular: Regular Rate, No Murmurs Abdominal: Normal Bowel Sounds, Soft, No Tenderness Extremities: No Edema, No Tenderness/Swelling Skin: No Rashes, No Significant Lesion Neuro: Normal Speech Psych/Mental Status: Mental Status NL, Mood NL Allergies: Coded Allergies: simvastatin (Verified Allergy, Severe, WEAKNESS, 05/15/20) amoxicillin (Verified Allergy, Unknown, 05/15/20) clavulanic acid (Verified Allergy, Unknown, 05/15/20) estrogens, conjugated (Verified Allergy, Unknown, 01/29/17) medroxyprogesterone acetate (Verified Allergy, Unknown, 01/29/17) Copy Copies To 1: SHARON ROBLES MD Discharge Summary Date of Admission May 24, 2022 at 02:45 Date of Discharge May 24, 2022 at 11:55 Discharge Date: May 24, 2022 Discharge Time: 11:55 Admission Diagnosis Fall with closed fracture of transverse process of lumbar spine Discharge Diagnosis (1) Fall Status: Acute Qualifiers: Qualified Codes: W19.XXXA - Unspecified fall, initial encounter (2) Closed fracture of transverse process of lumbar vertebra Status: Acute Qualifiers: Qualified Codes: S32.009A - Unspecified fracture of unspecified lumbar vertebra, initial encounter for closed fracture FINN REED MD May 24, 2022 15:26
[2022-05-24] MEDS ORDERED: AtorvaSTATin TABLET 10 MG TABLET PO SCH (21:00)
[2022-05-25] MEDS ORDERED: LEVOTHYROXINE 88 MCG (LEVOTHORID) TAB PO SCH (06:30)
== END 2022-05-24 10:48 | disposition home or self-care (01) ==
LOC: EDUNIT# 23:24 → ER 23:25 → 4TH 23:26 → UNDOADMOB 05-24 02:45 → 4TH 05-24 02:45 → UNDODISOB 05-24 11:55
PROVIDERS: ADMIT Internal Medicine; ATTEND Internal Medicine
DX: S32.009A Unspecified fracture of unspecified lumbar vertebra, initial encounter for closed fracture (principal); W19.XXXA Unspecified fall, initial encounter; Z79.82 Long term (current) use of aspirin
CPT/HCPCS: 70450; 72125; 72131; 73502; 96374; 96375; 97161; 99283; G0378

== ENCOUNTER 2022-08-05 14:49 | Emergency (ER) | payer MEDICARE ==
[~2022-08-05] VITALS: Ht 172.7 cm; Wt 80.3 kg
[~2022-08-05 14:49] MED LIST changes: +DULO20CA19 PO; +OXYC5TAB PO
--- NOTE | 2022-08-05 15:14 | ED Upper Extremity ---
General Chief Complaint: Upper Extremity Stated Complaint: LT SHOULDER PAIN Nursing Triage Note: PT AMB TO ED BY POV WITH C/O L SHOULDER PAIN BEGINNING. DENIES INJURY. REPORTS SHE WAS SITTING IN A CHAIR WHEN PAIN BEGAN, PAIN IMPROVED OVERNIGHT, PAIN RETURNED APPROX 30 MIN FOOT ORTHOPEDIST WHILE PT WAS DOING LIGHT SHOULDER EXERCISES. PT ABLE TO MOVE ARM, BUT RESTRICTED BY PAIN. PAIN CONSTANT, WORSE WITH MOVEMENT. DENIES CP, SOB, OR ANY OTHER SX AT THIS TIME. Source: patient Exam Limitations: no limitations History of Present Illness Date Seen by Provider: Aug 05, 2022 Time Seen by Provider: 14:52 Initial Comments 77-year-old female with past medical history most notable for hypothyroidism as well as previous rotator cuff surgery bilaterally coming in due to left shoulder pain. Started acutely last night out of nowhere, was atraumatic. Was throbbing, kept her up part of the night, then she was able to fall asleep. Worse with movement, better with rest. Also took Tylenol which did help. Pain does not radiate anywhere, and is otherwise denying any chest pain, shortness of breath, fever, abdominal pain, nausea, vomiting, diarrhea, weakness, numbness, or any other concerns. Allergies and Home Medications Allergies Coded Allergies: simvastatin (Verified Allergy, Severe, WEAKNESS, 05/15/20) amoxicillin (Verified Allergy, Unknown, 05/15/20) clavulanic acid (Verified Allergy, Unknown, 05/15/20) estrogens, conjugated (Verified Allergy, Unknown, 01/29/17) medroxyprogesterone acetate (Verified Allergy, Unknown, 01/29/17) Patient Home Medication List Home Medication List Reviewed: Yes Aspirin (Aspirin) 81 Mg Tab.chew, 81 MG PO DAILY, (Reported) Entered as Reported by: TONYA MERCEDES on 05/15/20 1343 Atorvastatin Calcium (Atorvastatin Calcium) 10 Mg Tablet, 10 MG PO HS, (Reported) Entered as Reported by: BRENDON GUTIERREZ on 07/20/18 1325 Calcium Carb & Citrate/Vit D3 (Calcium + D3 ER Tablet) 1 Each Tablet.er, 1 EACH PO DAILY, (Reported) Entered as Reported by: TONYA MERCEDES on 05/15/20 1343 Cetirizine HCl (Cetirizine HCl) 10 Mg Tablet, 10 MG PO DAILY, (Reported) Entered as Reported by: TONYA MERCEDES on 05/15/20 1343 Duloxetine HCl (Duloxetine HCl) 20 Mg Capsule.dr, 20 MG PO BID, (Reported) Entered as Reported by: Pauly Cannon on 05/24/22 0436 Gluc/Juan-MSM#1/Vit C/Hari/Bor (Dktxamh-Fejqi-KMC Complex Cplt) 1 Each Tablet, 1 EACH PO DAILY, (Reported) Entered as Reported by: TONYA MERCEDES on 05/15/20 1343 Levothyroxine Sodium (Levothyroxine Sodium) 88 Mcg Tablet, 88 MCG PO DAILY, (Reported) Entered as Reported by: STEPHANIE CARLOS on 06/06/172015 Multivitamin (Multivitamin) 1 Each Tablet, 1 EACH PO DAILY, (Reported) Entered as Reported by: TONYA MERCEDES on 05/15/20 1343 [place] 3 Polyunsat Fatty Acids (Fish Oil 1,000 mg Capsule) 1,000 Mg Cap, 1,000 MG PO DAILY, (Reported) Entered as Reported by: TONYA MERCEDES on 05/15/20 1343 Oxycodone HCl (Oxycodone HCl) 5 Mg Tablet, 2.5-5 MG PO Q4H PRN for PAIN MODERATE TO SEVERE Prescribed by: FINN REED on 05/24/22 1050 Vitamin B Complex (Vitamin B Complex) 1 Each Capsule, 1 EACH PO DAILY, (Reported) Entered as Reported by: TONYA MERCEDES on 05/15/20 1343 Review of Systems Constitutional: No fever EENTM: no symptoms reported Respiratory: no symptoms reported Cardiovascular: no symptoms reported Gastrointestinal: no symptoms reported Genitourinary: no symptoms reported Musculoskeletal: see HPI Skin: no symptoms reported Psychiatric/Neurological: No Symptoms Reported All Other Systems Reviewed Negative Unless Noted: Yes Past Qqwzehi-Usirie-Dgrpdt Hx Patient Social History Tobacco Use?: No Use of E-Cig and/or Vaping dev: No Substance use?: No Alcohol Use?: No Pt feels they are or have been: No Immunizations Up To Date Influenza Vaccine Up-to-Date: Yes; Up-to-Date First/Initial COVID19 Vaccinat: 2020 Second COVID19 Vaccination Nikita: 2020 Third COVID19 Vaccination Date: 2021 COVID19 Vaccine [place]: MODERNA Seasonal Allergies Seasonal Allergies: Yes Past Medical History Surgery/Hospitalization HX: bilateral rotator cuff Surgeries: Yes (RUPTURED ECTOPIC , CYST REMOVED IN BREAST, BILAT SHOULD) Breast Respiratory: No Cardiac: Yes High Cholesterol Neurological: Yes (hx of vertigo) Vertigo 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 Sexually Transmitted Disease: No HIV/AIDS: No Genitourinary: No Gastrointestinal: Yes Chronic Constipation Musculoskeletal: No Endocrine: Yes Hypothyroidsim HEENT: No (GLASSES) Loss of Vision: Denies Hearing Impairment: Denies Cancer: No Psychosocial: Yes Anxiety, Depression Integumentary: Yes Psoriasis Blood Disorders: No Adverse Reaction/Blood Tranf: No (N/A) Physical Exam Vital Signs Vital Signs - First Documented 08/05/22 14:56 Temp 36.8 Pulse 77 Resp 16 B/P (MAP) 149/90 (109) Pulse Ox 97 O2 Delivery Room Air Capillary Refill : Less Than 3 Seconds Height, Weight, BMI Height: 5'8.00" Weight: 169lbs. 0.0oz. [id number]; 26.00 BMI Method:Stated General Appearance: WD/WN, no apparent distress HEENT: PERRL/EOMI, normal ENT inspection, pharynx normal Neck: non-tender, full range of motion, supple, normal inspection Cardiovascular: regular rate, rhythm, no edema, no murmur Respiratory: chest non-tender, lungs clear, normal breath sounds, no respiratory distress, no accessory muscle use Gastrointestinal: normal bowel sounds, non tender, soft; No distended, No g uarding, No rebound Back: normal inspection, no CVA tenderness Shoulder: normal inspection, non-tender, pain (No pain with palpation, but pain with active range of motion, forward elevates to roughly 45 degrees before she has to stop because of pain. Passive range of motion is equal bilaterally with less pain. Negative Spurling) Elbow/Forearm: normal inspection, non-tender, no evidence of injury, normal ROM Wrist: Yes normal inspection, Yes no evidence of injury, Yes normal ROM Hand: normal inspection, no evidence of injury, normal ROM Neurologic/Tendon: normal sensation, normal motor functions Neurologic/Psychiatric: no motor/sensory deficits, alert, normal mood/affect Skin: normal color, warm/dry Lymphatic: no adenopathy Progress/Results/Core Measures Results/Orders My Orders Orders - MIL CHURCH MD Shoulder, Left, 3 Views (08/05/22 15:11) Acetaminophen Tablet (Tylenol Tablet) (08/05/22 15:15) Medications Given in ED Current Medications Medications Dose Ordered Sig/Emre Route Start Time Stop Time Status Last Admin Dose Admin Acetaminophen 1,000 mg ONCE ONCE PO 08/05/22 15:15 08/05/22 15:16 DC 08/05/22 15:16 1,000 MG Vital Signs/I&O 08/05/22 14:56 Temp 36.8 Pulse 77 Resp 16 B/P (MAP) 149/90 (109) Pulse Ox 97 O2 Delivery Room Air Blood Pressure Mean: 109 Progress Progress Note : Progress Note 77-year-old female with above history coming in due to left shoulder pain. ABCs were intact and vitals were stable on presentation. Physical exam with left shoulder pain aggravated with movement. No weakness, or numbness. X-ray with no fracture or dislocation. Could be due to rotator cuff versus arthritis. I believe she stable for discharge with outpatient follow-up with orthopedics. She was sent home with strict return precautions Departure Impression Primary Impression: Left shoulder pain Qualified Codes: M25.512 - Pain in left shoulder Disposition: HOME, SELF-CARE Condition: Stable Departure-Patient Inst. Decision time for Depature: 16:00 Referrals: SHARON BOLTON MD (PCP/Family) Primary Care Physician TAMARA YARBROUGH MD Patient Instructions: Shoulder Pain ED Add. Discharge Instructions: Fortunately nothing is broken in your shoulder. You do have arthritis which certainly can be adding to the pain. You do have pain when testing your rotator cuff, however your rotator cuff seems strong. I would follow-up with the surgeon that did your surgeries or you can follow-up with Dr. Yarbrough here in [facility]. , Take Tylenol 1000 mg every 6 hours as needed for pain. Medicine was sent to your pharmacy that you can also apply to your shoulder for pain. Scripts Diclofenac Sodium (Diclofenac Sodium) 3 % Gel..gram. 2 GM TP QID for 30 Days, #100 GM Prov: MIL CHURCH MD 08/05/22 MIL CHURCH MD Aug 05, 2022 15:14
[2022-08-05] MEDS ORDERED: ACETAMINOPHEN 500 MG TAB (TYLENOL) PO ONE (15:15)
[2022-08-05] MEDS ORDERED: DICL100G32 TP (15:46)
[2022-08-05 15:51] VITALS: BP 136/83
--- NOTE | 2022-08-05 16:18 | Diagnostic Imaging Report ---
SHOULDER, LEFT, 3 VIEWS INDICATION: Left shoulder pain COMPARISON: None available. TECHNIQUE: 3 views of the left shoulder FINDINGS: Moderate to severe degenerative arthritis of glenohumeral joint is characterized by joint space narrowing and marginal osteophyte formation. Mild degenerative arthritis of the AC joints noted. There is no acute fracture. Alignment of the glenohumeral joint is normal. No mineralized joint bodies. IMPRESSION: 1. No acute osseous abnormality. 2. Moderate to severe degenerative arthritis of the glenohumeral joint. Dictated by: Dictated on workstation # [id number]
== END 2022-08-05 15:51 | disposition home or self-care (01) ==
LOC: EDUNIT# 14:49 → ER 14:52
DX: M25.512 Pain in left shoulder (principal); Z98.890 Other specified postprocedural states
CPT/HCPCS: 73030

== ENCOUNTER 2022-12-07 20:19 | Emergency (ER) | payer MEDICARE ==
[~2022-12-07 20:19] MED LIST changes: +DICL100G32 TP
[2022-12-07] MEDS ORDERED: NS IV 500 ML 500 ML IV ONE (20:45)
[2022-12-07] MEDS ORDERED: HYOSCYAMINE 0.125 MG (LEVSIN) TAB PO ONE (20:45)
[2022-12-07 20:55] LABS: BASOPHILS # (AUTO) 0.1 10^3/uL (0.0-0.1); BASOPHILS % (AUTO) 1 % (0-10); EOSINOPHILS # (AUTO) 0.2 10^3/uL (0.0-0.3); EOSINOPHILS % (AUTO) 4 % (0-10); HEMATOCRIT 38 % (35-52); HEMOGLOBIN 12.5 g/dL (11.5-16.0); LYMPHOCYTES % (AUTO) 33 % (12-44); MEAN CORPUSCULAR HEMOGLOBIN 31 pg (25-34); MEAN CORPUSCULAR HGB CONC 33 g/dL (32-36); MEAN CORPUSCULAR VOLUME 93 fL (80-99); MEAN PLATELET VOLUME 10.7 fL (9.0-12.2); MONOCYTES # (AUTO) 0.5 10^3/uL (0.0-1.0); MONOCYTES % (AUTO) 8 % (0-12); NEUTROPHILS # (AUTO) 3.3 10^3/uL (1.8-7.8); NEUTROPHILS % (AUTO) 54 % (42-75); PLATELET COUNT 246 10^3/uL (130-400)
[2022-12-07 21:04] LABS: ALANINE AMINOTRANSFERASE 23 U/L (0-55); ALBUMIN 3.9 GM/DL (3.2-4.5); ALKALINE PHOSPHATASE 77 U/L (40-136); BILIRUBIN,TOTAL 0.7 MG/DL (0.1-1.0); BUN/CREATININE RATIO 22; CALCIUM 9.4 MG/DL (8.5-10.1); CARBON DIOXIDE 23 MMOL/L (21-32); CHLORIDE 106 MMOL/L (98-107); CREATININE SERUM 1.19 MG/DL (0.60-1.30); GFR ESTIMATED 47; GLUCOSE 166 MG/DL (70-105); POTASSIUM 3.5 MMOL/L (3.6-5.0); SODIUM 142 MMOL/L (135-145); TOTAL PROTEIN 6.3 GM/DL (6.4-8.2)
--- NOTE | 2022-12-07 21:19 | ED GI ---
General Chief Complaint: Abdominal/GI Problems Stated Complaint: ABD PAIN - DIARRHEA Nursing Triage Note: PT AMB TO RM 3 WITH CC OF ABD PAIN AND DIARRHEA X 1 HOUR. PT DENIES BLOOD IN STOOL. Source of Information: Patient Exam Limitations: No Limitations History of Present Illness Date Seen by Provider: Dec 07, 2022 Time Seen by Provider: 20:38 Initial Comments Here with several episodes of diarrhea with some abdominal cramping and associ ated sweating during events over the last hour. Family brought her in with concerns related to cardiac event due to the sweating and diarrhea. Patient denies chest pain or breathing problems. Both and daughter report that she was quite weak appearing during the episodes but she is improving now. No fever or chills. She was in [place] yesterday but otherwise knows no sick contacts. No other family member sick currently. Denies blood in her stool. She has had some nausea. Timing/Duration: 1 Hour Severity/Quality: Moderate, Cramping Location: Generalized Abdomen Radiation: No Radiation Activities at Onset: None Modifying Factors: Improves With Defecating Associated Symptoms: Diaphoresis, Fever/Chills, Nausea/Vomiting; No Shortness of Air; Weakness Allergies and Home Medications Allergies Coded Allergies: simvastatin (Verified Allergy, Severe, WEAKNESS, 05/15/20) amoxicillin (Verified Allergy, Unknown, 05/15/20) clavulanic acid (Verified Allergy, Unknown, 05/15/20) estrogens, conjugated (Verified Allergy, Unknown, 01/29/17) medroxyprogesterone acetate (Verified Allergy, Unknown, 01/29/17) Patient Home Medication List Home Medication List Reviewed: Yes Aspirin (Aspirin) 81 Mg Tab.chew, 81 MG PO DAILY, (Reported) Entered as Reported by: TONYA MERCEDES on 05/15/20 1343 Atorvastatin Calcium (Atorvastatin Calcium) 10 Mg Tablet, 10 MG PO HS, (Reported) Entered as Reported by: BRENDON GUTIERREZ on 07/20/18 1325 Calcium Carb & Citrate/Vit D3 (Calcium + D3 ER Tablet) 1 Each Tablet.er, 1 EACH PO DAILY, (Reported) Entered as Reported by: TONYA MERCEDES on 05/15/20 1343 Cetirizine HCl (Cetirizine HCl) 10 Mg Tablet, 10 MG PO DAILY, (Reported) Entered as Reported by: TONYA MERCEDES on 05/15/20 1343 Diclofenac Sodium (Diclofenac Sodium) 3 % Gel..gram., 2 GM TP QID Prescribed by: MIL CHURCH on 08/05/22 1546 Duloxetine HCl (Duloxetine HCl) 20 Mg Capsule.dr, 20 MG PO BID, (Reported) Entered as Reported by: Pauly Cannon on 05/24/22 0436 Gluc/Juan-MSM#1/Vit C/Hari/Bor (Zvrxmuh-Ibroo-IUP Complex Cplt) 1 Each Tablet, 1 EACH PO DAILY, (Reported) Entered as Reported by: TONYA MERCEDES on 05/15/20 134 Levothyroxine Sodium (Levothyroxine Sodium) 88 Mcg Tablet, 88 MCG PO DAILY, (Reported) Entered as Reported by: STEPHANIE CARLOS on 06/06/172015 Multivitamin (Multivitamin) 1 Each Tablet, 1 EACH PO DAILY, (Reported) Entered as Reported by: TONYA MERCEDES on 05/15/20 134 [place] 3 Polyunsat Fatty Acids (Fish Oil 1,000 mg Capsule) 1,000 Mg Cap, 1,000 MG PO DAILY, (Reported) Entered as Reported by: TONYA MERCEDES on 05/15/20 1343 Ondansetron (Ondansetron Odt) 4 Mg Tab.rapdis, 4 MG PO Q6H PRN for NAUSEA/VOMITING Prescribed by: POORNIMA SARABIA on 12/07/222136 Oxycodone HCl (Oxycodone HCl) 5 Mg Tablet, 2.5-5 MG PO Q4H PRN for PAIN MODERATE TO SEVERE Prescribed by: FINN REED on 05/24/22 1050 Vitamin B Complex (Vitamin B Complex) 1 Each Capsule, 1 EACH PO DAILY, (Reported) Entered as Reported by: TONYA MERCEDES on 05/15/20 1343 Review of Systems Review of Systems Constitutional: chills; No fever; weakness EENTM: No Nose Congestion, No Throat Pain Respiratory: Denies Cough, Denies Shortness of Air Cardiovascular: Denies Chest Pain, Denies Edema Gastrointestinal: Diarrhea, Nausea; Denies Rectal Bleeding Genitourinary: No Symptoms Reported Musculoskeletal: no symptoms reported Skin: no symptoms reported Past Czvdbes-Rsmzge-Rqvvex Hx Patient Social History Tobacco Use?: No Substance use?: No Alcohol Use?: No Pt feels they are or have been: No Immunizations Up To Date First/Initial COVID19 Vaccinat: 2020 Second COVID19 Vaccination Nikita: 2020 Third COVID19 Vaccination Date: 2021 Seasonal Allergies Seasonal Allergies: Yes Past Medical History Surgery/Hospitalization HX: bilateral rotator cuff Surgeries: Yes (RUPTURED ECTOPIC , CYST REMOVED IN BREAST, BILAT SHOULD) Breast Respiratory: No Cardiac: Yes High Cholesterol Neurological: Yes (hx of vertigo) Vertigo 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 Sexually Transmitted Disease: No HIV/AIDS: No Genitourinary: No Gastrointestinal: Yes Chronic Constipation Musculoskeletal: No Endocrine: Yes Hypothyroidsim HEENT: No (GLASSES) Loss of Vision: Denies Hearing Impairment: Denies Cancer: No Psychosocial: Yes Anxiety, Depression Integumentary: Yes Psoriasis Blood Disorders: No Adverse Reaction/Blood Tranf: No (N/A) Family Medical History Reviewed Nursing Family Hx Physical Exam Vital Signs Vital Signs - First Documented 12/07/22 20:23 Temp 36.7 Pulse 97 Resp 20 B/P (MAP) 139/73 (95) Pulse Ox 97 O2 Delivery Room Air Capillary Refill : Less Than 3 Seconds Height/Weight/BMI Height: 5'8.00" Weight: 169lbs. 0.0oz. 76.936747il; 26.00 BMI Method:Stated General Appearance: WD/WN, no apparent distress HEENT: PERRL/EOMI, pharynx normal Neck: full range of motion, supple Respiratory: lungs clear, normal breath sounds Cardiovascular: regular rate, rhythm, no murmur Gastrointestinal: non tender, soft, abnormal bowel sounds (Active); No tenderness Extremities: non-tender, normal inspection Back: normal inspection, no CVA tenderness, no vertebral tenderness Neurologic/Psychiatric: alert, oriented x 3 Progress/Results/Core Measures Results/Orders Lab Results Laboratory Tests Test 12/07/22 20:38 12/07/22 21:06 Range/Units White Blood Count 6.0 4.3-11.0 10^3/uL Red Blood Count 4.07 3.80-5.11 10^6/uL Hemoglobin 12.5 11.5-16.0 g/dL Hematocrit 38 35-52 % Mean Corpuscular Volume 93 80-99 fL Mean Corpuscular Hemoglobin 31 25-34 pg Mean Corpuscular Hemoglobin Concent 33 32-36 g/dL Red Cell Distribution Width 13.4 10.0-14.5 % Platelet Count 246 130-400 10^3/uL Mean Platelet Volume 10.7 9.0-12.2 fL Immature Granulocyte % (Auto) 0 % Neutrophils (%) (Auto) 54 42-75 % Lymphocytes (%) (Auto) 33 12-44 % Monocytes (%) (Auto) 8 0-12 % Eosinophils (%) (Auto) 4 0-10 % Basophils (%) (Auto) 1 0-10 % Neutrophils # (Auto) 3.3 1.8-7.8 10^3/uL Lymphocytes # (Auto) 2.0 1.0-4.0 10^3/uL Monocytes # (Auto) 0.5 0.0-1.0 10^3/uL Eosinophils # (Auto) 0.2 0.0-0.3 10^3/uL Basophils # (Auto) 0.1 0.0-0.1 10^3/uL Immature Granulocyte # (Auto) 0.0 0.0-0.1 10^3/uL Sodium Level 142 135-145 MMOL/L Potassium Level 3.5 L 3.6-5.0 MMOL/L Chloride Level 106 98-107 MMOL/L Carbon Dioxide Level 23 21-32 MMOL/L Anion Gap 13 5-14 MMOL/L Blood Urea Nitrogen 26 H 7-18 MG/DL Creatinine 1.19 0.60-1.30 MG/DL Estimat Glomerular Filtration Rate 47 BUN/Creatinine Ratio 22 Glucose Level 166 H 70-105 MG/DL Calcium Level 9.4 8.5-10.1 MG/DL Corrected Calcium 9.5 8.5-10.1 MG/DL Total Bilirubin 0.7 0.1-1.0 MG/DL Aspartate Amino Transf (AST/SGOT) 21 5-34 U/L Alanine Aminotransferase (ALT/SGPT) 23 0-55 U/L Alkaline Phosphatase 77 40-136 U/L Troponin I < 0.028 <0.028 NG/ML C-Reactive Protein High Sensitivity 0.23 0.00-0.50 MG/DL Total Protein 6.3 L 6.4-8.2 GM/DL Albumin 3.9 3.2-4.5 GM/DL Influenza Type A (RT-PCR) Not Detected Not Detecte Influenza Type B (RT-PCR) Not Detected Not Detecte SARS-CoV-2 RNA (RT-PCR) Not Detected Not Detecte My Orders Orders - POORNIMA SARABIA MD Hyoscyamine Sl Tablet (Levsin Sl Tablet) (12/07/22 20:45) Cbc With Automated Diff (12/07/22 20:45) Comprehensive Metabolic Panel (12/07/22 20:45) Hs C Reactive Protein (12/07/22 20:45) Ed Iv/Invasive Line Start (12/07/22 20:45) Ns Iv 500 Ml (Sodium Chloride 0.9%) (12/07/22 20:45) Influenza A And B By Pcr (12/07/22 20:45) Covid 19 Inhouse Test (12/07/22 20:45) Ekg Tracing (12/07/22 20:45) Troponin I [place]al[place] (12/07/22 20:45) Medications Given in ED Current Medications Medications Dose Ordered Sig/Emre Route Start Time Stop Time Status Last Admin Dose Admin Hyoscyamine Sulfate 0.125 mg ONCE ONCE PO 12/07/22 20:45 12/07/22 20:47 DC 12/07/22 21:04 0.125 MG Sodium Chloride 500 ml @ 0 mls/hr Q0M ONCE IV 12/07/22 20:45 12/07/22 20:47 DC 12/07/22 21:06 500 MLS/HR Vital Signs/I&O 12/07/22 20:23 Temp 36.7 Pulse 97 Resp 20 B/P (MAP) 139/73 (95) Pulse Ox 97 O2 Delivery Room Air Blood Pressure Mean: 95 Progress Progress Note : Progress Note Seen and evaluated. Physical exam is reassuring. IV, labs including CBC, CMP and CRP ordered. We will check troponin and EKG due to concerns for cardiac although this is very low likelihood. We will check COVID and influenza as there is some association with with these recently. Normal saline 500 mL bolus and Levsin 0.125 mg p.o. ordered. Monitor patient. Differential includes dehydration, electrolyte abnormality, viral illness and less likely but still possible cardiac etiology. 2118: CBC is normal. CMP shows normal electrolytes with glucose 166 and serum creatinine 1.19 with normal LFTs. Troponin is negative. CRP is low at 0.23 and negative. Pending COVID and influenza. Monitor patient. 2134: Overall feeling better. We are just pending COVID and flu. Once that is back and will discharge the patient home. They are comfortable. We did discuss OTC meds, outpatient instructions, follow-up instructions and return precautions. I will send a copy of the note to Dr. Robles. Anticipate discharge. 2141: COVID and influenza negative. Discharged home with return precautions. Patient and family verbalized understanding instructions and agreement with plan. Discussed with and daughter. Initial ECG Impression Date: Dec 07, 2022 Initial ECG Impression Time: 20:57 Initial ECG Rate: 64 Initial ECG Rhythm: Normal Sinus Comment Sinus rhythm with normal axis. Left atrial abnormality noted. No evidence of ST elevation [place]. Interpreted by me. Departure Impression Primary Impression: Nausea vomiting and diarrhea Disposition: HOME, SELF-CARE Condition: Stable Departure-Patient Inst. Decision time for Depature: 21:36 Referrals: SHARON ROBLES MD (PCP/Family) Primary Care Physician Patient Instructions: Diarrhea, Adult ED, Nausea and Vomiting, Adult Add. Discharge Instructions: All discharge instructions reviewed with patient and/or family. Voiced understanding. Drink plenty of fluids by taking small sips frequently. Clear or light diet for the next 24 hours and then advance as tolerated. Take medications as directed. Follow-up with your doctor in a few days for recheck. Return for worse pain, weakness, persistent vomiting, blood in your vomit or stool, chest pain, kari thing problems or other concerns as needed. You may take Tylenol/acetaminophen 1000 mg every 6-8 hours as needed for pain. Scripts Ondansetron (Ondansetron Odt) 4 Mg Tab.rapdis 4 MG PO Q6H PRN for NAUSEA/VOMITING, #8 TAB 0 Refills Prov: POORNIMA SARABIA MD 12/07/22 Copy Copies To 1: SHRAON ROBLES MD, TIMOTHY D MD Dec 07, 2022 21:19
[2022-12-07] MEDS ORDERED: ONDA4TAB11 PO (21:37)
[2022-12-07 21:52] VITALS: BP 138/78
== END 2022-12-07 21:52 | disposition home or self-care (01) ==
LOC: EDUNIT# 20:19 → ER 20:20
DX: R11.2 Nausea with vomiting, unspecified (principal); R19.7 Diarrhea, unspecified; Z20.822 Contact with and (suspected) exposure to COVID-19
CPT/HCPCS: 36415; 80053; 84484; 85025; 86141; 87636; 93005

== ENCOUNTER → 2023-05-08 | Outpatient (CLI) | payer MEDICARE ==
[~2023-05-08] MED LIST changes: +ONDA4TAB11 PO
--- NOTE | 2023-05-08 15:45 | Diagnostic Imaging Report ---
INDICATION: Routine screening. COMPARISON is made with prior mammograms and 05/03/2021. 2-D and 3-D bilateral screening mammography was performed with CAD. Both breasts are heterogeneously dense, limiting the sensitivity of mammography. The parenchymal pattern is stable. Benign calcifications are again noted bilaterally. No mass or malignant-appearing microcalcifications are seen. Axillae are unremarkable. IMPRESSION: BI-RADS Category 2 No mammographic features suspicious for malignancy are identified. ACR BI-RADS Category 2: Benign findings. Result letter will be mailed to the patient. Note: At least 10% of breast cancer is not imaged by mammography. Dictated by: Dictated on workstation # [id number]
== END ==
LOC: RAD 15:00
DX: Z12.31 Encounter for screening mammogram for malignant neoplasm of breast (principal)
CPT/HCPCS: 77063; 77067